=== PATIENT | male | born 1980 | race Caucasian/White ===

== ENCOUNTER 2017-12-15 13:35 | Emergency (ER) | payer OTHER ==
[2017-12-15] MEDS ORDERED: ONDANSETRON 4 MG/2 ML VIAL ONE (14:43)
[2017-12-15] MEDS ORDERED: KETOROLAC 30 MG/ML INJ ONE (14:43)
[2017-12-15 14:53] LABS: Absolute Lymphocytes (CBC) 2.1 K/uL (0.7-4.9); Absolute Monocytes 0.9 K/uL (0.1-1.3); Absolute Neutrophil 7.7 K/uL (1.8-8.0); Eosinophils % 5.7 % (0-4.4); Hematocrit 46.5 % (39.6-49.0); Lymphocytes % 18.2 % (15.3-44.8); MCH 31.9 pg (27.0-35.0); MCV 91.6 fL (80-100); MPV 8.5 fL (7.6-11.3); Monocytes % 8.2 % (3.3-12.3); RBC Red Blood Cell Count 5.07 M/uL (4.33-5.43)
[2017-12-15 14:58] LABS: Urine Blood 3+ (NEG); Urine Glucose NEGATIVE (NEG); Urine Protein 1+ (NEG); Urine Specific Gravity >1.030 (1.005-1.030); Urine pH 5.5 (5.0-7.0)
--- NOTE | 2017-12-15 15:04 | RAD REPORT ---
EXAM DESCRIPTION: CT - Stone Protocol - 12/15/2017 2:47 pm CLINICAL HISTORY: Abdominal pain, left flank pain COMPARISON: CT November 2014 TECHNIQUE: Axial 5 mm thick images were obtained without oral or IV contrast. The [id number] span s the entirety of the system partially obscuring uppermost abdomen and lung bases. All CT scans are performed using dose optimization technique as appropriate and may include automated exposure control or mA/KV adjustment according to patient size. FINDINGS: No hydronephrosis is present. There is a 4 x 1 mm calcification at the left UVJ. This part ially extends into the lumen of the contracted urinary bladder. No other obstructing or nonobstructin g calculi. In the lateral inferior left kidney a 2.4 centimeter rounded low-density exophytic mass lloyd s developed. This has an attenuation value of 18 Hounsfield units. This would strongly favor a cyst. A follow-up nonemergent renal ultrasound could be used to confirm cystic nature. No suspicious renal masses. Isodense masses and pyelonephritis are not excluded on a stone protocol CT scan. Liver shows diffuse fatty infiltration. No focal liver finding. Spleen and pancreas are unremarkable. Gallbladder is contracted. No biliary tree dilatation. No significant adrenal finding. No suspicious bowel findings. No mass or bulky lymphadenopathy. Small fat filled inguinal hernias are present. No free air, free fl uid or inflammatory stranding. No significant bony abnormality. IMPRESSION: Patient has a 4 x 1 mm calcification within the left UVJ at the bladder wall. Stone part ially extends into the lumen of the bladder. The stone does not create any hydronephrosis. No additional calculi seen. A new 2.4 cm exophytic mass lower pole left kidney is very likely a cyst. Follow-up nonemergent renal ultrasound could be performed to confirm. Fatty infiltration of the liver. Isodense masses and pyelonephritis are not excluded on stone protocol technique.
[2017-12-15 15:09] LABS: Albumin 4.2 g/dL (3.4-5.0); Bilirubin Direct 0.1 mg/dL (0-0.2); Bilirubin Total 0.5 mg/dL (0.2-1.0); Potassium 3.7 mmol/L (3.5-5.1); Protein, Total 7.9 g/dL (6.4-8.2)
[2017-12-15 15:11] LABS: Urine Bacteria <20 /HPF (NONE SEEN); Urine Culture Reflex Order NOT NEEDED; Urine Mucus 2+ /HPF (NONE SEEN); Urine RBC 20-50 /HPF (NONE SEEN)
[2017-12-15 15:12] LABS: Urine Amorphous Sediment 1+ /HPF (NONE SEEN)
[2017-12-15] MEDS ORDERED: MAGNESIUM SULFATE 1 gm IVPB 1 GM/100 ML BAG IV ONE (15:32)
[2017-12-15] MEDS ORDERED: TAMSULOSIN 0.4 MG SR CAP ONE (15:32)
[2017-12-15] MEDS ORDERED: NA CHLORIDE 0.9% 500 ML ONE (15:32)
[2017-12-15] MEDS ORDERED: HYDROCODONE/APAP 10/325 TAB ONE (16:03)
--- NOTE | 2017-12-15 16:26 | ER ---
Nurse's Notes [facility] Name: Vincenzo Bales Age: 37 yrs Sex: Male : 1980 Arrival Date: 12/15/2017 Time: 13:40 Bed 26 Private MD: Diagnosis: Calculus of ureter-Left Presentation: 12/15 14:14 Presenting complaint: Patient states: Sudden pain started around lunch in left flank. rv Pt states he has had a pain like this before when he had a kidney stone in the right kidney. Pain rated at 9/10. Transition of care: patient was not received from another setting of care. Onset of symptoms was December 15, 2017. Risk Assessment: Do you want to hurt yourself or someone else? Patient reports no desire to harm self or others. Initial Sepsis Screen: Does the patient meet any 2 criteria? No. Patient's initial sepsis screen is negative. Does the patient have a suspected source of infection? No. Patient's initial sepsis screen is negative. Care prior to arrival: None. 14:14 Method Of Arrival: Ambulatory rv 14:14 Acuity: ALE 3 rv Triage Assessment: 14:18 General: Appears uncomfortable, Behavior is calm, cooperative. Pain: Complains of pain rv in left flank Pain currently is 9 out of 10 on a pain scale. Quality of pain is described as sharp, stabbing. Neuro: Level of Consciousness is awake, alert, obeys commands, Oriented to person, place, time. Respiratory: Airway is patent Respiratory effort is even, unlabored, relaxed, Respiratory pattern is regular, symmetrical. Derm: Skin is pink, warm \T\ dry. Historical: - Allergies: 14:17 No Known Allergies; rv - Home Meds: 14:17 valsartan 160 mg oral tab 1 tab once daily for Hypertension [Active]; rv - PMHx: 14:17 Hypertension; defective aortic valve; rv 14:18 Kidney stones; rv - PSHx: 14:17 None; rv - Immunization history:: Adult Immunizations up to date. - Social history:: Smoking status: Patient/guardian denies using tobacco. - Ebola Screening: : Patient negative for fever greater than or equal to 101.5 degrees Fahrenheit, and additional compatible Ebola Virus Disease symptoms Patient denies exposure to infectious person Patient denies travel to an Ebola-affected area in the 21 days before illness onset No symptoms or risks identified at this time. Screenin:05 Abuse screen: Denies threats or abuse. Denies injuries from another. Nutritional kr2 screening: No deficits noted. Tuberculosis screening: No symptoms or risk factors identified. Fall Risk None identified. Assessment: 15:03 General: Appears in no apparent distress. uncomfortable, obese, well groomed, Behavior kr2 is calm, cooperative, appropriate for age. Pain: Complains of pain in left flank Pain radiates to left mid back Pain currently is 10 out of 10 on a pain scale. Quality of pain is described as aching, sharp, shooting, Is continuous, Alleviated by nothing. Neuro: Level of Consciousness is awake, alert, obeys commands, Oriented to person, place, time, situation. Cardiovascular: Capillary refill < 3 seconds in bilateral fingers Patient's skin is warm and dry. Respiratory: Airway is patent Respiratory effort is even, unlabored, Respiratory pattern is regular, symmetrical. GI: Abdomen is non-distended, obese, Bowel sounds present X 4 quads. : Urine is cloudy, pierre. EENT: Oral mucosa is moist. Derm: Skin is intact, is healthy with good turgor, Skin is pink, warm \T\ dry. Musculoskeletal: Circulation, motion, and sensation intact. 16:29 Reassessment: Patient appears in no apparent distress at this time. Patient and/or kr2 family updated on plan of care and expected duration. Pain level reassessed. Patient is alert, oriented x 3, equal unlabored respirations, skin warm/dry/pink. Patient states symptoms have improved. Vital Signs: 14:18 BP 128 / 80; Pulse 81; Resp 18; Temp 97.8; Pulse Ox 99% on R/A; Weight 115.67 kg; rv Height 5 ft. 8 in. (172.72 cm); Pain 9/10; 15:06 BP 127 / 81; Pulse 77; Resp 17; Pulse Ox 96% on R/A; kr2 16:29 BP 119 / 81; Pulse 84; Resp 17; Pulse Ox 97% on R/A; kr2 14:18 Body Mass Index 38.77 (115.67 kg, 172.72 cm) rv ED Course: 13:40 Patient arrived in ED. rg4 14:15 Triage completed. rv 14:18 Arm band placed on right wrist. Patient placed in an exam room. rv 14:26 Blas Razo PA is PHCP. cp 14:26 Vincenzo Patel MD is Attending Physician. cp 14:29 Hoa Neville, TAQUERIA is Primary Nurse. kr2 14:[address] vr 14:44 CT completed. Patient tolerated procedure well. Patient moved back from CT. vm2 14:47 CT Stone Protocol In Process Unspecified. EDMS 15:06 Patient has correct armband on for positive identification. Bed in low position. Call kr2 light in reach. Side rails up X 1. Pulse ox on. NIBP on. Door closed. Head of bed elevated. 16:24 Bernard Vyas MD is Referral Physician. cp 16:30 No provider procedures requiring assistance completed. IV discontinued, intact, kr2 bleeding controlled, No redness/swelling at site. Pressure dressing applied. Administered Medications: 14:43 Drug: TORadol 30 mg Route: IVP; Site: left antecubital; kr2 15:00 Follow up: Response: No adverse reaction; Pain is decreased kr2 14:43 Drug: Zofran 4 mg Route: IVP; Site: left antecubital; kr2 15:00 Follow up: Response: No adverse reaction kr2 15:40 Drug: Magnesium Sulfate 1 grams Route: IVPB; Infused Over: 1 hrs; Site: left kr2 antecubital; 16:32 Follow up: Response: No adverse reaction; IV Status: Completed infusion kr2 15:40 Drug: Flomax 0.4 mg Route: PO; kr2 16:31 Follow up: Response: No adverse reaction kr2 15:41 Drug: NS 0.9% 500 ml Route: IV; Rate: bolus; Site: left antecubital; kr2 16:31 Follow up: Response: No adverse reaction; IV Status: Completed infusion kr2 16:00 Drug: HYDROcodone-acetaminophen 10 mg-325 mg 1 tabs Route: PO; kr2 16:31 Follow up: Response: No adverse reaction; Pain is decreased kr2 Outcome: 16:25 Discharge ordered by MD. cp 16:30 Discharged to home ambulatory, with family. kr2 16:30 Condition: good 16:30 Discharge instructions given to patient, family, Instructed on discharge instructions, follow up and referral plans. Demonstrated understanding of instructions, follow-up care, Prescriptions given X 3. 16:32 Patient left the ED. kr2 Signatures: Dispatcher [employer] EDMS Monisha Bales Corey, PA PA cp Garcia, Rubi 4 Monisha Sams 2 Hoa Neville, RN RN kr2 Trung Bustillos RN RN rv
--- NOTE | 2017-12-15 16:26 | EDPHYS ---
Physician Documentation [facility] Name: Vincenzo Blaes Age: 37 yrs Sex: Male : 1980 Arrival Date: 12/15/2017 Time: 13:40 Bed 26 Private MD: ED Physician AmandaVincenzo HPI: 12/15 14:29 This 37 yrs old Male presents to ER via Ambulatory with complaints of left cp flank pain. 14:29 The patient presents with pain that is acute, with no known mechanism of injury. The cp symptoms are located in the left mid back. The pain radiates to the left belt line. Onset: The symptoms/episode began/occurred suddenly, 45 minute(s) ago. Associated signs and symptoms: Pertinent positives: nausea, diarrhea. Historical: - Allergies: 14:17 No Known Allergies; rv - Home Meds: 14:17 valsartan 160 mg oral tab 1 tab once daily for Hypertension [Active]; rv - PMHx: 14:17 Hypertension; defective aortic valve; rv 14:18 Kidney stones; rv - PSHx: 14:17 None; rv - Immunization history:: Adult Immunizations up to date. - Social history:: Smoking status: Patient/guardian denies using tobacco. - Ebola Screening: : Patient negative for fever greater than or equal to 101.5 degrees Fahrenheit, and additional compatible Ebola Virus Disease symptoms Patient denies exposure to infectious person Patient denies travel to an Ebola-affected area in the 21 days before illness onset No symptoms or risks identified at this time. ROS: 14:35 Constitutional: Negative for body aches, chills, fever, poor PO intake. cp 14:35 Eyes: Negative for injury, pain, redness, and discharge. cp 14:35 ENT: Negative for drainage from ear(s), ear pain, sore throat, difficulty swallowing, difficulty handling secretions. 14:35 Neck: Negative for pain with movement, pain at rest, stiffness, tenderness. 14:35 Cardiovascular: Negative for chest pain, edema, palpitations. 14:35 Respiratory: Negative for cough, dyspnea on exertion, shortness of breath, wheezing. 14:35 Abdomen/GI: Positive for abdominal pain, nausea, of the left lower quadrant, Negative for vomiting, diarrhea, constipation, black/tarry stool, rectal bleeding. 14:35 Back: Positive for flank pain, on the left. 14:35 : Negative for urinary symptoms, testicular pain 14:35 MS/extremity: Negative for injury or acute deformity, decreased range of motion, paresthesias, swelling, tenderness. 14:35 Skin: Negative for cellulitis, rash. 14:35 Neuro: Negative for altered mental status, dizziness, headache, numbness, weakness. 14:35 All other systems are negative. Exam: 14:40 Constitutional: The patient appears in no acute distress, alert, awake, cp non-diaphoretic, non-toxic, well developed, well nourished, uncomfortable. 14:40 Head/Face: Normocephalic, atraumatic. Eyes: Pupils equal round and reactive to light, cp extra-ocular motions intact. Lids and lashes normal. Conjunctiva and sclera are non-icteric and not injected. Cornea within normal limits. Periorbital areas with no swelling, redness, or edema. ENT: Nares patent. No nasal discharge, no septal abnormalities noted. Tympanic membranes are normal and external auditory canals are clear. Oropharynx with no redness, swelling, or masses, exudates, or evidence of obstruction, uvula midline. Mucous membranes moist. Neck: Trachea midline, no thyromegaly or masses palpated, and no cervical lymphadenopathy. Supple, full range of motion without nuchal rigidity, or vertebral point tenderness. No Meningismus. Chest/axilla: Normal chest wall appearance and motion. Nontender with no deformity. No lesions are appreciated. Cardiovascular: Regular rate and rhythm with a normal S1 and S2. No gallops, murmurs, or rubs. Normal PMI, no JVD. No pulse deficits. Respiratory: Lungs have equal breath sounds bilaterally, clear to auscultation and percussion. No rales, rhonchi or wheezes noted. No increased work of breathing, no retractions or nasal flaring. 14:40 Abdomen/GI: Inspection: abdomen appears normal, Bowel sounds: active, all quadrants, Palpation: soft, in all quadrants, moderate abdominal tenderness, in the left lower quadrant, rebound tenderness, is not appreciated, voluntary guarding, is not appreciated, involuntary guarding, is not appreciated. 14:40 Back: ROM is normal, CVA tenderness, that is moderate, is noted on the left. 14:40 Musculoskeletal/extremity: Exam is negative for bony tenderness, calf tenderness, decreased range of motion, injury. 14:40 Skin: cellulitis, is not appreciated, no rash present. 14:40 Neuro: Orientation: to person, place \T\ time. Mentation: lucid, able to follow commands, Cerebellar function: is grossly normal, Motor: moves all fours, strength is normal, Sensation: no obvious gross deficits, Gait: is steady. Vital Signs: 14:18 BP 128 / 80; Pulse 81; Resp 18; Temp 97.8; Pulse Ox 99% on R/A; Weight 115.67 kg; rv Height 5 ft. 8 in. (172.72 cm); Pain 9/10; 15:06 BP 127 / 81; Pulse 77; Resp 17; Pulse Ox 96% on R/A; kr2 16:29 BP 119 / 81; Pulse 84; Resp 17; Pulse Ox 97% on R/A; kr2 14:18 Body Mass Index 38.77 (115.67 kg, 172.72 cm) rv MDM: 14:27 Patient medically screened. cp 15:00 Differential diagnosis: sciatica, Herniated disc UTI, kidney stone, hernia. cp 16:24 Data reviewed: vital signs, nurses notes, lab test result(s), radiologic studies, CT cp scan. 16:24 Counseling: I had a detailed discussion with the patient and/or guardian regarding: the cp historical points, exam findings, and any diagnostic results supporting the discharge/admit diagnosis, lab results, radiology results, to return to the emergency department if symptoms worsen or persist or if there are any questions or concerns that arise at home. Response to treatment: the patient's symptoms have markedly improved after treatment, Pain and nausea markedly improved. Will discharge to home for continued monitoring. 12/15 14:32 Order name: Amylase, Serum cp 12/15 14:32 Order name: Basic Metabolic Panel cp 12/15 14:32 Order name: CBC with Diff; Complete Time: 15:22 cp 12/15 14:32 Order name: Creatinine for Radiology; Complete Time: 15:22 cp 12/15 14:32 Order name: Hepatic Function; Complete Time: 15:22 cp 12/15 14:32 Order name: Lipase; Complete Time: 15:22 cp 12/15 14:32 Order name: Urine Microscopic Only; Complete Time: 15:22 cp 12/15 14:32 Order name: CT Stone Protocol; Complete Time: 15:22 cp 12/15 14:32 Order name: Amylase Level; Complete Time: 15:22 EDMS 12/15 14:32 Order name: Basic Metabolic Panel; Complete Time: 15:22 EDMS 12/15 14:56 Order name: Urine Dipstick--Ancillary (enter results) ag 12/15 14:56 Order name: Urine Dipstick-Ancillary; Complete Time: 15:22 EDMS 12/15 14:32 Order name: IV Saline Lock; Complete Time: 14:47 cp 12/15 14:32 Order name: Labs collected and sent; Complete Time: 14:47 cp 12/15 14:32 Order name: Urine Dipstick-Ancillary (obtain specimen); Complete Time: 14:47 cp Administered Medications: 14:43 Drug: TORadol 30 mg Route: IVP; Site: left antecubital; kr2 15:00 Follow up: Response: No adverse reaction; Pain is decreased kr2 14:43 Drug: Zofran 4 mg Route: IVP; Site: left antecubital; kr2 15:00 Follow up: Response: No adverse reaction kr2 15:40 Drug: Magnesium Sulfate 1 grams Route: IVPB; Infused Over: 1 hrs; Site: left kr2 antecubital; 16:32 Follow up: Response: No adverse reaction; IV Status: Completed infusion kr2 15:40 Drug: Flomax 0.4 mg Route: PO; kr2 16:31 Follow up: Response: No adverse reaction kr2 15:41 Drug: NS 0.9% 500 ml Route: IV; Rate: bolus; Site: left antecubital; kr2 16:31 Follow up: Response: No adverse reaction; IV Status: Completed infusion kr2 16:00 Drug: HYDROcodone-acetaminophen 10 mg-325 mg 1 tabs Route: PO; kr2 16:31 Follow up: Response: No adverse reaction; Pain is decreased kr2 Disposition: 18:55 Co-signature as Attending Physician, Vincenzo Patel MD I agree with the assessment and kdr plan of care. Disposition: 12/15/17 16:25 Discharged to Home. Impression: Calculus of ureter - Left. - Condition is Stable. - Discharge Instructions: Kidney Stones, Renal Colic. - Prescriptions for Tylenol- Codeine #3 300-30 mg Oral Tablet - take 2 tablets by ORAL route every 6 hours As needed; 20 tablet. Zofran 4 mg Oral Tablet - take 1 tablet by ORAL route every 12 hours As needed; 20 tablet. Flomax 0.4 mg Oral Capsule, Sust. Release 24 hr - take 1 capsule by ORAL route once daily As needed 1/2 hour following the same meal each day; 5 capsule. - Medication Reconciliation Form, Thank You Letter, Antibiotic Education, Prescription Opioid Use form. - Follow up: Bernard Vyas MD; When: 2 - 3 days; Reason: if symptoms continue. - Problem is new. - Symptoms have improved. Signatures: Dispatcher [employer] EDMS Vincenzo Patel MD MD kdr Blas Razo PA PA cp Hoa Neville RN RN kr2 Trung Bustillos RN RN rv Corrections: (The following items were deleted from the chart) 16:32 16:25 12/15/2017 16:25 Discharged to Home. Impression: Calculus of ureter - Left. kr2 Condition is Stable. Forms are Medication Reconciliation Form, Thank You Letter, Antibiotic Education, Prescription Opioid Use. Follow up: Bernard Vyas; When: 2 - 3 days; Reason: if symptoms continue. Problem is new. Symptoms have improved. cp
[2017-12-15 16:36] VITALS: TEMP 97.8
[2017-12-15 16:38] VITALS: BP 119/81; O2SAT 97
== END 2017-12-15 16:32 | disposition home or self-care (01) ==
LOC: ER 13:35
DX: N20.1 Calculus of ureter (principal); I10 Essential (primary) hypertension; Z87.442 Personal history of urinary calculi
CPT/HCPCS: 36415; 74176; 76377; 80048; 80076; 81003; 81015; 82150; 83690; 85025; 96365; 96375; 99284; J2405; J3475

== ENCOUNTER 2018-10-21 02:46 | Emergency (ER) | payer OTHER, SELFPAY ==
--- OUTSIDE RECORDS SUMMARY | 2018-10-21 02:48 | XMS REPORT | Clinical Summary ---
:[address] [facility] Address [address] [place] [address] Care Team Providers Name Role Phone Rambo Aguirre MD Primary Care Provider Allergies Not on File Medications Not on file Active Problems Not on file Encounters Date Type Specialty Care Team Description 02/20/2018 Office Visit Neuropsychology Matheus Russell, PhD Memory loss 01/24/2018 Telephone Neurosurgery Matheus Russell, PhD after 10/20/2017 Social History Tobacco Use Types Packs/Day Years Used Date Never Assessed Sex Assigned at Date Recorded Not on file Job Start Date Occupation Industry Not on file Not on file Not on file Travel History Travel Start Travel End No recent travel history available. Last Filed Vital Signs Not on file Plan of Treatment Health Maintenance Due Date Last Done Comments INFLUENZA VACCINE 12/13/2018 Results Not on fileafter 10/20/2017 Advance Directives Patient has advance care planning documents on file. For more information, please contact:[facility] [place] [address]
--- OUTSIDE RECORDS SUMMARY | 2018-10-21 02:49 | XMS REPORT ---
:1980 [facility] Address [address] [place] [address] Dr. Vu [address] [place] [id number] Care Team Providers Name Role Phone Unavailable Unavailable Unavailable Problems This patient has no known problems. Allergies, Adverse Reactions, Alerts This patient has no known allergies or adverse reactions. Medications This patient has no known medications.
[2018-10-21] MEDS ORDERED: ONDANSETRON 4 MG/2 ML VIAL ONE (03:21)
[2018-10-21] MEDS ORDERED: KETOROLAC 30 MG/ML INJ ONE (03:21)
--- NOTE | 2018-10-21 04:02 | EDPHYS ---
Physician Documentation [facility] Name: Vincenzo Bales Age: 38 yrs Sex: Male : 1980 Arrival Date: 10/21/2018 Time: 02:49 Bed 5 Private MD: DEVIN LEVI ED Physician Darrel Dash HPI: 10/21 03:30 This 38 yrs old Male presents to ER via Ambulatory with complaints of Flank ps1 Pain. 03:30 patient with a hx of kidney stones presenting with left flank pain. Pain rated as ps1 moderate. Onset within the last day. Pain rated as severe. No hematuria. No fever. . Historical: - Allergies: 03:04 No Known Allergies; fc - Home Meds: 03:04 None [Active]; fc - PMHx: 03:04 defective aortic valve; Hypertension; Kidney stones; fc - PSHx: 03:04 Tonsillectomy; Adenoids; Appendectomy; fc - Immunization history:: Last tetanus immunization: up to date. - Social history:: Smoking status: Patient uses tobacco products, denies chronic smoking, but will smoke occasionally. - Ebola Screening: : Patient negative for fever greater than or equal to 101.5 degrees Fahrenheit, and additional compatible Ebola Virus Disease symptoms Patient denies exposure to infectious person Patient denies travel to an Ebola-affected area in the 21 days before illness onset. ROS: 03:30 Constitutional: Negative for fever, chills, and weight loss, Eyes: Negative for injury, ps1 pain, redness, and discharge, ENT: Negative for injury, pain, and discharge, Cardiovascular: Negative for chest pain, palpitations, and edema, Respiratory: Negative for shortness of breath, cough, wheezing, and pleuritic chest pain, Abdomen/GI: Negative for abdominal pain, nausea, vomiting, diarrhea, and constipation, MS/Extremity: Negative for injury and deformity, Skin: Negative for injury, rash, and discoloration, Neuro: Negative for headache, weakness, numbness, tingling, and seizure. 03:30 : Positive for flank pain. Exam: 03:30 Constitutional: This is a well developed, well nourished patient who is awake, alert, ps1 and in no acute distress. Head/Face: Normocephalic, atraumatic. Eyes: Pupils equal round and reactive to light, extra-ocular motions intact. Lids and lashes normal. Conjunctiva and sclera are non-icteric and not injected. Chest/axilla: Normal chest wall appearance and motion. Nontender with no deformity. No lesions are appreciated. Cardiovascular: Regular rate and rhythm. No gallops, murmurs, or rubs. Normal PMI, no JVD. No pulse deficits. Respiratory: Lungs have equal breath sounds bilaterally, clear to auscultation and percussion. No rales, rhonchi or wheezes noted. No increased work of breathing, no retractions or nasal flaring. Abdomen/GI: Soft, non-tender, with normal bowel sounds. No distension or tympany. No guarding or rebound. No evidence of tenderness throughout. Skin: Warm, dry with normal turgor. Normal color with no rashes, no lesions, and no evidence of cellulitis. MS/ Extremity: Pulses equal, no cyanosis. Neurovascular intact. Full, normal range of motion. Neuro: Awake and alert, GCS 15, oriented to person, place, time, and situation. Cranial nerves II-XII grossly intact. Sensory grossly intact. Psych: Awake, alert, with orientation to person, place and time. Behavior, mood, and affect are within normal limits. Vital Signs: 02:50 BP 128 / 71; Pulse 79; Resp 20; Temp 98.5(O); Pulse Ox 98% on R/A; Weight 115.67 kg fc (R); Height 5 ft. 9 in. (175.26 cm) (R); Pain 10/10; 03:30 BP 129 / 85; Pulse 72; Resp 16; Temp 98.3; Pulse Ox 99% on R/A; Pain 3/10; aa1 02:50 Body Mass Index 37.66 (115.67 kg, 175.26 cm) fc MDM: 03:10 Patient medically screened. ps1 03:58 Data reviewed: vital signs, nurses notes, lab test result(s), radiologic studies, ps1 calculus in the bladder. Continue medical expulsion therapy. . Counseling: I had a detailed discussion with the patient and/or guardian regarding: the historical points, exam findings, and any diagnostic results supporting the discharge/admit diagnosis, lab results, radiology results, the need for outpatient follow up, for definitive care, a urologist, to return to the emergency department if symptoms worsen or persist or if there are any questions or concerns that arise at home. 10/21 02:56 Order name: CBC with Diff ps1 10/21 02:56 Order name: Lipase ps1 10/21 02:56 Order name: CMP ps1 10/21 02:56 Order name: CT Stone Protocol ps1 10/21 02:57 Order name: CBC with Automated Diff EDMS 10/21 02:56 Order name: IV Saline Lock; Complete Time: 03:02 ps1 10/21 02:56 Order name: Labs collected and sent; Complete Time: 03:02 ps1 Administered Medications: 03:15 Drug: Zofran 4 mg Route: IVP; Site: left antecubital; aa1 04:14 Follow up: Response: No adverse reaction; Nausea is decreased aa1 03:17 Drug: TORadol 30 mg Route: IVP; Site: left antecubital; aa1 04:15 Follow up: Response: No adverse reaction; Pain is decreased aa1 Disposition: 10/21/18 04:01 Discharged to Home. Impression: Kidney stone. - Condition is Stable. - Discharge Instructions: Kidney Stones. - Prescriptions for Zofran 4 mg Oral Tablet - take 1 tablet by ORAL route every 12 hours As needed; 20 tablet. - Medication Reconciliation Form, Thank You Letter, Antibiotic Education, Prescription Opioid Use form. - Follow up: Bernard Vyas MD; When: As needed; Reason: Further diagnostic work-up, Recheck today's complaints, Continuance of care, Re-evaluation by your physician. Follow up: Emergency Department; When: As needed; Reason: Fever > 102 F, Worsening of condition. - Problem is new. - Symptoms have improved. Signatures: Dispatcher [employer] [facility] Kasey De La Cruz RN RN aa1 Barbie Ramirez RN RN Darrel Chavez MD MD ps1 Corrections: (The following items were deleted from the chart) 04:15 02:56 Urine Dipstick-Ancillary ordered. ps1 aa1 04:18 04:01 10/21/2018 04:01 Discharged to Home. Impression: Kidney stone. Condition is aa1 Stable. Forms are Medication Reconciliation Form, Thank You Letter, Antibiotic Education, Prescription Opioid Use. Follow up: Bernard Vyas; When: As needed; Reason: Further diagnostic work-up, Recheck today's complaints, Continuance of care, Re-evaluation by your physician. Follow up: Emergency Department; When: As needed; Reason: Fever > 102 F, Worsening of condition. Problem is new. Symptoms have improved. ps1
--- NOTE | 2018-10-21 04:02 | ER ---
Nurse's Notes [facility] Name: Vincenzo Bales Age: 38 yrs Sex: Male : 1980 Arrival Date: 10/21/2018 Time: 02:49 Bed 5 Private MD: DEVIN LEVI Diagnosis: Kidney stone Presentation: 10/21 02:50 Presenting complaint: Patient states: that he was woken up by pain to his left flank. fc Thinks he has a kidney stone. Positive nausea and vomiting. Transition of care: patient was not received from another setting of care. Onset of symptoms was October 21, 2018 at 02:15. Risk Assessment: Do you want to hurt yourself or someone else? Patient reports no desire to harm self or others. Initial Sepsis Screen: Does the patient meet any 2 criteria? No. Patient's initial sepsis screen is negative. Does the patient have a suspected source of infection? No. Patient's initial sepsis screen is negative. Care prior to arrival: None. 02:50 Method Of Arrival: Ambulatory 02:50 Acuity: ALE 3 fc Historical: - Allergies: 03:04 No Known Allergies; fc - Home Meds: 03:04 None [Active]; fc - PMHx: 03:04 defective aortic valve; Hypertension; Kidney stones; fc - PSHx: 03:04 Tonsillectomy; Adenoids; Appendectomy; fc - Immunization history:: Last tetanus immunization: up to date. - Social history:: Smoking status: Patient uses tobacco products, denies chronic smoking, but will smoke occasionally. - Ebola Screening: : Patient negative for fever greater than or equal to 101.5 degrees Fahrenheit, and additional compatible Ebola Virus Disease symptoms Patient denies exposure to infectious person Patient denies travel to an Ebola-affected area in the 21 days before illness onset. Screenin:50 Abuse screen: Denies threats or abuse. Nutritional screening: No deficits noted. fc Tuberculosis screening: No symptoms or risk factors identified. Fall Risk None identified. Assessment: 03:00 General: Appears in no apparent distress. uncomfortable, Behavior is calm, cooperative, aa1 appropriate for age. Pain: Complains of pain in posterior aspect of right lateral abdomen Pain began suddenly. Neuro: Level of Consciousness is awake, alert, obeys commands, Oriented to person, place, time, situation, Moves all extremities. Full function Gait is steady. Respiratory: Airway is patent Respiratory effort is even, unlabored, Respiratory pattern is regular, symmetrical. GI: Reports nausea, vomiting. : Reports pain in left flank(s). EENT: No signs and/or symptoms were reported regarding the EENT system. Derm: Skin is intact, is healthy with good turgor, Skin is pink, warm \T\ dry. Musculoskeletal: Circulation, motion, and sensation intact. Capillary refill < 3 seconds. 04:15 Reassessment: Patient appears in no apparent distress at this time. Patient is alert, aa1 oriented x 3, equal unlabored respirations, skin warm/dry/pink. Discussed d/c \T\ f/u instructions with pt; denies questions or concerns at this time Patient states feeling better. Patient states symptoms have improved. Vital Signs: 02:50 BP 128 / 71; Pulse 79; Resp 20; Temp 98.5(O); Pulse Ox 98% on R/A; Weight 115.67 kg fc (R); Height 5 ft. 9 in. (175.26 cm) (R); Pain 10/10; 03:30 BP 129 / 85; Pulse 72; Resp 16; Temp 98.3; Pulse Ox 99% on R/A; Pain 3/10; aa1 02:50 Body Mass Index 37.66 (115.67 kg, 175.26 cm) fc ED Course: 02:49 Patient arrived in ED. am2 02:50 DEVIN LEVI is Private Physician. am2 02:50 Arm band placed on Patient placed in an exam room, on a stretcher. fc 02:50 Patient has correct armband on for positive identification. Placed in gown. Bed in low fc position. Call light in reach. Pulse ox on. NIBP on. 02:50 No provider procedures requiring assistance completed. fc 02:53 Darrel Dash MD is Attending Physician. ps1 02:56 Kasey De La Cruz RN is Primary Nurse. aa1 03:02 Triage completed. fc 03:02 Inserted saline lock: 20 gauge in left antecubital area, using aseptic technique. fc ,using aseptic technique. by [employer]. 03:36 CT Stone Protocol In Process Unspecified. EDMS 04:00 Bernard Vyas MD is Referral Physician. ps1 04:16 IV discontinued, intact, bleeding controlled, No redness/swelling at site. Pressure aa1 dressing applied. Administered Medications: 03:15 Drug: Zofran 4 mg Route: IVP; Site: left antecubital; aa1 04:14 Follow up: Response: No adverse reaction; Nausea is decreased aa1 03:17 Drug: TORadol 30 mg Route: IVP; Site: left antecubital; aa1 04:15 Follow up: Response: No adverse reaction; Pain is decreased aa1 Outcome: 04:01 Discharge ordered by . ps1 04:16 Discharged to home ambulatory. aa1 04:16 Condition: good 04:16 Discharge instructions given to patient, Instructed on discharge instructions, follow up and referral plans. medication usage, Demonstrated understanding of instructions, follow-up care, medications, Prescriptions given X 1. 04:18 Patient left the ED. aa1 Signatures: Dispatcher [employer] EDMS Kasey De La Cruz RN RN aa1 Barbie Ramirez RN RN fc Moreno, Amanda am2 Darrel Dash MD MD ps1
[2018-10-21 04:07] LABS: Absolute Lymphocytes (CBC) 3.5 K/uL (0.7-4.9); Absolute Monocytes 0.9 K/uL (0.1-1.3); Absolute Neutrophil 5.5 K/uL (1.8-8.0); Basophils % 1.1 % (0-1.3); Eosinophils % 5.4 % (0-4.4); Hematocrit 44.9 % (39.6-49.0); Lymphocytes % 33.1 % (15.3-44.8); MPV 8.9 fL (7.6-11.3); Monocytes % 8.4 % (3.3-12.3); RBC Red Blood Cell Count 4.94 M/uL (4.33-5.43)
[2018-10-21 04:21] LABS: Albumin 3.8 g/dL (3.4-5.0); Bilirubin Total 0.3 mg/dL (0.2-1.0); Potassium 3.5 mmol/L (3.5-5.1); Protein, Total 7.2 g/dL (6.4-8.2)
[2018-10-21 05:42] VITALS: BP 129/85; TEMP 98.3; O2SAT 99
--- NOTE | 2018-10-22 11:01 | RAD REPORT ---
EXAM DESCRIPTION: CT - Stone Protocol - 10/21/2018 4:00 am CLINICAL HISTORY: The patient is 38 years old and is Male; FLANK PAIN TECHNIQUE: Axial computed tomography images of the abdomen and pelvis without intravenous contrast. Sagittal and coronal reformatted images were created and reviewed. This CT exam was performed usi ng one or more of the following dose reduction techniques: automated exposure control, adjustment o f the mA and/or kV according to patient size, and/or use of iterative reconstruction technique. COMPARISON: CT of the abdomen and pelvis December 15, 2017. FINDINGS: LUNG BASES: Unremarkable. No mass. No consolidation. ABDOMEN: LIVER: There is a diffuse decrease in hepatic parenchymal density, consistent with fatty infiltr ation. GALLBLADDER AND BILE DUCTS: The gallbladder is contracted. PANCREAS: Unremarkable. No ductal dilation. SPLEEN: Unremarkable. ADRENALS: Unremarkable. No mass. KIDNEYS AND URETERS: A 3.3 cm cyst off of the left kidney is present. No follow-up imaging is re commended. A punctate left intrarenal calcification is present. There is no hydronephrosis or hydrour eter of either kidney. STOMACH AND BOWEL: The stomach is distended with food contents. The small bowel is normal in stephanie iber. Stool is present throughout colon. There is no mucosal thickening or evidence of bowel obstruct ion. PELVIS: APPENDIX: The appendix is surgically absent. BLADDER: The bladder is moderately distended. A 4 mm calcification is present within the base of the bladder. No stones. REPRODUCTIVE: Unremarkable as visualized. ABDOMEN and PELVIS: INTRAPERITONEAL SPACE: Unremarkable. No free air. No significant fluid collection. BONES/JOINTS: No acute fracture. SOFT TISSUES: There are small bilateral fat containing inguinal hernias. VASCULATURE: Unremarkable. No abdominal aortic aneurysm. LYMPH NODES: Unremarkable. No enlarged lymph nodes. IMPRESSION: 1. Left nephrolithiasis without obstruction. 2. Calculus within the base of the bladder. This is likely the calcification that was present on pr ior CT. There is no bladder wall thickening. 3. Chronic findings as above. Electronically signed by: Grazyna Lassiter MD 10/21/2018 3:43 AM CDT Due to temporary technical issues with the PACS/Fluency reporting system, reports are being signed by the in house radiologist as a courtesy to ensure prompt reporting. The interpreting radiologist is f irmaly responsible for the content of the report.
== END 2018-10-21 04:18 | disposition home or self-care (01) ==
LOC: ER 02:46
DX: N20.0 Calculus of kidney (principal); I10 Essential (primary) hypertension; Z72.0 Tobacco use; Z87.442 Personal history of urinary calculi
CPT/HCPCS: 36415; 74176; 76377; 80053; 83690; 85025; 96374; 96375; 99284; J2405

== ENCOUNTER 2019-07-12 06:22 | Day surgery (SDC) | payer BC ==
--- NOTE | 2019-07-09 12:33 | RAD REPORT ---
EXAM DESCRIPTION: RAD - Chest Pa And Lat (2 Views) - 07/09/2019 12:27 pm CLINICAL HISTORY: left and right heart cath Chest pain. COMPARISON: Chest Pa And Lat (2 Views) dated 01/18/2017; Chest Pa And Lat (2 Views) dated 06/30/2016; A BDOMEN 1 VIEW KUB dated 11/25/2014 FINDINGS: The lungs are clear. The heart is normal in size. No displaced fractures. IMPRESSION: No acute or concerning finding suspected.
[2019-07-09 12:40] LABS: Absolute Lymphocytes (CBC) 2.4 K/uL (0.7-4.9); Basophils % 1.4 % (0-1.3); Hematocrit 45.4 % (39.6-49.0); Lymphocytes % 28.5 % (15.3-44.8); MPV 8.5 fL (7.6-11.3); RBC Red Blood Cell Count 4.95 M/uL (4.33-5.43)
[2019-07-09 12:44] LABS: Protime INR 0.92
[2019-07-09 12:55] LABS: Potassium 4.2 mmol/L (3.5-5.1)
--- NOTE | 2019-07-10 08:20 | EKG ---
Test Date: 2019-07-09 Test Time: 12:11:41 Advanced Quality Engineer: SHIRAZ MEASUREMENT RESULTS: Intervals: Rate: 62 [place]: 162 QRSD: 102 QT: 404 QTc: 410 [place]: P: 53 [place]: 162 QRS: 23 T: 9 INTERPRETIVE STATEMENTS: Normal sinus rhythm Normal ECG Compared to ECG 01/07/1996 18:27:00 No significant changes Electronically Signed On 07-10-19 08:19:52 DIAMOND SELECTOR by Amos Garay
--- OUTSIDE RECORDS SUMMARY | 2019-07-12 06:24 | XMS REPORT ---
:1980 [facility] Address [address] [place] [address] Dr. Vu [address] [place] [id number] Care Team Providers Name Role Phone Unavailable Unavailable Unavailable Problems This patient has no known problems. Allergies, Adverse Reactions, Alerts This patient has no known allergies or adverse reactions. Medications This patient has no known medications.
[2019-07-12] MEDS ORDERED: HEPA 1000U/500MLS 1,000 UNIT/500 ML BAG IV ONE ×3 (06:40→08:05)
[2019-07-12] MEDS ORDERED: MIDAZOLAM HCL 2 MG/2 ML INJ ONE (06:42)
[2019-07-12] MEDS ORDERED: LIDOCAINE 1% MPF 30 ML VIAL ONE (06:43)
[2019-07-12] MEDS ORDERED: NITROGLYCERIN 100 MCG/ML SYR (for cath lab use only) IV ONE (06:43)
[2019-07-12] MEDS ORDERED: ATROPINE SULF 1 MG/10 ML SYR IV ONE (06:43)
[2019-07-12] MEDS ORDERED: NITROGLYCERIN/D5W 0 MG/0 ML BTL IV ONE (06:43)
[2019-07-12] MEDS ORDERED: NA CHLORIDE 0.9% 100 ML IV ONE (06:43)
[2019-07-12] MEDS ORDERED: FENTANYL CITR 100 MCG/2 ML ONE ×2 (06:43→07:40)
[2019-07-12] MEDS ORDERED: NA CHLORIDE 0.9% 500 ML ONE (06:52)
[2019-07-12] MEDS ORDERED: MIDAZOLAM HCL 5 MG/5 ML INJ ONE (07:27)
--- NOTE | 2019-07-12 10:36 | RAD REPORT ---
EXAM DESCRIPTION: CT - Abdomen Pelvis Wo Contrast - 07/12/2019 9:06 am CLINICAL HISTORY: post op cath Abdominal and pelvic pain post catheterization COMPARISON: Stone Protocol dated 10/21/2018; Stone Protocol dated 12/15/2017; CTSTONE PROTOCOL dated 11/12 TECHNIQUE: Axial [address] imaging of the abdomen and pelvis was performed without IV contrast. No IV contrast was given because of allergy, abnormal renal function, patient refusal or physician re quest. No oral contrast present. Contrast is present in the system from the catheterization procedure. All CT scans are performed using dose optimization technique as appropriate and may include automated exposure control or mA/KV adjustment according to patient size. FINDINGS: No suspicious findings in the lung bases. Posterior gutter stranding is believed to be ate lectasis. Moderately prominent fatty infiltration is present in the liver with spared parenchyma at the gallbla dder fossa. No focal liver lesion. Spleen and pancreas show no suspicious findings. Gallbladder and b iliary tree are also without suspicious finding. No hydronephrosis of either kidney. No active or acute renal parenchymal process seen. There is an ex ophytic cyst that is similar to the October 2018 study. Contrast filled urinary bladder shows no suspici ous finding. Prostate gland and seminal vesicles are normal. No significant adrenal finding. No dilated bowel loops or bowel wall thickening. Small bilateral fat filled inguinal hernias are pre sent. No mass or bulky lymphadenopathy. No omental thickening. No suspicious bony findings. Minimal stranding is seen in the subcutaneous fatty tissues between the skin and right common femoral artery. This is well within normal limits for catheterization procedure. There is no right inguinal region and hematoma. No pseudoaneurysm or other suspicious finding. There is no retroperitoneal hemor rhage. No abnormality in the peritoneal or retroperitoneal spaces. IMPRESSION: Normal, minimal post catheterization stranding in the subcutaneous fatty tissues overlyi ng the right common femoral vein. No hematoma or pseudoaneurysm. No acute peritoneal or retroperitoneal process. Diffuse fatty infiltration of the liver. Full assessment is limited is the absence of IV contrast.
[2019-07-12 12:47] VITALS: BP 114/59; O2SAT 99
[2019-07-12 12:50] VITALS: TEMP 97.7
--- NOTE | 2019-07-13 00:08 | OP ---
Surgeon: Navin Melton MD Community Relations Rep: Vin Nava. Procedures: Left heart catheterization, selective coronary arteriogram, left ventriculogram, aortic root injection, right heart catheterization, cardiac output measurement, oxygen saturation. Indication For The Procedure: Aortic stenosis, aortic regurgitation, and chest pain. History Of Present Illness: Mr. Bales is a 39-year-old, has had chronic history of aortic valve dise ase, but had become very symptomatic over the last 3-6 months. Echocardiogram had showed moderate-to -severe aortic regurgitation with [id number] aortic stenosis, admitted as an outpatient to the foundry laborer coreroom today, 07/12/2019. The patient was prepped and draped in the routine sterile fashion. A 6- [place] sheath introduced in the right common femoral artery. A 7-[place] sheath was introduced in the right common femoral vein. A Manning-Angel catheter was advanced via the common femoral vein, 7-[place] sheath successfully into the right atrium after the balloon was inflated. The catheter was then move d into the right ventricle and then the pulmonary artery and wedge pressure. Cardiac output measurem ents were obtained and he averaged 5.7 L/minute. Oxygen saturations were obtained in the pulmonary a rtery, right ventricle, right atrium, SVC, IVC, and femoral artery, all his O2 saturations were sofia l. His right atrial pressure, right ventricular pressure, wedge pressure, and PA pressure as well as RV pressure were normal and the right heart catheterization as well. Following that, a 6-[place] kins catheter left and right were both introduced obviously separately to do the coronary arteriograp hy and he had normal coronaries without any focal stenosis. A pigtail catheter was able to cross the valve without any difficulties. He had a 20 mm gradient across the aortic valve. He had 3+ aortic regurgitation by aortic root injection. Complications: None. Blood Loss: 5 mL. Anesthesia: Total conscious sedation was 60 minutes. Final Diagnoses: Mild aortic stenosis, [id number] aortic regurgitation, normal coronary howard jeri, normal cardiac output. Normal O2 saturations. Normal right heart pressures. Plan: To continue medical therapy for now, have sequential echoes in the near future. See me in the office in 2 weeks. Depending on his symptoms, I would still consider surgery on his aortic valve. The case was discussed with him and with his father. He will rest for 2 hours and go home today. SANJU/AMY Voice ID: [id number] Report ID: [id number]
== END 2019-07-12 10:30 | disposition home or self-care (01) ==
LOC: CCL 06:22
DX: I35.2 Nonrheumatic aortic (valve) stenosis with insufficiency (principal); I20.0 Unstable angina; R00.2 Palpitations; Z86.73 Personal history of transient ischemic attack (TIA), and cerebral infarction without residual deficits
CPT/HCPCS: 93005; 85025; 80048; 36415; 85610; 85730; 74176; 71046; 93460; C1893; C1760; J2250 ×2; J3010 ×2; J7040; J0583

== ENCOUNTER 2019-07-20 22:13 | Emergency (ER) | payer BC, SELFPAY ==
--- OUTSIDE RECORDS SUMMARY | 2019-07-20 22:15 | XMS REPORT ---
:1980 [facility] Address [address] [place] [address] Dr. Vu [address] [place] [id number] Care Team Providers Name Role Phone Unavailable Unavailable Unavailable Problems This patient has no known problems. Allergies, Adverse Reactions, Alerts This patient has no known allergies or adverse reactions. Medications This patient has no known medications.
[2019-07-20] MEDS ORDERED: MORPHINE 4 MG/ML SYR ONE (22:48)
[2019-07-20] MEDS ORDERED: PROMETHAZINE INJ 25 MG/ML AMP ONE (22:48)
[2019-07-20 23:18] LABS: Absolute Lymphocytes (CBC) 2.9 K/uL (0.7-4.9); Basophils % 1.1 % (0-1.3); Hematocrit 46.9 % (39.6-49.0); MPV 8.5 fL (7.6-11.3); RBC Red Blood Cell Count 5.17 M/uL (4.33-5.43)
[2019-07-20 23:38] LABS: Potassium 3.8 mmol/L (3.5-5.1)
--- NOTE | 2019-07-21 01:01 | ER ---
Nurse's Notes [facility] Name: Vincenzo Bales Age: 39 yrs Sex: Male : 1980 Arrival Date: 07/20/2019 Time: 22:15 Bed 4 Private MD: Diagnosis: Groin pain - right Presentation: 07/19 22:21 Chief complaint: Patient states: Heart cath [address] Melton. States he has a ll1 bad aortic valve. Started to have right groin pain for past two hours, getting progressively more painful. 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 Was told to come straight to ER for any groin pain. No active bleeding at this time. Coronavirus screen: The patient has NOT traveled to a country currently being monitored by the CDC within the last 14 days. Proceed with normal triage procedures. Ebola Screen: Patient denies travel to an Ebola-affected area in the 21 days before illness onset. Initial Sepsis Screen: Does the patient meet any 2 criteria? No. Patient's initial sepsis screen is negative. Does the patient have a suspected source of infection? No. Patient's initial sepsis screen is negative. Risk Assessment: Do you want to hurt yourself or someone else? Patient reports no desire to harm self or others. 22:21 Method Of Arrival: Ambulatory ll1 22:21 Acuity: ALE 3 ll1 Historical: - Allergies: 22:26 No Known Allergies; ll1 - PMHx: 22:26 defective aortic valve; Kidney stones; Hypertension; ll1 - PSHx: 22:26 Appendectomy; Tonsillectomy; kidney stone removal; heart cath; ll1 - Immunization history:: Flu vaccine status is unknown. - Social history:: Patient/guardian denies using alcohol, street drugs, tobacco products. Screenin:25 Abuse screen: Denies threats or abuse. Nutritional screening: No deficits noted. jb4 Tuberculosis screening: No symptoms or risk factors identified. Fall Risk None identified. Assessment: 22:25 General: Appears in no apparent distress. uncomfortable, Behavior is calm, cooperative, jb4 appropriate for age, Upon inspection of right femoral area, there is no hematoma or bruising noted. Pt reports pain upon light palpation. Provider notified.. Pain: Complains of pain in right femoral area Pain radiates to right inguinal area Pain currently is 5 out of 10 on a pain scale. 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 Neuro: Level of Consciousness is awake, alert, obeys commands, Oriented to person, place, time, situation. Cardiovascular: Patient's skin is warm and dry. Respiratory: Airway is patent Respiratory effort is even, unlabored, Respiratory pattern is regular, symmetrical. GI: No signs and/or symptoms were reported involving the gastrointestinal system. : No signs and/or symptoms were reported regarding the genitourinary system. EENT: No signs and/or symptoms were reported regarding the EENT system. Derm: Skin is intact, Skin is pink, warm \T\ dry. Musculoskeletal: Circulation, motion, and sensation intact. Range of motion: intact in all extremities. 23:35 Reassessment: Patient appears in no apparent distress at this time. Patient and/or jb4 family updated on plan of care and expected duration. Pain level reassessed. Patient is alert, oriented x 3, equal unlabored respirations, skin warm/dry/pink. Pt report that pain medication helped briefly and the pain is now rated at 7/10. Provider notified. no new orders at this time. 23:50 Reassessment: PT reports pain is tolerable and does not need anything at this time. jb4 07/20 00:26 Reassessment: Patient appears in no apparent distress at this time. Patient and/or jb4 family updated on plan of care and expected duration. Pain level reassessed. Patient is alert, oriented x 3, equal unlabored respirations, skin warm/dry/pink. PT back from Ct. 01:17 Reassessment: Patient appears in no apparent distress at this time. Patient and/or jb4 family updated on plan of care and expected duration. Pain level reassessed. Patient is alert, oriented x 3, equal unlabored respirations, skin warm/dry/pink. Pt verbalized understanding of d/c and follow up instructions. Denies questions or concerns. Ambulated out of ED with steady gait. Vital Signs: 07/19 22:21 BP 148 / 75; Pulse 72; Resp 18; Temp 98.2; Pulse Ox 99% ; Pain 5/10; ll1 23:46 BP 127 / 92; Pulse 63; Resp 16; Pulse Ox 100% on R/A; jb4 07/20 00:30 BP 126 / 73; Pulse 64; Resp 16; Pulse Ox 98% on R/A; jb4 ED Course: 07/19 22:15 Patient arrived in ED. es 22:25 Triage completed. ll1 22:25 Patient has correct armband on for positive identification. Placed in gown. Bed in low jb4 position. Call light in reach. Side rails up X 1. Pulse ox on. NIBP on. 22:27 Arm band placed on Patient placed in an exam room. ll1 22:30 Ciarra Johnson FNP-C [facility]. snw 22:30 Susan Stone MD is Attending Physician. snw 22:55 Initial lab(s) drawn, by me, sent to lab. Inserted saline lock: 18 gauge in left jb4 antecubital area, using aseptic technique. Blood collected. 23:08 Segundo Garibay, RN is Primary Nurse. jb4 23:37 Radiology exam delayed due to lab results not completed at this time. (BUN/Creatinine). kw1 07/20 00:19 CT Aorta for Dissection In Process Unspecified. EDMS 01:17 No provider procedures requiring assistance completed. IV discontinued, intact, jb4 bleeding controlled, No redness/swelling at site. Pressure dressing applied. Administered Medications: 07/19 22:55 Drug: Phenergan 12.5 mg Route: IVP; Site: left antecubital; jb4 23:25 Follow up: Response: No adverse reaction; Nausea is decreased jb4 23:00 Drug: morphine 4 mg {Note: rass score 0.} Route: IVP; Site: left femoral; jb4 23:15 Follow up: Response: No adverse reaction; Pain is decreased; RASS: Alert and Calm (0) [facility] Outcome: 07/20 01:00 Discharge ordered by . snw 01:17 Discharged to home ambulatory. jb4 01:17 Condition: stable 01:17 Discharge instructions given to patient, Instructed on discharge instructions, follow up and referral plans. Demonstrated understanding of instructions, follow-up care. 01:19 Patient left the ED. 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
--- NOTE | 2019-07-21 01:01 | EDPHYS ---
Physician Documentation [facility] Name: Vincenzo Bales Age: 39 yrs Sex: Male : 1980 Arrival Date: 07/20/2019 Time: 22:15 Bed 4 Private MD: ED Physician Susan Stone HPI: 07/19 22:41 This 39 yrs old Male presents to ER via Ambulatory with complaints of right snw groin pain. 22:41 The patient presents with pain, that is acute. The complaints affect the right inner snw thigh. Context: resulted from an unknown cause, pt had heart cath 8 days ago, the patient can fully bear weight, the patient is able to ambulate. Onset: The symptoms/episode began/occurred suddenly, 2 hour(s) ago, and became persistent. Associated signs and symptoms: The patient has no apparent associated signs or symptoms. Treatment prior to arrival includes: no previous treatment. Severity of symptoms: At their worst the symptoms were moderate, 4/10 squeezing pain. The patient has not experienced similar symptoms in the past. The patient has been recently seen by a physician: Dr. Melton, cardiac cath 8 days ago. Pt was told he had a pseudo-aneurysm at the time of cath and is concerned about the pain in that area at this time. Historical: - Allergies: 22:26 No Known Allergies; ll1 - PMHx: 22:26 defective aortic valve; Kidney stones; Hypertension; ll1 - PSHx: 22:26 Appendectomy; Tonsillectomy; kidney stone removal; heart cath; ll1 - Immunization history:: Flu vaccine status is unknown. - Social history:: Patient/guardian denies using alcohol, street drugs, tobacco products. ROS: 22:45 Constitutional: Negative for fever, chills, and weight loss, Eyes: Negative for injury, snw pain, redness, and discharge, ENT: Negative for injury, pain, and discharge, Neck: Negative for injury, pain, and swelling, Cardiovascular: Negative for chest pain, palpitations, and edema, Respiratory: Negative for shortness of breath, cough, wheezing, and pleuritic chest pain, Abdomen/GI: Negative for abdominal pain, nausea, vomiting, diarrhea, and constipation, Back: Negative for injury and pain, MS/Extremity: Negative for injury and deformity, Skin: Negative for injury, rash, and discoloration, Neuro: Negative for headache, weakness, numbness, tingling, and seizure, Psych: Negative for depression, anxiety, suicide ideation, homicidal ideation, and hallucinations. 22:45 : Positive for pelvic pain, of the right femoral area. Exam: 22:43 Constitutional: This is a well developed, well nourished patient who is awake, alert, snw and in no acute distress. Head/Face: Normocephalic, atraumatic. Eyes: Pupils equal round and reactive to light, extra-ocular motions intact. Lids and lashes normal. Conjunctiva and sclera are non-icteric and not injected. Cornea within normal limits. Periorbital areas with no swelling, redness, or edema. ENT: Nares patent. No nasal discharge, no septal abnormalities noted. Tympanic membranes are normal and external auditory canals are clear. Oropharynx with no redness, swelling, or masses, exudates, or evidence of obstruction, uvula midline. Mucous membranes moist. Neck: Trachea midline, no thyromegaly or masses palpated, and no cervical lymphadenopathy. Supple, full range of motion without nuchal rigidity, or vertebral point tenderness. No Meningismus. Chest/axilla: Normal chest wall appearance and motion. Nontender with no deformity. No lesions are appreciated. Cardiovascular: Regular rate and rhythm with a normal S1 and S2. No gallops, murmurs, or rubs. Normal PMI, no JVD. No pulse deficits. Respiratory: Lungs have equal breath sounds bilaterally, clear to auscultation and percussion. No rales, rhonchi or wheezes noted. No increased work of breathing, no retractions or nasal flaring. Abdomen/GI: Soft, non-tender, with normal bowel sounds. No distension or tympany. No guarding or rebound. No evidence of tenderness throughout. Back: No spinal tenderness. No costovertebral tenderness. Full range of motion. Male : Normal genitalia with no discharge or lesions. right groin with palpable, normal pulses, tenderness to mid right groin Skin: Warm, dry with normal turgor. Normal color with no rashes, no lesions, and no evidence of cellulitis. MS/ Extremity: Pulses equal, no cyanosis. Neurovascular intact. Full, normal range of motion. Neuro: Awake and alert, GCS 15, oriented to person, place, time, and situation. Cranial nerves II-XII grossly intact. Motor strength 5/5 in all extremities. Sensory grossly intact. Cerebellar exam normal. Normal gait. Psych: Awake, alert, with orientation to person, place and time. Behavior, mood, and affect are within normal limits. Vital Signs: 22:21 BP 148 / 75; Pulse 72; Resp 18; Temp 98.2; Pulse Ox 99% ; Pain 5/10; ll1 23:46 BP 127 / 92; Pulse 63; Resp 16; Pulse Ox 100% on R/A; jb4 07/20 00:30 BP 126 / 73; Pulse 64; Resp 16; Pulse Ox 98% on R/A; jb4 MDM: 07/19 22:38 Patient medically screened. snw 07/20 01:03 Data reviewed: vital signs, nurses notes. Data interpreted: Pulse oximetry: on room air snw is 98 %. Interpretation: normal. Counseling: I had a detailed discussion with the patient and/or guardian regarding: the historical points, exam findings, and any diagnostic results supporting the discharge/admit diagnosis, lab results, radiology results, the need for outpatient follow up, to return to the emergency department if symptoms worsen or persist or if there are any questions or concerns that arise at home. Response to treatment: the patient's symptoms have mildly improved after treatment. Special discussion: Based on the patient's history, exam, and Dx evaluation, there is no indication for emergent intervention or inpatient Tx. It is understood by the patient/guardian that if the Sx's persist or worsen they need to return immediately for re-evaluation. Based on the history and exam findings, there is no indication for further emergent testing or inpatient evaluation. I discussed with the patient/guardian the need to see the director financial planning for further evaluation of the symptoms. I discussed with the patient/guardian the need to see the primary care provider for further evaluation of the symptoms. 07/19 22:35 Order name: TS; Complete Time: 23:51 snw 07/19 22:35 Order name: CBC with Diff; Complete Time: 23:39 snw 07/19 22:35 Order name: CT Aorta for Dissection snw 07/19 22:35 Order name: Chem 7; Complete Time: 23:39 snw 07/20 00:08 Order name: ABO/RH no charge; Complete Time: 00:11 EDMS Administered Medications: 07/19 22:55 Drug: Phenergan 12.5 mg Route: IVP; Site: left antecubital; 4 23:25 Follow up: Response: No adverse reaction; Nausea is decreased [facility] 23:00 Drug: morphine 4 mg {Note: rass score 0.} Route: IVP; Site: left femoral; jb4 23:15 Follow up: Response: No adverse reaction; Pain is decreased; RASS: Alert and Calm (0) jb4 Disposition: 07/21 01:32 Co-signature as Attending Physician, Susan Stone MD. ut2 Disposition: 07/21/19 01:00 Discharged to Home. Impression: Groin pain - right . - Condition is Stable. - Discharge Instructions: Pain Without a Known Cause, Heat Therapy. - Medication Reconciliation Form, Thank You Letter, Antibiotic Education, Prescription Opioid Use form. - Follow up: Emergency Department; When: As needed; Reason: Worsening of condition. Follow up: Private Physician; When: 1 - 2 days; Reason: Recheck today's complaints, Continuance of care, Re-evaluation by your physician. Signatures: Dispatcher [employer] EDAL Ciarra Johnson, KELLI-C POOL ATTENDANT-Csnw Segundo Garibay RN RN jb4 Susan Stone MD MD ut2 Jailene Mireles RN RN ll1 Corrections: (The following items were deleted from the chart) 07/20 01:19 01:00 07/21/2019 01:00 Discharged to Home. Impression: Groin pain - right . Condition jb4 is Stable. Forms are Medication Reconciliation Form, Thank You Letter, Antibiotic Education, Prescription Opioid Use. Follow up: Emergency Department; When: As needed; Reason: Worsening of condition. Follow up: Private Physician; When: 1 - 2 days; Reason: Recheck today's complaints, Continuance of care, Re-evaluation by your physician. snw
[2019-07-21 01:51] VITALS: TEMP 98.2
[2019-07-21 01:53] VITALS: BP 126/73; O2SAT 98
--- NOTE | 2019-07-22 12:04 | RAD REPORT ---
EXAM DESCRIPTION: CT Angio Chest/Abdomen/Pelvis For Dissection CLINICAL HISTORY: 39 years Male groin pain TECHNIQUE: Contiguous axial images obtained through the chest, abdomen, and pelvis were obtained fro m the thoracic inlet to the level of the upper abdomen during the arterial phase of intravenous contr ast administration. Coronal and sagittal reformatted images provided. This CT exam was performed according to our departmental dose-optimization program, which includes on e or more of the following dose reduction techniques: automated exposure control, adjustment of the m A and/or kV according to patient size, and/or use of iterative reconstruction technique. COMPARISON: No prior exams provided for comparison. FINDINGS: The heart is normal in size without pericardial effusion. There is no aortic aneurysm or d issection. The major branches of the aorta are patent. No mediastinal or retroperitoneal hemorrhage. No visualized pulmonary embolus. Patchy dependent atelectasis. The lungs are otherwise clear. The central airways are patent. No pleur al effusion or pneumothorax. 1.7 cm left thyroid nodule. No lymphadenopathy in the chest. Steatosis of the liver, which is moderately enlarged without focal lesion. The biliary tree, gallbladder, pancreas, spleen, adrenal glands, right kidney, and urinary bladder ar e normal. 3.3 cm left renal cyst. There is mild thickening of a few loops of jejunum in the left mid abdomen. The remainder of the rajni l is normal without inflammation, obstruction, pneumatosis, free intraperitoneal air, abscess, or asc ites. Prior appendectomy. No fracture or aggressive osseous lesion in the chest, abdomen, or pelvis. IMPRESSION: No aortic aneurysm or dissection. No pulmonary embolus. 1.7 cm nodule in the left lobe of the thyroid should be followed up with thyroid ultrasound. No acute findings in the chest. Steatosis of the liver, which is enlarged. Suspected mild inflammation of a few loops of jejunum, infectious vs. inflammatory. No bowel obstruct ion or perforation. Electronically signed by: Carlyn Basurto MD 07/21/2019 12:31 AM [facility] Due to temporary technical issues with the PACS/Fluency reporting system, reports are being signed by the in house radiologist as a courtesy to ensure prompt reporting. The interpreting radiologist is f ully responsible for the content of the report.
== END 2019-07-21 01:19 | disposition home or self-care (01) ==
LOC: ER 22:13
DX: R10.31 Right lower quadrant pain (principal); I10 Essential (primary) hypertension
CPT/HCPCS: 36415; 71275; 74175; 80048; 85025; 86850; 86900; 86901; 99284; J2550; Q9967

== ENCOUNTER 2020-03-23 17:49 | Emergency (ER) | payer BC ==
--- OUTSIDE RECORDS SUMMARY | 2020-03-23 17:51 | XMS REPORT | Clinical Summary ---
:1980 Author Organization [facility] Address [address] [place] [id number] Care Team Providers Name Role Phone Carla Rodriguez MD, Rambo Dalal Primary Care Provider [phone] Allergies Not on File Medications Not on file Active Problems Not on file Social History Tobacco Use Types Packs/Day Years Used Date Never Assessed Sex Assigned at Date Recorded Not on file Last Filed Vital Signs Not on file Plan of Treatment Health Maintenance Due Date Last Done Comments INFLUENZA VACCINE 12/14/2019 Results Not on fileafter 03/23/2019 Advance Directives For more information, please contact: [phone] Type Date Recorded Patient A Auxiliary Explanati on Advance Directives, Living Will and Medical Power of Associate Professor Of Sociology
--- OUTSIDE RECORDS SUMMARY | 2020-03-23 17:52 | XMS REPORT | Clinical Summary ---
:1980 Author Organization [facility] Address [address] [place] [address] Care Team Providers Name Role Phone Pcp Primary Care Provider Unavailable Allergies Active Allergy Reactions Severity Noted Date Comments Garlic Hives 09/17/2019 Medications Medication Sig Dispensed Refills Start Date End Date Status gabapentin Take 300 mg by 0 09/18/2019 Act dann (NEURONTIN) 300 mouth 2 (two) MG capsule times daily . doxylamine/phenyl Take 1 tablet 0 Active ep/DM/aspirin by mouth 2 (BASSAM-SELTZER (two) times PLUS DAY-NIGHT daily as ORAL) needed . naproxen Take 220 mg by 0 Activ e (ALEVE,ANAPROX,IN mouth 2 (two) DOL) 220 MG times daily tablet with breakfast and dinner. pseudoephedrine-i Take 1 tablet 0 09/20/19 2 Discontinued buprofen (ADVIL by mouth 2 0 (St op Taking at COLD AND SINUS) (two) times Di aminah) 30-200 mg Cap daily . naproxen Take by mouth 0 Discon tinued (ALEVE,ANAPROX,IN as needed 0 (S top Taking at DOL) 220 MG 600mg . Discharg e) tablet acetaminophen-cod 0 09/18/2019 D iscontinued eine (TYLENOL #3) 0 (S top Taking at 300-30 mg per Discha rge) tablet HYDROcodone-aceta Take 1 tablet 15 tablet 0 09/20/2019 05/ 02 minophen (NORCO by mouth every 0 7.5-325) 7.5-325 6 (six) hours mg per tablet as needed for up to 4 days. Max Daily Amount: 4 tablets fexofenadine Take 180 mg by 0 Di scontinued (RAMIRO) 180 MG mouth daily. 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 Encounters Date Type Specialty Care Team Description 03/19/2020 Hospital Encounter Radiology Segundo Powell aortic MD Massiel valve disorder 03/19/2020 Hospital Encounter Cardiology Sarah Christina aortic ANDREW Mckenzie valve disorder 03/03/2020 Office Visit Cardiology Segundo Powell Nonrheumatic saeed Rankin MD valve disorder (Primary Dx) 10/01/2019 Office Visit Cardiology Carlos Manuel, Postoperative s caal Noah Walden (Primary Dx) 10/01/2019 Travel 09/20/2019 Surgery Carlos Manuel, EXPLORATION,WOU ND Noah Walden, EXTREMITY LO WER 09/20/2019 Anesthesia Event Jacquelyn Martinez MD 09/19/2019 - Hospital Encounter Cardiology Carmencita, Intractab le pain (Primary Dx); 09/20/2019 MD Steve Right groin pain; Jessica Sifuentes Acute post-o perative pain MD Liang Cervantes Lubna Syed, MD Yoon, Alyssa Hyunna, MD 09/19/2019 Travel 09/19/2019 Telephone Internal Medicine No Tavera MD 09/18/2019 Surgery Carlos Manuel, REPAIR,PSEUDOAN EURYSM Noah Walden, FEMORAL/ POP LITEAL 09/18/2019 Anesthesia Event Kaleigh Westbrook MD Devoe, Ross A, CHIDI 09/18/2019 Hospital Encounter Noah Horowitz MD 09/17/2019 Hospital Encounter Radiology Noah Horowitz MD 09/17/2019 Office Visit Cardiology Carlos Manuel, Pre-op testing Noah Walden (Primary Dx) 09/17/2019 Orders Only Radiology Pallavi Bhatia Pre-op testin g Charlene 09/17/2019 Travel after 03/23/2019 Family History Medical History Relation Name Comments Heart disease Father HEART VALVE REPL ACEMENT AND BYPASS Diabetes Maternal Aunt Liver disease Maternal Aunt Liver disease Maternal Grandmother Cancer Maternal Uncle Arthritis Mother Diabetes Paternal Grandmother No Known Problem Son ARTHESTIC Relation Name Status Comments Daughter Alive Father Alive Maternal Aunt Maternal Grandmother Maternal Uncle Mother Paternal Grandmother Son Alive Son Alive Social History Tobacco Use Types Packs/Day Years Used Date Current Every Day Smoker Cigarettes 1 18 Smokeless Tobacco: Never Used Alcohol Use Drinks/Week oz/Week Comments Yes 1 Glasses of wine 1.0 during holiday s Alcohol Habits Answer Date Recorded How often do you have a drink containing alcohol? Never 09/17/2019 How many drinks containing alcohol do you have on a typical day 1 or 2 09/17/2019 when you are drinking? How often do you have six or more drinks on one occasion? Ne carin 09/17/2019 Sex Assigned at Date Recorded Not on file Last Filed Vital Signs Vital Sign Reading Time Taken Comments Blood Pressure 164/90 03/03/2020 1:40 PM CDT Pulse 74 03/03/2020 1:40 PM CDT Temperature 36.2 C (97.1 F) 03/03/2020 1:40 PM CDT Respiratory Rate 16 03/03/2020 1:40 PM CDT Oxygen Saturation 98% 03/03/2020 1:40 PM CDT Inhaled Oxygen Concentration - - Weight 120.2 kg (265 lb) 03/03/2020 1:40 PM CDT Height 175.3 cm (5' 9") 03/03/2020 1:40 PM CDT Body Mass Index 39.13 03/03/2020 1:40 PM CDT Plan of Treatment Health Maintenance Due Date Last Done Comments PNEUMOCOCCAL VACCINE 0-64 YRS (1 of 1 - PPSV23) 1987 LIPID PANEL 2016 INFLUENZA VACCINE (#1) 2020 Procedures Procedure Name Priority Date/Time Associated Diagnosis Comme nts CTA CHEST Routine 03/19/2020 3:44 Nonrheumatic aortic Resu lts for this PM SOCK IRONER valve disorder procedure are in the results section. HC CAROTID DOPPLER Routine 03/19/2020 1:40 Nonrheumatic aorti c Results for this LINDSEY PM SOCK IRONER valve disorder procedure are in the results section. RHYTHM STRIP - SCAN 09/23/2019 12:31 PM CDT RHYTHM STRIP - SCAN 09/23/2019 12:31 PM CDT TRANSFUSION SERVICE 09/21/2019 5:50 REPORT - SCAN PM CDT TRANSFUSION SERVICE 09/20/2019 5:50 REPORT - SCAN PM CDT EXPLORATION,WOUND 09/20/2019 8:52 Pain of lower EXTREMITY LOWER AM CDT extremity, unspecified laterality CBC W/PLT COUNT & Routine 09/20/2019 5:09 Result s for this AUTO DIFFERENTIAL AM CDT procedure are in the results section. CBC W/PLT COUNT & Routine 09/20/2019 5:09 Result s for this AUTO DIFFERENTIAL AM CDT procedure are in the results section. BASIC METABOLIC Routine 09/20/2019 5:09 Results for this PANEL (7) AM CDT procedure are i n the results section. TYPE AND SCREEN, Routine 09/19/2019 11:18 Results for this AUTOMATED PM CDT procedure are i n the results section. TRANSFUSION SERVICE 09/19/2019 5:52 REPORT - SCAN PM CDT CBC W/PLT COUNT & STAT 09/19/2019 5:33 Result s for this AUTO DIFFERENTIAL PM CDT procedure are in the results section. PT/APTT STAT 09/19/2019 5:33 Results for this PM CDT procedure are i n the results section. BASIC METABOLIC STAT 09/19/2019 5:33 Results for this PANEL (7) PM CDT procedure are i n the results section. CBC W/PLT COUNT & STAT 09/19/2019 5:33 Result s for this AUTO DIFFERENTIAL PM CDT procedure are in the results section. TRANSFUSION SERVICE 09/18/2019 8:12 REPORT - SCAN PM CDT REPAIR,PSEUDOANEURYS 09/18/2019 7:36 Pseudoaneurysm o f M FEMORAL/ POPLITEAL AM CDT right femoral artery (HCC) Case Notes 2 HRS Special Needs (REQUESTING 8:00) ABORH, MANUAL STAT 09/18/2019 6:16 AM Results for this CDT procedure are i n the results section. POCT-GLUCOSE METER Routine 09/18/2019 5:48 AM Re sults for this CDT procedure are i n the results section. XR CHEST 2 VIEWS Routine 09/17/2019 10:04 AM Pre-op testing Re sults for this CDT procedure are i n the results section. CBC W/PLT COUNT & AUTO Routine 09/17/2019 9:41 AM Results for this DIFFERENTIAL CDT procedure are i n the results section. TYPE AND SCREEN, Routine 09/17/2019 9:41 AM Resu lts for this AUTOMATED CDT procedure are i n the results section. HEMOGLOBIN A1C Routine 09/17/2019 9:41 AM Result s for this CDT procedure are i n the results section. CBC W/PLT COUNT & AUTO Routine 09/17/2019 9:41 AM Results for this DIFFERENTIAL CDT procedure are i n the results section. COMPREHENSIVE METABOLIC Routine 09/17/2019 9:41 AM Results for this PANEL CDT procedure are i n the results section. PROTHROMBIN TIME/INR Routine 09/17/2019 9:41 AM Pre-op testin g Results for this CDT procedure are i n the results section. MISCELLANEOUS LAB ORDER STAT 09/17/2019 9:14 AM Results for this CDT procedure are i n the results section. ECG 12-LEAD Routine 09/17/2019 9:04 AM CDT Procedure Note - Interface, External Ris In - 09/17/2019 10:28 AM CDT Ventricular Rate 62 BPM Atrial Rate 62 BPM P-R Interval 150 ms QRS Duration 96 ms Q-T Interval 414 ms QTC Calculation(Bazett) 420 ms P [place] 34 degrees R [place] 7 degrees T [place] 5 degrees Normal sinus rhythm Normal ECG No previous ECGs available ECG 12-LEAD Routine 09/17/2019 9:04 AM CDT Resu lts for this procedure are in the results section . after 03/23/2019 Results CTA chest (03/19/2020 3:44 PM SOCK IRONER) Specimen Narrative Performed At Addendum Begins [employer] RIS REPORT STATUS:A I agree with the nonvascular findings. Signed: Vannessa Pritchard MD Report Verified Date/Time: 03/20/2020 09:24:33 Addendum Ends FINAL REPORT CT angiography of the thoracic aorta, INDICATION: This is a 40 years old male, with a diagnosis of aortic disease presents for assessment. Per not es, patient has aortic valve stenosis, pending aortic surgery. TECHNIQUE: Spiral acquisition before and during intravenous contrast administration using a Zaira multidete ctor CT scanner. Images were obtained before and during the dynamic p assage of intravenous contrast material. Multi-planar 3-D vo lume-rendering reconstruction was performed using an independent works tation interactively by the interpreting physician as well as the 3- D specialist for optimal visualisation of the thoracic aorta and its proximal branches. Please refer to the contrast sheet scann ed in the [employer] system for the amount and route of contrast given. This exam was performed according to our departmental dose-optimisation programme, which inclu clifton automated exposure control, adjustment of the mA and/or kV according to patient size and/or use of iterative reconstruction t echnique. Dose modulation, iterative reconstruction, and/or weight based adjustment of the mA/kV was utilized to reduce the radiation dos e to as low as reasonably achievable. FINDINGS: VASCULAR: No pericardial effusion is identified. The central pulmonary artery is normal i n calibre. The cardiac chambers demonstrate normal atrioventricular and ventriculoarterial concordance, and syst emic and pulmonary venous return. The left ventricle is normal in size in the mid diastolic data set. Left atrial size is unremarkable. No ary ral annular calcification is seen. Aortic valvular calcification is identif ied. It is difficult to be certain whether the aortic valve is tric uspid versus bicuspid. Please correlate with echocardiography. Coronary artery origins are normal. The left main coronary artery, the proximal and mid LAD is widely paten t. The left circumflex artery is nondominant. The proximal and mid RCA is also widely patent. Aortic root, the orthogonal dimension is 4.0 x 3.5 cm suggesting minimal ectasia, with preserved sinotubu lar junction, and thereafter remainder of the thoracic aorta is sofia l in course, contour, and calibre. There is no evidence of a cute aortic pathology, specifically, there is no dissection, in tramural hematoma, or contained rupture. The arch vessel branc berry pattern is normal and the visualised portion of the arch vesse ls are widely patent. Quantitaive dimensions of the aorta are as follows: 4.0 x 3.5 cm at the sinuses of Valsalva (the sino-tubula r junction is preserved); 3.1 cm at the proximal ascending thoracic ao rta; 3.2 cm at the mid ascending aorta; 2.7 cm at the distal ascending aorta; 2.4 cm at the mid transverse arch; 2.3 cm at the proxi mal descending aorta; 2.0 cm at the mid descending aorta; 2.0 cm at t he diaphragmatic hiatus. NON-VASCULAR: Hypodensity is identified in the left th yroid lobe, at image 5, measures 1.5 cm in diameter. Dedicated t hyroid ultrasound scan can be performed for further tissue characteris ation. The chest wall mediastinum appears unrem arkable. Tiny lymph nodes are seen, consider nonspecific in nature due to their small size. In the lung windows, no endobronchial le bolivar is seen, and no pleural effusions identified. A tiny 1 to 2 mm n oncalcified nodule is identified in the right lower lobe at im age 162. Another 1-2 mm noncalcified nodule is identified in the left lung at image 89. There is likely some patchy scarring identifie d in the right lower lobe at image 119. No acute bony pathology is identified. Limited images of the upper abdomen reve als no acute abnormalities. However, diffuse fatty infiltration of t he liver is identified with precontrast Hounsfield unit less than 5. CONCLUSIONS: 1. It is difficult to be certain if the aortic valve is bicuspid versus tricuspid in the available data s et. Aortic valvular calcification is seen. Ectasia seen in the aortic root, with pr eserved sinotubular junction. Thereafter remainder of the thoracic a lucas is normal in course, contour, and calibre. No aortic aneurysm is identified. There is no evidence of acute aortic pathology, spec ifically, there is no dissection, intramural hematoma, or cont ained rupture. Quantitative dimension of the thoracic a lucas are as described above. 2. Normal coronary artery origins. No ob vious coronary artery calcification is seen. The proximal coronary arteries are seen to be widely patent. 3. No acute pulmonary pathology is ident ified. Tiny pulmonary nodules as described abov e, of doubtful clinical significance, in the absence of signific ant past medical history/risk factor. In any case, professional societ y recommendation as follows: Nodule Size <6 mm Low-Risk Patient: No r outine follow-up Nodule Size <6 mm High-Risk Patient: Opt ional CT at 12 months 4. Other findings as described above. Diffuse hepatic steatosis. Hypodensity is identified in the left th yroid lobe, at image 5, measures 1.5 cm in diameter. Dedicated t hyroid ultrasound scan can be performed for further tissue characteris ation. 3. An addendum will be dictated regard ing the non-vascular findings by the Sales Professional Bilingual Radiologist. Signed: Anastacio Estrada MD Report Verified Date/Time: 03/19/2020 17:41:36 Reading Location: [facility] P027 CT Reading Room Procedure Note Interface, External Ris In - 03/20/2020 9:26 AM SOCK IRONER Addendum Begins REPORT STATUS:A I agree with the nonvascular findings. Signed: Vannessa Pritchard MD Report Verified Date/Time: 03/20/2020 0 9:24:33 Addendum Ends FINAL REPORT CT angiography of the thoracic aorta, INDICATION: This is a 40 years old male, with a diagnosis of aortic disease presents for assessment. Per not es, patient has aortic valve stenosis, pending aortic surgery. TECHNIQUE: Spiral acquisition before and during intravenous contrast administration using a Zaira multidete ctor CT scanner. Images were obtained before and during the dynamic p assage of intravenous contrast material. Multi-planar 3-D vol ume-rendering reconstruction was performed using an independent works tation interactively by the interpreting physician as well as the 3- D specialist for optimal visualisation of the thoracic aorta and its proximal branches. Please refer to the contrast sheet scann ed in the [employer] system for the amount and route of contrast given. This exam was performed according to our departmental dose-optimisation programme, which inclu clifton automated exposure control, adjustment of the mA and/or kV according to patient size and/or use of iterative reconstruction t echnique. Dose modulation, iterative reconstruction, and/or weight based adjustment of the mA/kV was utilized to reduce the radiation dos e to as low as reasonably achievable. FINDINGS: VASCULAR: No pericardial effusion is identified. The central pulmonary artery is normal i n calibre. The cardiac chambers demonstrate normal atrioventricular and ventriculoarterial concordance, and syst emic and pulmonary venous return. The left ventricle is normal in size in the mid diastolic data set. Left atrial size is unremarkable. No ary ral annular calcification is seen. Aortic valvular calcification is identif ied. It is difficult to be certain whether the aortic valve is tric uspid versus bicuspid. Please correlate with echocardiography. Coronary artery origins are normal. The left main coronary artery, the proximal and mid LAD is widely paten t. The left circumflex artery is nondominant. The proximal and mid RCA is also widely patent. Aortic root, the orthogonal dimension is 4.0 x 3.5 cm suggesting minimal ectasia, with preserved sinotubu lar junction, and thereafter remainder of the thoracic aorta is sofia l in course, contour, and calibre. There is no evidence of acu te aortic pathology, specifically, there is no dissection, in tramural hematoma, or contained rupture. The arch vessel branc berry pattern is normal and the visualised portion of the arch vesse ls are widely patent. Quantitaive dimensions of the aorta are as follows: 4.0 x 3.5 cm at the sinuses of Valsalva (the sino-tubula r junction is preserved); 3.1 cm at the proximal ascending thoracic ao rta; 3.2 cm at the mid ascending aorta; 2.7 cm at the distal a scending aorta; 2.4 cm at the mid transverse arch; 2.3 cm at the proxi mal descending aorta; 2.0 cm at the mid descending aorta; 2.0 cm at t he diaphragmatic hiatus. NON-VASCULAR: Hypodensity is identified in the left th yroid lobe, at image 5, measures 1.5 cm in diameter. Dedicated t hyroid ultrasound scan can be performed for further tissue characteris ation. The chest wall mediastinum appears unrem arkable. Tiny lymph nodes are seen, consider nonspecific in nature due to their small size. In the lung windows, no endobronchial le bolivar is seen, and no pleural effusions identified. A tiny 1 to 2 mm n oncalcified nodule is identified in the right lower lobe at im age 162. Another 1-2 mm noncalcified nodule is identified in the left lung at image 89. There is likely some patchy scarring identifie d in the right lower lobe at image 119. No acute bony pathology is identified. Limited images of the upper abdomen reve als no acute abnormalities. However, diffuse fatty infiltration of t he liver is identified with precontrast Hounsfield unit less than 5. CONCLUSIONS: 1. It is difficult to be certain if the aortic valve is bicuspid versus tricuspid in the available data s et. Aortic valvular calcification is seen. Ectasia seen in the aortic root, with pr eserved sinotubular junction. Thereafter remainder of the thoracic ao rta is normal in course, contour, and calibre. No aortic aneurysm is identified. There is no evidence of acute aortic pathology, spec ifically, there is no dissection, intramural hematoma, or cont ained rupture. Quantitative dimension of the thoracic a lucas are as described above. 2. Normal coronary artery origins. No ob vious coronary artery calcification is seen. The proximal coronary arteries are seen to be widely patent. 3. No acute pulmonary pathology is ident ified. Tiny pulmonary nodules as described abov e, of doubtful clinical significance, in the absence of signific ant past medical history/risk factor. In any case, professional societ y recommendation as follows: Nodule Size <6 mm Low-Risk Patient: No r outine follow-up Nodule Size <6 mm High-Risk Patient: Opt ional CT at 12 months 4. Other findings as described above. Diffuse hepatic steatosis. Hypodensity is identified in the left th yroid lobe, at image 5, measures 1.5 cm in diameter. Dedicated t hyroid ultrasound scan can be performed for further tissue characteris ation. 3. An addendum will be dictated regardi ng the non-vascular findings by the Sales Professional Bilingual Radiologist. Signed: Anastacio Estrada MD Report Verified Date/Time: 03/19/2020 1 7:41:36 Reading Location: [place] [address] CT Reading Room Performing Organization Address City/State/Zipcode Phone Number [employer] Carotid doppler bilateral (03/19/2020 1:40 PM SOCK IRONER) Pathologist Sig nature Ejection Fraction [facility] Specimen Impressions Performed At Right Impression [facility] 1. The internal carotid artery is within normal limits. 2. The external carotid artery is within normal limits. 3. The common carotid artery is within normal limits. 4. The vertebral artery flow is antegrade and normal. 5. The subclavian artery is within normal limits where visualized. Left Impression 1. The internal carotid artery is within normal limits. 2. The external carotid artery is within normal limits. 3. The common carotid artery is within normal limits. 4. The vertebral artery flow is antegrade and normal. 5. The subclavian artery is within normal limits where visualized. Conclusions Summary Carotid duplex scanning and color flow imaging were performed bilaterally. The arteries were well visualized and no areas of stenosis were found bilaterally. Doppler flow velocities were within normal range bilaterally. The vertebral artery flow was antegrade and normal bilaterally. The subclavian arteries were patent with normal flow bilaterally where visualized. Signature Velocities are measured in cm/s ; Diameters are measured in cm Carotid Right Measurements + +----+----+-----+ +---- + + !Location !PSV !EDV !Angle!%Stenosis 2D!%Stenosis Doppler!Tortuosity ! + +----+----+-----+ +---- + + !Prox CCA !103 !22.3!60 ! ! ! ! + +----+----+-----+ +---- + + !Dist CCA !92 !18.2!60 ! ! ! ! + +----+----+-----+ +---- + + !Prox ICA !73.9!20.5!60 ! !Normal ! ! + +----+----+-----+ +---- + + !Dist ICA !79.2!28.7!60 ! ! ! ! + +----+----+-----+ +---- + + !Prox ECA !129 !16.5!60 ! ! ! ! + +----+----+-----+ +---- + + !Vertebral !53.9!17 !60 ! ! ! ! + +----+----+-----+ +---- + + !Prox Subclavian!175 ! !60 ! ! ! ! + +----+----+-----+ +---- + + - There is antegrade vertebral flow noted on the right side. - Additional Measurements:ICAPSV/CCAPSV 0.86.ICAEDV/CCAEDV 1.29. Carotid Left Measurements + +----+----+-----+ +---- + + !Location !PSV !EDV !Angle!%Stenosis 2D!%Stenosis Doppler!Tortuosity ! + +----+----+-----+ +---- + + !Prox CCA !110 !21.6!60 ! ! ! ! + +----+----+-----+ +---- + + !Dist CCA !85.6!19.3!60 ! ! ! ! + +----+----+-----+ +---- + + !Prox ICA !86.8!19.3!60 ! !Normal ! ! + +----+----+-----+ +---- + + !Dist ICA !81.5!27 !60 ! ! ! ! + +----+----+-----+ +---- + + !Prox ECA !108 !12.9!60 ! ! ! ! + +----+----+-----+ +---- + + !Vertebral !56.3!15.8!60 ! ! ! ! + +----+----+-----+ +---- + + !Prox Subclavian!145 ! !60 ! ! ! ! + +----+----+-----+ +---- + + - There is antegrade vertebral flow noted on the left side. - Additional Measurements:ICAPSV/CCAPSV 1.01.ICAEDV/CCAEDV 1.25. Narrative Performed At LAB - Carotid Duplex Study [facility] Demographics Patient Name VINCENZO BALES Date of Study 03/19/2020 Age 40 Visit Number [id number] Gender Male Accession Number [id number] Date of 1980 Referring Sarah Christina NP Room Number [id number] OPT Physician Med Surg Rn Joss Lombardi Interpreting CORINNE Goodwin Physician Procedure Type of Study: Cerebral: Carotid, CAROTID DOPPLER, LINDSEY ATERAL. Indications for Study:Pre op. Patient Status:Routine. Study Location:Vascular Lab. Technical Quality:Adequate visualization . Risk Factors History of Disease + +----+ + !Diagnosis !Date!Comments ! + +----+ + !History/Risk ! !Former smoker, CAD, History of right femoral ! !Factors: ! !pseudoaneurysm 09/2019 ! + +----+ + Procedure Note Interface, External Ris In - 03/20/2020 7:45 AM SOCK IRONER [facility] LAB - Carotid Duplex Study Demographics Patient Name VINCENZO BALES Joe e of Study 03/19/2020 Age 40 Visit Number [id number] Gen georgi Male Accession Number [id number] Joe e of 1980 Referring ANDREW Salazar m Number [id number] OPT Physician Med Surg Rn Joss Lombardi Int erpreting CORINNE Tarango MD Procedure Type of Study: Cerebral: Carotid, CAROTID DOPPLER, LINDSEY ATERAL. Indications for Study:Pre op. Patient Status:Routine. Study Location:Vascular Lab. Technical Quality:Adequate visualization . Risk Factors History of Disease + +----+ + !Diagnosis !Date!Comments ! + +----+ + !History/Risk ! !Former smoker, CAD, History of right femoral ! !Factors: ! !pseudoaneurysm 09/2019 ! + +----+ + Impressions Right Impression 1. The internal carotid artery is within normal limits. 2. The external carotid artery is within normal limits. 3. The common carotid artery is within n ormal limits. 4. The vertebral artery flow is antegrad e and normal. 5. The subclavian artery is within sofia l limits where visualized. Left Impression 1. The internal carotid artery is within normal limits. 2. The external carotid artery is within normal limits. 3. The common carotid artery is within n ormal limits. 4. The vertebral artery flow is antegrad e and normal. 5. The subclavian artery is within sofia l limits where visualized. Conclusions Summary Carotid duplex scanning and color flow imaging were performed bilaterally. The arteries were well visualized and n o areas of stenosis were found bilaterally. Doppler flow velocities we re within normal range bilaterally. The vertebral artery flow was antegrade and normal bilaterally. The subclavian arteries were patent with no rmal flow bilaterally where visualized. Signature Velocities are measured in cm/s ; Diamet ers are measured in cm Carotid Right Measurements + +----+----+-----+------- -----+ + + !Location !PSV !EDV !Angle!%Stenos is 2D!%Stenosis Doppler!Tortuosity ! + +----+----+-----+------- -----+ + + !Prox CCA !103 !22.3!60 ! ! ! ! + +----+----+-----+------- -----+ + + !Dist CCA !92 !18.2!60 ! ! ! ! + +----+----+-----+------- -----+ + + !Prox ICA !73.9!20.5!60 ! !Normal ! ! + +----+----+-----+------- -----+ + + !Dist ICA !79.2!28.7!60 ! ! ! ! + +----+----+-----+------- -----+ + + !Prox ECA !129 !16.5!60 ! ! ! ! + +----+----+-----+------- -----+ + + !Vertebral !53.9!17 !60 ! ! ! ! + +----+----+-----+------- -----+ + + !Prox Subclavian!175 ! !60 ! ! ! ! + +----+----+-----+------- -----+ + + - There is antegrade vertebral flow no isela on the right side. - Additional Measurements:ICAPSV/CCAPS V 0.86.ICAEDV/CCAEDV 1.29. Carotid Left Measurements + +----+----+-----+------- -----+ + + !Location !PSV !EDV !Angle!%Stenos is 2D!%Stenosis Doppler!Tortuosity ! + +----+----+-----+------- -----+ + + !Prox CCA !110 !21.6!60 ! ! ! ! + +----+----+-----+------- -----+ + + !Dist CCA !85.6!19.3!60 ! ! ! ! + +----+----+-----+------- -----+ + + !Prox ICA !86.8!19.3!60 ! !Normal ! ! + +----+----+-----+------- -----+ + + !Dist ICA !81.5!27 !60 ! ! ! ! + +----+----+-----+------- -----+ + + !Prox ECA !108 !12.9!60 ! ! ! ! + +----+----+-----+------- -----+ + + !Vertebral !56.3!15.8!60 ! ! ! ! + +----+----+-----+------- -----+ + + !Prox Subclavian!145 ! !60 ! ! ! ! + +----+----+-----+------- -----+ + + - There is antegrade vertebral flow no isela on the left side. - Additional Measurements:ICAPSV/CCAPS V 1.01.ICAEDV/CCAEDV 1.25. Performing Organization Address City/State/Zipcode Phone Number [facility] RHYTHM STRIP - SCAN (09/23/2019 12:31 PM CDT)Only the most recent of2 results within the time period is included. Narrative Performed At This result has an attachment that is no t available. TRANSFUSION SERVICE REPORT - SCAN (09/21/2019 5:50 PM CDT)Only the most recent of4 resultswithin the time period is included. Narrative Performed At This result has an attachment that is no t available. CBC with platelet count + automated diff (09/20/2019 5:09 AM CDT)Only the most recent of3 resultswithin the time period is included. Pathologist Sig nature WBC 9.5 3.5 - 10.5 [facility] K/L [facility] RBC 4.43 (L) 4.63 - 6.08 [facility] M/L [facility] Hemoglobin 13.7 13.7 - 17.5 [facility] GM/DL [facility] Hematocrit 40.6 40.1 - 51.0 % [facility] MCV 91.6 79.0 - 92.2 fL [facility] MCH 30.9 25.7 - 32.2 pg [facility] MCHC 33.7 32.3 - 36.5 [facility] RDW 14.3 11.6 - 14.4 % [facility] Platelets 227 150 - 450 K/CU [facility] MPV 9.6 9.4 - 12.4 fL [facility] nRBC 0 0 - 0 /100 WBC [facility] % Neutros 53 % [facility] % Lymphs 31 % [facility] % Monos 9 % [facility] % Eos 5 % [facility] % Baso 1 % [facility] # Neutros 5.06 1.78 - 5.38 [facility] # Lymphs 2.98 1.32 - 3.57 [facility] # Monos 0.83 (H) 0.30 - 0.82 [facility] # Eos 0.48 0.04 - 0.54 [facility] # Baso 0.11 (H) 0.01 - 0.08 [facility] Immature 0 0 - 1 % [facility] Granulocytes-[facility] Specimen Blood Performing Organization Address City/[facility]/Zipcode Phone Number [address] [address] CENTER Basic metabolic panel (09/20/2019 5:09 AM CDT)Only the most recent of2 results within the time period is included. Sodium 140 136 - 145 meq/L [facility] Potassium 3.5 3.5 - 5.1 meq/L [facility] Chloride 109 (H) 98 - 107 meq/L [facility] CO2 22 22 - 29 meq/L [facility] BUN 15 7 - 21 mg/dL [facility] Creatinine 0.93 0.57 - 1.25 [facility] mg/dL [facility] Glucose 137 (H) 70 - 105 mg/dL [facility] Calcium 7.9 (L) 8.4 - 10.2 [facility] mg/dL [facility] EGFR 91Comment: ESTIMATED mL/min/1.[address] [facility] GFR IS NOT [facility] ACCURATE [place] CREATININE CLEARANCE IN PREDICTING GLOMERULAR FILTRATION RATE. ESTIMATED GFR IS NOT APPLICABLE FOR DIALYSIS PATIENTS. Specimen Blood Narrative Performed At Geriatric Nursing Assistant ID - PIAYA L [facility] Performing Organization Address [facility] Phone Number [address] [address] CENTER Type and screen, automated (09/19/2019 11:18 PM CDT)Only the most recent of2 resultswithin the time period is included. Pathologist Sig nature ABO/RH AUTOMATED O POSITIVE [facility] Ab Scrn NEGATIVE [facility] Specimen Blood Performing Organization Address [facility]/Zipcode Phone Number [address] [address] PT/aPTT (09/19/2019 5:33 PM CDT) Pathologist Sig nature Protime 12.9 11.9 - 14.2 seconds [facility] INR 1.0 <=5.9 [facility] PTT 30.9 22.5 - 36.0 seconds [facility] Specimen Blood Narrative Performed At Effective 10/10/2018: PT Reference Range [facility] Change New: 11.9-14.2 Previous: 11.7-14.7 RECOMMENDED COUMADIN/WARFARIN INR THERAPY RANGES STANDARD DOSE: 2.0-3.0 Includes: PROPHYLAXIS for venous thrombosis, systemic embolization; TREATMENT for venous thrombosis and/or pulmonary embolus. HIGH RISK: Target INR is 2.5-3.5 for patients wiht mechanical heart valves. Performing Organization Address City/[facility] Phone Number [address] [phone] CENTER ABORH, manual (09/18/2019 6:16 AM CDT) Pathologist Sig nature ABO Grouping O [facility] DICAL [place] Rh Factor POS [facility] Specimen Blood Performing Organization Address [facility] Phone Number [address] [phone] POC-Glucose meter (09/18/2019 5:48 AM CDT) POC-Glucose Meter 107Comment: : 70 - 110 [facility] mg/dL [address], [address]: Geriatric Nursing Assistant/Technicia n ID = [id number] for ZEHRA RENOYSTAL Specimen Blood Performing Organization Address [facility]/Zipcode Phone Number [address] [phone] CENTER XR chest 2 views (09/17/2019 10:04 AM CDT) Specimen Narrative Performed At FINAL REPORT GE RIS INDICATION: pre op COMPARISON: None TECHNIQUE: Frontal and lateral views of the chest. FINDINGS: Lungs and pleura: Clear lungs. No effusi on. Heart and mediastinum: Normal heart size . Unremarkable mediastinal contours. Osseous structures: No acute abnormality . Additional findings: None. IMPRESSION: No acute intrathoracic abnormality. Signed: Hugh Johnson MD Report Verified Date/Time: 09/17/2019 10:38:28 Reading Location: BO.LTn [place] y Reading Room Procedure Note Interface, External Ris In - 09/17/2019 10:40 AM CDT FINAL REPORT INDICATION: pre op COMPARISON: None TECHNIQUE: Frontal and lateral views of the chest. FINDINGS: Lungs and pleura: Clear lungs. No effusi on. Heart and mediastinum: Normal heart size . Unremarkable mediastinal contours. Osseous structures: No acute abnormality . Additional findings: None. IMPRESSION: No acute intrathoracic abnormality. Signed: Hugh Johnson MD Report Verified Date/Time: 09/17/2019 1 0:38:28 Reading Location: [facility] y Reading Room Performing Organization Address City/[facility] Phone Number [facility] Prothrombin time/INR (09/17/2019 9:41 AM CDT) Pathologist Sig nature Protime 13.5 11.9 - 14.2 seconds [facility] INR 1.1 <=5.9 [facility] Specimen Blood Narrative Performed At Effective 10/10/2018: PT Reference Range [facility] Change New: 11.9-14.2 Previous: 11.7-14.7 RECOMMENDED COUMADIN/WARFARIN INR THERAPY RANGES STANDARD DOSE: 2.0-3.0 Includes: PROPHYLAXIS for venous thrombosis, systemic embolization; TREATMENT for venous thrombosis and/or pulmonary embolus. HIGH RISK: Target INR is 2.5-3.5 for patients wiht mechanical heart valves. Performing Organization Address City/[facility]/Zipcode Phone Number [address] [address] CENTER Hemoglobin A1c (09/17/2019 9:41 AM CDT) Pathologist Sig nature Hemoglobin A1C 4.9 4.3 - 6.1 % [facility] Specimen Blood Performing Organization Address City/State/Zipcode Phone Number [facility] [address] [place], [place] [phone] [place] Comprehensive metabolic panel (09/17/2019 9:41 AM CDT) Protein, Total 7.9 6.0 - 8.3 [facility] gm/dL [facility] Albumin 4.7 3.5 - 5.0 [facility] g/dL [facility] Alkaline 75 40 - 150 U/L [facility] Phosphatase [facility] Total Bilirubin 0.7 0.2 - 1.2 [facility] mg/dL [facility] Sodium 141 136 - 145 [facility] meq/L [facility] Potassium 4.0 3.5 - 5.1 [facility] meq/L [facility] Chloride 107 98 - 107 [facility] meq/L [facility] CO2 24 22 - 29 meq/L [facility] BUN 17 7 - 21 mg/dL [facility] Creatinine 1.01 0.57 - 1.25 [facility] mg/dL [facility] Glucose 102 70 - 105 [facility] mg/dL [facility] Calcium 9.3 8.4 - 10.2 [facility] mg/dL [facility] AST 21 5 - 34 U/L [facility] ALT 36 6 - 55 U/L [facility] EGFR 83Comment: mL/min/1.73 [facility] ESTIMATED GFR IS sq [facility] NOT ACCURATE [facility]ICAL [facility]ENTER CREATININE CLEARANCE IN PREDICTING GLOMERULAR FILTRATION RATE. ESTIMATED GFR IS NOT APPLICABLE FOR DIALYSIS PATIENTS. Specimen Blood Narrative Performed At Geriatric Nursing Assistant ID - [id number] [facility] ICA CENTER Performing Organization Address City/State/Zipcode Phone Number [facility] [address] [place] [address] CENTER RAPID COVID surgery 09/18/2019 (09/17/2019 9:14 AM CDT) Pathologist Sig nature Scan Result See scanned report [facility] Specimen Nasopharyngeal Narrative Performed At This result has an attachment that is no t available. Performing Organization Address City/State/Zipcode Phone Number [facility] ONE [facility] Joselyn, MS: [place] [address] [id number], CLIA#[id number] CAP#[id number] UNOS#[id number] ECG 12 lead (09/17/2019 9:04 AM CDT) Specimen Narrative Performed At Ventricular Rate 62 BPM GE MUSE Atrial Rate 62 BPM P-R Interval 150 ms QRS Duration 96 ms Q-T Interval 414 ms QTC Calculation(Bazett) 420 ms P [place] 34 degrees R [place] 7 degrees T [place] 5 degrees Normal sinus rhythm Incomplete right bundle branch block Nonspecific ST and T wave abnormality Confirmed by MD JEAN JAMES T ([id number]) on 0 2:42:29 PM Procedure Note Interface, External Ris In - 09/25/2019 2:42 PM CDT Ventricular Rate 62 BPM Atrial Rate 62 BPM P-R Interval 150 ms QRS Duration 96 ms Q-T Interval 414 ms QTC Calculation(Bazett) 420 ms P [place] 34 degrees R [place] 7 degrees T [place] 5 degrees Normal sinus rhythm Incomplete right bundle branch block Nonspecific ST and T wave abnormality Confirmed by MD JEAN JAMES T ([id number]) on 09/25/2019 2:42:29 PM Performing Organization Address City/State/Zipcode Phone Number GE MUSE after 03/23/2019 Insurance Payer Benefit Plan Subscriber ID Effective Dates Phone Address Type / Group BLUE BCBS OS [id number] 2019-Presen [phone] [id number] PPO CROSS/BLUE POS/PPO/EPO t 2 [facility] [address] CDC REVIEW CDC REVIEW [id number] 2019-[place] [address] Advance Directives For more information, please contact: [phone] Code Status Date Activated Date Inactivated Comments Full Code 09/19/2019 8:57 PM 09/20/2019 4:21 PM This code status was determined by: Patient Full Code 09/18/2019 5:45 AM 09/18/2019 3:51 PM This code status was determined by: Patient
--- OUTSIDE RECORDS SUMMARY | 2020-03-23 17:53 | XMS REPORT | Continuity of Care Document ---
:1980 Author Organization [facility] t Address [address] [place] [address] Dr. Oliv[address] [place] [address] Care Team Providers Name Role Phone Carla Rodriguez MD, Gene Primary Care Physician [phone] Massiel Powell MD Attending Clinician Carri MORALES, Magaly Attending Clinician Carrie Horowitz MD Attending Clinician Carmencita SANCHEZ Attending Clinician Helen Sifuentes MD Attending Clinician Naseem Tavera MD Attending Clinician Guido Graham MD Attending Clinician Juan SANCHEZ Attending Clinician CARMENCITA Attending Clinician Unavailable Dariana SANCHEZ, BJude Attending Clinician Steff Smith Attending Clinician Unavailable CARRIE HOROWITZ Attending Clinician Unavailable Charlene Bhatia Attending Clinician Unavailable NASEEM TAVERA Admitting Clinician Unavailable CARRIE HOROWITZ Admitting Clinician Unavailable Payers Payer Name Policy Type Policy Effective Date Expiration Date Sour ce Number BLUE CROSS/BLUE 2019 [facility] 00:[facility]:00 - Medical POS/PPO/EPOxxxxxx Lolo [id number] 2019 -[id number] [facility] [address], [place] [address]APT [facility] REVIEWCDC [id number] [address] [facility] [address] ke s [id number] 00:00:00 - Medic /[place] [address] Problems Condition Condition Condition Status Onset Resolution Last Treating Co mments Source Name Details Category Date Date Treatment Clinician Date Intractabl Intractabl Disease Active [facility] pain e pain 09-18 [facility] Center Aneurysm Aneurysm Disease [facility] right 09[facility]18 [facility] - femoral femoral 00:00: Medical artery artery 00 Center 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 [facility] - pseudo-ane pseudo-ane 00:00: Me dical urysm, urysm, 00 Center right right Allergies, Adverse Reactions, Alerts Allergy Allergy Status Severity Reaction(s) Onset Inactive Treating Comm ents Source Name Type Date Date Clinician Garlic Propensi Active Hives [facility] 09-16 [facility] - adverse 00:00: Medical reaction 00 Lolo s Family History Family Member Diagnosis Comments Start Date Stop Date Source Natural father Heart disease [facility] Maternal aunt Diabetes [facility] Maternal aunt Liver disease [facility] Maternal grandmother Liver disease [facility] Maternal uncle Cancer [facility] Natural mother Arthritis [facility] Paternal grandmother Diabetes [facility] Natural son No Known Problem [facility] Social History Social Habit Start Date Stop Date Quantity Comments Source History of tobacco Cigarette Smoker [facility] use [facility] Sex Assigned At [facility] Cigarettes smoked 2020-03-03 2020-03-03 [facility] - current (pack per 00:00:00 00:00:00 Medical Center day) - Reported Cigarette 2020-03-03 2020-03-03 [facility] - pack-years 00:00:00 00:00:00 [facility] Tobacco use and 2020-03-03 2020-03-03 Never used [facility] - exposure 00:00:00 00:00:00 [facility] Alcohol intake 2020-03-03 2020-03-03 [facility]er [facility] - 00:[facility]00 00:00:00 of alcohol [facility] ([facility]) Alcohol Comment 2019-09-19 2019-09-19 during holidays [facility] - 00:00:00 00:00:00 Medical Center History [facility] 2019-09-17 2019-09-17 1 [facility] - Alcohol Frequency 00:00:00 00:00:00 Medical Center History [facility] 2019-09-17 2019-09-17 [facility] Std Drinks 00:00:00 00:00:00 Medica l Center History [facility] 2019-09-17 2019-09-17 1 [facility] - Alcohol Binge 00:00:00 00:00:[address] Smoking Status Start Date Stop Date Source Current every day smoker 2020-03-03 00:00:00 [facility] Medications Ordered Filled Start Stop Current Ordering Indication Dosage Frequency Signature Comments Components Source Medication Medication Date Date Medication? Clinician (SIG) Name Name doxylamine/ 2019-05 Yes 1{tbl} Take [address] phenylep/DM 0-20 tablet by Jeannie es - /aspirin 13:42: mouth 2 Medica l (BASSAM-SELTZ 36 (two) Center ER PLUS times DAY-NIGHT daily as ORAL) needed . naproxen 2019-05 Yes 220mg Take [address] (ALEVE,ANAP 0-20 mg by [facility] - JACOB,MIDOL) 13:42: mouth 2 Medi stephanie 220 MG 36 (two) Center tablet times daily with breakfast and dinner. fexofenadin 2019-05- No 180mg QD Take [address] (RAMIRO) 0-20 10-20 mg by Bryce - 180 MG 13:42: 00:00 mouth Medical tablet 35 :00 daily. Center pseudoephed 2020- No 1{tbl} Q.5D Take [address] rine-ibupro 5-08 05-08 tablet by Joan rincon (ADVIL 14:04: 00:00 mouth 2 Med ical COLD AND 31 :00 (two) Center SINUS) times 30-200 mg daily . Cap naproxen 2019- No Take by [facility] (ALEVE,ANAP 5-08 05-08 mouth as Jeannie es - JACOB,MIDOL) 14:04: 00:00 needed Medi stephanie 220 MG 31 :00 600mg . Center tablet HYDROcodone 2019- No 1{tbl} Take [address] -acetaminop 5-08 05-12 tablet by Joan decker (NORCO 00:00: 23:59 mouth Medic al 7.5-325) 00 :00 every 6 Center 7.5-325 mg (six) per tablet hours as needed for up to 4 days. Max Daily Amount: 4 tablets gabapentin Yes 300mg Q.5D Take [address] (NEURONTIN) 5-06 mg by Lumya - 300 MG 00:00: mouth 2 Medical capsule 00 (two) Center times daily . acetaminoph 2019- No [facility] en-codeine 5- 05-08 [facility] - (TYLENOL 00:00: 00:00 Medical #3) 300-30 00 :00 Center mg per tablet chlorhexidi 2019- No [facility] ne 5-05 05-06 [facility] - (HIBICLENS) 09:14: 09:23 Medic al external 55 :15 Center liquid 4% Vital Signs Vital Name Observation Time Observation Value Comments Source Systolic blood 2020-03-03 13:40:00 164 mm[Hg] [facility] Diastolic blood 2020-03-03 13:40:00 90 mm[Hg] [facility] S [facility] Heart rate 2020-03-03 13:40:00 74 /min [facility] Body temperature 2020-03-03 13:40:00 36.17 Claudette [facility] Respiratory rate 2020-03-03 13:40:00 16 /min [facility] Body height 2020-03-03 13:40:00 175.3 cm [facility] Body weight 2020-03-03 13:40:00 120.203 kg [facility] BMI 2020-03-03 13:40:00 39.13 kg/m2 [facility] Oxygen saturation in 2020-03-03 13:40:00 98 /min [facility] - Arterial blood by Medical Ce nter Pulse oximetry Procedures Procedure Date / Time Performed Performing Clinician Sourc e CTA CHEST 2020-03-19 15:44:00 Sarah Christina [facility] HC CAROTID DOPPLER LINDSEY 2020-03-19 13:40:00 Mariotanmay Sarah Mckenzie [facility] RHYTHM STRIP - SCAN 2019-09-23 12:31:21 Provider, [facility] RHYTHM STRIP - SCAN 2019-09-23 12:31:17 Provider, [facility] Scanning [facility] TRANSFUSION SERVICE 2019-09-21 17:50:49 Provider, [facility] - REPORT - SCAN Scanning [facility] TRANSFUSION SERVICE 2019-09-20 17:50:56 Provider, [facility] REPORT - SCAN Scanning [facility] EXPLORATION,WOUND 2019-09-20 08:52:00 Noah Horowitz [facility] - EXTREMITY LOWER [facility] BASIC METABOLIC PANEL (7) 2019-09-20 05:09:00 [facility] W/[facility]T COUNT & AUTO 2019-09-20 05:09:00 [facility] TYPE AND SCREEN, 2019-09-19 23:18:00 Barbie Toledo [facility] es - AUTOMATED [facility] TRANSFUSION SERVICE 2019-09-19 17:52:28 Provider, [facility] REPORT - SCAN [facility] [place] BASIC METABOLIC PANEL (7) 2019-09-19 17:33:00 Jessica Sifuentes [facility] PT/APTT 2019-09-19 17:33:00 Jessica Sifuentes [facility] CBC W/PLT COUNT & AUTO 2019-09-19 17:33:00 Jessica Sifuentes [facility] Tanmay [facility] DIFFERENTIAL [facility] TRANSFUSION SERVICE 2019-09-18 20:12:59 Provider, [facility] SCAN [facility] [place] REPAIR,PSEUDOANEURYSM 2019-09-18 07:36:00 Noah Horowitz [facility], MANUAL 2019-09-18 06:16:00 Lien Licea [facility] POCT-GLUCOSE METER 2019-09-18 05:48:00 Carlos Manuel, Noah [facility] XR CHEST 2 VIEWS 2019-09-17 10:04:00 Noah Horowitz [facility] PROTHROMBIN TIME/INR 2019-09-17 09:41:00 Noah Horowitz [facility] COMPREHENSIVE METABOLIC 2019-09-17 09:41:00 Noah Horowitz [facility] PANEL [facility] HEMOGLOBIN A1C 2019-09-17 09:41:[address] [facility] TYPE AND SCREEN, 2019-09-17 09:41:[address] [facility] AUTOMATED [facility] CBC W/PLT COUNT & AUTO 2019-09-17 09:41:00 Noah Horowitz [facility] DIFFERENTIAL [facility] MISCELLANEOUS LAB ORDER 2019-09-17 09:14:00 Noah Horowitz [facility] ECG 12-LEAD 2019-09-17 09:04:50 Unknown, Hl7 Doctor [facility] Plan of Care Planned Activity Planned Date Details Comments Source Future Scheduled 2020-01-14 INFLUENZA VACCINE (#1) [facility] Test 00:00:00 [code = INFLUENZA Medical Ce nter VACCINE (#1)] Future Scheduled 2019-12-14 INFLUENZA VACCINE [facility] 00:00:00 [code = INFLUENZA VACCINE] Future Scheduled 2016 Lipid panel [facility] s - Test 00:00:00 (procedure) [code = [facility] [id number]] Future Scheduled [address] [facility] - Test 00:00:00 0-64 YRS (1 of 1 - Medical C enter PPSV23) [code = PNEUMOCOCCAL VACCINE 0-64 YRS (1 of 1 - PPSV23)] Results Test Test Test Comments Results Result Source Description Time Comments CT, CTA, CHEST 2020-03 With -06 contrastUnlisted 09:24:0 Reason for Exam - [facility] 0 Click Yes and Enter [facility] Reason Below->No CENTERName: KELLY WORLEY : 1980 Sex: M Addendum BeginsREPORT STATUS:A I agree with the nonvascular findings. Signed: TobinOkgabriel MDReport Verified Date/Time: 03/20/2020 09:24:[address] angiography of the thoracic aorta, 19-Mar-20 INDICATION: This is a 40 years old male, with a diagnosis of aortic disease presents for assessment. Per notes, patient has aortic valve stenosis, pending aortic surgery. TECHNIQUE: Spiral acquisition before and during intravenous contrast administration using a Zaira multidetector CT scanner. Images were obtained before and during the dynamic passage of intravenous contrast material. Multi-planar 3-D volume-rendering reconstruction was performed using an independent workstation interactively by the interpreting physician as well as the 3-D specialist for optimal visualisation of the thoracic aorta and its proximal branches. Please refer to the contrast sheet scanned in the [employer] system for the amount and route of contrast given. This exam was performed according to our departmental dose-optimisation programme, which includes automated exposure control, adjustment of the mA and/or kV according to patient size and/or use of iterative reconstruction technique. Dose modulation, iterative reconstruction, and/or weight based adjustment of the mA/kV was utilized to reduce the radiation dose to as low as reasonably achievable. FINDINGS: VASCULAR: No pericardial effusion is identified. The central pulmonary artery is normal in calibre. The cardiac chambers demonstrate normal atrioventricular and ventriculoarterial concordance, and systemic and pulmonary venous return. The left ventricle is normal in size in the mid diastolic data set. Left atrial size is unremarkable. No mitral annular calcification is seen. Aortic valvular calcification is identified. It is difficult to be certain whether the aortic valve is tricuspid versus bicuspid. Please correlate with echocardiography. Coronary artery origins are normal. The left main coronary artery, the proximal and mid LAD is widely patent. The left circumflex artery is nondominant. The proximal and mid RCA is also widely patent. Aortic root, the orthogonal dimension is 4.0 x 3.5 cm suggesting minimal ectasia, with preserved sinotubular junction, and thereafter remainder of the thoracic aorta is normal in course, contour, and calibre. There is no evidence of acute aortic pathology, specifically, there is no dissection, intramural hematoma, or contained rupture. The arch vessel branching pattern is normal and the visualised portion of the arch vessels are widely patent. Quantitaive dimensions of the aorta are as follows: 4.0 x 3.5 cm at the sinuses of Valsalva (the sino-tubular junction is preserved); 3.1 cm at the proximal ascending thoracic aorta; 3.2 cm at the mid ascending aorta; 2.7 cm at the distal ascending aorta; 2.4 cm at the mid transverse arch; 2.3 cm at the proximal descending aorta; 2.0 cm at the mid descending aorta; 2.0 cm at the diaphragmatic hiatus. NON-VASCULAR: Hypodensity is identified in the left thyroid lobe, at image 5, measures 1.5 cm in diameter. Dedicated thyroid ultrasound scan can be performed for further tissue characterisation. The chest wall mediastinum appears unremarkable. Tiny lymph nodes are seen, consider nonspecific in nature due to their small size. In the lung windows, no endobronchial lesion is seen, and no pleural effusions identified. A tiny 1 to 2 mm noncalcified nodule is identified in the right lower lobe at image 162. Another 1-2 mm noncalcified nodule is identified in the left lung at image 89. There is likely some patchy scarring identified in the right lower lobe at image 119. No acute bony pathology is identified. Limited images of the upper abdomen reveals no acute abnormalities. However, diffuse fatty infiltration of the liver is identified with precontrast Hounsfield unit less than 5. CONCLUSIONS: 1. It is difficult to be certain if the aortic valve is bicuspid versus tricuspid in the available data set. Aortic valvular calcification is seen. Ectasia seen in the aortic root, with preserved sinotubular junction. Thereafter remainder of the thoracic aorta is normal in course, contour, and calibre. No aortic aneurysm is identified. There is no evidence of acute aortic pathology, specifically, there is no dissection, intramural hematoma, or contained rupture. Quantitative dimension of the thoracic aorta are as described above. 2. Normal coronary artery origins. No obvious coronary artery calcification is seen. The proximal coronary arteries are seen to be widely patent. 3. No acute pulmonary pathology is identified. Tiny pulmonary nodules as described above, of doubtful clinical significance, in the absence of significant past medical history/risk factor. In any case, professional society recommendation as follows: Nodule Size <6 mm Low-Risk Patient: No routine follow-up Nodule Size <6 mm High-Risk Patient: Optional CT at 12 months 4. Other findings as described above. Diffuse hepatic steatosis. Hypodensity is identified in the left thyroid lobe, at image 5, measures 1.5 cm in diameter. Dedicated thyroid ultrasound scan can be performed for further tissue characterisation. 3. An addendum will be dictated regarding the non-vascular findings by the Industrial Hygienist Radiologist. Signed: Anastacio Estrada Verified Date/Time: 03/19/2020 17:41:36 Reading Location: [place] [address] CT Reading Room Carotid doppler 2020-03 [facility] ECHO HEARTLAB MKCKESSON L ukes - 07:45:3 CPACSRight Impression1. M edical 8 The internal carotid Cent er artery is within normal limits.2. The external carotid artery is within normal limits.3. The common carotid artery is within normal limits.4. The vertebral artery flow is antegrade and normal.5. The subclavian artery is within normal limits where visualized.Left Impression1. The internal carotid artery is within normal limits.2. The external carotid artery is within normal limits.3. The common carotid artery is within normal limits.4. The vertebral artery flow is antegrade and normal.5. The subclavian artery is within normal limits [...] Diameters are measured in cm Carotid Right Measurements+ -----+----+----+-----+- + ------+ +!Loc ation !PSV !EDV !Angle!%Stenosis 2D!%Stenosis Doppler!Tortuosity !+ +----+ ----+-----+ + +---- -------+!Prox CCA !103 !22.3!60 ! ! ! !+ +----+ ----+-----+ + +---- -------+!Dist CCA !92 !18.2!60 ! ! ! !+ +----+ ----+-----+ + +---- -------+!Prox ICA !73.9!20.5!60 ! !Normal ! !+ +----+ ----+-----+ + +---- -------+!Dist ICA !79.2!28.7!60 ! ! ! !+ +----+ ----+-----+ + +---- -------+!Prox ECA !129 !16.5!60 ! ! ! !+ +----+ ----+-----+ + +---- -------+!Vertebral !53.9!17 !60 ! ! ! !+ +----+ ----+-----+ + +---- -------+!Prox Subclavian!175 ! !60 ! ! ! !+ +----+ ----+-----+ + +---- -------+ - There is antegrade vertebral flow noted on the right side. - Additional Measurements:ICAPSV/CCA PSV 0.86.ICAEDV/CCAEDV 1.29. Carotid Left Measurements+ -----+----+----+-----+- + ------+ +!Loc ation !PSV !EDV !Angle!%Stenosis 2D!%Stenosis Doppler!Tortuosity !+ +----+ ----+-----+ + +---- -------+!Prox CCA !110 !21.6!60 ! ! ! !+ +----+ ----+-----+ + +---- -------+!Dist CCA !85.6!19.3!60 ! ! ! !+ +----+ ----+-----+ + +---- -------+!Prox ICA !86.8!19.3!60 ! !Normal ! !+ +----+ ----+-----+ + +---- -------+!Dist ICA !81.5!27 !60 ! ! ! !+ +----+ ----+-----+ + +---- -------+!Prox ECA !108 !12.9!60 ! ! ! !+ +----+ ----+-----+ + +---- -------+!Vertebral !56.3!15.8!60 ! ! ! !+ +----+ ----+-----+ + +---- -------+!Prox Subclavian!145 ! !60 ! ! ! !+ +----+ ----+-----+ + +---- -------+ - There is antegrade vertebral flow noted on the left side. - Additional Measurements:ICAPSV/CCA PSV 1.01.ICAEDV/CCAEDV 1.25. Interface, External Ris In - 03/20/2020 7:45 AM [facility] LAB - Carotid Duplex Study Demographics Patient Name KELLY WORLEY Date of Study 03/19/2020 Age 40 Visit Number [id number] Gender Male Accession Number [id number] Date of 1980 Referring Sarah Christina NP Room Number [facility] OPT Physician [employer] Test Engineer Joss Lombardi Interpreting CORINNE Tarango Physician ProcedureType of Study: Cerebral: Carotid, CAROTID DOPPLER, BILATERAL. Indications for Study:Pre op.Patient Status:Routine.Study Location:Vascular Lab.Technical Quality:Adequate visualization.Risk FactorsHistory of Disease+ ---+----+ +!Diagnosi s !Date!Comments !+ +-- --+ -------+!History/Risk ! !Former smoker, CAD, History of right femoral !!Factors: ! 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 The internal carotid artery is within normal limits.2. The external carotid artery is within normal limits.3. The common carotid artery is within normal limits.4. The vertebral artery flow is antegrade and normal.5. The subclavian artery is within normal limits where visualized.Left Impression1. The internal carotid artery is within normal limits.2. The external carotid artery is within normal limits.3. The common carotid artery is within normal limits.4. The vertebral artery flow is antegrade and normal.5. The subclavian artery is within normal limits [...] in cm/s ; Diameters are measured in cmCarotid Right Measurements+ -----+----+----+-----+- + ------+ +!Loc ation !PSV !EDV !Angle!%Stenosis 2D!%Stenosis Doppler!Tortuosity !+ +----+ ----+-----+ + +---- -------+!Prox CCA !103 !22.3!60 ! ! ! !+ +----+ ----+-----+ + +---- -------+!Dist CCA !92 !18.2!60 ! ! ! !+ +----+ ----+-----+ + +---- -------+!Prox ICA !73.9!20.5!60 ! !Normal ! !+ +----+ ----+-----+ + +---- -------+!Dist ICA !79.2!28.7!60 ! ! ! !+ +----+ ----+-----+ + +---- -------+!Prox ECA !129 !16.5!60 ! ! ! !+ +----+ ----+-----+ + +---- -------+!Vertebral !53.9!17 !60 ! ! ! !+ +----+ ----+-----+ + +---- -------+!Prox Subclavian!175 ! !60 ! ! ! !+ +----+ ----+-----+ + +---- -------+ - There is antegrade vertebral flow noted on the right side. - Additional Measurements:ICAPSV/CCA PSV 0.86.ICAEDV/CCAEDV 1.29.Carotid Left Measurements+ -----+----+----+-----+- + ------+ +!Loc ation !PSV !EDV !Angle!%Stenosis 2D!%Stenosis Doppler!Tortuosity !+ +----+ ----+-----+ + +---- -------+!Prox CCA !110 !21.6!60 ! ! ! !+ +----+ ----+-----+ + +---- -------+!Dist CCA !85.6!19.3!60 ! ! ! !+ +----+ ----+-----+ + +---- -------+!Prox ICA !86.8!19.3!60 ! !Normal ! !+ +----+ ----+-----+ + +---- -------+!Dist ICA !81.5!27 !60 ! ! ! !+ +----+ ----+-----+ + +---- -------+!Prox ECA !108 !12.9!60 ! ! ! !+ +----+ ----+-----+ + +---- -------+!Vertebral !56.3!15.8!60 ! ! ! !+ +----+ ----+-----+ + +---- -------+!Prox Subclavian!145 ! !60 ! ! ! !+ +----+ ----+-----+ + +---- -------+ - There is antegrade vertebral flow noted on the left side. - Additional Measurements:ICAPSV/CCA PSV 1.01.ICAEDV/CCAEDV 1.25. CTA chest 2020-03 Interface, External Ris [facility] St -05 In - 03/20/2020 9:26 [facility] - 17:41:0 AM CSTAddendum Medical 0 BeginsREPORT STATUS:A Angelia [facility] I agree with the nonvascular findings. Signed: Vannessa Pritchard MDReport Verified Date/Time: 03/20/2020 09:24:[address] angiography of the thoracic aorta, 19-Mar-20 INDICATION: This is a 40 years old male, with a diagnosis of aortic disease presents for assessment. Per notes, patient has aortic valve stenosis, pending aortic surgery. TECHNIQUE: Spiral acquisition before and during intravenous contrast administration using a Zaira multidetector CT scanner. Images were obtained before and during the dynamic passage of intravenous contrast material. Multi-planar 3-D volume-rendering reconstruction was performed using an independent workstation interactively by the interpreting physician as well as the 3-D specialist for optimal visualisation of the thoracic aorta and its proximal branches. Please refer to the contrast sheet scanned in the [employer] system for the amount and route of contrast given. This exam was performed according to our departmental dose-optimisation programme, which includes automated exposure control, adjustment of the mA and/or kV according to patient size and/or use of iterative reconstruction technique. Dose modulation, iterative reconstruction, and/or weight based adjustment of the mA/kV was utilized to reduce the radiation dose to as low as reasonably achievable. FINDINGS: VASCULAR: No pericardial effusion is identified. The central pulmonary artery is normal in calibre. The cardiac chambers demonstrate normal atrioventricular and ventriculoarterial concordance, and systemic and pulmonary venous return. The left ventricle is normal in size in the mid diastolic data set. Left atrial size is unremarkable. No mitral annular calcification is seen. Aortic valvular calcification is identified. It is difficult to be certain whether the aortic valve is tricuspid versus bicuspid. Please correlate with echocardiography. Coronary artery origins are normal. The left main coronary artery, the proximal and mid LAD is widely patent. The left circumflex artery is nondominant. The proximal and mid RCA is also widely patent. Aortic root, the orthogonal dimension is 4.0 x 3.5 cm suggesting minimal ectasia, with preserved sinotubular junction, and thereafter remainder of the thoracic aorta is normal in course, contour, and calibre. There is no evidence of acute aortic pathology, specifically, there is no dissection, intramural hematoma, or contained rupture. The arch vessel branching pattern is normal and the visualised portion of the arch vessels are widely patent. Quantitaive dimensions of the aorta are as follows: 4.0 x 3.5 cm at the sinuses of Valsalva (the sino-tubular junction is preserved); 3.1 cm at the proximal ascending thoracic aorta; 3.2 cm at the mid ascending aorta; 2.7 cm at the distal ascending aorta; 2.4 cm at the mid transverse arch; 2.3 cm at the proximal descending aorta; 2.0 cm at the mid descending aorta; 2.0 cm at the diaphragmatic hiatus. NON-VASCULAR: Hypodensity is identified in the left thyroid lobe, at image 5, measures 1.5 cm in diameter. Dedicated thyroid ultrasound scan can be performed for further tissue characterisation. The chest wall mediastinum appears unremarkable. Tiny lymph nodes are seen, consider nonspecific in nature due to their small size. In the lung windows, no endobronchial lesion is seen, and no pleural effusions identified. A tiny 1 to 2 mm noncalcified nodule is identified in the right lower lobe at image 162. Another 1-2 mm noncalcified nodule is identified in the left lung at image 89. There is likely some patchy scarring identified in the right lower lobe at image 119. No acute bony pathology is identified. Limited images of the upper abdomen reveals no acute abnormalities. However, diffuse fatty infiltration of the liver is identified with precontrast Hounsfield unit less than 5. CONCLUSIONS: 1. It is difficult to be certain if the aortic valve is bicuspid versus tricuspid in the available data set. Aortic valvular calcification is seen. Ectasia seen in the aortic root, with preserved sinotubular junction. Thereafter remainder of the thoracic aorta is normal in course, contour, and calibre. No aortic aneurysm is identified. There is no evidence of acute aortic pathology, specifically, there is no dissection, intramural hematoma, or contained rupture. Quantitative dimension of the thoracic aorta are as described above. 2. Normal coronary artery origins. No obvious coronary artery calcification is seen. The proximal coronary arteries are seen to be widely patent. 3. No acute pulmonary pathology is identified. Tiny pulmonary nodules as described above, of doubtful clinical significance, in the absence of significant past medical history/risk factor. In any case, professional society recommendation as follows: Nodule Size <6 mm Low-Risk Patient: No routine follow-up Nodule Size <6 mm High-Risk Patient: Optional CT at 12 months 4. Other findings as described above. Diffuse hepatic steatosis. Hypodensity is identified in the left thyroid lobe, at image 5, measures 1.5 cm in diameter. Dedicated thyroid ultrasound scan can be performed for further tissue characterisation. 3. An addendum will be dictated regarding the non-vascular findings by the Industrial Hygienist Radiologist. Signed: Anastacio Estrada Verified Date/Time: 03/19/2020 17:41:36 Reading Location: [place] [address] CT Reading Room 12 lead 2019-09 Interface, External Ris [facility] -13 In - 09/25/2019 2:42 Jeannie es - 14:42:3 PM CDTVentricular Rate Me dical 5 62 BPMAtrial Rate 62 Cent er BPMP-R Interval 150 msQRS Duration 96 msQ-T Interval 414 msQTC Calculation(Bazett) 420 msP Tenstrike 34 degreesR Tenstrike 7 degreesT Tenstrike 5 degreesNormal sinus rhythmIncomplete right bundle branch blockNonspecific ST and T wave abnormalityConfirmed by MD TED, DENZEL Contreras ([id number]) on 09/25/2019 2:42:29 PM Basic metabolic panel 2019-09-20 06:15:00 Test Item Value Reference Range Interpretation Comme nts Sodium (test code = 140 meq/L 061-300 6807-2) Potassium (test code = 3.5 meq/L 3.5-5.1 2823-3) Chloride (test code = 109 meq/L 98-107 H 2075-0) CO2 (test code = 8-9) 22 meq/L 22-29 BUN (test code = 3094-0) 15 mg/dL 7-21 Creatinine (test code = 0.93 mg/dL 0.57-1.25 2160-0) Glucose (test code = 137 mg/dL 70-105 H 2345-7) Calcium (test code = 7.9 mg/dL 8.4-10.2 L 00646-7) EGFR (test code = 83070-6) 91 mL/min/1.73 sq m ESTIMATED GFR IS NOT ACCURATE CREATININE TAYLA KATIE IN PREDICTING GLOMERULAR FILT RATION RATE. ESTIMATED GFR IS NOT APPLICAB LE FOR DIALYSIS PATIEN TSJude BEBE (test code = BEBE) Web Development Consultant ID - PIAYA L Lab Interpretation (test Abnormal code = 93747-7) [facility] [id number] 06:15:00 Test Item Value Reference Range Interpretation Comments SODIUM (BEAKER) 140 meq/L 136-145 (test code = 381) POTASSIUM (BEAKER) 3.5 meq/L 3.5-5.1 (test code = 379) CHLORIDE (BEAKER) 109 meq/L 98-107 H (test code = 382) CO2 (BEAKER) (test 22 meq/L 22-29 code = 355) BLOOD UREA NITROGEN 15 mg/dL 7-21 (BEAKER) (test code = 354) CREATININE (BEAKER) 0.93 mg/dL 0.57-1.25 (test code = 358) GLUCOSE RANDOM 137 mg/dL 70-105 H (BEAKER) (test code = 652) CALCIUM (BEAKER) 7.9 mg/dL 8.4-10.2 L (test code = 697) EGFR (BEAKER) (test 91 mL/min/1.73 ESTIMA RODOLFO GFR IS code = 1092) sq m NOT ACCURATE CREATININE CLEARANCE IN PREDICTING GLOMERULAR FILTRATION RATE . ESTIMATED GFR I S NOT APPLICABLE FOR DIALYSIS PATIEN TS. Web Development Consultant ID - PIAYA LCBC with platelet count + automated [id number] 05:43:00 Test Item Value Reference Range Interpretation Comments WBC (test code = 6690-2) 9.5 3.5- 10.5 K/L RBC (test code = 789-8) 4.43 4.63- 6.08 M/L L MCHC (test code = 786-4) 33.7 32.3- 36.5 GM/DL Hematocrit (test code = 4544-3) 40.6 % 40.1-51 MCV (test code = 787-2) 91.6 fL 79-92.2 MCH (test code = 785-6) 30.9 pg 25.7-32.2 RDW (test code = 788-0) 14.3 % 11.6-14.4 Platelets (test code = 777-3) 227 150- 450 K/CU MM MPV (test code = 42379-4) 9.6 fL 9.4-12.4 nRBC (test code = 413) 0 0- 0 /100 WBC % Neutros (test code = 429) 53 % % Lymphs (test code = 430) 31 % % Monos (test code = 431) 9 % % Eos (test code = 432) 5 % % Baso (test code = 437) 1 % # Neutros (test code = 670) 5.06 1.78- 5.38 K/L # Lymphs (test code = 414) 2.98 1.32- 3.57 K/L # Monos (test code = 415) 0.83 0.30- 0.82 K/L H # Eos (test code = 416) 0.48 0.04- 0.54 K/L # Baso (test code = 417) 0.11 0.01- 0.08 K/L H Immature Granulocytes-Relative 0 % 0-1 (test code = 2801) Lab Interpretation (test code = Abnormal 20463-1) [facility] W/PLT COUNT & AUTO [id number] 05:43:00 Test Item Value Reference Range Interpretation Comments WHITE BLOOD CELL COUNT (BEAKER) 9.5 K/ L 3.5-10.5 (test code = 775) RED BLOOD CELL COUNT (BEAKER) 4.43 M/ L 4.63-6.08 L (test code = 761) HEMOGLOBIN (BEAKER) (test code = 13.7 GM/DL 13.7-17.5 410) HEMATOCRIT (BEAKER) (test code = 40.6 % 40.1-51.0 411) MEAN CORPUSCULAR VOLUME (BEAKER) 91.6 fL 79.0-92.2 (test code = 753) MEAN CORPUSCULAR HEMOGLOBIN 30.9 pg 25.7-32.2 (BEAKER) (test code = 751) MEAN CORPUSCULAR HEMOGLOBIN CONC 33.7 GM/DL 32.3-36.5 (BEAKER) (test code = 752) RED CELL DISTRIBUTION WIDTH 14.3 % 11.6-14.4 (BEAKER) (test code = 412) PLATELET COUNT (BEAKER) (test 227 K/CU MM 150-450 code = 756) MEAN PLATELET VOLUME (BEAKER) 9.6 fL 9.4-12.4 (test code = 754) NUCLEATED RED BLOOD CELLS 0 /100 WBC 0-0 (BEAKER) (test code = 413) NEUTROPHILS RELATIVE PERCENT 53 % (BEAKER) (test code = 429) LYMPHOCYTES RELATIVE PERCENT 31 % (BEAKER) (test code = 430) MONOCYTES RELATIVE PERCENT 9 % (BEAKER) (test code = 431) EOSINOPHILS RELATIVE PERCENT 5 % (BEAKER) (test code = 432) BASOPHILS RELATIVE PERCENT 1 % (BEAKER) (test code = 437) NEUTROPHILS ABSOLUTE COUNT 5.06 K/ L 1.78-5.38 (BEAKER) (test code = 670) LYMPHOCYTES ABSOLUTE COUNT 2.98 K/ L 1.32-3.57 (BEAKER) (test code = 414) MONOCYTES ABSOLUTE COUNT (BEAKER) 0.83 K/ L 0.30-0.82 H (test code = 415) EOSINOPHILS ABSOLUTE COUNT 0.48 K/ L 0.04-0.54 (BEAKER) (test code = 416) BASOPHILS ABSOLUTE COUNT (BEAKER) 0.11 K/ L 0.01-0.08 H (test code = 417) IMMATURE GRANULOCYTES-RELATIVE 0 % 0-1 PERCENT (BEAKER) (test code = 2801) Type and screen, [id number] 00:17:00 Test Item Value Reference Range Interpretation Comments ABO/RH AUTOMATED (BEAKER) (test O POSITIVE code = 2260) Ab Scrn (test code = 890-4) NEGATIVE [facility] GardensPT/[id number] 18:05:00 Test Item Value Reference Range Interpretation Comments Protime (test code = 12.9 11.9- 14.2 5902-2) seconds INR (test code = 1.0 <=5.9 6301-6) PTT (test code = 30.9 22.5- 36.0 50251-3) seconds BEBE (test code = BEBE) Effective 10/10/2018: PT Reference Range ChangeNew: 11.9-14.2 Previous: 11.7-14.7 RECOMMENDED COUMADIN/WARFARIN INR THERAPY RANGESSTANDARD DOSE: 2.0-3.0 Includes: PROPHYLAXIS for venous thrombosis, systemic embolization; TREATMENT for venous thrombosis and/or pulmonary embolus.HIGH RISK: Target INR is 2.5-3.5 for patients wiht mechanical heart valves. Lab Interpretation Normal (test code = 70866-1) [facility] GardensPT/[id number] 18:05:00 Test Item Value Reference Range Interpretation Comments PROTIME (BEAKER) (test code = 12.9 seconds 11.9-14.2 759) INR (BEAKER) (test code = 370) 1.0 <=5.9 PARTIAL THROMBOPLASTIN TIME 30.9 seconds 22.5-36.0 (BEAKER) (test code = 760) Effective 10/10/2018: PT Reference Range ChangeNew: 11.9-14.2 Previous: 11.7- 14.7RECOMMENDED COUMADIN/WARFARIN INR THERAPY RANGESSTANDARD DOSE: 2.0-3.0 Includes: PROPHYLAXIS for venous thrombosis, systemic embolization; TREATMENT for venous thrombosis and/or pulmonary embolus.HIGH RISK: Target INR is2.5-3.5 for patients wiht mechanical heart valves.BASIC METABOLIC [id number] 18:03:00 Test Item Value Reference Range Interpretation Comments SODIUM (BEAKER) 141 meq/L 136-145 (test code = 381) POTASSIUM (BEAKER) 3.9 meq/L 3.5-5.1 (test code = 379) CHLORIDE (BEAKER) 110 meq/L 98-107 H (test code = 382) CO2 (BEAKER) (test 23 meq/L 22-29 code = 355) BLOOD UREA NITROGEN 14 mg/dL 7-21 (BEAKER) (test code = 354) CREATININE (BEAKER) 0.88 mg/dL 0.57-1.25 (test code = 358) GLUCOSE RANDOM 85 mg/dL 70-105 (BEAKER) (test code = 652) CALCIUM (BEAKER) 8.2 mg/dL 8.4-10.2 L (test code = 697) EGFR (BEAKER) (test 97 mL/min/1.73 ESTIMA RODOLFO GFR IS code = 1092) sq m NOT ACCURATE CREATININE CLEARANCE IN PREDICTING GLOMERULAR FILTRATION RATE . ESTIMATED GFR I S NOT APPLICABLE FOR DIALYSIS PATIEN TS. Web Development Consultant ID - DBCBC W/PLT COUNT & AUTO [id number] 18:01:00 Test Item Value Reference Range Interpretation Comments WHITE BLOOD CELL COUNT (BEAKER) 13.0 K/ L 3.5-10.5 H (test code = 775) RED BLOOD CELL COUNT (BEAKER) 4.85 M/ L 4.63-6.08 (test code = 761) HEMOGLOBIN (BEAKER) (test code = 14.7 GM/DL 13.7-17.5 410) HEMATOCRIT (BEAKER) (test code = 43.3 % 40.1-51.0 411) MEAN CORPUSCULAR VOLUME (BEAKER) 89.3 fL 79.0-92.2 (test code = 753) MEAN CORPUSCULAR HEMOGLOBIN 30.3 pg 25.7-32.2 (BEAKER) (test code = 751) MEAN CORPUSCULAR HEMOGLOBIN CONC 33.9 GM/DL 32.3-36.5 (BEAKER) (test code = 752) RED CELL DISTRIBUTION WIDTH 14.1 % 11.6-14.4 (BEAKER) (test code = 412) PLATELET COUNT (BEAKER) (test 241 K/CU MM 150-450 code = 756) MEAN PLATELET VOLUME (BEAKER) 9.3 fL 9.4-12.4 L (test code = 754) NUCLEATED RED BLOOD CELLS 0 /100 WBC 0-0 (BEAKER) (test code = 413) NEUTROPHILS RELATIVE PERCENT 62 % (BEAKER) (test code = 429) LYMPHOCYTES RELATIVE PERCENT 26 % (BEAKER) (test code = 430) MONOCYTES RELATIVE PERCENT 8 % (BEAKER) (test code = 431) EOSINOPHILS RELATIVE PERCENT 3 % (BEAKER) (test code = 432) BASOPHILS RELATIVE PERCENT 1 % (BEAKER) (test code = 437) NEUTROPHILS ABSOLUTE COUNT 8.01 K/ L 1.78-5.38 H (BEAKER) (test code = 670) LYMPHOCYTES ABSOLUTE COUNT 3.40 K/ L 1.32-3.57 (BEAKER) (test code = 414) MONOCYTES ABSOLUTE COUNT (BEAKER) 1.03 K/ L 0.30-0.82 H (test code = 415) EOSINOPHILS ABSOLUTE COUNT 0.44 K/ L 0.04-0.54 (BEAKER) (test code = 416) BASOPHILS ABSOLUTE COUNT (BEAKER) 0.09 K/ L 0.01-0.08 H (test code = 417) IMMATURE GRANULOCYTES-RELATIVE 0 % 0-1 PERCENT (BEAKER) (test code = 2801) ZOILA, [id number] 07:22:00 Test Item Value Reference Range Interpretation Comments ABO Grouping (test code = 2588) O Rh Factor (test code = 2589) POS [facility]-Glucose [id number] 06:01:00 Test Item Value Reference Range Interpretation Comments POC-Glucose Meter (test 107 mg/dL 70-110 : TE STED AT [facility] code = 1538) [address] [place], [address]: Web Development Consultant/Techni paxton ID = [id number] for MELLO RENO AL Lab Interpretation (test Normal code = 67502-6) [facility]-GLUCOSE [id number] 06:01:00 Test Item Value Reference Range Interpretation Comments POC-GLUCOSE METER 107 mg/dL 70-110 : TESTED A T [facility] 6720 (BEAKER) (test code [facility], = 1538) [address]: Web Development Consultant/Techni paxton ID = [id number] for JORD AN, LACRYSTAL RAPID COVID surgery 05:17:00 Test Item Value Reference Range Interpretation Comments Scan Result (test code = See scanned report [id number]) [facility] GardensMISCELLANEOUS LAB [id number] 05:17:00 Test Item Value Reference Range Interpretation Comments SCAN RESULT (test code = See scanned report [id number]) Hemoglobin [id number] 10:50:00 Test Item Value Reference Range Interpretation Comments Hemoglobin A1C (test code = 4548-4) 4.9 % 4.3-6.1 Lab Interpretation (test code = Normal 91933-3) [facility] GardensHEMOGLOBIN [id number] 10:50:00 Test Item Value Reference Range Interpretation Comments HEMOGLOBIN A1C (JUN) (test code = 4.9 % 4.3-6.1 368) RAD, CHEST, 2 [id number] 10:38:00Reason for Exam:->pre opFINAL REPORT INDICATION: pre op COMPARISON: None TECHNIQUE: Frontal and lateral views of the chest. FINDINGS: Lungs and pleura: Clear lungs. No effusion.Heart and mediastinum: Normal heart size. Unremarkable mediastinal contours.Osseous structures: No acute abnormality.Additional findings: None. IMPRESSION: No acute intrathoracic abnormality. Signed: Hguh Johnson MDRort Verified Date/Time: 09/17/2019 10:38:28 Reading Location: [facility] Radiology Reading Room XR chest 2 [id number] 10:38:00Interface, External Ris In - 09/17/2019 10:40 AM CDTFINAL REPORT INDICATION: pre op COMPARISON: None TECHNIQUE: Frontal and lateral views of the chest. FINDINGS: Lungs and pleura: Clear lungs. No effusion.Heart and mediastinum: Normal heart size. Unremarkable mediastinal contours.Osseous structures: No acute abnormality.Additional findings: None. IMPRESSION: No acute intrathoracic abnormality. Signed: Hugh Johnson Verified Date/Time: 09/17/2019 10:38:28 Reading Location: [facility] Reading Room Electronically signed by: Hector GUTIERREZ 09/17/2019 10:38 [facility] [id number] 10:27:00 Test Item Value Reference Range Interpretation Comments Protein, Total 7.9 6.0- 8.3 gm/dL (test code = 2885-2) Albumin (test code 4.7 g/dL 3.5-5 = 20778-7) Alkaline 75 U/L 40-150 Phosphatase (test code = 6768-6) Total Bilirubin 0.7 mg/dL 0.2-1.2 (test code = 1975-2) Sodium (test code = 141 meq/L 090-655 5022-2) Potassium (test 4.0 meq/L 3.5-5.1 code = 2823-3) Chloride (test code 107 meq/L 98-107 = 2075-0) CO2 (test code = 24 meq/L 22-29 8-9) BUN (test code = 17 mg/dL 7-21 3094-0) Creatinine (test 1.01 mg/dL 0.57-1.25 code = 2160-0) Glucose (test code 102 mg/dL 70-105 = 2345-7) Calcium (test code 9.3 mg/dL 8.4-10.2 = 44306-0) AST (test code = 21 U/L 5-34 1920-8) ALT (test code = 36 U/L 6-55 1742-6) EGFR (test code = 83 mL/min/1.73 [place] [address]-0) NOT ACCURATE CREATININE CLEARANCE IN PREDICTING GLOMERULAR FILTRATION RATE . ESTIMATED GFR I S NOT APPLICABLE FOR DIALYSIS PATIEN TS. BEBE (test code = Web Development Consultant ID - BEBE) [facility] [id number] 10:27:00 Test Item Value Reference Range Interpretation Comments TOTAL PROTEIN 7.9 gm/dL 6.0-8.3 (BEAKER) (test code = 770) ALBUMIN (BEAKER) 4.7 g/dL 3.5-5.0 (test code = 1145) ALKALINE PHOSPHATASE 75 U/L 40-150 (BEAKER) (test code = 346) BILIRUBIN TOTAL 0.7 mg/dL 0.2-1.2 (BEAKER) (test code = 377) SODIUM (BEAKER) (test 141 meq/L 136-145 code = 381) POTASSIUM (BEAKER) 4.0 meq/L 3.5-5.1 (test code = 379) CHLORIDE (BEAKER) 107 meq/L 98-107 (test code = 382) CO2 (BEAKER) (test 24 meq/L 22-29 code = 355) BLOOD UREA NITROGEN 17 mg/dL 7-21 (BEAKER) (test code = 354) CREATININE (BEAKER) 1.01 mg/dL 0.57-1.25 (test code = 358) GLUCOSE RANDOM 102 mg/dL 70-105 (BEAKER) (test code = 652) CALCIUM (BEAKER) 9.3 mg/dL 8.4-10.2 (test code = 697) AST (SGOT) (BEAKER) 21 U/L 5-34 (test code = 353) ALT (SGPT) (BEAKER) 36 U/L 6-55 (test code = 347) EGFR (BEAKER) (test 83 mL/min/1.73 ESTIMA RODOLFO GFR IS code = 1092) sq m NOT ACCURATE CREATININE CLEARANCE IN PREDICTING GLOMERULAR FILTRATION RATE . ESTIMATED GFR I S NOT APPLICABLE FOR DIALYSIS PATIEN TS. Web Development Consultant ID - NTPProthrombin time/[id number] 10:00:00 Test Item Value Reference Range Interpretation Comments Protime (test code = 13.5 11.9- 14.2 5902-2) seconds INR (test code = 1.1 <=5.9 6301-6) BEBE (test code = BEBE) Effective 10/10/2018: PT Reference Range ChangeNew: 11.9-14.2 Previous: 11.7-14.7 RECOMMENDED COUMADIN/WARFARIN INR THERAPY RANGESSTANDARD DOSE: 2.0-3.0 Includes: PROPHYLAXIS for venous thrombosis, systemic embolization; TREATMENT for venous thrombosis and/or pulmonary embolus.HIGH RISK: Target INR is 2.5-3.5 for patients wiht mechanical heart valves. Lab Interpretation Normal (test code = 61339-2) [facility] GardensPROTHROMBIN TIME/[id number] 10:00:00 Test Item Value Reference Range Interpretation Comments PROTIME (BEAKER) (test code = 13.5 seconds 11.9-14.2 759) INR (BEAKER) (test code = 370) 1.1 <=5.9 Effective 10/10/2018: PT Reference Range ChangeNew: 11.9-14.2 Previous: 11.7- 14.7RECOMMENDED COUMADIN/WARFARIN INR THERAPY RANGESSTANDARD DOSE: 2.0-3.0 Includes: PROPHYLAXIS for venous thrombosis, systemic embolization; TREATMENT for venous thrombosis and/or pulmonary embolus.HIGH RISK: Target INR is2.5-3.5 for patients wiht mechanical heart valves.CBC W/PLT COUNT & AUTO [id number] 09:57:00 Test Item Value Reference Range Interpretation Comments WHITE BLOOD CELL COUNT (BEAKER) 11.3 K/ L 3.5-10.5 H (test code = 775) RED BLOOD CELL COUNT (BEAKER) 5.36 M/ L 4.63-6.08 (test code = 761) HEMOGLOBIN (BEAKER) (test code = 16.2 GM/DL 13.7-17.5 410) HEMATOCRIT (BEAKER) (test code = 47.7 % 40.1-51.0 411) MEAN CORPUSCULAR VOLUME (BEAKER) 89.0 fL 79.0-92.2 (test code = 753) MEAN CORPUSCULAR HEMOGLOBIN 30.2 pg 25.7-32.2 (BEAKER) (test code = 751) MEAN CORPUSCULAR HEMOGLOBIN CONC 34.0 GM/DL 32.3-36.5 (BEAKER) (test code = 752) RED CELL DISTRIBUTION WIDTH 13.8 % 11.6-14.4 (BEAKER) (test code = 412) PLATELET COUNT (BEAKER) (test 269 K/CU MM 150-450 code = 756) MEAN PLATELET VOLUME (BEAKER) 9.3 fL 9.4-12.4 L (test code = 754) NUCLEATED RED BLOOD CELLS 0 /100 WBC 0-0 (BEAKER) (test code = 413) NEUTROPHILS RELATIVE PERCENT 61 % (BEAKER) (test code = 429) LYMPHOCYTES RELATIVE PERCENT 24 % (BEAKER) (test code = 430) MONOCYTES RELATIVE PERCENT 8 % (BEAKER) (test code = 431) EOSINOPHILS RELATIVE PERCENT 6 % (BEAKER) (test code = 432) BASOPHILS RELATIVE PERCENT 1 % (BEAKER) (test code = 437) NEUTROPHILS ABSOLUTE COUNT 6.89 K/ L 1.78-5.38 H (BEAKER) (test code = 670) LYMPHOCYTES ABSOLUTE COUNT 2.73 K/ L 1.32-3.57 (BEAKER) (test code = 414) MONOCYTES ABSOLUTE COUNT (BEAKER) 0.85 K/ L 0.30-0.82 H (test code = 415) EOSINOPHILS ABSOLUTE COUNT 0.65 K/ L 0.04-0.54 H (BEAKER) (test code = 416) BASOPHILS ABSOLUTE COUNT (BEAKER) 0.10 K/ L 0.01-0.08 H (test code = 417) IMMATURE GRANULOCYTES-RELATIVE 1 % 0-1 PERCENT (BEAKER) (test code = 1849)
[2020-03-23 18:55] LABS: Protime INR 0.92
[2020-03-23] MEDS ORDERED: LORazepam 2 MG/ML VIAL ONE (18:55)
[2020-03-23 18:57] LABS: Absolute Lymphocytes (CBC) 2.3 K/uL (0.7-4.9); Basophils % 1.1 % (0-1.3); Hematocrit 44.7 % (39.6-49.0); Lymphocytes % 24.2 % (15.3-44.8); MPV 8.6 fL (7.6-11.3); RBC Red Blood Cell Count 4.93 M/uL (4.33-5.43)
[2020-03-23] MEDS ORDERED: ASPIRIN 81 MG CHEWABLE TABLET ONE (19:04)
[2020-03-23 19:28] LABS: ALT/SGPT 57 U/L (12-78); AST/SGOT 30 U/L (15-37); Albumin 3.8 g/dL (3.4-5.0); Alkaline Phosphatase 98 U/L (45-117); BUN Blood Urea Nitrogen 14 mg/dL (7-18); Bicarbonate 26 mmol/L (21-32); Bilirubin Direct < 0.1 mg/dL (0-0.2); Bilirubin Total 0.3 mg/dL (0.2-1.0); Glucose Level 189 mg/dL (74-106); NT PRO-BNP 38 pg/mL (<125); Potassium 3.6 mmol/L (3.5-5.1); Protein, Total 7.2 g/dL (6.4-8.2); Sodium Level 142 mmol/L (136-145); Troponin (Emerg Dept Use Only) 0.02 ng/mL (0.0-0.045)
--- NOTE | 2020-03-23 19:32 | EDPHYS ---
Physician Documentation [facility] Name: Vincenzo Bales Age: 40 yrs Sex: Male : 1980 Arrival Date: 03/23/2020 Time: 17:51 Bed 18 Private MD: ED Physician Vincenzo Patel HPI: 03/23 18:39 This 40 yrs old Male presents to ER via Wheelchair with complaints of Chest snw Pain, High Blood Pressure, Doesn't Feel Right. 18:39 The patient or guardian reports chest pain that is located primarily in the substernal snw area. The pain radiates to Associated signs and symptoms: Pertinent positives: lightheaded, hypertensive, anxious. The chest pain is described as a pressure. Duration: The patient or guardian reports a single episode. Severity of pain: At its worst the pain was mild. It is unknown whether or not the patient has had similar symptoms in the past. having pre-op in a few days for aortic valve replacement. Historical: - Allergies: 18:15 Dilaudid; ca1 - Home Meds: 18:15 none [Active]; ca1 - PMHx: 18:15 defective aortic valve; Hypertension; Kidney stones; ca1 - PSHx: 18:15 Appendectomy; Tonsillectomy; kidney stone removal; heart cath; ca1 - Immunization history:: Adult Immunizations up to date, Flu vaccine is not up to date. - Social history:: Smoking status: Patient reports the use of cigarette tobacco products, smokes one pack cigarettes per day. ROS: 18:38 Constitutional: Negative for fever, chills, and weight loss, Eyes: Negative for injury, snw pain, redness, and discharge, ENT: Negative for injury, pain, and discharge, Neck: Negative for injury, pain, and swelling, Respiratory: Negative for shortness of breath, cough, wheezing, and pleuritic chest pain, Abdomen/GI: Negative for abdominal pain, nausea, vomiting, diarrhea, and constipation, Back: Negative for injury and pain, : Negative for injury, bleeding, discharge, and swelling, MS/Extremity: Negative for injury and deformity, Skin: Negative for injury, rash, and discoloration, Neuro: Negative for headache, weakness, numbness, tingling, and seizure. 18:38 Cardiovascular: Positive for chest pain, of the chest, radiates to back, pt states his pressure has been high all day. Pt taking advil cold and sinus. Exam: 18:37 Constitutional: This is a well developed, well nourished patient who is awake, alert, snw and in no acute distress. Head/Face: Normocephalic, atraumatic. Eyes: Pupils equal round and reactive to light, extra-ocular motions intact. Lids and lashes normal. Conjunctiva and sclera are non-icteric and not injected. Cornea within normal limits. Periorbital areas with no swelling, redness, or edema. ENT: Nares patent. No nasal discharge, no septal abnormalities noted. Tympanic membranes are normal and external auditory canals are clear. Oropharynx with no redness, swelling, or masses, exudates, or evidence of obstruction, uvula midline. Mucous membranes moist. Neck: Trachea midline, no thyromegaly or masses palpated, and no cervical lymphadenopathy. Supple, full range of motion without nuchal rigidity, or vertebral point tenderness. No Meningismus. Chest/axilla: Normal chest wall appearance and motion. Nontender with no deformity. No lesions are appreciated. Cardiovascular: Regular rate and rhythm with a normal S1 and S2. No gallops, murmurs, or rubs. Normal PMI, no JVD. No pulse deficits. Respiratory: Lungs have equal breath sounds bilaterally, clear to auscultation and percussion. No rales, rhonchi or wheezes noted. No increased work of breathing, no retractions or nasal flaring. Abdomen/GI: Soft, non-tender, with normal bowel sounds. No distension or tympany. No guarding or rebound. No evidence of tenderness throughout. Back: No spinal tenderness. No costovertebral tenderness. Full range of motion. Skin: Warm, dry with normal turgor. Normal color with no rashes, no lesions, and no evidence of cellulitis. MS/ Extremity: Pulses equal, no cyanosis. Neurovascular intact. Full, normal range of motion. Neuro: Awake and alert, GCS 15, oriented to person, place, time, and situation. Cranial nerves II-XII grossly intact. Motor strength 5/5 in all extremities. Sensory grossly intact. Cerebellar exam normal. Normal gait. 18:37 Psych: Behavior/mood is anxious. 18:37 ECG was reviewed by the Attending Physician. snw Vital Signs: 18:11 BP 143 / 84; Pulse 78; Resp 16 S; Temp 98.1(TE); Pulse Ox 98% on R/A; Weight 120.2 kg ca1 (R); Height 5 ft. 10 in. (177.80 cm) (R); Pain 5/10; 18:23 BP 152 / 82; Pulse 83; Resp 17; Pulse Ox 98% on R/A; ll2 18:51 BP 131 / 69; Pulse 78; Resp 16; Pulse Ox 96% on R/A; ll2 19:20 BP 137 / 67; Pulse 75; Resp 19; Temp 97.9; Pulse Ox 99% ; Pain 6/10; rr5 20:15 BP 132 / 69; Pulse 70; Resp 16; Pulse Ox 99% ; rr5 18:11 Body Mass Index 38.02 (120.20 kg, 177.80 cm) ca1 MDM: 18:23 Patient medically screened. snw 19:33 Data reviewed: vital signs, nurses notes. Data interpreted: Pulse oximetry: on room air snw is 99 %. Interpretation: normal. Special discussion: Based on the patient's history, exam, and Dx evaluation, there is no indication for emergent intervention or inpatient Tx. It is understood by the patient/guardian that if the Sx's persist or worsen they need to return immediately for re-evaluation. Based on the history and exam findings, there is no indication for further emergent testing or inpatient evaluation. I discussed with the patient/guardian the need to see the welder shielded metal arc for further evaluation of the symptoms. I discussed with the patient/guardian the need to see the primary care provider for further evaluation of the symptoms. 03/23 18:16 Order name: Basic Metabolic Panel; Complete Time: 19:30 snw 03/23 18:16 Order name: CBC with Diff; Complete Time: 19:10 snw 03/23 18:16 Order name: LFT's; Complete Time: 19:30 snw 03/23 18:16 Order name: Magnesium; Complete Time: 19:30 snw 03/23 18:16 Order name: NT PRO-BNP; Complete Time: 19:30 snw 03/23 18:16 Order name: PT-INR; Complete Time: 18:59 snw 03/23 18:16 Order name: Troponin (emerg Dept Use Only); Complete Time: 19:30 snw 03/23 18:16 Order name: XRAY Chest (1 view); Complete Time: 19:53 snw 03/23 18:16 Order name: EKG; Complete Time: 18:17 snw 03/23 18:16 Order name: Cardiac monitoring; Complete Time: 18:43 snw 03/23 18:16 Order name: EKG - Nurse/Tech; Complete Time: 18:43 snw 03/23 18:16 Order name: IV Saline Lock; Complete Time: 18:43 snw 03/23 18:16 Order name: Labs collected and sent; Complete Time: 18:43 snw 03/23 18:16 Order name: O2 Per Protocol; Complete Time: 19:20 snw 03/23 18:16 Order name: O2 Sat Monitoring; Complete Time: 19:20 snw EC:37 Rate is 78 beats/min. Rhythm is regular. QRS [place] is Normal. Clinical impression: NSR snw w/ Non-specific ST/T Changes. Administered Medications: 19:01 Drug: Aspirin Chewable Tablet 324 mg Route: PO; ll2 20:00 Follow up: Response: No adverse reaction rr5 19:01 Drug: Ativan 0.5 mg Route: IVP; Site: left antecubital; ll2 20:00 Follow up: Response: No adverse reaction rr5 19:35 Drug: ProTONIX 40 mg Route: PO; rr5 20:20 Follow up: Response: No adverse reaction rr5 Disposition: 03/24 06:57 Co-signature as Attending Physician, Vincenzo Patel MD I agree with the assessment and kdr plan of care. Disposition: 03/23/20 19:31 Discharged to Home. Impression: Hypertension, Chest pain, unspecified. - Condition is Stable. - Discharge Instructions: Nonspecific Chest Pain, Hypertension, Form - Blood Pressure Record Sheet. - Prescriptions for Protonix 40 mg Oral Tablet - take 1 tablet by ORAL route once daily; 30 tablet. - Medication Reconciliation Form, Thank You Letter, Antibiotic Education, Prescription Opioid Use form. - Follow up: Emergency Department; When: As needed; Reason: Worsening of condition. Follow up: Private Physician; When: 1 - 2 days; Reason: Recheck today's complaints, Continuance of care, Re-evaluation by your physician. - Notes: Please avoid decongestants as they raise blood pressure. Signatures: Dispatcher [employer] EDMS Vincenzo Patel MD MD kdr Waters, Shelly, SCHOOL LIBRARY MEDIA PROGRAM DIRECTOR-C SCHOOL LIBRARY MEDIA PROGRAM DIRECTOR-Csnw Patrick Mcguire, RN RN rr5 Jessica Fountain RN RN ca1 Denisse Simms RN RN ll2 Corrections: (The following items were deleted from the chart) 03/23 19:34 19:31 03/23/2020 19:31 Discharged to Home. Impression: Hypertension. Condition is snw Stable. Forms are Medication Reconciliation Form, Thank You Letter, Antibiotic Education, Prescription Opioid Use. Follow up: Emergency Department; When: As needed; Reason: Worsening of condition. Follow up: Private Physician; When: 1 - 2 days; Reason: Recheck today's complaints, Continuance of care, Re-evaluation by your physician. snw 20:17 19:34 03/23/2020 19:31 Discharged to Home. Impression: Hypertension; Chest pain, rr5 unspecified. Condition is Stable. Discharge Instructions: Hypertension, Form - Blood Pressure Record Sheet. Prescriptions for Protonix 40 mg Oral Tablet - take 1 tablet by ORAL route once daily; 30 tablet. and Forms are Medication Reconciliation Form, Thank You Letter, Antibiotic Education, Prescription Opioid Use. Follow up: Emergency Department; When: As needed; Reason: Worsening of condition. Follow up: Private Physician; When: 1 - 2 days; Reason: Recheck today's complaints, Continuance of care, Re-evaluation by your physician. snw
--- NOTE | 2020-03-23 19:32 | ER ---
Nurse's Notes [facility] Name: Vincenzo Bales Age: 40 yrs Sex: Male : 1980 Arrival Date: 03/23/2020 Time: 17:51 Bed 18 Private MD: Diagnosis: Hypertension;Chest pain, unspecified Presentation: 03/23 18:11 Chief complaint: Patient states: My parts technician sent me here to the ER. My BP has been ca1 really high and can't get it down. I am having chest pain in the center of my chest that goes to my back like a stabbing pain, started at 1330 today. Highest BP 190/98. SOB, dizziness and lightheadedness with CP. Denies cough. Denies injury to chest. Coronavirus screen: Client denies travel out of the [place] in the last 14 days. shortness of breath, Client presents with at least one sign or symptom that may indicate coronavirus-19. Standard/surgical mask placed on the client. Provider contacted for isolation considerations. Ebola Screen: Patient negative for fever greater than or equal to 101.5 degrees Fahrenheit, and additional compatible Ebola Virus Disease symptoms Patient denies exposure to infectious person. Patient denies travel to an Ebola-affected area in the 21 days before illness onset. No symptoms or risks identified at this time. Initial Sepsis Screen: Does the patient meet any 2 criteria? No. Patient's initial sepsis screen is negative. Does the patient have a suspected source of infection? No. Patient's initial sepsis screen is negative. Risk Assessment: Do you want to hurt yourself or someone else? Patient reports no desire to harm self or others. Onset of symptoms was March 23, 2020 at 13:30. 18:11 Method Of Arrival: Wheelchair ca1 18:11 Acuity: ALE 2 ca1 Historical: - Allergies: 18:15 Dilaudid; ca1 - Home Meds: 18:15 none [Active]; ca1 - PMHx: 18:15 defective aortic valve; Hypertension; Kidney stones; ca1 - PSHx: 18:15 Appendectomy; Tonsillectomy; kidney stone removal; heart cath; ca1 - Immunization history:: Adult Immunizations up to date, Flu vaccine is not up to date. - Social history:: Smoking status: Patient reports the use of cigarette tobacco products, smokes one pack cigarettes per day. Screenin:35 Abuse screen: Denies threats or abuse. Nutritional screening: No deficits noted. ll2 Tuberculosis screening: No symptoms or risk factors identified. Fall Risk IV access (20 points). Total Dolan Fall Scale indicates No Risk (0-24 pts). Assessment: 18:30 General: Appears in no apparent distress. Behavior is calm, cooperative, appropriate ll2 for age. Pain: Complains of pain in denies pain, but states he feels like his heart is beating hard in his chest Pain does not radiate. Pain began 1 hour ago. Neuro: Level of Consciousness is awake, alert, obeys commands, Oriented to person, place, time, situation. Cardiovascular: Patient's skin is warm and dry. Respiratory: Airway is patent Respiratory effort is even, unlabored, Respiratory pattern is regular, symmetrical. GI: No signs and/or symptoms were reported involving the gastrointestinal system. : No signs and/or symptoms were reported regarding the genitourinary system. EENT: No signs and/or symptoms were reported regarding the EENT system. Derm: Skin is intact, is healthy with good turgor, Skin is pink, warm \T\ dry. Musculoskeletal: Circulation, motion, and sensation intact. Range of motion: intact in all extremities. 19:20 General: Appears in no apparent distress. comfortable, Behavior is calm, cooperative, rr5 appropriate for age. Pain: Complains of pain in chest Pain radiates to back Pain currently is 6 out of 10 on a pain scale. Quality of pain is described as aching, Pain began gradually, Is intermittent. Neuro: Level of Consciousness is awake, alert, obeys commands, Oriented to person, place, time, situation. Cardiovascular: Reports chest pain, Capillary refill < 3 seconds Patient's skin is warm and dry. Respiratory: Airway is patent Respiratory effort is even, unlabored, Respiratory pattern is regular, symmetrical. GI: No signs and/or symptoms were reported involving the gastrointestinal system. : No signs and/or symptoms were reported regarding the genitourinary system. EENT: No signs and/or symptoms were reported regarding the EENT system. Derm: Skin is intact, is healthy with good turgor, Skin temperature is warm. Musculoskeletal: Capillary refill < 3 seconds. 20:15 Reassessment: Patient appears in no apparent distress at this time. Patient is alert, rr5 oriented x 3, equal unlabored respirations, skin warm/dry/pink. discharge instruction given and explained without complaints made. Vital Signs: 18:11 BP 143 / 84; Pulse 78; Resp 16 S; Temp 98.1(TE); Pulse Ox 98% on R/A; Weight 120.2 kg ca1 (R); Height 5 ft. 10 in. (177.80 cm) (R); Pain 5/10; 18:23 BP 152 / 82; Pulse 83; Resp 17; Pulse Ox 98% on R/A; ll2 18:51 BP 131 / 69; Pulse 78; Resp 16; Pulse Ox 96% on R/A; ll2 19:20 BP 137 / 67; Pulse 75; Resp 19; Temp 97.9; Pulse Ox 99% ; Pain 6/10; rr5 20:15 BP 132 / 69; Pulse 70; Resp 16; Pulse Ox 99% ; rr5 18:11 Body Mass Index 38.02 (120.20 kg, 177.80 cm) ca1 ED Course: 17:51 Patient arrived in ED. as 18:14 Triage completed. ca1 18:15 Ciarra Gloria F[facility]-C [facility] snw 18:15 Arm band placed on right wrist. ca1 18:16 Vincenzo Patel MD is Attending Physician. snw 18:24 Denisse Simms, TAQUERIA is Primary Nurse. ll2 18:37 Initial lab(s) drawn, by hi, sent to lab. Inserted saline lock: 20 gauge in left jl7 antecubital area, using aseptic technique. Blood collected. 18:43 Troponin (emerg Dept Use Only) Sent. 5 18:43 PT-INR Sent. 5 18:43 NT PRO-BNP Sent. 5 18:43 Magnesium Sent. 5 18:43 LFT's Sent. 5 18:44 Patient has correct armband on for positive identification. Placed in gown. Bed in low mh5 position. Call light in reach. Side rails up X 1. Warm blanket given. school bus monitor on. Pulse ox on. NIBP on. 18:44 CBC with Diff Sent. 5 18:44 Basic Metabolic Panel Sent. 5 18:44 EKG done, by ED staff, reviewed by Ciarra BELLE. 5 18:56 XRAY Chest (1 view) In Process Unspecified. EDMS 19:06 Report given to TAQUERIA Nguyen. ll2 20:15 No provider procedures requiring assistance completed. IV discontinued, intact, rr5 bleeding controlled, No redness/swelling at site. Pressure dressing applied. 20:15 Patient maintains SpO2 saturation greater than 95% on room air. rr5 Administered Medications: 19:01 Drug: Aspirin Chewable Tablet 324 mg Route: PO; ll2 20:00 Follow up: Response: No adverse reaction rr5 19:01 Drug: Ativan 0.5 mg Route: IVP; Site: left antecubital; ll2 20:00 Follow up: Response: No adverse reaction rr5 19:35 Drug: ProTONIX 40 mg Route: PO; rr5 20:20 Follow up: Response: No adverse reaction rr5 Outcome: 19:31 Discharge ordered by MD. snw 20:15 Discharged to home ambulatory. rr5 20:15 Condition: stable 20:15 Discharge instructions given to patient, Instructed on discharge instructions, follow up and referral plans. medication usage, Demonstrated understanding of instructions, follow-up care, medications, Prescriptions given X 1. 20:17 Patient left the ED. rr5 Signatures: Dispatcher [employer] EDMS Ciarra Gloria FNP-C FNP-Annette Dolan Maria 5 Stephanie Mitchell RN RN jl7 Patrick Mcguire, RN RN rr5 Jessica Fountain RN RN ca1 Denisse Simms RN RN ll2 Corrections: (The following items were deleted from the chart) 18:15 18:11 Chief complaint: Patient states: My parts technician sent me here to the ER. My BP ca1 has been really high and can't get it down. I am having chest pain in the center of my chest that goes to my back like a stabbing pain, started at 1330 today. Highest BP 190/98. SOB, dizziness and lightheadedness with CP. ca1
--- NOTE | 2020-03-23 19:43 | RAD REPORT ---
EXAM DESCRIPTION: RAD - Chest Single View - 03/23/2020 6:57 pm CLINICAL HISTORY: CHEST PAIN COMPARISON: June 2019 TECHNIQUE: AP portable chest image was obtained 03/23/2020 6:57 pm . FINDINGS: Lungs are clear. Cardiac silhouette is enlarged. Left side pericardial fat contributes to overall enlargement. No vascular engorgement. Cardiac silhouette is not substantially different from comparison when adjusting for differences in technique. No measurable pleural effusion and no pneumot horax. No acute bony abnormality seen. No acute aortic findings suspected. IMPRESSION: No acute cardiopulmonary process. Prominent cardiac silhouette without acute failure findings.
[2020-03-23] MEDS ORDERED: PANTOPRAZOLE 40 MG INJ ONE (19:48)
[2020-03-24 03:33] VITALS: BP 137/67; TEMP 97.9; O2SAT 99
--- NOTE | 2020-03-24 12:05 | EKG ---
Test Date: 2020-03-23 Test Time: 18:31:07 Bilingual Inside Sales Representative: ALEX MEASUREMENT RESULTS: Intervals: Rate: 78 FL: 158 QRSD: 106 QT: 388 QTc: 442 [place]: P: 48 FL: 158 QRS: 7 T: 47 INTERPRETIVE STATEMENTS: Normal sinus rhythm Minimal voltage criteria for LVH, may be normal variant Septal infarct, age undetermined Abnormal ECG Compared to ECG 07/09/2019 12:11:41 Left ventricular hypertrophy now present Myocardial infarct finding now present Electronically Signed On 03-24-20 12:03:14 MANAGER OF SOFTWARE by Navin Melton
== END 2020-03-23 20:17 | disposition home or self-care (01) ==
LOC: ER 17:49
DX: I10 Essential (primary) hypertension (principal); F17.210 Nicotine dependence, cigarettes, uncomplicated; Z88.5 Allergy status to narcotic agent
CPT/HCPCS: 93005; 85025; 80048; 36415; 83735; 85610; 80076; 84484; 83880; 71045; 96374; 99285; C9113

== ENCOUNTER 2020-12-24 05:26 | Emergency (ER) | payer BC ==
--- OUTSIDE RECORDS SUMMARY | 2020-12-24 05:32 | XMS REPORT | Continuity of Care Document ---
:1980 Author Organization [facility] t Address [address] [place] [address] Care Team Providers Name Role Phone Carla Rodriguez MD, Gene Primary Care Physician [phone] Mike Powell MD Attending Clinician Nicholas Rivas DO Attending Clinician Thaddeus Smith MD Attending Clinician MIKE POWELL Attending Clinician Unavailable Magaly Christina NP Attending Clinician OJNNY Attending Clinician Unavailable CARRIE GRUBER Attending Clinician Unavailable MIKE POWELL Admitting Clinician Unavailable JUANA BURGOS Admitting Clinician Unavailable CARRIE GRUBER Admitting Clinician Unavailable Payers Payer Name Policy Type Policy Effective Date Expiration Date Sour ce Number BLUE CROSS/BLUE [facility] - Medical POS/PPO/EPOxxxxxx [place] [id number]/05/2019 -[id number], [place] [address]DEM Problems Condition Condition Condition Status Onset Resolution Last Treating Co mments Source Name Details Category Date Date Treatment Clinician Date Aortic Aortic Disease Active 2019-[address] stenosis stenosis 05-30 Bryce - due to due to 00:00: Medical bicuspid bicuspid 00 Center aortic aortic valve valve S/P S/P Disease Active 2019-[address] [facility] Aortic 00:00: Medical Valve Valve 00 Center Replacemen Replacemen t by Dr. beatty by Dr. 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 [facility] - pseudo-ane pseudo-ane 00:00: Me dical urysm, urysm, 00 Center right right Allergies, Adverse Reactions, Alerts Allergy Allergy Status Severity Reaction(s) Onset Inactive Treating Comm ents Source Name Type Date Date Clinician Meredith Harveyi Active Hives [facility] 09-16 [facility] - adverse 00:00: Medical reaction 00 [place] s Hydromor Drug Active Severe Other [facility] phone Allergy 7-11 reaction( [facility] - (Bulk) 00:00: s): Medical [facility] [place] tionsBeco mes very aggressiv e Family History Family Member Diagnosis Comments Start Date Stop Date Source Natural father Heart disease [facility] Maternal aunt Diabetes [facility] Maternal aunt Liver disease [facility] Maternal grandmother Liver disease C [facility] Maternal uncle Cancer [facility] Natural mother Arthritis [facility] Paternal grandmother Diabetes [facility] Natural son No Known Problem [facility] Social History Social Habit Start Date Stop Date Quantity Comments Source History of tobacco Cigarette Smoker [facility] - use [facility] Sex Assigned At [facility] Cigarettes smoked 2020-04-28 2020-04-28 [facility] - current (pack per 00:00:00 00:00:00 Medical Center day) - Reported Cigarette 2020-04-28 2020-04-28 [facility] - pack-years 00:00:00 00:00:00 [facility] Tobacco use and 2020-04-28 2020-04-28 Never used [facility] - exposure 00:00:00 00:00:00 [facility] Alcohol intake 2020-04-28 2020-04-28 [facility]er [facility] - 00:[facility]:00 00:00:00 of alcohol Medical Center (finding) Alcohol Comment 2020-03-27 2020-03-27 during holidays, [facility] - 00:00:00 00:00:00 3 times per year Medical Center History [facility] 2019-09-17 2019-09-[address] [facility] - Alcohol Frequency 00:00:00 00:00:00 Medical Center History [facility] 2019-09-17 2019-09-17 1 [facility] - Alcohol Std Drinks 00:00:00 00:00:00 Medica l Center History [facility] 2019-09-17 2019-09-17 1 [facility] - Alcohol Binge 00:00:00 00:00:[address] Smoking Status Start Date Stop Date Source Unknown if ever smoked [facility] Current every day smoker 2020-04-28 00:00:00 [facility] Medications Ordered Filled Start Stop Current Ordering Indication Dosage Frequency Signature Comments Components Source Medication Medication Date Date Medication? Clinician (SIG) Name Name ibuprofen 2019-05 Yes Take by ERINN S t (ADVIL 2-15 mouth. [facility] - LIQUI-GEL 13:06: Medical ORAL) 46 [place] doxylamin-P 2019-05 2020- No 1{dose} Take [address] SE-DM-aceta 2-15 12-15 Dose by Milad s - minophen 13:06: 00:00 mouth as Medi stephanie (Izabella-Seltz 17 :00 needed Center er Plus Izabella Cold+Flu) [place] 12.5-10-20- Cold/Sinus 650 mg PwPk . aspirin 81 2019-05- No 81mg QD Take [address] MG EC 06-08 12-15 tablet (81 [facility] - tablet 00:00: 00:00 mg total) Medic al 00 :00 by mouth Center daily. nicotine 2019-05- No 1{patch QD Place [address] (NICODERM 06-08 } patch onto Jeannie es - CQ) 14 00:00: 23:59 the skin Medica l mg/24 hr 00 :00 daily for Center patch 14 days. doxylamine/ 2019-05- No 1{tbl} Take [address] phenylep/DM 06-07 11-24 tablet by Joan kes - /aspirin 12:44: 00:00 mouth 2 Medic al (IZABELLA-SELTZ 19 :00 (two) Center ER PLUS times DAY-NIGHT daily as ORAL) needed . naproxen 2019-05- No 220mg Take [address] (ALEVE,ANAP 06-07 11-24 mg by Lumya - JACOB,MIDOL) 12:44: 00:00 mouth 2 Med ical 220 MG 19 :00 (two) Center tablet times daily with breakfast and dinner. warfarin 2019-05 No 7.5mg QD Take 1 [facility] (COUMADIN, 06-07 tablet [facility] - JANTOVEN) 00:00: 23:59 (7.5 mg Medi stephanie 7.5 MG 00 :00 total) by Center tablet mouth daily. guaiFENesin 2019-05 No 600mg Q.5D Take [address] (mucINEX) 06-07 tablet [facility] - 600 mg 12 00:00: 23:59 (600 mg Medi stephanie hr tablet 00 :00 total) by Cente r mouth 2 (two) times daily for 14 days. LORazepam 2019-05- No 2mg QD Take 1 [facility] (ATIVAN) 2 06-07 tablet (2 Jeannie es - MG tablet 00:00: 23:59 mg total) Me dical 00 :00 by mouth Center nightly for 14 days. Max Daily Amount: 2 mg benzonatate 2019-05 No 100mg Take [address] (TESSALON) 06-07 capsule [facility] - 100 MG 00:00: 23:59 (100 mg Medical capsule 00 :00 total) by Center mouth 3 (three) times daily as needed for Cough for up to 7 days. HYDROcodone 2019-05- No 1{tbl} Take [address] -acetaminop 06-07 tablet by Joan decker (NORCO 00:00: 23:59 mouth Medic al 10-325) 00 :00 every 6 Center 10-325 mg (six) per tablet hours as needed for up to 7 days. Max Daily Amount: 4 tablets metoprolol 2019-05 Yes 25mg Q.5D Take [address] tartrate -11 by mouth 2 [facility] - (LOPRESSOR) 00:00: (two) Medic al 25 MG 00 times Center tablet daily. fexofenadin 2019-05 2020- No 180mg QD Take [address] (RAMIRO) 0-20 10-20 mg by [facility] - 180 MG 13:42: 00:00 mouth Medical tablet 35 :00 daily. [place] gabapentin Yes 300mg Take [address] (NEURONTIN) 5-06 mg by [facility] - 300 MG 00:00: mouth 2 Medical capsule 00 (two) Center times daily as needed . Vital Signs Vital Name Observation Time Observation Value Comments Source Systolic blood 2020-04-28 12:55:00 136 mm[Hg] [facility] Diastolic blood 2020-04-28 12:55:00 83 mm[Hg] [facility] Heart rate 2020-04-28 12:55:00 66 /min [facility] Body temperature 2020-04-28 12:55:00 37 Claudette [facility] Respiratory rate 2020-04-28 12:55:00 18 /min [facility] Body height 2020-04-28 12:55:00 177.8 cm [facility] Body weight 2020-04-28 12:55:00 117.482 kg [facility] BMI 2020-04-28 12:55:00 37.16 kg/m2 [facility] Oxygen saturation in 2020-04-28 12:55:00 98 /min room air [facility] Arterial blood by Medical Ce nter Pulse oximetry Procedures Procedure Date / Time Performing Clinician Source Performed CBC (HEMOGRAM ONLY) 2020-04-07 05:47:00 Shakira Lazcano [facility] BASIC METABOLIC PANEL (7) 2020-04-07 05:47:00 Shakira Lazcano [facility] MAGNESIUM 2020-04-07 05:47:00 Shakira Lazcano [facility] PHOSPHORUS 2020-04-07 05:47:00 Shakira Lazcano [facility] PROTHROMBIN TIME/INR 2020-04-07 05:47:00 Shakira Lazcano [facility] 2D ECHO W/ DOPPLER 2020-04-06 17:23:05 Anastacio Bhakta [facility] (CW/PW/COLOR) [facility] CBC (HEMOGRAM ONLY) 2020-04-06 06:06:00 Shakira Lazcano [facility] BASIC METABOLIC PANEL (7) 2020-04-06 06:06:00 Shkaira Lazcano [facility] MAGNESIUM 2020-04-06 06:06:00 Shakira Lazcano [facility] PHOSPHORUS 2020-04-06 06:06:00 Shakira Lazcano [facility] PROTHROMBIN TIME/INR 2020-04-06 06:06:00 Shakira Lazcano [facility] CBC (HEMOGRAM ONLY) 2020-04-04 05:36:00 Shakira Lazcano [facility] BASIC METABOLIC PANEL (7) 2020-04-04 05:36:00 Shakira Lazcano [facility] MAGNESIUM 2020-04-04 05:36:00 Shakira Lazcano [facility] PHOSPHORUS 2020-04-04 05:36:00 Shakira Lazcano [facility] PROTHROMBIN TIME/INR 2020-04-04 05:36:00 Shakira Lazcano [facility] XR CHEST 1 VIEW PORTABLE / 2020-04-04 04:24:00 Shakira Lazcano [facility] POCT-GLUCOSE METER 2020-04-03 05:54:00 Denzel Powell [facility] BLOOD GAS, VENOUS 2020-04-03 02:38:00 Bina Cleaning [facility] CBC (HEMOGRAM ONLY) 2020-04-03 02:36:00 Shakira Lazcano [facility] BASIC METABOLIC PANEL (7) 2020-04-03 02:36:00 Shakira Lazcano [facility] MAGNESIUM 2020-04-03 02:36:00 Shakira Lazcano [facility] PROTHROMBIN TIME/INR 2020-04-03 02:36:00 Anastacio Bhakta [facility] XR CHEST 1 VIEW PORTABLE / 2020-04-03 02:31:00 Shakira Lazcano [facility] POCT-GLUCOSE METER 2020-04-02 05:50:00 Andre, [facility] BLOOD GAS, ARTERIAL 2020-04-02 02:49:00 Iginiamre, [facility] CBC (HEMOGRAM ONLY) 2020-04-02 02:49:00 Shakira Lazcano [facility] BASIC METABOLIC PANEL (7) 2020-04-02 02:49:00 Shakira Lazcano [facility] MAGNESIUM 2020-04-02 02:49:00 Shakira Lazcano [facility] LACTIC ACID, ARTERIAL 2020-04-02 02:49:00 Iginiamarciano [facility] PROTHROMBIN TIME/INR 2020-04-02 02:49:00 Anastacio Bhakta [facility] XR CHEST 1 VIEW PORTABLE / 2020-04-02 01:59:00 Shakira Lazcano [facility] POCT-GLUCOSE METER 2020-04-02 00:01:00 Andre [facility] BASIC METABOLIC PANEL (7) 2020-04-01 18:52:00 Liset Nunez [facility] LACTIC ACID, ARTERIAL 2020-04-01 04:24:00 Iginiamre, [facility] PHOSPHORUS 2020-04-01 04:22:00 Jacek Santizo [facility] BLOOD GAS, ARTERIAL 2020-04-01 04:22:00 Iginiamre, [facility] CBC (HEMOGRAM ONLY) 2020-04-01 04:22:00 Shakira Lazcano [facility] BASIC METABOLIC PANEL (7) 2020-04-01 04:22:00 Shakira Lazcano [facility] MAGNESIUM 2020-04-01 04:22:00 Shakira Lazcano [facility] XR CHEST 1 VIEW PORTABLE / 2020-04-01 01:47:00 Gillet, Shakira [facility] POCT-GLUCOSE METER 2020-03-31 17:18:00 Andre [facility] LACTIC ACID, ARTERIAL 2020-03-31 05:23:00 Iginiamre, [facility] PHOSPHORUS 2020-03-31 02:42:00 Jacek Santizo [facility] BLOOD GAS, ARTERIAL 2020-03-31 02:42:00 Iginiamre, [facility] CBC (HEMOGRAM ONLY) 2020-03-31 02:42:00 Neno [facility] BASIC METABOLIC PANEL (7) 2020-03-31 02:42:00 Neno [facility] MAGNESIUM 2020-03-31 02:42:[address] [facility] LACTIC ACID, ARTERIAL 2020-03-31 02:42:00 Iginiamarciano [facility] POCT-GLUCOSE METER 2020-03-31 02:18:00 Andre, [facility] XR CHEST 1 VIEW PORTABLE / 2020-03-31 01:38:00 Neno Shakira [facility] LACTIC ACID, ARTERIAL 2020-03-31 00:24:00 Iginiamre, [facility] BLOOD GAS, ARTERIAL 2020-03-31 00:24:00 Cara, Tanwie Polycarp [facility] BLOOD GAS, ARTERIAL 2020-03-30 22:34:00 Cara, Tanwie Polycarp [facility] BLOOD GAS, ARTERIAL 2020-03-30 22:06:00 Cara, Tanwie Polycarp [facility] LACTIC ACID, ARTERIAL 2020-03-30 20:21:00 Iginiamre, [facility] BLOOD GAS, ARTERIAL 2020-03-30 20:21:00 Cara, Tanwie Polycarp [facility] CALCIUM, IONIZED 2020-03-30 20:21:00 Cara, Tanwie Polycarp [facility] SODIUM NA-STAT LAB 2020-03-30 20:21:00 [facility] 2020-03-30 20:21:00 Monster Marroquin [facility] GLUCOSE-STAT LAB 2020-03-30 20:21:00 Monster Marroquin [facility] HGB/HCT (H&H) - STAT LAB 2020-03-30 20:21:00 Monster Marroquin [facility] BLOOD GAS, ARTERIAL 2020-03-30 18:47:00 Iginiamrmu [facility] LACTIC ACID, ARTERIAL 2020-03-30 18:20:00 Iginiamarciano [facility] BLOOD GAS, ARTERIAL 2020-03-30 18:20:00 Lisy [facility] SODIUM NA-STAT LAB 2020-03-30 18:20:00 Iginiamarciano [facility] POTASSIUM-STAT LAB 2020-03-30 18:20:00 Iginiamarciano [facility] GLUCOSE-STAT LAB 2020-03-30 18:20:00 Iglisa [facility] HGB/HCT (H&H) - STAT LAB 2020-03-30 18:20:00 Magaly Wasserman [facility] XR CHEST 1 VIEW PORTABLE / 2020-03-30 17:45:00 Lisy [facility] OXYGEN SATURATION, 2020-03-30 17:38:00 Syedamu [facility] APTT 2020-03-30 17:38:00 [facility] PR[facility]/INR 2020-03-30 17:38:00 Iglisa [facility] FIBRINOGEN 2020-03-30 17:38[facility]00 [facility]OLIC PANEL (7) 2020-03-30 17:34:00 Jacek Santizo [facility] MAGNESIUM 2020-03-30 17:34:00 Jacek Santizo [facility] PHOSPHORUS 2020-03-30 17:34:00 Jacek Santizo [facility] BLOOD GAS, ARTERIAL 2020-03-30 17:34:00 Igjonmre [facility] CALCIUM, IONIZED 2020-03-30 17:34:00 Igjonmrmu [facility] CBC W/PLT COUNT & AUTO 2020-03-30 17:34:00 Lisy [facility] LACTIC ACID, ARTERIAL 2020-03-30 17:34:00 Lisy [facility] SODIUM NA-STAT LAB 2020-03-30 17:34:00 Lisy [facility] POTASSIUM-STAT LAB 2020-03-30 17:34:00 Lisy [facility] GLUCOSE-STAT LAB 2020-03-30 17:34:00 Lisy [facility] HGB/HCT (H&H) - STAT LAB 2020-03-30 17:34:00 Magaly Wasserman [facility] (CELLAVISION MANUAL DIFF) 2020-03-30 17:34:00 Lisy [facility] PREPARE RBC 2020-03-30 16:46:00 [facility]AS[facility] 2020-03-30 16:46:00 Andre [facility] POCT-ACT 2020-03-30 15:54:00 [facility] PLATELET COUNT 2020-03-30 15:50:28 Holden [facility] PT/APTT 2020-03-30 15:50:28 Holden [facility] FIBRINOGEN 2020-03-30 15:50:28 Holden [facility] POCT-ACT 2020-03-30 15:31:00 Andre [facility] BLOOD GAS, ARTERIAL 2020-03-30 15:28:03 Hatch, [facility] CALCIUM, IONIZED 2020-03-30 15:28:03 Hatch, [facility] SODIUM NA-STAT LAB 2020-03-30 15:28:03 Hatch, [facility] POTASSIUM-STAT LAB 2020-03-30 15:28:03 Hatch, [facility] GLUCOSE-STAT LAB 2020-03-30 15:28:03 Hatch, [facility] HGB/HCT (H&H) - STAT LAB 2020-03-30 15:28:03 Holden [facility] POCT-ACT 2020-03-30 14:55:00 Andre [facility] BLOOD GAS, ARTERIAL 2020-03-30 14:53:29 Andre [facility] SODIUM NA-STAT LAB 2020-03-30 14:53:29 Andre [facility] POTASSIUM-STAT LAB 2020-03-30 14:53:29 Andre [facility] GLUCOSE-STAT LAB 2020-03-30 14:53:29 Andre [facility] HGB/HCT (H&H) - STAT LAB 2020-03-30 14:53:29 Andre, [facility] TISSUE EXAM 2020-03-30 14:43:00 Andre [facility] POCT-ACT 2020-03-30 14:31:00 Andre [facility] BLOOD GAS, ARTERIAL 2020-03-30 14:28:05 Andre, [facility] SODIUM NA-STAT LAB 2020-03-30 14:28:05 Andre, [facility] POTASSIUM-STAT LAB 2020-03-30 14:28:05 Andre, [facility] GLUCOSE-STAT LAB 2020-03-30 14:28:05 Andre [facility] HGB/HCT (H&H) - STAT LAB 2020-03-30 14:28:05 Andre [facility] POCT-ACT 2020-03-30 14:01:00 Andre [facility] BLOOD GAS, ARTERIAL 2020-03-30 13:58:50 Andre [facility] SODIUM NA-STAT LAB 2020-03-30 13:58:50 Andre [facility] POTASSIUM-STAT LAB 2020-03-30 13:58:50 Andre [facility] GLUCOSE-STAT LAB 2020-03-30 13:58:50 Andre [facility] HGB/HCT (H&H) - STAT LAB 2020-03-30 13:58:50 Andre [facility] POCT-ACT 2020-03-30 13:30:00 Andre [facility] CONT WAVE PULSED DOPPLER 2020-03-30 13:27:45 Anastacio Bhakta [facility] COLOR-FLOW MAPPING 2020-03-30 13:27:44 Anastacio Bhakta [facility] BLOOD GAS, ARTERIAL 2020-03-30 13:27:[address] [facility] SODIUM NA-STAT LAB 2020-03-30 13:27:20 Andre [facility] POTASSIUM-STAT LAB 2020-03-30 13:27:20 Andre [facility] GLUCOSE-STAT LAB 2020-03-30 13:27:20 Andre [facility] HGB/HCT (H&H) - STAT LAB 2020-03-30 13:27:20 Andre [facility] POCT-ACT 2020-03-30 12:54:00 Andre, [facility] BLOOD GAS, ARTERIAL 2020-03-30 12:02:[address] [facility] CALCIUM, IONIZED 2020-03-30 12:02:40 Holden [facility] SODIUM NA-STAT LAB 2020-03-30 12:02:40 Holden [facility] POTASSIUM-STAT LAB 2020-03-30 12:02:40 Holden [facility] GLUCOSE-STAT LAB 2020-03-30 12:02:40 Holden [facility] HGB/HCT (H&H) - STAT LAB 2020-03-30 12:02:40 Holden [facility] TRANSESOPHAGEAL ECHO 2020-03-30 10:57:35 Anastacio Bhakta [facility] REPLACEMENT,VALVE AORTIC 2020-03-30 10:52:00 Andre [facility] POCT-GLUCOSE METER 2020-03-30 08:20:00 Andre [facility] COMPREHENSIVE METABOLIC 2020-03-27 08:33:00 Debsofia [facility] LIPID PANEL 2020-03-27 08:33:00 Debsofia [facility] MAGNESIUM 2020-03-27 08:33:00 Tre [facility] TYPE AND SCREEN, AUTOMATED 2020-03-27 08:32:00 Tre [facility] CBC W/PLT COUNT & AUTO 2020-03-27 08:32:00 Debontmu [facility] APTT 2020-03-27 08:32:00 Tre [facility] HEMOGLOBIN A1C 2020-03-27 08:32:00 Tre [facility] PROTHROMBIN TIME/INR 2020-03-27 08:32:00 Tre [facility] SARS-COV2/RT-PCR ([facility] & 2020-03-27 08:11:00 Barbie Toledo [facility] ECG 12-LEAD 2020-03-27 07:28:01 Barbie Toledo [facility] CTA CHEST 2020-03-19 15:44:00 Mariotanmay Sarahmarlyn Mckenzie [facility] HC CAROTID DOPPLER LINDSEY 2020-03-19 13:40:00 Sarah Christina [facility] Plan of Care Planned Activity Planned Date Details Comments Source Future Scheduled 2023-03-[address] [facility] Test 00:00:00 (procedure) [code = [facility] [id number]] Future Scheduled 2020-05-[address] [facility] - Test 00:00:00 (12+) [code = [facility] DEPRESSION SCREENING (12+)] Future Scheduled 2020-01-14 INFLUENZA VACCINE (#1) [facility] Test 00:00:00 [code = INFLUENZA Medical Ce nter VACCINE (#1)] Future Scheduled 2000 DTAP/TDAP/TD VACCINES [facility] - Test 00:00:00 (1 - Tdap) [code = Medical C enter DTAP/TDAP/TD VACCINES (1 - Tdap)] Future Scheduled 1999 HEPATITIS C [facility]CRE[facility]ING [facility] - Test 00:00:00 [code = HEPATITIS C [facility] SCREENING] Future Scheduled [address] [facility] - Test 00:00:00 0-64 YRS (1 of 1 - Medical C enter PPSV23) [code = PNEUMOCOCCAL VACCINE 0-64 YRS (1 of 1 - PPSV23)] Future Scheduled COVID-19 VACCINE (1) [facility] Test [code = COVID-19 VACCINE (1)] Future Scheduled Hepatitis C screening [facility] Test (procedure) [code = [id number]] Future Scheduled INFLUENZA VACCINE [facility] [code = INFLUENZA VACCINE] Results Test Description Test Time Test Comments Results Result Sourc e Comments 2D Echo 2020-03-16 Ejection FractionSLEH [facility] W/Doppler(CW/PW/C 4 ECHO [facility] [place] [facility]) 09:36:15 [facility] Center CPACSInterface, External Ris In 04/07/2020 9:36 AM CSTTransthoracic Echocardiography Report (TTE) Demographics Patient Name KELLY WORLEY Date of Study 04/06/2020 Gender Male Visit Number [id number] Race Unknown Room Number 1127 Number Date of 1980 Referring Physician Age 40 year(s) Printer'S Assistant Enedina Correa Interpreting Physician DANIEL Franco Fellow LOI Devi Procedure Type of Study TTE procedure:2DECHO W DOPPLER(CW/PW/COLOR) (GABY) Indications:Initial post operative evaluation of prosthetic valve.Clinical HistoryHGB 13.5HCT 39.9 %CADCURRENT SMOKERSOBAVR 03/30/20CARDIAC CATHERIZATIONHeight: 70 inches Weight: 118.39 kg (261 lbs) BSA: 2.34 m^2 BMI: 37.45kg/m^2HR: 96 bpm BP: 118/69 mmHg Summary The left ventricle is chamber size (by PSLAX dimension) is normal (male - LVIDd 4.2-5.8cm) . Borderline concentric LV hypertrophy. Estimated LVEF by qualitative assessment is normal (>60%) . LV diastolic function is indeterminate. The prosthetic AoV appears well-seated with normal function by Doppler. Trivial AI. Unable to estimate peak systolic PA pressure; inadequate TR velocity signal. Small (0.8cm) loculated posterior pericardial effusion present. Signature - - Findings Rhythm/BP Regular sinus rhythm during the exam. Left Ventricle The LV endocardium is incompletely visualized. The left ventricle is chamber size (by PSLAX dimension) is normal (male - LVIDd 4.2-5.8cm) . Borderline concentric LV hypertrophy. The following segment(s) are not well visualized: anterior, inferior, but appear normal on short axis views. Septal motion is abnormal, likely related to prior cardiac surgery . The other segments contract normally. Estimated LVEF by qualitative assessment is normal (>60%) . LV diastolic function is indeterminate. Left Atrium LA size is normal . Right Ventricle The right ventricular chamber size and systolic function are within normal limits. Right Atrium RA size is normal. Aortic Valve A mechanical AoV prosthesis is visualized by limited views. The prosthetic AoV appears well-seated with normal function by Doppler. Trivial AI. Mitral Valve Normal MV structure. Trace mitral regurgitation. Tricuspid Valve TV structure is normal. Mild tricuspid regurgitation. Unable to estimate peak systolic PA pressure; inadequate TR velocity signal. Pulmonic Valve Normal PV structure and function by limited views and Doppler. Pericardium Small (0.8cm) loculated posterior pericardial effusion present. Pericardial tamponade physiology is not evident based on available data . IVC/SVC/PA/PV/Pleural The estimated RA pressure by IVC dynamics 0-5mmHg . Chambers/Structures Left Ventricle LVIDd: 5.11 cm LVEDV:124.48 ml LV Septum Diastolic: 0.99 cm LV PW Diastolic: 0.95 cm LVOT Diameter: 1.98 cm Right Ventricle RVOT VTI: 15.21 cm Doppler/Quantitative Measurements Mitral Valve MV Peak E-Wave: 0.78 m/s MV Peak A-Wave: 0.56 m/s P1/2t: 51.4 msec E/A Ratio: 1.41 Peak Gradient: 2.45 mmHg Deceleration Time: 177.4 msec MV Area (PHT): 4.28 cm^2 MV Rohan. Peak: Aortic Valve Peak Velocity: 1.49 m/s Mean Velocity: 0.95 m/s Peak Gradient: 8.83 mmHg Mean Gradient: 4.29 mmHg AV Area (continuity): 2.85 cm^2 AV VTI: 25.13 cm AV DVI: 0.93 LVOT Peak Velocity: 1.01 m/s Peak Gradient: 4.06 mmHg Mean Velocity: 0.62 m/s Mean Gradient: 1.9 mmHg LVOT Diameter: 1.98 cm LVOT VTI: 23.25 cm LVOT Area: 3.08 cm^2 LVOT SV:71.55 ml LVOT CO: 6.87 l/min LVOT CI: 2.94 l/min/m^2 CBC (Hemogram only) 2020-04-07 09:15:00 Test Item Value Reference Range Interpretation Comme nts WBC (test code = 6690-2) 9.9 See_Comment [A utomated message] The system which generated this result transmitted ref erence range: 3.5 - 10.5 K/L. T he reference range was not u sed to interpret this result as normal/abnormal. RBC (test code = 789-8) 4.24 See_Comment L [Au tomated message] The system which generated this result transmitted ref erence range: 4.63 - 6.08 M/ L. The reference range was not u sed to interpret this result as normal/abnormal. MCHC (test code = 786-4) 33.5 See_Comment L [A utomated message] The system which generated this result transmitted ref erence range: 32.3 - 36.5 GM/ DL. The reference range was not u sed to interpret this result as normal/abnormal. Hematocrit (test code = 39.4 % 40.1-51 L 4544-3) MCV (test code = 787-2) 92.9 fL 79-92.2 H MCH (test code = 785-6) 31.1 pg 25.7-32.2 RDW (test code = 788-0) 13.0 % 11.6-14.4 Platelets (test code = 777-3) 519 See_Comment H [Automated message] The system which generated this result transmitted ref erence range: 150 - 450 K/CU MM. The reference range was not u sed to interpret this result as normal/abnormal. MPV (test code = 47442-3) 10.2 fL 9.4-12.4 Lab Interpretation (test code Abnormal = 67385-0) [facility] 09:15:00 Test Item Value Reference Range Interpretation Comments WHITE BLOOD CELL COUNT (BEAKER) 9.9 K/ L 3.5-10.5 (test code = 775) RED BLOOD CELL COUNT (BEAKER) 4.24 M/ L 4.63-6.08 L (test code = 761) HEMOGLOBIN (BEAKER) (test code = 13.2 GM/DL 13.7-17.5 L 410) HEMATOCRIT (BEAKER) (test code = 39.4 % 40.1-51.0 L 411) MEAN CORPUSCULAR VOLUME (BEAKER) 92.9 fL 79.0-92.2 H (test code = 753) MEAN CORPUSCULAR HEMOGLOBIN 31.1 pg 25.7-32.2 (BEAKER) (test code = 751) MEAN CORPUSCULAR HEMOGLOBIN CONC 33.5 GM/DL 32.3-36.5 (BEAKER) (test code = 752) RED CELL DISTRIBUTION WIDTH 13.0 % 11.6-14.4 (BEAKER) (test code = 412) PLATELET COUNT (BEAKER) (test 519 K/CU MM 150-450 H code = 756) MEAN PLATELET VOLUME (BEAKER) 10.2 fL 9.4-12.4 (test code = 754) Basic Metabolic [id number] 07:00:00 Test Item Value Reference Range Interpretation Comments Sodium (test code = 136 meq/L 835-941 1544-2) Potassium (test code = 3.8 meq/L 3.5-5.1 2823-3) Chloride (test code = 98 meq/L 98-107 2075-0) CO2 (test code = 27 meq/L 22-29 2028-9) BUN (test code = 22 mg/dL 7-21 H 3094-0) Creatinine (test code 0.99 mg/dL 0.57-1.25 = 2160-0) Glucose (test code = 119 mg/dL 70-105 H 2345-7) Calcium (test code = 9.3 mg/dL 8.4-10.2 15308-5) EGFR (test code = 84 mL/min/1.73 [place] [address]-0) NOT ACCURATE CREATININE CLEARANCE IN PREDICTING GLOMERULAR FILTRATION RATE . ESTIMATED GFR I S NOT APPLICABLE FOR DIALYSIS PATIENTS. BEBE (test code = BEBE) Wood Heel Attacher ID - PIAYA L Lab Interpretation Abnormal (test code = 09415-7) [facility] 07:[facility]:00 Test Item Value Reference Range Interpretation Comments Magnesium (test code = 1.9 mg/dL 1.6-2.6 10333-1) BEBE (test code = BEBE) Wood Heel Attacher ID - DAGO L Lab Interpretation (test Normal code = 95053-5) [facility] 07:00:00 Test Item Value Reference Range Interpretation Comments Phosphorus (test code = 3.6 mg/dL 2.3-4.7 2777-1) BEBE (test code = BEBE) Wood Heel Attacher ID - DAGO L Lab Interpretation (test Normal code = 59797-9) [facility]OLIC [id number] 07:00:00 Test Item Value Reference Range Interpretation Comments SODIUM (BEAKER) 136 meq/L 136-145 (test code = 381) POTASSIUM (BEAKER) 3.8 meq/L 3.5-5.1 (test code = 379) CHLORIDE (BEAKER) 98 meq/L 98-107 (test code = 382) CO2 (BEAKER) (test 27 meq/L 22-29 code = 355) BLOOD UREA NITROGEN 22 mg/dL 7-21 H (BEAKER) (test code = 354) CREATININE (BEAKER) 0.99 mg/dL 0.57-1.25 (test code = 358) GLUCOSE RANDOM 119 mg/dL 70-105 H (BEAKER) (test code = 652) CALCIUM (BEAKER) 9.3 mg/dL 8.4-10.2 (test code = 697) EGFR (BEAKER) (test 84 mL/min/1.73 ESTIMA ISELA GFR IS code = 1092) sq m NOT ACCURATE CREATININE CLEARANCE IN PREDICTING GLOMERULAR FILTRATION RATE . ESTIMATED GFR I S NOT APPLICABLE FOR DIALYSIS PATIEN TS. Wood Heel Attacher ID - PIJOHNY [id number] 07:00:00 Test Item Value Reference Range Interpretation Comments MAGNESIUM (BEAKER) (test code = 1.9 mg/dL 1.6-2.6 627) Wood Heel Attacher ID - DAGO [id number] 07:00:00 Test Item Value Reference Range Interpretation Comments PHOSPHORUS (BEAKER) (test code = 3.6 mg/dL 2.3-4.7 604) Wood Heel Attacher ID - DAGO LProthrombin time/[id number] 06:42:00 Test Item Value Reference Interpretation Comments Range Protime (test code = 26.8 See_Comment H [Autom ated 5902-2) message] The system which generated this result transmitted reference range : 11.9 - 14.2 seconds. The reference range was not used to interpret this result as normal/abnormal . INR (test code = 2.55 See_Comment [Automated 6301-6) message] The system which generated this result transmitted reference range : <=5.90. The reference range was not used to interpret this result as normal/abnormal . BEBE (test code = Effective 10/10/2018: BEBE) PT Reference Range ChangeNew: 11.9-14.2 Previous: 11.7-14.7 RECOMMENDED COUMADIN/WARFARIN INR THERAPY RANGESSTANDARD DOSE: 2.0-3.0 Includes: PROPHYLAXIS for venous thrombosis, systemic embolization; TREATMENT for venous thrombosis and/or pulmonary embolus.HIGH RISK: Target INR is 2.5-3.5 for patients wiht mechanical heart valves. Lab Interpretation Abnormal (test code = 02118-1) [facility] HospitalPROTHROMBIN TIME/[id number] 06:42:00 Test Item Value Reference Range Interpretation Comments PROTIME (BEAKER) (test code = 26.8 seconds 11.9-14.2 H 759) INR (BEAKER) (test code = 370) 2.55 <=5.90 Effective 10/10/2018: PT Reference Range ChangeNew: 11.9-14.2 Previous: 11.7- 14.7RECOMMENDED COUMADIN/WARFARIN INR THERAPY RANGESSTANDARD DOSE: 2.0-3.0 Includes: PROPHYLAXIS for venous thrombosis, systemic embolization; TREATMENT for venous thrombosis and/or pulmonary embolus.HIGH RISK: Target INR is2.5-3.5 for patients wiht mechanical heart valves.PROTHROMBIN TIME/[id number] 06:52:00 Test Item Value Reference Range Interpretation Comments PROTIME (BEAKER) (test code = 22.1 seconds 11.9-14.2 H 759) INR (BEAKER) (test code = 370) 1.99 <=5.90 Effective 10/10/2018: PT Reference Range ChangeNew: 11.9-14.2 Previous: 11.7- 14.7RECOMMENDED COUMADIN/WARFARIN INR THERAPY RANGESSTANDARD DOSE: 2.0-3.0 Includes: PROPHYLAXIS for venous thrombosis, systemic embolization; TREATMENT for venous thrombosis and/or pulmonary embolus.HIGH RISK: Target INR is2.5-3.5 for patients wiht mechanical heart valves.[id number] 06:44:00 Test Item Value Reference Range Interpretation Comments MAGNESIUM (BEAKER) 1.9 mg/dL 1.6-2.6 Specimen slightly (test code = 627) hemolyzed Wood Heel Attacher ID - [id number] 06:44:00 Test Item Value Reference Range Interpretation Comments PHOSPHORUS (BEAKER) 4.1 mg/dL 2.3-4.7 Specimen slightly (test code = 604) hemolyzed Wood Heel Attacher ID - ADMINBASIC METABOLIC [id number] 06:44:00 Test Item Value Reference Range Interpretation Comments SODIUM (BEAKER) 138 meq/L 136-145 (test code = 381) POTASSIUM (BEAKER) 4.2 meq/L 3.5-5.1 Specimen slightly (test code = 379) hemolyzed CHLORIDE (BEAKER) 97 meq/L 98-107 L (test code = 382) CO2 (BEAKER) (test 32 meq/L 22-29 H code = 355) BLOOD UREA NITROGEN 19 mg/dL 7-21 (BEAKER) (test code = 354) CREATININE (BEAKER) 1.03 mg/dL 0.57-1.25 Specimen slightly (test code = 358) hemolyzed GLUCOSE RANDOM 126 mg/dL 70-105 H (BEAKER) (test code = 652) CALCIUM (BEAKER) 9.8 mg/dL 8.4-10.2 (test code = 697) EGFR (BEAKER) (test 80 mL/min/1.73 ESTIMA ISELA GFR IS code = 1092) sq m NOT ACCURATE CREATININE CLEARANCE IN PREDICTING GLOMERULAR FILTRATION RATE . ESTIMATED GFR I S NOT APPLICABLE FOR DIALYSIS PATIEN TS. Wood Heel Attacher ID - ADMINCBC (HEMOGRAM ONLY)2020-04-06 06:28:00 Test Item Value Reference Range Interpretation Comments WHITE BLOOD CELL COUNT (BEAKER) 11.1 K/ L 3.5-10.5 H (test code = 775) RED BLOOD CELL COUNT (BEAKER) 4.26 M/ L 4.63-6.08 L (test code = 761) HEMOGLOBIN (BEAKER) (test code = 13.5 GM/DL 13.7-17.5 L 410) HEMATOCRIT (BEAKER) (test code = 39.9 % 40.1-51.0 L 411) MEAN CORPUSCULAR VOLUME (BEAKER) 93.7 fL 79.0-92.2 H (test code = 753) MEAN CORPUSCULAR HEMOGLOBIN 31.7 pg 25.7-32.2 (BEAKER) (test code = 751) MEAN CORPUSCULAR HEMOGLOBIN CONC 33.8 GM/DL 32.3-36.5 (BEAKER) (test code = 752) RED CELL DISTRIBUTION WIDTH 13.2 % 11.6-14.4 (BEAKER) (test code = 412) PLATELET COUNT (BEAKER) (test 436 K/CU MM 150-450 code = 756) MEAN PLATELET VOLUME (BEAKER) 10.4 fL 9.4-12.4 (test code = 754) NUCLEATED RED BLOOD CELLS 0 /100 WBC 0-0 (BEAKER) (test code = 413) RAD, CHEST, 1 VIEW, NON [id number] 07:33:00while patient is intubated or has chest tubes.Reason for exam:->Status post CV SurgeryShould thisbe performed at the bedside?->Yes [facility] : 1980 Sex: MFINAL REPORT TECHNIQUE: Frontal view of the chest. INDICATION: Status post CV Surgery COMPARISON: 04/03/2020. FINDINGS: LINES/TUBES: None. LUNGS: Diffuse bilateral pleuraland parenchymal opacities are not significantly changed. No pneumothorax. HEART AND MEDIASTINUM: The cardiomediastinal silhouette is stable. Status post median sternotomy.. SOFT TISSUES AND BONES: Unremarkable. IMPRESSION:No interval change.. Signed: Vannessa [facility] Verified Date/Time: 04/04/2020 07:33:15 Reading Location: [facility] B1 C013Y CT Body Reading Room XR chest 1 view portable / [id number] 07:33:00 Interface, External Ris In - 04/04/2020 7:35 AM CSTFINAL REPORT TECHNIQUE: Frontal view of the chest. INDICATION: Status post CV Surgery COMPARISON: 04/03/2020. FINDINGS: LINES/TUBES: None. LUNGS: Diffuse bilateral pleural and parenchymal opacities are not significantly changed. No pneumothorax. HEART AND MEDIASTINUM: The cardiomediastinal silhouette is stable. Status post median sternotomy.. SOFT TISSUES AND BONES: Unremarkable. IMPRESSION:No interval change.. Signed: Vannessa Pritchard Verified Date/Time: 04/04/2020 07:33:15 Reading Location: [facility] P061NHJ Body Reading [facility] [id number] 06:44:00 Test Item Value Reference Range Interpretation Comments SODIUM (BEAKER) 135 meq/L 136-145 L (test code = 381) POTASSIUM (BEAKER) 3.4 meq/L 3.5-5.1 L (test code = 379) CHLORIDE (BEAKER) 97 meq/L 98-107 L (test code = 382) CO2 (BEAKER) (test 26 meq/L 22-29 code = 355) BLOOD UREA NITROGEN 18 mg/dL 7-21 (BEAKER) (test code = 354) CREATININE (BEAKER) 0.84 mg/dL 0.57-1.25 (test code = 358) GLUCOSE RANDOM 138 mg/dL 70-105 H (BEAKER) (test code = 652) CALCIUM (BEAKER) 8.8 mg/dL 8.4-10.2 (test code = 697) EGFR (BEAKER) (test 102 mL/min/1.73 ESTIM ATED GFR IS code = 1092) sq m NOT ACCURATE CREATININE CLEARANCE IN PREDICTING GLOMERULAR FILTRATION RATE . ESTIMATED GFR I S NOT APPLICABLE FOR DIALYSIS PATIEN TS. Wood Heel Attacher ID - NAYANA [id number] 06:44:00 Test Item Value Reference Range Interpretation Comments MAGNESIUM (BEAKER) (test code = 2.2 mg/dL 1.6-2.6 627) Wood Heel Attacher ID - NAYANA [id number] 06:44:00 Test Item Value Reference Range Interpretation Comments PHOSPHORUS (BEAKER) (test code = 3.4 mg/dL 2.3-4.7 604) Wood Heel Attacher ID - NAYANA MPROTHROMBIN TIME/[id number] 06:41:00 Test Item Value Reference Range Interpretation Comments PROTIME (BEAKER) (test code = 17.1 seconds 11.9-14.2 H 759) INR (BEAKER) (test code = 370) 1.43 <=5.90 Effective 10/10/2018: PT Reference Range ChangeNew: 11.9-14.2 Previous: 11.7- 14.7RECOMMENDED COUMADIN/WARFARIN INR THERAPY RANGESSTANDARD DOSE: 2.0-3.0 Includes: PROPHYLAXIS for venous thrombosis, systemic embolization; TREATMENT for venous thrombosis and/or pulmonary embolus.HIGH RISK: Target INR is2.5-3.5 for patients wiht mechanical heart valves.CBC (HEMOGRAM ONLY)2020-04-04 06:15:00 Test Item Value Reference Range Interpretation Comments WHITE BLOOD CELL COUNT (BEAKER) 9.7 K/ L 3.5-10.5 (test code = 775) RED BLOOD CELL COUNT (BEAKER) 3.70 M/ L 4.63-6.08 L (test code = 761) HEMOGLOBIN (BEAKER) (test code = 11.5 GM/DL 13.7-17.5 L 410) HEMATOCRIT (BEAKER) (test code = 35.3 % 40.1-51.0 L 411) MEAN CORPUSCULAR VOLUME (BEAKER) 95.4 fL 79.0-92.2 H (test code = 753) MEAN CORPUSCULAR HEMOGLOBIN 31.1 pg 25.7-32.2 (BEAKER) (test code = 751) MEAN CORPUSCULAR HEMOGLOBIN CONC 32.6 GM/DL 32.3-36.5 (BEAKER) (test code = 752) RED CELL DISTRIBUTION WIDTH 13.5 % 11.6-14.4 (BEAKER) (test code = 412) PLATELET COUNT (BEAKER) (test 267 K/CU MM 150-450 code = 756) MEAN PLATELET VOLUME (BEAKER) 10.9 fL 9.4-12.4 (test code = 754) NUCLEATED RED BLOOD CELLS 0 /100 WBC 0-0 (BEAKER) (test code = 413) Tissue [id number] 17:37:00 Test Item Value Reference Range Interpretation Comments Case Report (test code Surgical Pathology = 104) Report Case: [id number] Authorizing Provider: Denzel Powell MD Collected: 03/30/2020 02:43 PM Ordering Location: [facility] Received: 03/30/2020 03:07 PM PERIOPERATIVE SERVICES Pathologist: Pedro Pablo Madrigal MD Specimen: Aortic Valve, AORTIC VALVE LEAFLETS DIAGNOSIS (test code = v6scgGBuIRPhu9lhZQWntLR 3220) uZzEwMzNcZnRuYmpcdWMxIH tccnRmMVxlcGljOTIwMFxhb dCwYPYquOCsN6HkmqypANjl ZA3jVH2psQgnsSHrdAGdFEE eDsSwv0ilv810iXQhn7atJM TEkegmdVt9gJkgQ29uy0R9S lsxL77woYNrOZlyjSRxhktl ypTjOHfOHIJZLMDQI8RZXHG gVkFMVkUsIFZBTFZVTEVDVE 9NWTpccGFyIExFQUZMRVRTI JgLZBpjO4VRBUKNSA3BMKHS ZRAjY1ZQL4aFTEFoCLAPJSI LJ4NEVDJDKEpDIUBKKLAIAK 5FXtmjLWWeas37RUD0QgAjz 5U7NRU2AKRsTWKic5ysBGSp bGFuZzEwMzNcZnRuYmpcdWM mLXSnIkEod7avi152lUNqc4 qaETNtErM1dMFxTOStqPXnM 528RYTuSNyqd2qxw8PsFHKk wVSxt3I1ZWJTpkgojLx4aAw fM06ox0Y3CkmgF0tiIJLrER TmY8VnDA7oYYJtAml3WZZ5S ML5YLCmPTLqM3YbPK0wXPWe dBMiYJs6p6sajUimQQBhPCI 8y1zpDGegodJaDN7pks9qpD e8y3excyJeNHAdIYIuaKXGV TXwS0EbrEvyTb4hqBw1bUhp GqjlTBQ8Zuy3RS8dru89dza 0cOurNVFdnyzfUcP1PImfXM BpzdnfUCv9KJqzYMHdvKO0T SQjvDFgR6PoUKTnOM0wtzt0 LPY7PIhjZEMkMeS2LFQrgTF wOTPuxDzdEEbym242JTI2Wj GrVB7bO5Jcg0W4kX1yqDRnS BWnmUUbKbEcCQNjgp3vrYBu KHlik4KyTZT7frP6xLGhyDW oUCAfHwL8SRyfMN6chy68LJ NkEWY5nu1owVLkjMrdhvHxy XKkZXqyR2UbNASql348BLAx T8PcDRWxh5U8hhGnToEwQJO fxMT2svF0JLJsUQ5fuzklh3 oePFslXDdbSXQuupC7bxX1G KGnhFEzN7ZprK0dYDBgEK5t ctppo7piYOE0DBrxJRBaYCT 4KlInGQGlt5Wrask8YqMsx4 PuuUEhSLgeE95kt149SSFqf lRvG1oebIIemuahrSDvllml MMpqfhT5JSYgGZubtejfXKJ pAJetA2zfXrYbSGZpuAsaMU wob8JcYYMdVDWnRpZrfTArW VUnGpn3ATDyeENuDKTfCaMy K9zulfzpCoFNASJgc9xiK7f dlUZJmAWpN3ZaMMcvjrQnJP qbKCexHZGfYYK3QX24FlbgA HBhcn19 CPT Code(s) (test code a5pwnTCdWHXikKX9FnDhRYQ = 3357) lo0rcr4IpzACquZHdQWvrrW PxziTnqu36xYH1aJ56RP7cZ XLyOmP5EHCxbbU8Fsu2QXGu HLTngSRzV253t7hwr3zwfmH dnTN2rKsnSYSoULScJJquDI RjWlWzZNwnLKU3DPm2MuGrL HBhcn0= CLINICAL HISTORY (test h4wrkIKlGRKdhAL1JkToFTH code = 3356) je7xzd2AhiCBbcCHoVCifwV TysaAdfj51nJC9yN18PZ5nT DIhNrH5FBBdynV9Voo1FUVp FMQbkIBlV781c6fbk7vsaiB zkRJ9yJevWINkTTKmAFgnOL PrFiNoICVjd0DgWBnmS89pl 2nsKiMjMF2vbGbxHZFseBAr ZAN2NF1yd9knRAMynIjpyR1 neSBvZiBjYXJkaWFjIHZhbH AzFXMzz3Cty5MriD1olOUgj WZpZWQgXHBhcn0= SPECIMEN SOURCE (test r4dziLRsQGAbpMU7OeSxCRR code = 3377) ad2sxm8JvxFQzzNEaHPinwO KdxyJvdv55xQE3dX75XG1tC XGqFvU9QQYkbwU5Rte3NFOf EXCudQPbO935l3apl7iabrE luAU0fOryZDKcWUZbYSugMS EqObGyXV2zuIoxFMNjjKUzI HBhcn0= GROSS DESCRIPTION h4uraYXpCQGtzXRqJcIcNGL (test code = 3366) jIVWtn6seSDGveJOhDaRtFq NcZnRuYmpcdWMxXGRlZmYwe 8urs558tTZkt2apFYAXmchr lDb9z7lcDWPuOfN0cTGcJNg rF4cxkbUkcPJnXMEnUNq8cX 53FAVweW4siYOqLQamfrScS tP7KTpwXTFdGyO0TRXdoYUv NJOvY6chRKZcWXzeJLZtDOc frMRbXEW4rAfoa7A3rLIabR RngDgcAfDcZeJgHUQTm4EwZ Ky6wIifK7OnXHYpJeY9tMXw AMIzGOfyMULmMTDbhiH3jJ4 9NXulkoL1hBJog5Wsd57mn6 87vZ4evPGsZZO9RYRzAFMvx YIkKVDaTLK2EQScrAJiL7s2 LgIjxOGjB4F2LaTzxVOaA8F 6LbBebBGzY3Z2UyPheLBlQR PtbRDvBj9vrGZdlFFmzu0fd b08XKY1o6EjhYnyJYR7RFH2 XlNhJw7dnENuMCOxCMCviRF oYUQyBT5rsLRcYMOglF0kbx xjXHBnYnJkcmhlYWRccGdic uQkGb3vsUcdWXT7BGheM0oj aG3qCtI9PCmhI7oicD6xORy 0ULjfrQS4SJCwyI4lEA7lmy utp2nbGrGzLC3ggncct2lcB fDgJC9agtv3r3pkRdLwXX6s crema2ffRgApSBddBHDiwxt mYXOua1KorhnyMLJap4UhJ3 FnkQrrW70tpDqlI38sTJFiv MkzuJ8flXvyuV5xGpFvVqIi NFxwYXJkXHBsYWluXGYxXGZ zMjBcbGFuZzEwMzNcaGljaF ogJXttBbPyJCDaZXveI1ntW jFcZnMyMCBBLiBSZWNlaXZl ZCBmcmVzaCBsYWJlbGVkIHd pdGggdGhlIHBhdGllbnQncy TxFF0tFBKtO6Gsq2Gzn47iy iMyOoGuUMYhFAGlCG1ofMoz IHZhbHZlIGxlYWZsZXRzIiB pcyBhIGludGFjdCwgcHJldm nrpFChqVCfpEYoQUBsKL9pb GljIHZhbHZlIHdpdGggdGhy HAKxV6EdsPDfEY7qIIWkW7j iP1WtJzEjFV6oKHAjByB4Mg ArH68oBVYhLAEtqHFiVVMrS FypEKgdWZuwzBAfmL10BTAx SDDgTSYkdWOlo7NmxjSpCDZ erHdqhdXgHWGfO1Sxn17lec gclnI1FJFguqVlMQYeTpbeb d32rarsBv0yBKalgERbIOvn dHEiCVDvO1M2NZM7lgKtV0W tPQTolFQms2PlqIC7sFRbDO KkZ8Cqm12lVROqHDMfzQCyb DA7OBGfeV5fUHSqAw1ozC71 zL9gYRVcK8MoS0uruRQjnCa rtl1zVHxIH6OiGJrfWXT2 MICROSCOPIC s6uffZFmNCMymOP7YdCbCFJ DESCRIPTION (test code ig8sav1EcsOJnfSPiXWsurI = 3371) FxgvVzkf47vBT8xU52XN0wF TTkNrW6ZLJnajG9Vyz5BJAf ZKMowEBhM247u5map0ykvkM feWK4lCrdZQUtYVGjRNzaJW AqDpFaYJFcDp2syIPvYHWue n0= [facility] [id number] 17:37:00Surgical Pathology Report Case: [id number] Authorizing Provider: Denzel Powell MD Collected: 03/30/2020 02:43 PM Ordering Location: [facility] Received: 03/30/2020 03:07 PM PERIOPERATIVE SERVICES Pathologist: Pedro Pablo Madrigal MD Specimen: Aortic Valve, AORTIC VALVE LEAFLETS HEART, AORTIC VALVE, VALVULECTOMY:LEAFLETS WITH SEVERE NODULAR CALCIFIC ATHEROSCLEROTIC THICKENING Signing Pathologist Direct Phone Line: [phone] signed by Pedro Pablo Madrigal MD on 04/03/2020 at 5:37 [id number]; [id number] diagnosis: Aortic valve stenosis, etiology of cardiac valve disease unspecified Aortic valveA. Received fresh labeled with the patient's name, accession number and "aortic valve leaflets" is a intact, previously opened aortic valve with three cusps and a circumference of 5.5 cm. The surface is marroquin-yellow and devoid of vegetations. Sectioning reveals a a fibrous, focally calcified cut surface. Pointing Machine Operator sections are submitted in A1 following decalcification. JG/pl PerformedPOC-Glucose [id number] 06:06:00 Test Item Value Reference Range Interpretation Comments POC-Glucose Meter (test 115 mg/dL 70-110 H : TE STED AT [facility] code = 1538) [address] [facility], 770 30: Wood Heel Attacher/Techni paxton ID = [id number] for Rodrigo Fernandez Lab Interpretation (test Abnormal code = 61250-1) [facility] [id number] 06:06:00 Test Item Value Reference Range Interpretation Comments POC-GLUCOSE METER 115 mg/dL 70-110 H : TESTED A T [facility] 6720 (BEAKER) (test code = [facility]ign[facility], 1538) [address]: Wood Heel Attacher/Techni paxton ID = [id number] for Rodrigo Jacobs RAD, CHEST, 1 VIEW, NON [id number] 04:49:00while patient is intubated or has chest tubes.Reason for exam:->Status post CV SurgeryShould thisbe performed at the bedside?->Yes [facility] : 1980 Sex: MFINAL REPORT RAD, CHEST, 1 VIEW, NON DEPT INDICATION: Status post CV Surgery COMPARISON: Prior day's exam FINDINGS: Portable frontal view of the chest. IMPRESSION: Support Lines: Right IJ catheter has been removed. Lungs and pleura: Slight improvement in bilateral airspace disease. Stable left costophrenic angles. No pneumothorax.Heart and mediastinum: Stable contours. Additional findings: None. Signed: Joseph Apple MDReport Verified Date/Time: 04/03/2020 04:49:26 BASIC METABOLIC [id number] 03:40:00 Test Item Value Reference Range Interpretation Comments SODIUM (BEAKER) 137 meq/L 136-145 (test code = 381) POTASSIUM (BEAKER) 3.7 meq/L 3.5-5.1 (test code = 379) CHLORIDE (BEAKER) 97 meq/L 98-107 L (test code = 382) CO2 (BEAKER) (test 30 meq/L 22-29 H code = 355) BLOOD UREA NITROGEN 17 mg/dL 7-21 (BEAKER) (test code = 354) CREATININE (BEAKER) 0.81 mg/dL 0.57-1.25 (test code = 358) GLUCOSE RANDOM 113 mg/dL 70-105 H (BEAKER) (test code = 652) CALCIUM (BEAKER) 8.7 mg/dL 8.4-10.2 (test code = 697) EGFR (BEAKER) (test 106 mL/min/1.73 ESTIM ATED GFR IS code = 1092) sq m NOT ACCURATE CREATININE CLEARANCE IN PREDICTING GLOMERULAR FILTRATION RATE . ESTIMATED GFR I S NOT APPLICABLE FOR DIALYSIS PATIEN TS. Wood Heel Attacher ID - [id number] 03:40:00 Test Item Value Reference Range Interpretation Comments MAGNESIUM (BEAKER) (test code = 2.0 mg/dL 1.6-2.6 627) Wood Heel Attacher ID - [id number] TIME/[id number] 02:56:00 Test Item Value Reference Range Interpretation Comments PROTIME (BEAKER) (test code = 14.8 seconds 11.9-14.2 H 759) INR (BEAKER) (test code = 370) 1.19 <=5.90 Effective 10/10/2018: PT Reference Range ChangeNew: 11.9-14.2 Previous: 11.7- 14.7RECOMMENDED COUMADIN/WARFARIN INR THERAPY RANGESSTANDARD DOSE: 2.0-3.0 Includes: PROPHYLAXIS for venous thrombosis, systemic embolization; TREATMENT for venous thrombosis and/or pulmonary embolus.HIGH RISK: Target INR is2.5-3.5 for patients wiht mechanical heart valves.CBC (HEMOGRAM ONLY)2020-04-03 02:48:00 Test Item Value Reference Range Interpretation Comments WHITE BLOOD CELL COUNT (BEAKER) 11.2 K/ L 3.5-10.5 H (test code = 775) RED BLOOD CELL COUNT (BEAKER) 3.51 M/ L 4.63-6.08 L (test code = 761) HEMOGLOBIN (BEAKER) (test code = 10.9 GM/DL 13.7-17.5 L 410) HEMATOCRIT (BEAKER) (test code = 32.8 % 40.1-51.0 L 411) MEAN CORPUSCULAR VOLUME (BEAKER) 93.4 fL 79.0-92.2 H (test code = 753) MEAN CORPUSCULAR HEMOGLOBIN 31.1 pg 25.7-32.2 (BEAKER) (test code = 751) MEAN CORPUSCULAR HEMOGLOBIN CONC 33.2 GM/DL 32.3-36.5 (BEAKER) (test code = 752) RED CELL DISTRIBUTION WIDTH 13.4 % 11.6-14.4 (BEAKER) (test code = 412) PLATELET COUNT (BEAKER) (test 188 K/CU MM 150-450 code = 756) MEAN PLATELET VOLUME (BEAKER) 11.1 fL 9.4-12.4 (test code = 754) NUCLEATED RED BLOOD CELLS 0 /100 WBC 0-0 (BEAKER) (test code = 413) Blood gas, [id number] 02:46:00 Test Item Value Reference Range Interpretation Comments pH, Isaias (test code = 7.47 7.32-7.42 H 2746-6) pCO2, Isaias (test code = 45 See_Comment [Aut omated message] 755) The system whic h generated this result transmit isela reference range : 41 - 51 mm Hg. The reference range was not used to interpret this result as normal/abnormal . pO2, Isaias (test code = 49 See_Comment H [Auto mated message] 1705-2) The system whic h generated this result transmit isela reference range : 25 - 40 mm Hg. The reference range was not used to interpret this result as normal/abnormal . O2 Sat, Isaias (test code 85.9 % 40-70 H = 2711-0) HCO3, Isaias (test code = 32 mmol/L 21-29 H 80411-4) Base Excess, Isaias (test 7.2 mmol/L -2-3 H code = 1927-3) Patient Temperature 37.5 (test code = 8310-5) FIO2 (test code = 1819) 32 Lab Interpretation Abnormal (test code = 25783-3) [facility], [id number] 02:46:00 Test Item Value Reference Range Interpretation Comments PH VENOUS (BEAKER) (test code = 7.47 7.32-7.42 H 701) PCO2 VENOUS (BEAKER) (test code = 45 mm Hg 41-51 755) PO2 VENOUS (BEAKER) (test code = 49 mm Hg 25-40 H 702) O2 SATURATION VENOUS (BEAKER) 85.9 % 40.0-70.0 H (test code = 703) HCO3 VENOUS (BEAKER) (test code = 32 mmol/L 21-29 H 705) BASE EXCESS VENOUS (BEAKER) (test 7.2 mmol/L -2.0-3.0 H code = 704) PATIENT TEMPERATURE (BEAKER) (test 37.5 code = 1818) FIO2 (BEAKER) (test code = 1819) 32.0 Transesophageal [id number] 08:15:39Ejection FractionSLE ECHO HEARTLAB MKCKESSON CPACSInterface, External Ris In - 04/02/2020 8:15 AM C STTransesophageal Echocardiography Report (TONY) Demographics Patient Name KELLY WORLEY Date of Study 03/30/2020 LYUBOV Gender Male Visit Number [id number] Race Unknown Room Number 2C51 Number Date of 1980 Referring Physician DENZEL POWELL Age 40 year(s) Printer'S Assistant Interpreting Physician DANIEL Franco Procedure Type of Study TONY procedure:TRANSESOPHAGEAL ECHO Indications:Aortic stenosis .Clinical HistoryANXIETY,AORTIC STENOSIS,ABESTOS EXPOSURE,BMI,CAD,SMOKER,DEPRESSION,SOBHeight: 70 inches Weight: 118.39 kg (261 lbs) BSA: 2.34 m^2 BMI: 37.45kg/m^2HR: 72 bpm BP: 135/77 mmHg Summary POST OP: S/P MECHANICLA AVR A mechanical AoV prosthesis is visualized . The prosthetic AoV appears well-seated with normal function byDoppler. Mean AVR gradient = 14mmHg. Prosthetic AoV regurgitaton is trivial . Prosthetic AR locations(s) are paravalvular in the following location(s) posterior annulus . Normal overall left ventricular systolic function. Signature Findings Left Normal left ventricle cavity size. Normal overall left Ventricle ventricular systolic function. All segments contract normally. Left Atrium LA size is normal . No evidence of left atrialor left atrial appendage thrombus. Right The right ventricular chamber size and systolic function are Ventricle within normal limits. Right Atrium RA size is normal. Aortic Valve Mild AoV cusp thickening. Mild AoV cusp calcification. Bicuspid AV is present . Moderate aortic regurgitation. Moderate aortic stenosis.Mitral Valve Normal MV structure. Trace mitral regurgitation. Tricuspid TV structure is normal. Valve Unable to estimate peak systolic PA pressure; inadequate TR velocity signal. Pulmonic Normal PV structure and function by limited views and Valve Doppler. Aorta Aortic root size (Sinus of Valsalva diameter) is mildly dilated. 3.9 cm Pericardium No significant pericardial effusion is visualized. Chambers/Structures LeftVentricle LVOT Diameter: 2.5 cm Doppler/Quantitative Measurements Aortic Valve Peak Velocity: 3.06m/s Mean Velocity: 2.05 m/s Peak Gradient: 37.41 mmHg Mean Gradient:19.5 mmHg AV Area (continuity): 1.21 cm^2 AV VTI: 73.19 cm AV DVI: 0.25 LVOT Peak Velocity: 0.85 m/s Peak Gradient: 2.86 mmHg Mean Velocity: 0.54 m/s Mean Gradient: 1.41 mmHgLVOT Diameter: 2.5 cm LVOT VTI: 18.1 cm LVOT Area: 4.91 cm^2 LVOT SV:88.8 ml LVOT CO: 6.39 l/min LVOT CI: 2.73 l/min/m^2[facility]PO[facility] [id number] 06:02:00 Test Item Value Reference Range Interpretation Comments POC-GLUCOSE METER 111 mg/dL 70-110 H : TESTED A T [facility] (JUN) (test code = [place], 1538) [address]: Wood Heel Attacher/Techni paxton ID = [id number] for Rodrigo Jacobs RAD, CHEST, 1 VIEW, NON [id number] 04:45:00while patient is intubated or has chest tubes.Reason for exam:->Status post CV SurgeryShould thisbe performed at the bedside?->Yes [facility] : 1980 Sex: MFINAL REPORT RAD, CHEST, 1 VIEW, NON DEPT INDICATION: Status post CV Surgery COMPARISON: Prior day's exam FINDINGS: Portable frontal view of the chest. IMPRESSION: Support Lines: Interval removal of the previously seen mediastinal drains. Otherwise unchanged support apparatus. Lungs and pleura: Unchanged airspace and pleural opacities. No pneumothorax.Heart and mediastinum: Stable contours. Stable surgical changes.Additional findings: None. Signed: Saud Pizarro Verified Date/Time: 04/02/2020 04:45:17 [id number] 03:29:00 Test Item Value Reference Range Interpretation Comments MAGNESIUM (BEAKER) 1.9 mg/dL 1.6-2.6 Specimen slightly (test code = 627) hemolyzed Wood Heel Attacher ID - NAYANA MBASIC METABOLIC [id number] 03:29:00 Test Item Value Reference Range Interpretation Comments SODIUM (BEAKER) 135 meq/L 136-145 L (test code = 381) POTASSIUM (BEAKER) 3.8 meq/L 3.5-5.1 Specimen slightly (test code = 379) hemolyzed CHLORIDE (BEAKER) 99 meq/L 98-107 (test code = 382) CO2 (BEAKER) (test 28 meq/L 22-29 code = 355) BLOOD UREA NITROGEN 12 mg/dL 7-21 (BEAKER) (test code = 354) CREATININE (BEAKER) 0.83 mg/dL 0.57-1.25 Specimen slightly (test code = 358) hemolyzed GLUCOSE RANDOM 127 mg/dL 70-105 H (BEAKER) (test code = 652) CALCIUM (BEAKER) 8.2 mg/dL 8.4-10.2 L (test code = 697) EGFR (BEAKER) (test 103 mL/min/1.73 ESTIM ATED GFR IS code = 1092) sq m NOT ACCURATE CREATININE CLEARANCE IN PREDICTING GLOMERULAR FILTRATION RATE . ESTIMATED GFR I S NOT APPLICABLE FOR DIALYSIS PATIEN TS. Wood Heel Attacher ID - NAYANA MPROTHROMBIN [id number] 03:25:00 Test Item Value Reference Range Interpretation Comments PROTIME (BEAKER) (test code = 15.0 seconds 11.9-14.2 H 759) INR (BEAKER) (test code = 370) 1.21 <=5.90 Effective 10/10/2018: PT Reference Range ChangeNew: 11.9-14.2 Previous: 11.7- 14.7RECOMMENDED COUMADIN/WARFARIN INR THERAPY RANGESSTANDARD DOSE: 2.0-3.0 Includes: PROPHYLAXIS for venous thrombosis, systemic embolization; TREATMENT for venous thrombosis and/or pulmonary embolus.HIGH RISK: Target INR is2.5-3.5 for patients wiht mechanical heart valves.Lactic Acid, [id number] 03:10:00 Test Item Value Reference Range Interpretation Comments Lactate, Art (test code = 0.8 mmol/L 0.5-2.2 2874) BEBE (test code = BEBE) Wood Heel Attacher ID - NAYANA M Lab Interpretation (test Normal code = 46337-4) [facility], [id number] 03:10:00 Test Item Value Reference Range Interpretation Comments LACTATE BLOOD ARTERIAL (2) 0.8 mmol/L 0.5-2.2 (BEAKER) (test code = 2874) Wood Heel Attacher ID - NAYANA MCBC (HEMOGRAM ONLY)2020-04-02 03:03:00 Test Item Value Reference Range Interpretation Comments WHITE BLOOD CELL COUNT (BEAKER) 13.1 K/ L 3.5-10.5 H (test code = 775) RED BLOOD CELL COUNT (BEAKER) 3.42 M/ L 4.63-6.08 L (test code = 761) HEMOGLOBIN (BEAKER) (test code = 10.8 GM/DL 13.7-17.5 L 410) HEMATOCRIT (BEAKER) (test code = 31.3 % 40.1-51.0 L 411) MEAN CORPUSCULAR VOLUME (BEAKER) 91.5 fL 79.0-92.2 (test code = 753) MEAN CORPUSCULAR HEMOGLOBIN 31.6 pg 25.7-32.2 (BEAKER) (test code = 751) MEAN CORPUSCULAR HEMOGLOBIN CONC 34.5 GM/DL 32.3-36.5 (BEAKER) (test code = 752) RED CELL DISTRIBUTION WIDTH 13.3 % 11.6-14.4 (BEAKER) (test code = 412) PLATELET COUNT (BEAKER) (test 130 K/CU MM 150-450 L code = 756) MEAN PLATELET VOLUME (BEAKER) 10.5 fL 9.4-12.4 (test code = 754) NUCLEATED RED BLOOD CELLS 0 /100 WBC 0-0 (BEAKER) (test code = 413) Blood gas, [id number] 02:55:00 Test Item Value Reference Range Interpretation Comments pH, Arterial (test code 7.48 7.35-7.45 H = 2744-1) pCO2, Arterial (test 40 See_Comment [Autom ated message] code = 2019-8) The system [employer] generated this result transmit isela reference range : 35 - 45 mm Hg. The reference range was not used to interpret this result as normal/abnormal . pO2, Arterial (test 126 See_Comment H [Automa isela message] code = 2703-7) The system [employer] generated this result transmit isela reference range : 80 - 90 mm Hg. The reference range was not used to interpret this result as normal/abnormal . O2 Sat, Arterial (test 98.6 % 96-97 H code = 2708-6) HCO3, Arterial (test 29 mmol/L 21-29 code = 1960-4) Base Excess, Arterial 5.3 mmol/L -2-3 H (test code = 1925-7) Patient Temperature 38.0 (test code = 8310-5) FIO2 (test code = 1819) 100 Lab Interpretation Abnormal (test code = 58463-0) [facility] HospitalBL[facility] G[facility], [id number] 02:55:00 Test Item Value Reference Range Interpretation Comments PH ARTERIAL (BEAKER) (test code = 7.48 7.35-7.45 H 383) PCO2 ARTERIAL (BEAKER) (test code 40 mm Hg 35-45 = 384) PO2 ARTERIAL (BEAKER) (test code = 126 mm Hg 80-90 H 385) O2 SATURATION ARTERIAL (BEAKER) 98.6 % 96.0-97.0 H (test code = 386) HCO3 ARTERIAL (BEAKER) (test code 29 mmol/L 21-29 = 388) BASE EXCESS ARTERIAL (BEAKER) 5.3 mmol/L -2.0-3.0 H (test code = 387) PATIENT TEMPERATURE (BEAKER) (test 38.0 code = 1818) FIO2 (BEAKER) (test code = 1819) 100.0 POCT-GLUCOSE [id number] 00:12:00 Test Item Value Reference Range Interpretation Comments POC-GLUCOSE METER 113 mg/dL 70-110 H : TESTED A T [facility] [address] (BEAKER) (test code = [address], 1538) [address]: Wood Heel Attacher/Techni paxton ID = [id number] for Rodrigo Jacobs BASIC METABOLIC [id number] 19:43:00 Test Item Value Reference Range Interpretation Comments SODIUM (BEAKER) 132 meq/L 136-145 L (test code = 381) POTASSIUM (BEAKER) 3.9 meq/L 3.5-5.1 (test code = 379) CHLORIDE (BEAKER) 98 meq/L 98-107 (test code = 382) CO2 (BEAKER) (test 28 meq/L 22-29 code = 355) BLOOD UREA NITROGEN 11 mg/dL 7-21 (BEAKER) (test code = 354) CREATININE (BEAKER) 0.84 mg/dL 0.57-1.25 (test code = 358) GLUCOSE RANDOM 185 mg/dL 70-105 H (BEAKER) (test code = 652) CALCIUM (BEAKER) 8.0 mg/dL 8.4-10.2 L (test code = 697) EGFR (BEAKER) (test 102 mL/min/1.73 ESTIM ATED GFR IS code = 1092) sq m NOT ACCURATE CREATININE CLEARANCE IN PREDICTING GLOMERULAR FILTRATION RATE . ESTIMATED GFR I S NOT APPLICABLE FOR DIALYSIS PATIEN TS. Wood Heel Attacher ID - ADMINRAD, CHEST, 1 VIEW, NON [id number] 07:55:00while patient is intubated or has chest tubes.Reason for exam:->Status post CV SurgeryShould thisbe performed at the bedside?->Yes [facility] : 1980 Sex: MFINAL REPORT CLINICAL HISTORY: Status post CV Surgery TECHNIQUE: 1 viewof the chest. COMPARISON: 03/31/2020 IMPRESSION: The supporting lines and tubes are similar appearing. Diffuse bilateral airspace opacities have increased. Small pleural effusions cannot be excluded. The cardiomediastinal silhouette is magnified by technique with sternotomy wires. Signed: Manny Huff MDReport Verified Date/Time: 04/01/2020 07:55:21 Reading Location: [facility] Radiology Reading Room BASIC METABOLIC [id number] 05:48:00 Test Item Value Reference Range Interpretation Comments SODIUM (BEAKER) 131 meq/L 136-145 L (test code = 381) POTASSIUM (BEAKER) 3.9 meq/L 3.5-5.1 (test code = 379) CHLORIDE (BEAKER) 101 meq/L 98-107 (test code = 382) CO2 (BEAKER) (test 25 meq/L 22-29 code = 355) BLOOD UREA NITROGEN 12 mg/dL 7-21 (BEAKER) (test code = 354) CREATININE (BEAKER) 0.77 mg/dL 0.57-1.25 (test code = 358) GLUCOSE RANDOM 136 mg/dL 70-105 H (BEAKER) (test code = 652) CALCIUM (BEAKER) 7.9 mg/dL 8.4-10.2 L (test code = 697) EGFR (BEAKER) (test 112 mL/min/1.73 ESTIM ATED GFR IS code = 1092) sq m NOT ACCURATE CREATININE CLEARANCE IN PREDICTING GLOMERULAR FILTRATION RATE . ESTIMATED GFR I S NOT APPLICABLE FOR DIALYSIS PATIEN TS. Wood Heel Attacher ID - EDASIOperator ID - NAYANA [id number] 05:16:00 Test Item Value Reference Range Interpretation Comments MAGNESIUM (BEAKER) (test code = 1.8 mg/dL 1.6-2.6 627) Wood Heel Attacher ID - [id number] 05:16:00 Test Item Value Reference Range Interpretation Comments PHOSPHORUS (BEAKER) (test code = 1.7 mg/dL 2.3-4.7 L 604) Wood Heel Attacher ID - MANISHLACTIC ACID, [id number] 05:01:00 Test Item Value Reference Range Interpretation Comments LACTATE BLOOD ARTERIAL (2) 1.1 mmol/L 0.5-2.2 (BEAKER) (test code = 2874) Wood Heel Attacher ID - NAYANA MCBC (HEMOGRAM ONLY)2020-04-01 04:55:00 Test Item Value Reference Range Interpretation Comments WHITE BLOOD CELL COUNT (BEAKER) 16.8 K/ L 3.5-10.5 H (test code = 775) RED BLOOD CELL COUNT (BEAKER) 3.65 M/ L 4.63-6.08 L (test code = 761) HEMOGLOBIN (BEAKER) (test code = 11.5 GM/DL 13.7-17.5 L 410) HEMATOCRIT (BEAKER) (test code = 33.8 % 40.1-51.0 L 411) MEAN CORPUSCULAR VOLUME (BEAKER) 92.6 fL 79.0-92.2 H (test code = 753) MEAN CORPUSCULAR HEMOGLOBIN 31.5 pg 25.7-32.2 (BEAKER) (test code = 751) MEAN CORPUSCULAR HEMOGLOBIN CONC 34.0 GM/DL 32.3-36.5 (BEAKER) (test code = 752) RED CELL DISTRIBUTION WIDTH 13.5 % 11.6-14.4 (BEAKER) (test code = 412) PLATELET COUNT (BEAKER) (test 134 K/CU MM 150-450 L code = 756) MEAN PLATELET VOLUME (BEAKER) 10.7 fL 9.4-12.4 (test code = 754) NUCLEATED RED BLOOD CELLS 0 /100 WBC 0-0 (BEAKER) (test code = 413) BLOOD GAS, [id number] 04:44:00 Test Item Value Reference Range Interpretation Comments PH ARTERIAL (BEAKER) (test code = 7.45 7.35-7.45 383) PCO2 ARTERIAL (BEAKER) (test code 38 mm Hg 35-45 = 384) PO2 ARTERIAL (BEAKER) (test code = 68 mm Hg 80-90 L 385) O2 SATURATION ARTERIAL (BEAKER) 94.6 % 96.0-97.0 L (test code = 386) HCO3 ARTERIAL (BEAKER) (test code 26 mmol/L 21-29 = 388) BASE EXCESS ARTERIAL (BEAKER) 1.4 mmol/L -2.0-3.0 (test code = 387) PATIENT TEMPERATURE (BEAKER) (test 36.7 code = 1818) FIO2 (BEAKER) (test code = 1819) 100.0 POCT-GLUCOSE [id number] 17:30:00 Test Item Value Reference Range Interpretation Comments POC-GLUCOSE METER 95 mg/dL 70-110 : [facility] ([facility] (test code = [place]) [address]: Wood Heel Attacher/Techni paxton ID = [id number] for Maryjo h (contract), [place] LACTIC ACID, [id number] 05:48:00 Test Item Value Reference Range Interpretation Comments LACTATE BLOOD ARTERIAL (2) 1.8 mmol/L 0.5-2.2 (BEAKER) (test code = 2874) Wood Heel Attacher ID - NAYANA MBASIC METABOLIC [id number] 03:35:00 Test Item Value Reference Range Interpretation Comments SODIUM (BEAKER) 143 meq/L 136-145 (test code = 381) POTASSIUM (BEAKER) 4.4 meq/L 3.5-5.1 (test code = 379) CHLORIDE (BEAKER) 111 meq/L 98-107 H (test code = 382) CO2 (BEAKER) (test 25 meq/L 22-29 code = 355) BLOOD UREA NITROGEN 15 mg/dL 7-21 (BEAKER) (test code = 354) CREATININE (BEAKER) 0.97 mg/dL 0.57-1.25 (test code = 358) GLUCOSE RANDOM 161 mg/dL 70-105 H (BEAKER) (test code = 652) CALCIUM (BEAKER) 7.7 mg/dL 8.4-10.2 L (test code = 697) EGFR (BEAKER) (test 86 mL/min/1.73 ESTIMA ISELA GFR IS code = 1092) sq m NOT ACCURATE CREATININE CLEARANCE IN PREDICTING GLOMERULAR FILTRATION RATE . ESTIMATED GFR I S NOT APPLICABLE FOR DIALYSIS PATIEN TS. Wood Heel Attacher ID - [id number] 03:30:00 Test Item Value Reference Range Interpretation Comments MAGNESIUM (BEAKER) (test code = 2.0 mg/dL 1.6-2.6 627) Wood Heel Attacher ID - [id number] 03:30:00 Test Item Value Reference Range Interpretation Comments PHOSPHORUS (BEAKER) (test code = 3.0 mg/dL 2.3-4.7 604) Wood Heel Attacher ID - EDASILACTIC ACID, [id number] 03:14:00 Test Item Value Reference Range Interpretation Comments LACTATE BLOOD ARTERIAL (2) 2.2 mmol/L 0.5-2.2 (BEAKER) (test code = 2874) Wood Heel Attacher ID - EDASICBC (HEMOGRAM ONLY)2020-03-31 03:08:00 Test Item Value Reference Range Interpretation Comments WHITE BLOOD CELL COUNT (BEAKER) 14.9 K/ L 3.5-10.5 H (test code = 775) RED BLOOD CELL COUNT (BEAKER) 4.01 M/ L 4.63-6.08 L (test code = 761) HEMOGLOBIN (BEAKER) (test code = 12.6 GM/DL 13.7-17.5 L 410) HEMATOCRIT (BEAKER) (test code = 36.9 % 40.1-51.0 L 411) MEAN CORPUSCULAR VOLUME (BEAKER) 92.0 fL 79.0-92.2 (test code = 753) MEAN CORPUSCULAR HEMOGLOBIN 31.4 pg 25.7-32.2 (BEAKER) (test code = 751) MEAN CORPUSCULAR HEMOGLOBIN CONC 34.1 GM/DL 32.3-36.5 (BEAKER) (test code = 752) RED CELL DISTRIBUTION WIDTH 13.6 % 11.6-14.4 (BEAKER) (test code = 412) PLATELET COUNT (BEAKER) (test 162 K/CU MM 150-450 code = 756) MEAN PLATELET VOLUME (BEAKER) 10.1 fL 9.4-12.4 (test code = 754) NUCLEATED RED BLOOD CELLS 0 /100 WBC 0-0 (BEAKER) (test code = 413) BLOOD GAS, [id number] 03:02:00 Test Item Value Reference Range Interpretation Comments PH ARTERIAL (BEAKER) (test code = 7.46 7.35-7.45 H 383) PCO2 ARTERIAL (BEAKER) (test code 36 mm Hg 35-45 = 384) PO2 ARTERIAL (BEAKER) (test code = 101 mm Hg 80-90 H 385) O2 SATURATION ARTERIAL (BEAKER) 98.0 % 96.0-97.0 H (test code = 386) HCO3 ARTERIAL (BEAKER) (test code 25 mmol/L 21-29 = 388) BASE EXCESS ARTERIAL (BEAKER) 1.2 mmol/L -2.0-3.0 (test code = 387) PATIENT TEMPERATURE (BEAKER) (test 36.7 code = 1818) FIO2 (BEAKER) (test code = 1819) 50.0 RAD, CHEST, 1 VIEW, NON [id number] 02:35:00while patient is intubated or has chest tubes.Reason for exam:->Status post CV SurgeryShould thisbe performed at the bedside?->Yes [facility] : 1980 Sex: MFINAL REPORT RAD, CHEST, 1 VIEW, NON DEPT INDICATION: Status post CV Surgery COMPARISON: Exam from seven hours prior FINDINGS: Portable frontal view of the chest. IMPRESSION: Support Lines: Interval extubation and removal of the enteric tube. Otherwise, stable support apparatus. Lungs and pleura: Hypoinflated lungs with mildly increasing left sided hazy airspace opacity suggestive of edema or infection. Small left layering pleural effusion is similar to prior. No pneumothorax.Heart and mediastinum: Stable contours.Additional findings: None. Signed: Denzel Granda MDReport Verified Date/Time: 03/31/2020 02:35:55 POCT-GLUCOSE [id number] 02:30:00 Test Item Value Reference Range Interpretation Comments POC-GLUCOSE METER 160 mg/dL 70-110 H : TESTED A T [facility] 6720 (BEAKER) (test code = [address] [place], 1538) [address]: Wood Heel Attacher/Techni paxton ID = [id number] for NICOLE CORRIGAN LACTIC ACID, [id number] 00:47:00 Test Item Value Reference Range Interpretation Comments LACTATE BLOOD 2.5 mmol/L 0.5-2.2 H Specimen sligh tly ARTERIAL (2) (BEAKER) hemoly zed (test code = 2874) Wood Heel Attacher ID - ADMINBLOOD GAS, [id number] 00:32:00 Test Item Value Reference Range Interpretation Comments PH ARTERIAL (BEAKER) (test code = 7.45 7.35-7.45 383) PCO2 ARTERIAL (BEAKER) (test code 37 mm Hg 35-45 = 384) PO2 ARTERIAL (BEAKER) (test code = 144 mm Hg 80-90 H 385) O2 SATURATION ARTERIAL (BEAKER) 99.0 % 96.0-97.0 H (test code = 386) HCO3 ARTERIAL (BEAKER) (test code 25 mmol/L 21-29 = 388) BASE EXCESS ARTERIAL (BEAKER) 1.0 mmol/L -2.0-3.0 (test code = 387) PATIENT TEMPERATURE (BEAKER) (test 36.9 code = 1818) FIO2 (BEAKER) (test code = 1819) 70.0 LACTIC ACID, [id number] 23:12:00 Test Item Value Reference Range Interpretation Comments LACTATE BLOOD ARTERIAL (2) 5.4 mmol/L 0.5-2.2 HH (BEAKER) (test code = 2874) Wood Heel Attacher ID - ADMINBLOOD GAS, [id number] 22:39:00 Test Item Value Reference Range Interpretation Comments PH ARTERIAL (BEAKER) (test code = 7.33 7.35-7.45 L 383) PCO2 ARTERIAL (BEAKER) (test code 48 mm Hg 35-45 H = 384) PO2 ARTERIAL (BEAKER) (test code 69 mm Hg 80-90 L = 385) O2 SATURATION ARTERIAL (BEAKER) 92.6 % 96.0-97.0 L (test code = 386) HCO3 ARTERIAL (BEAKER) (test code 25 mmol/L 21-29 = 388) BASE EXCESS ARTERIAL (BEAKER) -1.6 mmol/L -2.0-3.0 (test code = 387) PATIENT TEMPERATURE (BEAKER) 36.9 (test code = 1818) FIO2 (BEAKER) (test code = 1819) 40.0 BLOOD GAS, [id number] 22:13:00 Test Item Value Reference Range Interpretation Comments PH ARTERIAL (BEAKER) (test code = 7.44 7.35-7.45 383) PCO2 ARTERIAL (BEAKER) (test code 35 mm Hg 35-45 = 384) PO2 ARTERIAL (BEAKER) (test code 88 mm Hg 80-90 = 385) O2 SATURATION ARTERIAL (BEAKER) 97.0 % 96.0-97.0 (test code = 386) HCO3 ARTERIAL (BEAKER) (test code 23 mmol/L 21-29 = 388) BASE EXCESS ARTERIAL (BEAKER) -0.6 mmol/L -2.0-3.0 (test code = 387) PATIENT TEMPERATURE (BEAKER) 37.1 (test code = 1818) FIO2 (BEAKER) (test code = 1819) 40.0 LACTIC ACID, [id number] 21:13:00 Test Item Value Reference Range Interpretation Comments LACTATE BLOOD 3.8 mmol/L 0.5-2.2 H Specimen moder ately ARTERIAL (2) (BEAKER) hemoly zed (test code = 2874) Wood Heel Attacher ID - BSCalcium, [id number] 20:30:00 Test Item Value Reference Range Interpretation Comments Calcium, Ion (test code = 1994-) 1.05 mmol/L 1.12-1.27 L pH, Blood (test code = 88475-2) 7.41 Lab Interpretation (test code = Abnormal 70184-6) [facility]Glucose[facility] [id number] 20:30:00 Test Item Value Reference Range Interpretation Comments Glucose (test code = 2345-7) 139 mg/dL 70-110 H Lab Interpretation (test code = Abnormal 60721-2) [facility] HospitalCALCIUM, [id number] 20:30:00 Test Item Value Reference Range Interpretation Comments CALCIUM IONIZED (BEAKER) (test 1.05 mmol/L 1.12-1.27 L code = 698) PH, BLOOD (BEAKER) (test code = 7.41 1810) GLUCOSE-STAT [id number] 20:30:00 Test Item Value Reference Range Interpretation Comments GLUCOSE RANDOM (BEAKER) (test code 139 mg/dL 70-110 H = 652) HGB/HCT (H&H)-Stat [id number] 20:29:00 Test Item Value Reference Range Interpretation Comments Hemoglobin (test code = 14.8 See_Comment [Au tomated message] 786-4) The system [employer] generated this result transmitted ref erence range: 13.0 - 1 6.8 GM/DL. The refe rence range was not u sed to interpret this result as normal/abnor mal. Hematocrit (test code = 44.0 % 40-50 4544-3) Lab Interpretation (test Normal code = 01004-8) [facility]Stat [id number] 20:29:00 Test Item Value Reference Range Interpretation Comments Sodium (test code = 2951-2) 141 meq/L 136-145 Lab Interpretation (test code = Normal 37441-6) [facility] HospitalPotassium-Stat [id number] 20:29:00 Test Item Value Reference Range Interpretation Comments Potassium (test code = 2823-3) 4.3 meq/L 3.6-5.5 Lab Interpretation (test code = Normal 36878-1) [facility] HospitalBLOOD GAS, [id number] 20:29:00 Test Item Value Reference Range Interpretation Comments PH ARTERIAL (BEAKER) (test code = 7.41 7.35-7.45 383) PCO2 ARTERIAL (BEAKER) (test code 36 mm Hg 35-45 = 384) PO2 ARTERIAL (BEAKER) (test code 90 mm Hg 80-90 = 385) O2 SATURATION ARTERIAL (BEAKER) 97.0 % 96.0-97.0 (test code = 386) HCO3 ARTERIAL (BEAKER) (test code 23 mmol/L 21-29 = 388) BASE EXCESS ARTERIAL (BEAKER) -1.5 mmol/L -2.0-3.0 (test code = 387) PATIENT TEMPERATURE (BEAKER) 36.9 (test code = 1818) FIO2 (BEAKER) (test code = 1819) 60.0 SODIUM NA-STAT [id number] 20:29:00 Test Item Value Reference Range Interpretation Comments SODIUM (BEAKER) (test code = 381) 141 meq/L 136-145 POTASSIUM-STAT [id number] 20:29:00 Test Item Value Reference Range Interpretation Comments POTASSIUM (BEAKER) (test code = 4.3 meq/L 3.6-5.5 379) HGB/HCT (H&H) - STAT [id number] 20:29:00 Test Item Value Reference Range Interpretation Comments HEMOGLOBIN (BEAKER) (test code = 14.8 GM/DL 13.0-16.8 410) HEMATOCRIT (BEAKER) (test code = 44.0 % 40.0-50.0 411) [id number] 19:57:00 Test Item Value Reference Range Interpretation Comments Fibrinogen (test code = 3255-7) 256 mg/dl 225-434 Lab Interpretation (test code = Normal 54657-3) [id number]:57:00 Test Item Value Reference Range Interpretation Comments PROTIME (BEAKER) (test code = 15.5 seconds 11.9-14.2 H 759) INR (BEAKER) (test code = 370) 1.26 <=5.90 Effective 10/10/2018: PT Reference Range ChangeNew: 11.9-14.2 Previous: 11.7- 14.7RECOMMENDED COUMADIN/WARFARIN INR THERAPY RANGESSTANDARD DOSE: 2.0-3.0 Includes: PROPHYLAXIS for venous thrombosis, systemic embolization; TREATMENT for venous thrombosis and/or pulmonary embolus.HIGH RISK: Target INR is2.5-3.5 for patients wiht mechanical heart valves.[id number] 19:57:00 Test Item Value Reference Range Interpretation Comments FIBRINOGEN LEVEL (BEAKER) (test 256 mg/dl 225-434 code = 658) LACTIC ACID, [id number] 19:02:00 Test Item Value Reference Range Interpretation Comments LACTATE BLOOD 6.6 mmol/L 0.5-2.2 HH Specimen sligh tly ARTERIAL (2) (BEAKER) hemoly zed (test code = 2874) [employer] Attacher ID - BSBLOOD GAS, [id number] 18:58:00 Test Item Value Reference Range Interpretation Comments PH ARTERIAL (BEAKER) (test code = 7.32 7.35-7.45 L 383) PCO2 ARTERIAL (BEAKER) (test code 46 mm Hg 35-45 H = 384) PO2 ARTERIAL (BEAKER) (test code 128 mm Hg 80-90 H = 385) O2 SATURATION ARTERIAL (BEAKER) 98.3 % 96.0-97.0 H (test code = 386) HCO3 ARTERIAL (BEAKER) (test code 23 mmol/L 21-29 = 388) BASE EXCESS ARTERIAL (BEAKER) -3.2 mmol/L -2.0-3.0 L (test code = 387) PATIENT TEMPERATURE (BEAKER) 36.9 (test code = 1818) FIO2 (BEAKER) (test code = 1819) 100.0 Manual [id number] 18:49:00 Test Item Value Reference Range Interpretation Comments % Neutros (test code = 59 % 2816) % Lymphs (test code = 7 % 2817) % Monos (test code = 5 % 2818) % Metamyelo (test code = 3 % 0-0 H 2821) % Myelo (test code = 2 % 0-0 H 2822) % Bands (test code = 24 % 0-10 H 2826) # Neutros (test code = 22.24 K/ul 1.78-5.38 H 2830) # Lymphs (test code = 2.64 K/ul 1.32-3.57 2831) # Monos (test code = 1.89 K/uL 0.3-0.82 H 2832) # Metamyelo (test code = 1.13 K/uL 0-0 H 2836) # Myelo (test code = 0.75 K/uL 0-0 H 2837) # Bands (test code = 9.05 K/uL 0-0.8 H 2840) Total Counted (test code 100 = 1351) RBC Morphology (test code Normal = 762) Platelet Morphology (test Normal code = 486) Smudge Cells (test code = Present 1371) Platelet Conc (test code Adequate = 3438) BEBE (test code = BEBE) Wood Heel Attacher ID - anil Castelan comments: Slide comments: Lab Interpretation (test Abnormal code = 10012-2) [facility](CELLAVISION MANUAL DIFF)2020-03-30 18:49:00 Test Item Value Reference Range Interpretation Comments NEUTROPHILS - REL 59 % (CELLAVISION)(BEAKER) (test code = 2816) LYMPHOCYTES - REL 7 % (CELLAVISION)(BEAKER) (test code = 2817) MONOCYTES - REL 5 % (CELLAVISION)(BEAKER) (test code = 2818) METAMYELOCYTES - REL 3 % 0-0 H (CELLAVISION)(BEAKER) (test code = 2821) MYELOCYTES - REL 2 % 0-0 H (CELLAVISION)(BEAKER) (test code = 2822) BANDS - REL (CELLAVISION)(BEAKER) 24 % 0-10 H (test code = 2826) NEUTROPHILS - ABS 22.24 K/ul 1.78-5.38 H (CELLAVISION)(BEAKER) (test code = 2830) LYMPHOCYTES - ABS 2.64 K/ul 1.32-3.57 (CELLAVISION)(BEAKER) (test code = 2831) MONOCYTES - ABS 1.89 K/uL 0.30-0.82 H (CELLAVISION)(BEAKER) (test code = 2832) METAMYELOCYTES - ABS 1.13 K/uL 0.00-0.00 H (CELLAVISION)(BEAKER) (test code = 2836) MYELOCYTES-ABS 0.75 K/uL 0.00-0.00 H (CELLAVISION)(BEAKER) (test code = 2837) BANDS - ABS (CELLAVISION)(BEAKER) 9.05 K/uL 0.00-0.80 H (test code = 2840) TOTAL COUNTED (BEAKER) (test code 100 = 1351) RBC MORPHOLOGY (BEAKER) (test code Normal = 762) PLT MORPHOLOGY (BEAKER) (test code Normal = 486) SMUDGE CELLS (BEAKER) (test code = Present 1371) PLATELET CONCENTRATION Adequate (CELLAVISION)(BEAKER) (test code = 3438) Wood Heel Attacher ID - anil Castelan comments: Slide comments:SODIUM NA-STAT LAB 2020-03-30 18:27:00 Test Item Value Reference Range Interpretation Comments SODIUM (BEAKER) (test code = 381) 144 meq/L 136-145 POTASSIUM-STAT [id number] 18:27:00 Test Item Value Reference Range Interpretation Comments POTASSIUM (BEAKER) (test code = 3.9 meq/L 3.6-5.5 379) HGB/HCT (H&H) - STAT [id number] 18:27:00 Test Item Value Reference Range Interpretation Comments HEMOGLOBIN (BEAKER) (test code = 16.0 GM/DL 13.0-16.8 410) HEMATOCRIT (BEAKER) (test code = 47.0 % 40.0-50.0 411) BLOOD GAS, [id number] 18:27:00 Test Item Value Reference Range Interpretation Comments PH ARTERIAL (BEAKER) (test code = 7.37 7.35-7.45 383) PCO2 ARTERIAL (BEAKER) (test code 42 mm Hg 35-45 = 384) PO2 ARTERIAL (BEAKER) (test code 74 mm Hg 80-90 L = 385) O2 SATURATION ARTERIAL (BEAKER) 94.5 % 96.0-97.0 L (test code = 386) HCO3 ARTERIAL (BEAKER) (test code 23 mmol/L 21-29 = 388) BASE EXCESS ARTERIAL (BEAKER) -1.9 mmol/L -2.0-3.0 (test code = 387) PATIENT TEMPERATURE (BEAKER) 36.9 (test code = 1818) FIO2 (BEAKER) (test code = 1819) 100.0 GLUCOSE-STAT [id number] 18:27:00 Test Item Value Reference Range Interpretation Comments GLUCOSE RANDOM (BEAKER) (test code 138 mg/dL 70-110 H = 652) BASIC METABOLIC [id number] 18:16:00 Test Item Value Reference Range Interpretation Comments SODIUM (BEAKER) 142 meq/L 136-145 (test code = 381) POTASSIUM (BEAKER) 3.9 meq/L 3.5-5.1 Specimen slightly (test code = 379) hemolyzed CHLORIDE (BEAKER) 110 meq/L 98-107 H (test code = 382) CO2 (BEAKER) (test 22 meq/L 22-29 code = 355) BLOOD UREA NITROGEN 18 mg/dL 7-21 (BEAKER) (test code = 354) CREATININE (BEAKER) 0.91 mg/dL 0.57-1.25 Specimen slightly (test code = 358) hemolyzed GLUCOSE RANDOM 155 mg/dL 70-105 H (BEAKER) (test code = 652) CALCIUM (BEAKER) 8.9 mg/dL 8.4-10.2 (test code = 697) EGFR (BEAKER) (test 93 mL/min/1.73 ESTIMA ISELA GFR IS code = 1092) sq m NOT ACCURATE CREATININE CLEARANCE IN PREDICTING GLOMERULAR FILTRATION RATE . ESTIMATED GFR I S NOT APPLICABLE FOR DIALYSIS PATIEN TS. Wood Heel Attacher ID - [id number] 18:16:00 Test Item Value Reference Range Interpretation Comments MAGNESIUM (BEAKER) 2.2 mg/dL 1.6-2.6 Specimen slightly (test code = 627) hemolyzed Wood Heel Attacher ID - [id number] 18:16:00 Test Item Value Reference Range Interpretation Comments PHOSPHORUS (BEAKER) 4.5 mg/dL 2.3-4.7 Specimen slightly (test code = 604) hemolyzed Wood Heel Attacher ID - [id number] 18:15:00 Test Item Value Reference Range Interpretation Comments PTT (test code = 59.2 See_Comment H [Automated message] 32330-4) The system [employer] generated this result transmitted ref erence range: 22.5 - 3 6.0 seconds. The reference range was not used to int erpret this result as normal/abnormal . Lab Interpretation (test Abnormal code = 42210-0) [facility] Test Item Value Reference Range Interpretation Comments PARTIAL THROMBOPLASTIN TIME 59.2 seconds 22.5-36.0 H (BEAKER) (test code = 760) LACTIC ACID, [id number] 18:15:00 Test Item Value Reference Range Interpretation Comments LACTATE BLOOD 4.9 mmol/L 0.5-2.2 HH Specimen moder ately ARTERIAL (2) (BEAKER) hemoly zed (test code = 2874) Wood Heel Attacher ID - [id number] with platelet count + automated [id number] 18:04:00 Test Item Value Reference Range Interpretation Comments WBC (test code = 6690-2) 37.7 See_Comment H [A utomated message] The system [employer] generated this result transmitted ref erence range: 3.5 - 10 .5 K/L. The refe rence range was not u sed to interpret this result as normal/abnor mal. RBC (test code = 789-8) 5.11 See_Comment [Au tomated message] The system [employer] generated this result transmitted ref erence range: 4.63 - 6 .08 M/L. The refe rence range was not u sed to interpret this result as normal/abnor mal. MCHC (test code = 786-4) 34.8 See_Comment [A utomated message] The system [employer] generated this result transmitted ref erence range: 32.3 - 3 6.5 GM/DL. The refe rence range was not u sed to interpret this result as normal/abnor mal. Hematocrit (test code = 46.6 % 40.1-51 4544-3) MCV (test code = 787-2) 91.2 fL 79-92.2 MCH (test code = 785-6) 31.7 pg 25.7-32.2 RDW (test code = 788-0) 13.7 % 11.6-14.4 Platelets (test code = 248 See_Comment [Aut omated message] 777-3) The system [employer] generated this result transmitted ref erence range: 150 - 45 0 K/CU MM. The referen ce range was not u sed to interpret this result as normal/abnor mal. MPV (test code = 9.9 fL 9.4-12.4 14625-2) nRBC (test code = 413) 0 See_Comment [Aut omated message] The system [employer] generated this result transmitted ref erence range: 0 - 0 /1 00 WBC. The refere nce range was not u sed to interpret this result as normal/abnor mal. % Neutros (test code = 76 % 429) % Lymphs (test code = 13 % 430) % Monos (test code = 9 % 431) % Eos (test code = 432) 1 % % Baso (test code = 437) 0 % # Neutros (test code = 28.47 See_Comment H [Aut omated message] 670) The system [employer] generated this result transmitted ref erence range: 1.78 - 5 .38 K/L. The refe rence range was not u sed to interpret this result as normal/abnor mal. # Lymphs (test code = 4.72 See_Comment H [Auto mated message] 414) The system [employer] generated this result transmitted ref erence range: 1.32 - 3 .57 K/L. The refe rence range was not u sed to interpret this result as normal/abnor mal. # Monos (test code = 3.52 See_Comment H [Autom ated message] 415) The system [employer] generated this result transmitted ref erence range: 0.30 - 0 .82 K/L. The refe rence range was not u sed to interpret this result as normal/abnor mal. # Eos (test code = 416) 0.30 See_Comment [Au tomated message] The system [employer] generated this result transmitted ref erence range: 0.04 - 0 .54 K/L. The refe rence range was not u sed to interpret this result as normal/abnor mal. # Baso (test code = 417) 0.15 See_Comment H [A utomated message] The system [employer] generated this result transmitted ref erence range: 0.01 - 0 .08 K/L. The refe rence range was not u sed to interpret this result as normal/abnor mal. Immature 1 % 0-1 Granulocytes-Relative (test code = 2801) Lab Interpretation (test Abnormal code = 13758-6) [facility] W/PLT COUNT & AUTO [id number] 18:04:00 Test Item Value Reference Range Interpretation Comments WHITE BLOOD CELL COUNT (BEAKER) 37.7 K/ L 3.5-10.5 H (test code = 775) RED BLOOD CELL COUNT (BEAKER) 5.11 M/ L 4.63-6.08 (test code = 761) HEMOGLOBIN (BEAKER) (test code = 16.2 GM/DL 13.7-17.5 410) HEMATOCRIT (BEAKER) (test code = 46.6 % 40.1-51.0 411) MEAN CORPUSCULAR VOLUME (BEAKER) 91.2 fL 79.0-92.2 (test code = 753) MEAN CORPUSCULAR HEMOGLOBIN 31.7 pg 25.7-32.2 (BEAKER) (test code = 751) MEAN CORPUSCULAR HEMOGLOBIN CONC 34.8 GM/DL 32.3-36.5 (BEAKER) (test code = 752) RED CELL DISTRIBUTION WIDTH 13.7 % 11.6-14.4 (BEAKER) (test code = 412) PLATELET COUNT (BEAKER) (test 248 K/CU MM 150-450 code = 756) MEAN PLATELET VOLUME (BEAKER) 9.9 fL 9.4-12.4 (test code = 754) NUCLEATED RED BLOOD CELLS 0 /100 WBC 0-0 (BEAKER) (test code = 413) NEUTROPHILS RELATIVE PERCENT 76 % (BEAKER) (test code = 429) LYMPHOCYTES RELATIVE PERCENT 13 % (BEAKER) (test code = 430) MONOCYTES RELATIVE PERCENT 9 % (BEAKER) (test code = 431) EOSINOPHILS RELATIVE PERCENT 1 % (BEAKER) (test code = 432) BASOPHILS RELATIVE PERCENT 0 % (BEAKER) (test code = 437) NEUTROPHILS ABSOLUTE COUNT 28.47 K/ L 1.78-5.38 H (BEAKER) (test code = 670) LYMPHOCYTES ABSOLUTE COUNT 4.72 K/ L 1.32-3.57 H (BEAKER) (test code = 414) MONOCYTES ABSOLUTE COUNT (BEAKER) 3.52 K/ L 0.30-0.82 H (test code = 415) EOSINOPHILS ABSOLUTE COUNT 0.30 K/ L 0.04-0.54 (BEAKER) (test code = 416) BASOPHILS ABSOLUTE COUNT (BEAKER) 0.15 K/ L 0.01-0.08 H (test code = 417) IMMATURE GRANULOCYTES-RELATIVE 1 % 0-1 PERCENT (BEAKER) (test code = 2801) RAD, CHEST, 1 VIEW, NON [id number] 18:04:00Reason for exam:->s/p cardiac surgeryShould this be performed at the bedside?->Yes [facility] 1980 Sex: MFINAL REPORT Chest, 1 view. History: Status post cardiac surgery. Comparison: 09/17/2019. IMPRESSION: Endotracheal tube identified terminating approximately 3.5 cm above thecarina. Right IJ coursing venous catheter identified terminating over the cavoatrial junction. Two suspected mediastinal drains identified in place. Enteric tube noted coursing below the diaphragm with distal tip terminating within left upper quadrant in the expected location of the stomach. There arepostsurgical changes from median sternotomy and cardiac valve replacement. The trachea is midline. There are increased left perihilar and bibasilar opacities which may reflect atelectasis. There is blunting of the costophrenic angles and small effusions are suspected. There is no evidence for pneumothorax. The cardiomediastinal silhouette appears magnified by technique. No acute osseous abnormality is identified. Signed: Dima Calvin Verified Date/Time: 03/30/2020 18:04:45 Reading Location: [address] Consult Reading Room Oxygen saturation, [id number] 17:47:00 Test Item Value Reference Range Interpretation Comments O2 Saturation (Measured) (test code = 66.8 % 43060-2) [facility], [id number] 17:47:00 Test Item Value Reference Range Interpretation Comments O2 SATURATION (MEASURED) (BEAKER) 66.8 % (test code = 1455) SODIUM NA-STAT [id number] 17:44:00 Test Item Value Reference Range Interpretation Comments SODIUM (BEAKER) (test code = 381) 140 meq/L 136-145 POTASSIUM-STAT [id number] 17:44:00 Test Item Value Reference Range Interpretation Comments POTASSIUM (BEAKER) (test code = 3.8 meq/L 3.6-5.5 379) CALCIUM, [id number] 17:44:00 Test Item Value Reference Range Interpretation Comments CALCIUM IONIZED (BEAKER) (test 1.21 mmol/L 1.12-1.27 code = 698) PH, BLOOD (BEAKER) (test code = 7.29 1810) GLUCOSE-STAT [id number] 17:44:00 Test Item Value Reference Range Interpretation Comments GLUCOSE RANDOM (BEAKER) (test code 141 mg/dL 70-110 H = 652) HGB/HCT (H&H) - STAT [id number] 17:44:00 Test Item Value Reference Range Interpretation Comments HEMOGLOBIN (BEAKER) (test code = 16.8 GM/DL 13.0-16.8 410) HEMATOCRIT (BEAKER) (test code = 49.0 % 40.0-50.0 411) BLOOD GAS, [id number] 17:43:00 Test Item Value Reference Range Interpretation Comments PH ARTERIAL (BEAKER) (test code = 7.29 7.35-7.45 L 383) PCO2 ARTERIAL (BEAKER) (test code 44 mm Hg 35-45 = 384) PO2 ARTERIAL (BEAKER) (test code 69 mm Hg 80-90 L = 385) O2 SATURATION ARTERIAL (BEAKER) 92.3 % 96.0-97.0 L (test code = 386) HCO3 ARTERIAL (BEAKER) (test code 21 mmol/L 21-29 = 388) BASE EXCESS ARTERIAL (BEAKER) -5.9 mmol/L -2.0-3.0 L (test code = 387) PATIENT TEMPERATURE (BEAKER) 36.7 (test code = 1818) FIO2 (BEAKER) (test code = 1819) 60.0 POC ACTIVATED CLOTTING [id number] 17:11:00 Test Item Value Reference Range Interpretation Comments Activated Clotting Time 114 sec : 74 -137 seconds, (test code = 441) Baseline: TESTED AT [facility] [address] [place], [address]: Wood Heel Attacher/Techni paxton ID = [id number] for BAUDILIO LEVIN [facility]CT-[id number] 17:11:00 Test Item Value Reference Range Interpretation Comments ACTIVATED CLOTTING TIME 114 sec : 74 -137 seconds, (BEAKER) (test code = Baseli ne: TESTED AT 441) [address], [address]: Wood Heel Attacher/Techni paxton ID = [id number] for LETHRIDGE, PRICE JASON [id number] 17:11:00 Test Item Value Reference Range Interpretation Comments ACTIVATED CLOTTING TIME 98 sec : 74 -137 seconds, (BEAKER) (test code = Baseli ne: TESTED AT 441) [address], [facility] 30: Wood Heel Attacher/Techni paxton ID = [id number] for BAUDILIO LEVIN [id number] 17:11:00 Test Item Value Reference Range Interpretation Comments ACTIVATED CLOTTING TIME 455 sec : 74 -137 seconds, (BEAKER) (test code = Baseli ne: TESTED AT 441) [address], [facility] 30: Wood Heel Attacher/Techni paxton ID = [id number] for LETHRIDGE, PRICE JASON [id number] 17:11:00 Test Item Value Reference Range Interpretation Comments ACTIVATED CLOTTING TIME 499 sec : 74 -137 seconds, (BEAKER) (test code = Baseli ne: TESTED AT 441) [address], [facility] 30: Wood Heel Attacher/Techni paxton ID = [id number] for LETHRIDGE, PRICE JASON [id number] 17:11:00 Test Item Value Reference Range Interpretation Comments ACTIVATED CLOTTING TIME 510 sec : 74 -137 seconds, (BEAKER) (test code = Baseli ne: TESTED AT 441) [address], [facility] 30: Wood Heel Attacher/Techni paxton ID = [id number] for LETHRIDGE, PRICE JASON [id number] 17:11:00 Test Item Value Reference Range Interpretation Comments ACTIVATED CLOTTING TIME 412 sec : 74 -137 seconds, (BEAKER) (test code = Baseli ne: TESTED AT 441) [address], [facility] 30: Wood Heel Attacher/Techni paxton ID = [id number] for LETHRIDGE, PRICE JASON [id number] 17:11:00 Test Item Value Reference Range Interpretation Comments ACTIVATED CLOTTING TIME 527 sec : 74 -137 seconds, (BEAKER) (test code = Baseli ne: TESTED AT 441) [facility] [address] [place], [address]: Wood Heel Attacher/Techni paxton ID = [id number] for DEE COSTA [id number] 16:46:00 Test Item Value Reference Range Interpretation Comments CROSSMATCH (test code = COMPATIBLE 2264) Unit ABO (test code = O Pos 1875477) UNIT NUMBER (test code = [id number] 934-0) Status (test code = RETURNED FROM ISSUE 8486387) Blood Bank Product (test RED BLOOD CELLS code = 2263) PRODUCT CODE (test code = [id number] 933-2) [facility] [id number] 16:46:00 Test Item Value Reference Range Interpretation Comments Unit ABO (test code = O Pos 4733610) UNIT NUMBER (test code = [id number] 934-0) Status (test code = RETURNED FROM ISSUE 6708627) Blood Bank Product (test FFP code = 2263) PRODUCT CODE (test code = [id number] 933-2) [facility]PT/[id number] 16:19:00 Test Item Value Reference Interpretation Comments Range Protime (test code = 19.2 See_Comment H [Autom ated 5902-2) message] The system which generated this result transmitted reference range : 11.9 - 14.2 seconds. The reference range was not used to interpret this result as normal/abnormal . INR (test code = 1.66 See_Comment [Automated 3491-6) message] The system which generated this result transmitted reference range : <=5.90. The reference range was not used to interpret this result as normal/abnormal . PTT (test code = 86.1 See_Comment H [Automated 70776-9) message] The system which generated this result transmitted reference range : 22.5 - 36.0 seconds. The reference range was not used to interpret this result as normal/abnormal . BEBE (test code = Effective 10/10/2018: BEBE) PT Reference Range ChangeNew: 11.9-14.2 Previous: 11.7-14.7 RECOMMENDED COUMADIN/WARFARIN INR THERAPY RANGESSTANDARD DOSE: 2.0-3.0 Includes: PROPHYLAXIS for venous thrombosis, systemic embolization; TREATMENT for venous thrombosis and/or pulmonary embolus.HIGH RISK: Target INR is 2.5-3.5 for patients wiht mechanical heart valves. Lab Interpretation Abnormal (test code = 09640-3) [facility]PT/[id number] 16:19:00 Test Item Value Reference Range Interpretation Comments PROTIME (BEAKER) (test code = 19.2 seconds 11.9-14.2 H 759) INR (BEAKER) (test code = 370) 1.66 <=5.90 PARTIAL THROMBOPLASTIN TIME 86.1 seconds 22.5-36.0 H (BEAKER) (test code = 760) Effective 10/10/2018: PT Reference Range ChangeNew: 11.9-14.2 Previous: 11.7- 14.7RECOMMENDED COUMADIN/WARFARIN INR THERAPY RANGESSTANDARD DOSE: 2.0-3.0 Includes: PROPHYLAXIS for venous thrombosis, systemic embolization; TREATMENT for venous thrombosis and/or pulmonary embolus.HIGH RISK: Target INR is2.5-3.5 for patients wiht mechanical heart valves.[id number] 16:18:00 Test Item Value Reference Range Interpretation Comments FIBRINOGEN LEVEL (BEAKER) (test 207 mg/dl 225-434 L code = 658) Platelet [id number] 16:15:00 Test Item Value Reference Range Interpretation Comments Platelets (test code 161 See_Comment [Autom ated = 777-3) message] The system which generated this result transmit isela reference range : 150 - 450 K/CU MM. The reference range was not u sed to interpret th is result as normal/abnormal . BEBE (test code = BEBE) Wood Heel Attacher ID - [id number] Lab Interpretation Normal (test code = 36280-1) [facility] HospitalPLATELET [id number] 16:15:00 Test Item Value Reference Range Interpretation Comments PLATELET COUNT (BEAKER) (test 161 K/CU MM 150-450 code = 756) Wood Heel Attacher ID - [id number], [id number] 15:34:00 Test Item Value Reference Range Interpretation Comments CALCIUM IONIZED (BEAKER) (test 1.04 mmol/L 1.12-1.27 L code = 698) PH, BLOOD (BEAKER) (test code = 7.31 1810) BLOOD GAS, [id number] 15:34:00 Test Item Value Reference Range Interpretation Comments PH ARTERIAL (BEAKER) (test code = 7.32 7.35-7.45 L 383) PCO2 ARTERIAL (BEAKER) (test code 44 mm Hg 35-45 = 384) PO2 ARTERIAL (BEAKER) (test code 262 mm Hg 80-90 H = 385) O2 SATURATION ARTERIAL (BEAKER) 99.6 % 96.0-97.0 H (test code = 386) HCO3 ARTERIAL (BEAKER) (test code 22 mmol/L 21-29 = 388) BASE EXCESS ARTERIAL (BEAKER) -3.9 mmol/L -2.0-3.0 L (test code = 387) PATIENT TEMPERATURE (BEAKER) 36.0 (test code = 1818) FIO2 (BEAKER) (test code = 1819) 100.0 GLUCOSE-STAT [id number] 15:34:00 Test Item Value Reference Range Interpretation Comments GLUCOSE RANDOM (BEAKER) (test code 199 mg/dL 70-110 H = 652) HGB/HCT (H&H) - STAT [id number] 15:34:00 Test Item Value Reference Range Interpretation Comments HEMOGLOBIN (BEAKER) (test code = 11.4 GM/DL 13.0-16.8 L 410) HEMATOCRIT (BEAKER) (test code = 34.0 % 40.0-50.0 L 411) SODIUM NA-STAT [id number] 15:33:00 Test Item Value Reference Range Interpretation Comments SODIUM (BEAKER) (test code = 381) 136 meq/L 136-145 POTASSIUM-STAT [id number] 15:33:00 Test Item Value Reference Range Interpretation Comments POTASSIUM (BEAKER) (test code = 4.5 meq/L 3.6-5.5 379) BLOOD GAS, [id number] 14:59:00 Test Item Value Reference Range Interpretation Comments PH ARTERIAL (BEAKER) (test code = 7.42 7.35-7.45 383) PCO2 ARTERIAL (BEAKER) (test code 42 mm Hg 35-45 = 384) PO2 ARTERIAL (BEAKER) (test code = 289 mm Hg 80-90 H 385) O2 SATURATION ARTERIAL (BEAKER) 99.7 % 96.0-97.0 H (test code = 386) HCO3 ARTERIAL (BEAKER) (test code 27 mmol/L 21-29 = 388) BASE EXCESS ARTERIAL (BEAKER) 1.7 mmol/L -2.0-3.0 (test code = 387) PATIENT TEMPERATURE (BEAKER) (test 35.6 code = 1818) FIO2 (BEAKER) (test code = 1819) 80.0 POTASSIUM-STAT [id number] 14:59:00 Test Item Value Reference Range Interpretation Comments POTASSIUM (BEAKER) (test code = 5.6 meq/L 3.6-5.5 H 379) GLUCOSE-STAT [id number] 14:59:00 Test Item Value Reference Range Interpretation Comments GLUCOSE RANDOM (BEAKER) (test code 245 mg/dL 70-110 H = 652) HGB/HCT (H&H) - STAT [id number] 14:59:00 Test Item Value Reference Range Interpretation Comments HEMOGLOBIN (BEAKER) (test code = 11.8 GM/DL 13.0-16.8 L 410) HEMATOCRIT (BEAKER) (test code = 35.0 % 40.0-50.0 L 411) SODIUM NA-STAT [id number] 14:58:00 Test Item Value Reference Range Interpretation Comments SODIUM (BEAKER) (test code = 381) 136 meq/L 136-145 POTASSIUM-STAT [id number] 14:41:00 Test Item Value Reference Range Interpretation Comments POTASSIUM (BEAKER) (test code = 5.6 meq/L 3.6-5.5 H 379) BLOOD GAS, [id number] 14:40:00 Test Item Value Reference Range Interpretation Comments PH ARTERIAL (BEAKER) (test code = 7.30 7.35-7.45 L 383) PCO2 ARTERIAL (BEAKER) (test code 48 mm Hg 35-45 H = 384) PO2 ARTERIAL (BEAKER) (test code 289 mm Hg 80-90 H = 385) O2 SATURATION ARTERIAL (BEAKER) 99.6 % 96.0-97.0 H (test code = 386) HCO3 ARTERIAL (BEAKER) (test code 23 mmol/L 21-29 = 388) BASE EXCESS ARTERIAL (BEAKER) -4.0 mmol/L -2.0-3.0 L (test code = 387) PATIENT TEMPERATURE (BEAKER) 34.6 (test code = 1818) FIO2 (BEAKER) (test code = 1819) 70.0 GLUCOSE-STAT [id number] 14:40:00 Test Item Value Reference Range Interpretation Comments GLUCOSE RANDOM (BEAKER) (test code 225 mg/dL 70-110 H = 652) HGB/HCT (H&H) - STAT [id number] 14:40:00 Test Item Value Reference Range Interpretation Comments HEMOGLOBIN (BEAKER) (test code = 12.9 GM/DL 13.0-16.8 L 410) HEMATOCRIT (BEAKER) (test code = 38.0 % 40.0-50.0 L 411) SODIUM NA-STAT [id number] 14:39:00 Test Item Value Reference Range Interpretation Comments SODIUM (BEAKER) (test code = 381) 135 meq/L 136-145 L BLOOD GAS, [id number] 14:04:00 Test Item Value Reference Range Interpretation Comments PH ARTERIAL (BEAKER) (test code = 7.29 7.35-7.45 L 383) PCO2 ARTERIAL (BEAKER) (test code 47 mm Hg 35-45 H = 384) PO2 ARTERIAL (BEAKER) (test code 287 mm Hg 80-90 H = 385) O2 SATURATION ARTERIAL (BEAKER) 99.6 % 96.0-97.0 H (test code = 386) HCO3 ARTERIAL (BEAKER) (test code 25 mmol/L 21-29 = 388) BASE EXCESS ARTERIAL (BEAKER) -4.9 mmol/L -2.0-3.0 L (test code = 387) PATIENT TEMPERATURE (BEAKER) 27.6 (test code = 1818) FIO2 (BEAKER) (test code = 1819) 60.0 SODIUM NA-STAT [id number] 14:04:00 Test Item Value Reference Range Interpretation Comments SODIUM (BEAKER) (test code = 381) 134 meq/L 136-145 L GLUCOSE-STAT [id number] 14:04:00 Test Item Value Reference Range Interpretation Comments GLUCOSE RANDOM (BEAKER) (test code 213 mg/dL 70-110 H = 652) HGB/HCT (H&H) - STAT [id number] 14:04:00 Test Item Value Reference Range Interpretation Comments HEMOGLOBIN (BEAKER) (test code = 13.2 GM/DL 13.0-16.8 410) HEMATOCRIT (BEAKER) (test code = 39.0 % 40.0-50.0 L 411) POTASSIUM-STAT [id number] 14:03:00 Test Item Value Reference Range Interpretation Comments POTASSIUM (BEAKER) (test code = 5.1 meq/L 3.6-5.5 379) BLOOD GAS, [id number] 13:31:00 Test Item Value Reference Range Interpretation Comments PH ARTERIAL (BEAKER) (test code = 7.34 7.35-7.45 L 383) PCO2 ARTERIAL (BEAKER) (test code 37 mm Hg 35-45 = 384) PO2 ARTERIAL (BEAKER) (test code 399 mm Hg 80-90 H = 385) O2 SATURATION ARTERIAL (BEAKER) 99.8 % 96.0-97.0 H (test code = 386) HCO3 ARTERIAL (BEAKER) (test code 22 mmol/L 21-29 = 388) BASE EXCESS ARTERIAL (BEAKER) -6.3 mmol/L -2.0-3.0 L (test code = 387) PATIENT TEMPERATURE (BEAKER) 28.8 (test code = 1818) FIO2 (BEAKER) (test code = 1819) 81.0 SODIUM NA-STAT [id number] 13:31:00 Test Item Value Reference Range Interpretation Comments SODIUM (BEAKER) (test code = 381) 131 meq/L 136-145 L GLUCOSE-STAT [id number] 13:31:00 Test Item Value Reference Range Interpretation Comments GLUCOSE RANDOM (BEAKER) (test code 180 mg/dL 70-110 H = 652) HGB/HCT (H&H) - STAT [id number] 13:31:00 Test Item Value Reference Range Interpretation Comments HEMOGLOBIN (BEAKER) (test code = 12.1 GM/DL 13.0-16.8 L 410) HEMATOCRIT (BEAKER) (test code = 36.0 % 40.0-50.0 L 411) POTASSIUM-STAT [id number] 13:30:00 Test Item Value Reference Range Interpretation Comments POTASSIUM (BEAKER) (test code = 5.1 meq/L 3.6-5.5 379) BLOOD GAS, [id number] 12:15:00 Test Item Value Reference Range Interpretation Comments PH ARTERIAL (BEAKER) (test code = 7.38 7.35-7.45 383) PCO2 ARTERIAL (BEAKER) (test code 37 mm Hg 35-45 = 384) PO2 ARTERIAL (BEAKER) (test code 306 mm Hg 80-90 H = 385) O2 SATURATION ARTERIAL (BEAKER) 99.7 % 96.0-97.0 H (test code = 386) HCO3 ARTERIAL (BEAKER) (test code 21 mmol/L 21-29 = 388) BASE EXCESS ARTERIAL (BEAKER) -3.7 mmol/L -2.0-3.0 L (test code = 387) PATIENT TEMPERATURE (BEAKER) 36.0 (test code = 1818) FIO2 (BEAKER) (test code = 1819) 100.0 CALCIUM, [id number] 12:11:00 Test Item Value Reference Range Interpretation Comments CALCIUM IONIZED (BEAKER) (test 1.15 mmol/L 1.12-1.27 code = 698) PH, BLOOD (BEAKER) (test code = 7.36 1810) GLUCOSE-STAT [id number] 12:10:00 Test Item Value Reference Range Interpretation Comments GLUCOSE RANDOM (BEAKER) (test code = 93 mg/dL 70-110 652) SODIUM NA-STAT [id number] 12:10:00 Test Item Value Reference Range Interpretation Comments SODIUM (BEAKER) (test code = 381) 139 meq/L 136-145 POTASSIUM-STAT [id number] 12:10:00 Test Item Value Reference Range Interpretation Comments POTASSIUM (BEAKER) (test code = 4.2 meq/L 3.6-5.5 379) HGB/HCT (H&H) - STAT [id number] 12:10:00 Test Item Value Reference Range Interpretation Comments HEMOGLOBIN (BEAKER) (test code = 15.9 GM/DL 13.0-16.8 410) HEMATOCRIT (BEAKER) (test code = 47.0 % 40.0-50.0 411) POCT-GLUCOSE [id number] 08:31:00 Test Item Value Reference Range Interpretation Comments POC-GLUCOSE METER 112 mg/dL 70-110 H : TESTED A T [facility] 6720 (BEAKER) (test code = [place], 1538) [id number]: Wood Heel Attacher/Techni paxton ID = [id number] for Sania Alexandre Electrocardiogram, [id number] 14:57:10Interface, External Ris In - 03/29/2020 2:57 PM CSTVentricular Rate 65 BPMAtrial Rate 65 BPMP-R Interval 172 msQRS Duration 102 msQ-T Interval 404 msQTC Calculation(Bazett) 420 msP [place] 48 degreesR [place] 18 degreesT [place] 17 degreesNormal sinus rhythmNormal ECGWhen compared with ECG of 17-SEP-2019 09:04,No significant change was foundConfirmed by MD Erickson Roberto ([id number]) on 03/29/2020 2:57:08PMCH[facility] CenterARS-[facility]/RT-PCR (Asymptomatic ONLY)2020-03-27 17:29:00 Test Item Value Reference Range Interpretation Comments SARS-COV2/RT-PCR Negative Not Detected, (test code = Negative, See 23446-6) external report for linked test SARS-COV-2 [facility] PERFORMING [facility] (test code = 91480-0) BEBE (test code = Negative result for this BEBE) test determines that SARS-CoV-2 RNA was not present in the specimen above the Limit of Detection (LOD). However, Negative results do not preclude SARS-CoV-2 infection and should not be used as the sole basis for treatment or patient management decisions. Negative results must be combined with clinical observations, patient history, and epidemiological information. A false negative result may occur if a specimen is improperly collected, transported or handled. A false negative result should be considered if patient's recent exposures or clinical presentation indicate that COVID-19 (SARS-CoV-2) is likely and diagnostic tests for other causes of illness are negative. Re-testing should be considered in cases of suspected false negatives. The limit of detection for this assay is 800 copies/mL. This SARS CoV-2 test is a real-time RT-PCR test intended for the qualitative detection of nucleic acid from SARS-CoV-2 in a nasopharyngeal swab specimen collected from individuals suspected of COVID-19 by their healthcare provider. This test has not been Food and Drug Administration (FDA) cleared or approved. This is a modified version of an approved Emergency Use Authorization (EUA) and is in the process of review by the FDA. Once authorized by the FDA, the issued EUA will be effective until the declaration that circumstances exist justifying the authorization of the emergency use of in vitro diagnostic tests for detection and/or diagnosis of COVID-19 is terminated under Section 564(b)(2) of the Act or the EUA is revoked under Section 564(g) of the Act. Fact Sheet for Healthcare Providers:https://www.[employer]/sites/default/f bee/product/documents/F act_Sheet_HC_Providers_L oqv_TRQH-LyV-1.pdf Fact Sheet for Healthcare Patients:https://www.[employer]/sites/default/fi les/product/documents/Fa ct_Sheet_Patients_Lyra_S ARS-CoV-2.pdf Performing Laboratory:[facility] [place] [address] [facility] ([facility])2020-03-27 17:29:00 Test Item Value Reference Range Interpretation Comments SARS-COV2/RT-PCR (test Negative Not Detected, Negative, code = 5204664) See external report for linked test SARS-COV-2 PERFORMING LAB [facility] (test code = 5853882) Negative result for this test determines that SARS-CoV-2 RNA was not present in the specimen above the Limit of Detection (LOD). However, Negative results do not preclude SARS-CoV-2 infection and should not be used as the sole basis for treatment or patient management decisions. Negative results mustbe combined with clinical observations, patient history, and epidemiological information. A false negative result may occur if a specimen is improperly collected, transported or handled. A false negative result should be considered if patient's recent exposures or clinical presentation indicate that COVID-19 (SARS-CoV-2) is likely and diagnostic tests for other causes of illness are negative. Re-testing should be considered in cases of suspected false negatives.The limit of detection for this assay is 800 copies/mL.This SARS CoV-2 test is a real-time RT-PCR test intended for the qualitative detection of nucleic acid from SARS-CoV-2 in a nasopharyngeal swab specimen collected from individuals susp ected of COVID-19 by their healthcare provider.This test has not been Food and Drug Administration (FDA) cleared or approved. This is a modified version of an approved Emergency Use Authorization (EUA) and is in the process of review by the FDA. Once authorized by the FDA, the issued EUA will be effective until the declaration that circumstances exist justifying the authorization of the emergency use of in vitro diagnostic tests for detection and/or diagnosis of COVID-19 is terminated under Section 564(b)(2) of the Act or the EUA is revoked under Section 564(g) of the Act.Fact Sheet for Healthcare Providers:https://www.[employer]/sites/default/files/product/documents/Fact_Shee c_OF_Nzqpfrswx_Rrgh_ZJZE-CbQ-5.pdfFact Sheet for Healthcare Patients:https://www.[employer]/sites/default/files/product/ documents/Yrlq_Dtvsc_Wqktykmm_Pwht_EMGK-NiN-3.pdfPerforming Laboratory:[facility] [facility], [place] [address]Pjcfyveppjzue metabolic [id number] 11:11:00 Test Item Value Reference Range Interpretation Comments Protein, Total 7.4 See_Comment [Automated (test code = message] The 2885-2) system which generated this result transmit isela reference range : 6.0 - 8.3 gm/dL . The reference range was not u sed to interpret th is result as normal/abnormal . Albumin (test code 4.5 g/dL 3.5-5 = 36115-4) Alkaline 85 U/L 40-150 Phosphatase (test code = 6768-6) Total Bilirubin 0.5 mg/dL 0.2-1.2 (test code = 1975-2) Sodium (test code = 139 meq/L 591-144 1151-2) Potassium (test 4.5 meq/L 3.5-5.1 code = 2823-3) Chloride (test code 105 meq/L 98-107 = 2075-0) CO2 (test code = 26 meq/L 22-29 2027-) BUN (test code = 20 mg/dL -4-0) Creatinine (test 0.96 mg/dL 0.57-1.25 code = 2160-0) Glucose (test code 102 mg/dL 70-105 = 2345-7) Calcium (test code 9.0 mg/dL 8.4-10.2 = 36826-1) AST (test code = 24 U/L 5-34 1920-8) ALT (test code = 46 U/L 6-55 1742-6) EGFR (test code = 87 mL/min/1.73 [place] [address]-0) NOT ACCURATE CREATININE CLEARANCE IN PREDICTING GLOMERULAR FILTRATION RATE . ESTIMATED GFR I S NOT APPLICABLE FOR DIALYSIS PATIEN BEBE (test code = Wood Heel Attacher ID - BEBE) DEL [facility] HospitalLipid [id number] 11:11:00 Test Item Value Reference Range Interpretation Comments Triglycerides (test 249 mg/dL code = 2571-8) Cholesterol (test code 170 mg/dL = 2093-3) HDL (test code = 30 mg/dL 2084-9) LDL Calculated (test 90 mg/dL code = 80257-0) BEBE (test code = BBEE) Triglyceride Reference Range: Low Risk <150 Borderline 150-199 High Risk 200-499 Very High Risk >=500 Cholesterol Reference Range: Low Risk <200 Borderline 200-239 High Risk >240 HDL Cholesterol Reference Range: Low Risk >=60 High Risk <40 LDL Cholesterol Reference Range: Optimal <100 Near Optimal 100-129 Borderline 130-159 High 160-189 Very High >=190 Wood Heel Attacher ID - DEL [facility]COM[facility]AB[facility] [id number] 11:11:00 Test Item Value Reference Range Interpretation Comments TOTAL PROTEIN 7.4 gm/dL 6.0-8.3 (BEAKER) (test code = 770) ALBUMIN (BEAKER) 4.5 g/dL 3.5-5.0 (test code = 1145) ALKALINE PHOSPHATASE 85 U/L 40-150 (BEAKER) (test code = 346) BILIRUBIN TOTAL 0.5 mg/dL 0.2-1.2 (BEAKER) (test code = 377) SODIUM (BEAKER) (test 139 meq/L 136-145 code = 381) POTASSIUM (BEAKER) 4.5 meq/L 3.5-5.1 (test code = 379) CHLORIDE (BEAKER) 105 meq/L 98-107 (test code = 382) CO2 (BEAKER) (test 26 meq/L 22-29 code = 355) BLOOD UREA NITROGEN 20 mg/dL 7-21 (BEAKER) (test code = 354) CREATININE (BEAKER) 0.96 mg/dL 0.57-1.25 (test code = 358) GLUCOSE RANDOM 102 mg/dL 70-105 (BEAKER) (test code = 652) CALCIUM (BEAKER) 9.0 mg/dL 8.4-10.2 (test code = 697) AST (SGOT) (BEAKER) 24 U/L 5-34 (test code = 353) ALT (SGPT) (BEAKER) 46 U/L 6-55 (test code = 347) EGFR (BEAKER) (test 87 mL/min/1.73 ESTIMA ISELA GFR IS code = 1092) sq m NOT ACCURATE CREATININE CLEARANCE IN PREDICTING GLOMERULAR FILTRATION RATE . ESTIMATED GFR I S NOT APPLICABLE FOR DIALYSIS PATIEN TS. Wood Heel Attacher ID - DEL [id number] 11:11:00 Test Item Value Reference Range Interpretation Comments MAGNESIUM (BEAKER) (test code = 1.9 mg/dL 1.6-2.6 627) Wood Heel Attacher ID - DEL CLIPID [id number] 11:11:00 Test Item Value Reference Range Interpretation Comments TRIGLYCERIDES (BEAKER) (test code = 249 mg/dL 540) CHOLESTEROL (BEAKER) (test code = 170 mg/dL 631) HDL CHOLESTEROL (BEAKER) (test code 30 mg/dL = 976) LDL CHOLESTEROL CALCULATED (BEAKER) 90 mg/dL (test code = 633) Triglyceride Reference Range: Low Risk <150 Borderline 150-199 High Risk 200-499 Very High Risk >=500Cholesterol Reference Range: Low Risk <200 Borderline 200-239 High Risk >240HDL Cholesterol Reference Range: Low Risk >=60 High Risk <40LDL Cholesterol Reference Range: Optimal <100 Near Optimal 100-129 Borderline 130-159 High 160-189 Very High >=190 Wood Heel Attacher ID - DEL CHemoglobin [id number] 09:58:00 Test Item Value Reference Range Interpretation Comments Hemoglobin A1C (test code = 4548-4) 5.5 % 4.3-6.1 Lab Interpretation (test code = Normal 19419-1) [facility] [id number] 09:58:00 Test Item Value Reference Range Interpretation Comments HEMOGLOBIN A1C (BEAKER) (test code = 5.5 % 4.3-6.1 368) Type and screen, [id number] 09:52:00 Test Item Value Reference Range Interpretation Comments ABO/RH AUTOMATED (BEAKER) (test O POSITIVE code = 2260) Ab Scrn (test code = 890-4) NEGATIVE [facility] HospitalAPTT2020-11-13 09:01:00 Test Item Value Reference Range Interpretation Comments PARTIAL THROMBOPLASTIN TIME 32.8 seconds 22.5-36.0 (BEAKER) (test code = 760) PROTHROMBIN TIME/[id number] 09:00:00 Test Item Value Reference Range Interpretation Comments PROTIME (BEAKER) (test code = 12.8 seconds 11.9-14.2 759) INR (BEAKER) (test code = 370) 0.99 <=5.90 Effective 10/10/2018: PT Reference Range ChangeNew: 11.9-14.2 Previous: 11.7- 14.7RECOMMENDED COUMADIN/WARFARIN INR THERAPY RANGESSTANDARD DOSE: 2.0-3.0 Includes: PROPHYLAXIS for venous thrombosis, systemic embolization; TREATMENT for venous thrombosis and/or pulmonary embolus.HIGH RISK: Target INR is2.5-3.5 for patients wiht mechanical heart valves.CBC W/PLT COUNT & AUTO [id number] 08:48:00 Test Item Value Reference Range Interpretation Comments WHITE BLOOD CELL COUNT (BEAKER) 10.5 K/ L 3.5-10.5 (test code = 775) RED BLOOD CELL COUNT (BEAKER) 4.97 M/ L 4.63-6.08 (test code = 761) HEMOGLOBIN (BEAKER) (test code = 15.9 GM/DL 13.7-17.5 410) HEMATOCRIT (BEAKER) (test code = 45.1 % 40.1-51.0 411) MEAN CORPUSCULAR VOLUME (BEAKER) 90.7 fL 79.0-92.2 (test code = 753) MEAN CORPUSCULAR HEMOGLOBIN 32.0 pg 25.7-32.2 (BEAKER) (test code = 751) MEAN CORPUSCULAR HEMOGLOBIN CONC 35.3 GM/DL 32.3-36.5 (BEAKER) (test code = 752) RED CELL DISTRIBUTION WIDTH 13.2 % 11.6-14.4 (BEAKER) (test code = 412) PLATELET COUNT (BEAKER) (test 262 K/CU MM 150-450 code = 756) MEAN PLATELET VOLUME (BEAKER) 9.7 fL 9.4-12.4 (test code = 754) NUCLEATED RED BLOOD CELLS 0 /100 WBC 0-0 (BEAKER) (test code = 413) NEUTROPHILS RELATIVE PERCENT 59 % (BEAKER) (test code = 429) LYMPHOCYTES RELATIVE PERCENT 26 % (BEAKER) (test code = 430) MONOCYTES RELATIVE PERCENT 8 % (BEAKER) (test code = 431) EOSINOPHILS RELATIVE PERCENT 6 % (BEAKER) (test code = 432) BASOPHILS RELATIVE PERCENT 1 % (BEAKER) (test code = 437) NEUTROPHILS ABSOLUTE COUNT 6.17 K/ L 1.78-5.38 H (BEAKER) (test code = 670) LYMPHOCYTES ABSOLUTE COUNT 2.70 K/ L 1.32-3.57 (BEAKER) (test code = 414) MONOCYTES ABSOLUTE COUNT (BEAKER) 0.79 K/ L 0.30-0.82 (test code = 415) EOSINOPHILS ABSOLUTE COUNT 0.66 K/ L 0.04-0.54 H (BEAKER) (test code = 416) BASOPHILS ABSOLUTE COUNT (BEAKER) 0.09 K/ L 0.01-0.08 H (test code = 417) IMMATURE GRANULOCYTES-RELATIVE 1 % 0-1 PERCENT (BEAKER) (test code = 2801) CT, CTA, [id number] 09:24:00With contrastUnlisted Reason for Exam - Click Yes and Enter Reason Below->No [facility] : 1980 Sex: MAddendum BeginsREPORT STATUS:A I agree with the nonvascular [...] passage of intravenous contrast material. Multi-planar 3-D volume- rendering reconstruction was performed using an independent workstation interactively by the interpreting physician as well as the 3-D specialist for optimal visualisation of the thoracic aorta and its proximal branches. Please refer to the contrast sheet scanned in the EPIC system for the amount and route of contrast given. This exam was performed according to our departmental dose- optimisation programme, which includes automated exposure control, adjustment [...] ectasia, with preserved sinotubular junction, and thereafter remainderof the thoracic aorta is normal in course, contour, and calibre. There is no evidence of acute aortic pathology, specifically, there is no dissection, intramural hematoma, or contained rupture. Thearch vessel branching pattern is normal and the visualised portion of the arch vessels are widely pat ent. Quantitaive dimensions of the aorta are as [...] is identified in the right lower lobe atimage 162. Another 1-2 mm noncalcified nodule is [...] can be performed for further tissue characterisation. 3.An addendum will be dictated regarding the non-vascular findings by the Senior Adults Director Radiologist. Signed: Anastacio Estrada MDReport Verified Date/Time: 03/19/2020 17:41:36 Reading Location: [address] Reading Room Carotid doppler bilateral 2020-03-20 07:45:38[facility] ECHO HEARTLAB MKCKESSON CPACSRight Impression1. The internal carotid artery iswithin normal limits.2. The external carotid artery is [...] are measured in cm Carotid Right Measurements+ +----+----+-----+ +-------- ---------+ +!Location !PSV !EDV !Angle!%Stenosis 2D!%Stenosis Doppler!Tortuosity !+-- +----+----+-----+ + + +!Prox CCA !103 !22.3!60 ! ! ! !+ +----+----+-----+ +------- + +!Dist CCA !92 !18.2!60 ! ! ! !+- +----+----+-----+ + + +!Prox ICA !73.9!20.5!60 ! !Normal ! !+ +----+----+-----+ +------ + +!Dist ICA !79.2!28.7!60 ! ! ! !+ +----+----+-----+ + + +!Prox ECA !129 !16.5!60 ! ! ! !+ +----+----+-----+ +----- + +!Vertebral !53.9!17 !60 ! ! ! ! + +----+----+-----+ + + +!Pro x Subclavian!175 ! !60 ! ! ! !+ +----+----+-----+ + + + - There is antegrade vertebral flow noted on the right side. - Additional Measurements:ICAPSV/CCAPSV 0.86.ICAEDV/CCAEDV 1.29. Carotid Left Measurements+ +--- -+----+-----+ + + +!Location !PSV !EDV !Angle!%Stenosis 2D!%Stenosis Doppler!Tortuosity !+ +----+----+-----+ + +------ -----+!Prox CCA !110 !21.6!60 ! ! ! !+ +-- --+----+-----+ + + +!Dist CCA !85.6!19.3!60 ! ! ! !+ +----+----+-----+ + +----- ------+!Prox ICA !86.8!19.3!60 ! !Normal ! !+ +- ---+----+-----+ + + +!Dist ICA !81.5!27 !60 ! ! ! !+ +----+----+-----+ + +---- -------+!Prox ECA !108 !12.9!60 ! ! ! !+ + ----+----+-----+ + + +!Vertebral !56.3!15.8!60 ! ! ! !+ +----+----+-----+ + +--- --------+!Prox Subclavian!145 ! !60 ! ! ! !+ +----+----+-----+ + + + - There is antegrade vertebral flow noted on the left side. - Additional Measurements:ICAPSV/CCAPSV 1.01.ICAEDV/CCAEDV 1.25. Interface, External Ris In - 03/20/2020 7:45 AM CSTPV LAB - Carotid Duplex Study Demographics Patient Name KELLY WORLEY Date of Study 03/19/2020 Age 40 Visit Number [id number] Gender Male Accession Number [id number] Date of 1980 Referring Sarah Christian NP Room Number BSLMCOPT Physician Printer'S Assistant Joss Lombardi Interpreting CORINNE Tarango Physician ProcedureType of Study: Cerebral: Carotid, CAROTID DOP PLER, BILATERAL. Indications for Study:Pre op.Patient Status:Routine.Study Location:Vascular Lab.Technical Quality:Adequate visualization.Risk FactorsHistory of Disease+ +----+--------- +!Diagnosis !Date!Comments !+ +----+ +!Hi story/Risk ! !Former smoker, CAD, History of right femoral !!Factors: ! 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 The internal carotid artery is within normal limits.2. The external carotid artery is within normal limits.3. The common carotid artery is within normal limits.4. The vertebral artery flow is antegrade and normal.5. The subclavian artery is within normallimits where visualized.Left Impression1. The internal carotid artery is within normal limits.2. Theexternal carotid artery is within normal limits.3. The [...] Diameters are measured in cmCarotid Right Measurements+ +----+----+-----+ + +---- -------+!Location !PSV !EDV !Angle!%Stenosis 2D!%Stenosis Doppler!Tortuosity !+ +----+----+ -----+ + + +!Prox CCA !103 !22.3!60 ! ! ! !+ +----+----+-----+ + + +! Dist CCA !92 !18.2!60 ! ! ! !+ +----+---- +-----+ + + +!Prox ICA !73.9!20.5!60 ! !Normal ! !+ +----+----+-----+ + + + !Dist ICA !79.2!28.7!60 ! ! ! !+ +----+--- -+-----+ + + +!Prox ECA !129 !16.5!60 ! ! ! !+ +----+----+-----+ + + +!Vertebral !53.9!17 !60 ! ! ! !+ +----+-- --+-----+ + + +!Prox Subclavian!175 ! !60 ! ! ! !+ +----+----+-----+ + + + - There is antegrade vertebral flow noted on the right side. - Additional Measurements:ICAPSV/CCAPSV 0.86.ICAEDV/CCAEDV 1.29.Carotid Left Measurements+ +----+----+-----+ +- + +!Location !PSV !EDV !Angle!%Stenosis 2D!%Stenosis Doppler!Tortuosity !+ +----+----+-----+ + + +!Pr ox CCA !110!21.6!60 ! ! ! !+ +----+----+-----+ + + +!Dist CCA !85.6!19.3!60 ! ! ! !+ +----+----+-----+ + + +!Pr ox ICA !86.8!19.3!60 ! !Normal ! !+ +----+----+-----+ + + +!Dist ICA !81.5!27 !60 ! ! ! !+ +----+----+-----+ + + +!Pr ox ECA !108 !12.9!60 ! ! ! !+ +----+----+-----+ -+ + +!Vertebral !56.3!15.8!60 ! ! ! !+ +----+----+-----+ + + +!Pr ox Subclavian!145 ! !60 ! ! ! !+ +----+----+-----+ + + + - There is antegrade vertebral flow noted on the left side. - Additional Measurements:ICAPSV/CCAPSV 1.01.ICAEDV/CCAEDV 1.25.[facility] CTA [id number] 17:41:00Interface, External Ris In - 03/20/2020 9:26 AM CSTAddendum BeginsREPORT STATUS:A I agree with the nonvascular findings. Signed: Vannessa Pritchard MDReport Verified Date/Jaun e: 03/20/2020 09:24:[address] angiography [...] passage of intravenous contrast material. Multi-planar 3-D volume- rendering reconstruction was performed using an independent workstation interactively by the interpreting physician as well as the 3-D specialist for optimal visualisation of the thoracic aorta and its proximal branches. Please refer to the contrast sheet scanned in theEPIC system for the amount and route of contrast given. This exam was performed according to our departmental dose- optimisation programme, which includes automated exposure control, adjustment [...] hepatic steatosis. Hypodensity is identified in the leftthyroid lobe, at image 5, measures 1.5 cm in diameter. Dedicated thyroid ultrasound scan can be performed for further tissue characterisation. 3. An addendum will be dictated regarding the non-vascular findings by the Senior Adults Director Radiologist. Signed: Anastacio Estrada MDReport Verified Date/Time: 03/19/2020 17:41:36 Reading Location: [place] [address] [address] [facility] [id number] 06:15:00 Test Item Value Reference Range Interpretation [...] 697) EGFR (BEAKER) (test 91 mL/min/1.73 ESTIMA ISELA GFR IS code = 1092) sq m NOT ACCURATE CREATININE CLEARANCE IN PREDICTING GLOMERULAR FILTRATION RATE . ESTIMATED GFR I S NOT APPLICABLE FOR DIALYSIS PATIEN TS. Wood Heel Attacher ID - PIAYA LCBC W/PLT COUNT & AUTO [id number] 05:43:00 Test Item Value Reference Range Interpretation [...] 0-1 PERCENT (BEAKER) (test code = 2801) [id number] 18:05:00 Test Item Value Reference Range Interpretation [...] for patients wiht mechanical heart valves.BASIC METABOLIC [id number] 18:03:00 Test Item Value Reference Range Interpretation [...] 697) EGFR (BEAKER) (test 97 mL/min/1.73 ESTIMA ISELA GFR IS code = 1092) sq m NOT ACCURATE CREATININE CLEARANCE IN PREDICTING GLOMERULAR FILTRATION RATE . ESTIMATED GFR I S NOT APPLICABLE FOR DIALYSIS PATIEN TS. Wood Heel Attacher ID - DBCBC W/PLT COUNT & AUTO [id number] 18:01:00 Test Item Value Reference Range Interpretation [...] 0-1 PERCENT (BEAKER) (test code = 2801) POCT-GLUCOSE [id number] 06:01:00 Test Item Value Reference Range Interpretation Comments POC-GLUCOSE METER 107 mg/dL 70-110 : TESTED A T [facility] 6720 (BEAKER) (test code [facility], = 1538) 167[address]: Wood Heel Attacher/Techni paxton ID = [id number] for JORD AN, LACRYSTAL MISCELLANEOUS LAB [id number] 05:17:00 Test Item Value Reference Range Interpretation Comments SCAN RESULT (test code = See scanned report [id number]) HEMOGLOBIN [id number] 10:50:00 Test Item Value Reference Range Interpretation Comments HEMOGLOBIN A1C (BEAKER) (test code = 4.9 % 4.3-6.1 368) RAD, CHEST, 2 [id number] 10:38:00Reason for Exam:->pre opFINAL REPORT INDICATION: pre op COMPARISON: None TECHNIQUE: Frontal and lateral views of the chest. FINDINGS: Lungs and pleura: Clear lungs. No effusion.Heart and mediastinum: Normal heart size. Unremarkable mediastinal contours.Osseous structures: No acute abnormality.Additional findings: None. IMPRESSION: No acute intrathoracic abnormality. Signed: Ariane [facility] Verified Date/Time: 09/17/2019 10:38:28 Reading Location: [facility] Reading Room COMPREHENSIVE METABOLIC [id number] 10:27:00 Test Item Value Reference Range Interpretation [...] 347) EGFR (BEAKER) (test 83 mL/min/1.73 ESTIMA ISELA GFR IS code = 1092) sq m NOT ACCURATE CREATININE CLEARANCE IN PREDICTING GLOMERULAR FILTRATION RATE . ESTIMATED GFR I S NOT APPLICABLE FOR DIALYSIS PATIEN TS. [place] [employer] Attacher ID - [id number] 10:00:00 Test Item Value Reference Range Interpretation [...] mechanical heart valves.CBC W/PLT COUNT & AUTO [id number] 09:57:00 Test Item Value Reference Range Interpretation [...]
[2020-12-24 06:25] LABS: Absolute Lymphocytes (CBC) 2.6 K/uL (0.7-4.9); Basophils % 0.2 % (0-1.3); Hematocrit 47.1 % (39.6-49.0); MPV 7.9 fL (7.6-11.3); RBC Red Blood Cell Count 5.08 M/uL (4.33-5.43)
[2020-12-24 06:30] LABS: Protime INR 2.03
[2020-12-24 06:54] LABS: ALT/SGPT 61 U/L (12-78); Albumin 4.1 g/dL (3.4-5.0); Alkaline Phosphatase 106 U/L (45-117); BUN Blood Urea Nitrogen 22 mg/dL (7-18); Bicarbonate 23 mmol/L (21-32); Bilirubin Direct 0.1 mg/dL (0-0.2); Bilirubin Total 0.5 mg/dL (0.2-1.0); Glucose Level 147 mg/dL (74-106); NT PRO-BNP 9 pg/mL (<125); Protein, Total 7.7 g/dL (6.4-8.2); Sodium Level 138 mmol/L (136-145); Troponin (Emerg Dept Use Only) < 0.02 ng/mL (0.0-0.045)
[2020-12-24 06:55] LABS: AST/SGOT 30 U/L (15-37); Magnesium 2.2 mg/dL (1.8-2.4); Potassium 3.7 mmol/L (3.5-5.1)
--- NOTE | 2020-12-24 06:59 | RAD REPORT ---
EXAM DESCRIPTION: RAD - Chest Single View - 12/24/2020 6:35 am CLINICAL HISTORY: DYSPNEA COMPARISON: Chest Single View dated 03/23/2020; Chest Pa And Lat (2 Views) dated 07/09/2019; Chest Pa And Lat (2 Views) dated 01/18/2017; Chest Pa And Lat (2 Views) dated 06/30/2016 FINDINGS: No evidence of edema or pneumonia. Cardiomegaly. Sternotomy. Aortic valve prosthesis.No ac [place] osseous abnormality. No significant pleural effusions or pneumothorax. IMPRESSION: No acute cardiopulmonary disease.
[2020-12-24] MEDS ORDERED: PANTOPRAZOLE 40 MG INJ ONE (07:10)
--- NOTE | 2020-12-24 09:12 | ER ---
Nurse's Notes [facility] Name: Vincenzo Bales Age: 40 yrs Sex: Male : 1980 Arrival Date: 12/24/2020 Time: 05:27 Bed 16 Private MD: Diagnosis: Dyspnea-resolved;Gastro-esophageal reflux disease without esophagitis Presentation: 12/24 05:53 Chief complaint: Patient states: he woke up with chunks of food in his mouth thinks he bb aspirated some and is having trouble breathing. Coronavirus screen: difficulty breathing, Client presents with at least one sign or symptom that may indicate coronavirus-19. Standard/surgical mask placed on the client. Ebola Screen: No symptoms or risks identified at this time. Initial Sepsis Screen: Does the patient meet any 2 criteria? No. Patient's initial sepsis screen is negative. Does the patient have a suspected source of infection? No. Patient's initial sepsis screen is negative. Risk Assessment: Do you want to hurt yourself or someone else? Patient reports no desire to harm self or others. Onset of symptoms was December 24, 2020. 05:53 Method Of Arrival: Ambulatory bb 05:53 Acuity: ALE 3 bb Triage Assessment: 05:54 General: Appears in no apparent distress. uncomfortable, Behavior is cooperative, bb anxious. Pain: Complains of pain in chest and throat. Neuro: Level of Consciousness is awake, alert, obeys commands, Oriented to person, place, time, situation. Cardiovascular: Capillary refill < 3 seconds Patient's skin is warm and dry. Respiratory: Reports shortness of breath Respiratory effort is labored, Respiratory pattern is tachypnea Onset: The symptoms/episode began/occurred yesterday, the patient has mild shortness of breath. GI: No signs and/or symptoms were reported involving the gastrointestinal system. Derm: Skin is pink, warm \T\ dry. Musculoskeletal: Circulation, motion, and sensation intact. Historical: - Allergies: 05:54 Dilaudid; bb - Home Meds: 05:54 Lunesta oral [Active]; Metoprolol Tartrate Oral [Active]; Mirtazapine Oral [Active]; bb venlafaxine oral [Active]; Warfarin Oral [Active]; Furosemide Oral [Active]; - PMHx: 05:54 defective aortic valve; Hypertension; Kidney stones; bb - PSHx: 05:54 heart valve; bb - Immunization history:: Adult Immunizations up to date, Client reports having NOT received the Covid vaccine. - Social history:: Smoking status: Patient reports the use of cigarette tobacco products, smokes one-half pack cigarettes per day, Patient uses alcohol, but reports only rare drinking. Screenin:58 Abuse screen: Denies threats or abuse. Nutritional screening: No deficits noted. bb Tuberculosis screening: No symptoms or risk factors identified. Fall Risk None identified. Assessment: 05:58 Reassessment: No changes from previously documented assessment. bb 07:11 Respiratory: Airway. tr6 09:18 Reassessment: Patient states feeling better. Patient states symptoms have improved. tr6 Pain: Denies pain. Vital Signs: 05:51 BP 122 / 71; Pulse 72; Resp 28 S; Temp 97.7(O); Pulse Ox 97% on R/A; Weight 122.47 kg mw2 (R); Height 5 ft. 10 in. (177.80 cm); 05:51 Body Mass Index 38.74 (122.47 kg, 177.80 cm) mw2 ED Course: 05:27 Patient arrived in ED. bp1 05:54 Triage completed. bb 05:54 Arm band placed on Patient placed in an exam room, on a stretcher, on cardiac nurse, bb on pulse oximetry. 05:57 Gail Barrow FNP-C is PHCP. kb 05:57 Manuel Ng MD is Attending Physician. kb 05:58 Patient has correct armband on for positive identification. bb 06:35 XRAY Chest (1 view) In Process Unspecified. EDMS 07:02 Sarah Lopez, RN is Primary Nurse. tr6 08:14 No provider procedures requiring assistance completed. tr6 09:19 IV discontinued, intact, bleeding controlled, No redness/swelling at site. Pressure tr6 dressing applied. Administered Medications: 06:52 Drug: ProTONIX (pantoprazole) 40 mg Route: IVP; Site: left antecubital; ms4 06:52 Follow up: Response: No adverse reaction ms4 Outcome: 09:12 Discharge ordered by . kb 09:19 Discharged to home ambulatory. tr6 09:19 Condition: good 09:19 Discharge instructions given to patient, Instructed on discharge instructions, follow up and referral plans. Demonstrated understanding of instructions, follow-up care. 09:19 Patient left the ED. tr6 Signatures: Dispatcher [employer] Gail Macdonald, Geeta Magallanes RN RN bb Minal Colón mw2 Sahara Kyes Tiffany, RN RN tr6 Yenny Ortiz RN RN ms4 Corrections: (The following items were deleted from the chart) 06:00 05:54 Respiratory: Reports shortness of breath Onset: The symptoms/episode bb began/occurred yesterday, the patient has mild shortness of breath bb
--- NOTE | 2020-12-24 09:13 | EDPHYS ---
Physician Documentation [facility] Name: Vincenzo Bales Age: 40 yrs Sex: Male : 1980 Arrival Date: 12/24/2020 Time: 05:27 Bed 16 Private MD: ED Physician Manuel Ng HPI: 12/24 09:25 This 40 yrs old Male presents to ER via Ambulatory with complaints of kb Breathing Difficulty, Cough. 09:25 The patient has shortness of breath at rest. Onset: The symptoms/episode began/occurred kb this morning. Duration: The symptoms are continuous. The patient's shortness of breath is aggravated by nothing, is alleviated by nothing. Associated signs and symptoms: Pertinent positives: non-productive cough. Severity of symptoms: At their worst the symptoms were mild moderate in the emergency department the symptoms are unchanged. The patient has not experienced similar symptoms in the past. The patient has not recently seen a physician. Pt states he woke up at 0450 with acid reflux. States he had acid and peanuts (ate last night) in his mouth. States he believes he inhaled some of what was in his mouth and it caused trouble breathing. STates he has irritation to throat. Also reports he has had allergies over the last few days. Historical: - Allergies: 05:54 Dilaudid; bb - Home Meds: 05:54 Lunesta oral [Active]; Metoprolol Tartrate Oral [Active]; Mirtazapine Oral [Active]; bb venlafaxine oral [Active]; Warfarin Oral [Active]; Furosemide Oral [Active]; - PMHx: 05:54 defective aortic valve; Hypertension; Kidney stones; bb - PSHx: 05:54 heart valve; bb - Immunization history:: Adult Immunizations up to date, Client reports having NOT received the Covid vaccine. - Social history:: Smoking status: Patient reports the use of cigarette tobacco products, smokes one-half pack cigarettes per day, Patient uses alcohol, but reports only rare drinking. ROS: 09:24 Constitutional: Negative for fever, chills, and weight loss. kb 09:24 ENT: Positive for rhinorrhea. 09:24 Respiratory: Positive for cough, shortness of breath, Negative for dyspnea on exertion, hemoptysis, orthopnea, pleurisy, sputum production, wheezing. 09:24 Abdomen/GI: Positive for acid reflux. 09:24 All other systems are negative. Exam: 06:48 ECG was reviewed by the Attending Physician. rn 09:23 Constitutional: This is a well developed, well nourished patient who is awake, alert, kb and in no acute distress. Head/Face: Normocephalic, atraumatic. ENT: Moist Mucous membranes Cardiovascular: Regular rate and rhythm with a normal S1 and S2. No gallops, murmurs, or rubs. No pulse deficits. Abdomen/GI: Soft, non-tender. No distention Skin: Warm, dry with normal turgor. Normal color. MS/ Extremity: Pulses equal, no cyanosis. Neurovascular intact. Full, normal range of motion. Neuro: Awake and alert, GCS 15, oriented to person, place, time, and situation. Moves all extremities. Normal gait. Psych: Awake, alert, with orientation to person, place and time. Behavior, mood, and affect are within normal limits. 09:23 Respiratory: mild respiratory distress is noted, Respirations: tachypnea, Breath sounds: are clear throughout. Vital Signs: 05:51 BP 122 / 71; Pulse 72; Resp 28 S; Temp 97.7(O); Pulse Ox 97% on R/A; Weight 122.47 kg mw2 (R); Height 5 ft. 10 in. (177.80 cm); 05:51 Body Mass Index 38.74 (122.47 kg, 177.80 cm) mw2 MDM: 05:57 Patient medically screened. kb 09:10 Data reviewed: vital signs, nurses notes. Data interpreted: Pulse oximetry: on room air kb is 97 %. Interpretation: normal. Counseling: I had a detailed discussion with the patient and/or guardian regarding: the historical points, exam findings, and any diagnostic results supporting the discharge/admit diagnosis, lab results, radiology results, the need for outpatient follow up, a family practitioner, to return to the emergency department if symptoms worsen or persist or if there are any questions or concerns that arise at home. 09:23 ED course: Pt feeling better prior to discharge. Dyspnea resolved. . kb 12/24 06:02 Order name: Basic Metabolic Panel kb 12/24 06:02 Order name: CBC with Diff 12/24 06:02 Order name: LFT's kb 12/24 06:02 Order name: Magnesium kb 12/24 06:02 Order name: NT PRO-BNP kb 12/24 06:02 Order name: PT-INR; Complete Time: 06:37 kb 12/24 06:02 Order name: Troponin (emerg Dept Use Only); Complete Time: 07:07 kb 12/24 06:02 Order name: Basic Metabolic Panel; Complete Time: 07:07 EDMS 12/24 06:02 Order name: CBC with Automated Diff; Complete Time: 06:31 EDMS 12/24 06:02 Order name: Liver (Hepatic) Function; Complete Time: 07:07 EDMS 12/24 06:02 Order name: Magnesium; Complete Time: 07:07 EDMS 12/24 06:02 Order name: NT PRO-BNP; Complete Time: 07:07 EDMS 12/24 09:07 Order name: SARS-COV-2 RT PCR; Complete Time: 09:09 EDMS 08 06:02 Order name: XRAY Chest (1 view); Complete Time: 07:07 kb 12/24 06:02 Order name: EKG; Complete Time: 06:03 kb 12/24 06:02 Order name: Cardiac monitoring; Complete Time: 06:53 kb 12/24 06:02 Order name: EKG - Nurse/Tech; Complete Time: 06:53 kb 12/24 06:02 Order name: IV Saline Lock; Complete Time: 06:34 kb 12/24 06:02 Order name: Labs collected and sent; Complete Time: 06:34 kb 12/24 06:02 Order name: O2 Per Protocol; Complete Time: 06:34 kb 12/24 06:02 Order name: O2 Sat Monitoring; Complete Time: 06:34 kb EC:48 Rate is 85 beats/min. Rhythm is regular. QRS [place] is Normal. RI interval is normal. QRS rn interval is prolonged at 150 msec. QT interval is normal. No Q waves. T waves are Normal. No ST changes noted. Clinical impression: NSR, RBBB. Interpreted by me. Reviewed by me. Administered Medications: 06:52 Drug: ProTONIX (pantoprazole) 40 mg Route: IVP; Site: left antecubital; ms4 06:52 Follow up: Response: No adverse reaction ms4 Disposition Summary: 12/24/20 09:12 Discharge Ordered Location: Home kb Condition: Stable kb Diagnosis - Dyspnea - resolved kb - Gastro-esophageal reflux disease without esophagitis kb Followup: kb - With: Emergency Department - When: As needed - Reason: Worsening of condition Followup: kb - With: Private Physician - When: 2 - 3 days - Reason: Recheck today's complaints, Continuance of care, Re-evaluation by your physician Discharge Instructions: - Discharge Summary Sheet kb - Shortness of Breath, Adult, [id number] kb - Gastroesophageal Reflux Disease, Adult, [id number] kb - Food Choices for Gastroesophageal Reflux Disease, Adult, [id number] kb Forms: - Medication Reconciliation Form kb - Thank You Letter kb - Antibiotic Education kb - Prescription Opioid Use kb Signatures: Dispatcher [employer] EDGail Rice, KELLI-C KELLI-Geeta Harris, RN RN Manuel Kirby MD MD rn Stroud, Mikaela, RN RN ms4 Corrections: (The following items were deleted from the chart) 08:14 06:03 CORONAVIRUS+MR.LAB.BRZ ordered. EDWI EDMS
[2020-12-24 09:25] VITALS: BP 122/71; TEMP 97.7; O2SAT 97
== END 2020-12-24 09:19 | disposition home or self-care (01) ==
LOC: ER 05:26
DX: K21.9 Gastro-esophageal reflux disease without esophagitis (principal); I10 Essential (primary) hypertension; F17.210 Nicotine dependence, cigarettes, uncomplicated; Z79.01 Long term (current) use of anticoagulants; Z88.8 Allergy status to other drugs, medicaments and biological substances; Z20.822 Contact with and (suspected) exposure to COVID-19
CPT/HCPCS: 93005; 85025; 80048; 36415; 83735; 85610; 80076; 84484; 83880; 71045; 96374; 99283; U0003; C9113

== ENCOUNTER 2022-04-05 06:54 | Emergency (ER) | payer BC, OTHER ==
--- OUTSIDE RECORDS SUMMARY | 2022-04-05 07:00 | XMS REPORT | Continuity of Care Document ---
:1980 Author Organization [facility] t Address [address] [place] [address] Care Team Providers Name Role Phone Carla Rodriguez MD, Rambo Dalal Primary Care Physician [phone] DENZEL POWELL Attending Clinician Unavailable NOAH GRUBER Attending Clinician Unavailable Andre SANCHEZ, Denzel Rankin Attending Clinician [phone] Arie Rivas DO Attending Clinician Noah Smith MD Attending Clinician Joya Christina NP Attending Clinician OJYA CHRISTINA Attending Clinician Unavailable NATHANIEL SAENZ Attending Clinician Unavailable PEYTON FULLER Attending Clinician Unavailable DENZEL POWELL Admitting Clinician Unavailable NOAH GRUBER Admitting Clinician Unavailable HAWA BURGOS Admitting Clinician Unavailable Payers Payer Name Policy Type Policy Number Effective Date Expiration Date S ourarley BCBS OS [id number] 2019 POS/PPO/EPO 00:00:00 CDC REVIEW [id number] 2019 00:00:00 ZZCDCREVIEW [id number] 2018 2018 00:00:00 00:00:00 Problems Condition Condition Condition Status Onset Resolution Last Treating Co mments Source Name Details Category Date Date Treatment Clinician Date Aortic Aortic Disease Active 2019-[address] [facility] stenosis stenosis 1-16 [facility] due to due to 00:00: Medical bicuspid bicuspid 00 Center aortic aortic valve valve Aortic Aortic Disease Active 2019-[address] [facility] stenosis stenosis 1-16 [facility] due to due to 00:00: Medical bicuspid bicuspid 00 Center aortic aortic valve valve S/P S/P Disease Active 2019-[address] [facility] Mechanical Mechanical 1-16 Joan kes Aortic Aortic 00:00: Medical Valve Valve 00 Center Replacemen Replacemen t by Dr. beatty by Dr. 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 [facility] pseudo-ane pseudo-ane 00:00: Me dical urysm, urysm, 00 Center right right Allergies, Adverse Reactions, Alerts Allergy Allergy Status Severity Reaction(s) Onset Inactive Treating Comm ents Source Name Type Date Date Clinician Garlic Propensi Active Hives [facility] ty to 5-05 [facility] adverse 00:00: Medical reaction 00 Center s GARLIC Allergy Active Hives [facility] 5-05 [facility] 00[facility] Medical 00 Center Hydromor Drug Active Severe Other [facility] phone Allergy 7-11 reaction( [facility] (Bulk) 00:00: s): Medical 00 Hallucina Center tionsBeco mes very aggressiv e HYDROMOR Allergy Active High [facility] PHONE 7-11 [facility] (BULK) 00:00: Medical 00 Center NO KNOWN Allergy Active [facility] Family History Family Member Diagnosis Comments Start Date Stop Date Source Natural father Heart disease [facility] Maternal aunt Diabetes [facility] Maternal aunt Liver disease [facility] Maternal grandmother Liver disease [facility] Maternal uncle Cancer [facility] Natural mother Arthritis [facility] Paternal grandmother Diabetes [facility] Natural son No Known Problem [facility] Social History Social Habit Start Date Stop Date Quantity Comments Source History of tobacco Cigarette Smoker [facility] use [facility] Alcohol intake 2020-04-28 2020-04-28 Current drinker ERINN S t [facility] 00:[facility]:00 00:00:00 of alcohol Medical Center (finding) History [facility] 2020-03-27 2020-03-27 during holidays, [facility] Comment 00:00:00 00:00:00 3 times per year Med ical Center History [facility] 2019-09-17 2019-09-[address] [facility] Alcohol Frequency 00:00:00 00:00:[address] [facility] 2019-09-17 2019-09-17 1 [facility] Alcohol Std Drinks 00:00:00 00:00:00 Medica l Center History [facility] 2019-09-17 2019-09-17 1 [facility] Alcohol Binge 00:00:00 00:00:[address] Cigarettes smoked 2019-09-17 2019-09-17 [facility] current (pack per 00:00:00 00:00:00 Medical Center day) - Reported Cigarette 2019-09-17 2019-09-17 [facility] pack-years 00:00:00 00:00:00 [facility] Center Tobacco use and 2019-09-17 2019-09-17 Never used [facility] exposure 00:00:00 00:00:00 [facility] Center Sex Ass[birth year] At [birth year] [facility] 00:00:00 00:00:00 [facility] Center Smoking Status Start Date Stop Date Source Tobacco smoking consumption [facility] unknown Current every day smoker 2020-04-28 00:00:00 [facility] Medications Ordered Filled Start Stop Current Ordering Indication Dosage Frequency Signature Comments Components Source Medication Medication Date Date Medication? Clinician (SIG) Name Name ibuprofen 2019-05 Yes Take by [facility] (ADVIL 2-15 mouth. [facility] LIQUI-GEL 13:06: Medical ORAL) 46 Center ibuprofen 2019-05 Yes Take by [facility] (ADVIL 2-15 [facility]. [facility] LIQUI-GEL 13:06: Medical ORAL) 46 [place] doxylamin-P 2019-05 2020- No 1{dose} Take 1 [facility] SE-DM-aceta 2-15 12-15 Dose by Milad donato minophen 13:06: 00:00 mouth as Medi stephanie (Izabella-Seltz 17 :00 needed Center er Plus Izabella Cold+Flu) Delta 12.5--20- Cold/Sinus 650 mg PwPk . aspirin 81 2019-05- No 81mg QD Take [address] [facility] MG EC - 12-15 tablet (81 [facility] tablet 00:00: 00:00 mg total) Medic al 00 :00 by mouth Center daily. nicotine 2019-05 No 1{patch QD Place [address] (NICODERM 06-08 1209 } patch onto Jeannie es CQ) 14 00:00: 23:59 the skin Medica l mg/24 hr 00 :00 daily for Center patch 14 days. doxylamine/ 2019-05 No 1{tbl} Take [address] phenylep/DM 1-24 11-24 tablet by Joan roque /aspirin 12:44: 00:00 mouth 2 Medic al (IZABELLA-SELTZ 19 :00 (two) Center ER PLUS times DAY-NIGHT daily as ORAL) needed . naproxen 2019-05- No 220mg Take [address] [facility] (ALEVE,ANAP 1-24 11-24 mg by Bryce JACOB,MIDOL) 12:44: 00:00 mouth 2 Med ical 220 MG 19 :00 (two) Center tablet times daily with breakfast and dinner. warfarin 2019-05 No 7.5mg QD Take 1 [facility] (COUMADIN, 1-24 11-24 tablet [facility] JANTOVEN) 00:00: 23:59 (7.5 mg Medi stephanie 7.5 MG 00 :00 total) by Center tablet mouth daily. warfarin 2019-05 No 7.5mg QD Take 1 [facility] (COUMADIN, 1-24 11-24 tablet [facility] JANTOVEN) 00:00: 23:59 (7.5 mg Medi stephanie 7.5 MG 00 :00 total) by Center tablet mouth daily. guaiFENesin 2019-05- No 600mg Q.5D Take [address] (mucINEX) 1-24 12-08 tablet [facility] 600 mg 12 00:00: 23:59 (600 mg Medi stephanie hr tablet 00 :00 total) by Cente r mouth 2 (two) times daily for 14 days. LORazepam 2019-05- No 2mg QD Take 1 [facility] (ATIVAN) 2 06-07 tablet (2 Jeannie es MG tablet 00:00: 23:59 mg total) Me dical 00 :00 by mouth Center nightly for 14 days. Max Daily Amount: 2 mg benzonatate 2019-05- No 100mg Take [address] (TESSALON) 06-07 capsule [facility] 100 MG 00:00: 23:59 (100 mg Medical [...] Take [address] tartrate 1-11 by mouth 2 [facility] (LOPRESSOR) 00:00: (two) Medic al 25 MG 00 times Center tablet daily. metoprolol 2019-05 Yes 25mg Q.5D Take [address] tartrate 1-11 by mouth 2 [facility] (LOPRESSOR) 00:00: (two) Medic al 25 MG 00 times Center tablet daily. fexofenadin 2019-05- No 180mg QD Take [address] (RAMIRO) 0-20 10-20 mg by [facility] 180 MG 13:42: 00:00 mouth Medical tablet 35 :00 daily. Center gabapentin 2019-0 Yes 300mg Take [address] (NEURONTIN) 5-06 mg by [facility] 300 MG 00:00: mouth 2 Medical capsule 00 (two) Center times daily as needed . gabapentin 2020-0 Yes 300mg Take [address] (NEURONTIN) 5-06 mg by [facility] 300 MG 00:00: mouth 2 Medical capsule 00 (two) Center times daily as needed . Vital Signs Vital Name Observation Time Observation Value Comments Source WEIGHT 2020-04-06 04:17:00 115.486 kg WEIGHT 2020-04-05 05:00:00 118.162 kg WEIGHT 2020-04-04 04:22:00 119.432 kg HEIGHT 2020-03-30 08:18:00 177.8 cm WEIGHT 2020-03-30 08:18:00 118.48 kg HEIGHT 2020-03-27 09:09:00 177.8 cm WEIGHT 2020-03-27 09:09:00 122.018 kg HEIGHT 2020-04-28 12:55:00 177.8 cm WEIGHT 2020-04-28 12:55:00 117.482 kg HEIGHT 2020-04-28 12:55:00 177.8 cm WEIGHT 2020-04-28 12:55:00 117.482 kg WEIGHT 2020-04-06 04:17:00 115.486 kg WEIGHT 2020-04-05 05:00:00 118.162 kg WEIGHT 2020-04-04 04:22:00 119.432 kg HEIGHT 2020-03-30 08:18:00 177.8 cm WEIGHT 2020-03-30 08:18:00 118.48 kg HEIGHT 2020-03-27 09:09:00 177.8 cm WEIGHT 2020-03-27 09:09:00 122.018 kg HEIGHT 2020-03-27 07:21:00 177.8 cm WEIGHT 2020-03-27 07:21:00 122.018 kg HEIGHT 2020-03-27 07:21:00 177.8 cm WEIGHT 2020-03-27 07:21:00 122.018 kg HEIGHT 2020-03-03 13:40:00 175.3 cm WEIGHT 2020-03-03 13:40:00 120.203 kg HEIGHT 2020-03-03 13:40:00 175.3 cm WEIGHT 2020-03-03 13:40:00 120.203 kg HEIGHT 2019-10-01 00:00:00 177.8 cm WEIGHT 2019-10-01 00:00:00 118.389 kg HEIGHT 2019-09-19 00:00:00 177.8 cm WEIGHT 2019-09-19 00:00:00 116.711 kg HEIGHT 2019-09-19 00:00:00 177.8 cm WEIGHT 2019-09-19 00:00:00 116.711 kg Systolic blood 2020-04-28 12:55:00 136 mm[Hg] [facility] Diastolic blood 2020-04-28 12:55:00 83 mm[Hg] [facility] Heart rate 2020-04-28 12:55:00 66 /min [facility] Body temperature 2020-04-28 12:55:00 37 Claudette [facility] Respiratory rate 2020-04-28 12:55:00 18 /min [facility] Body height 2020-04-28 12:55:00 177.8 cm [facility] Body weight 2020-04-28 12:55:00 117.482 kg [facility] BMI 2020-04-28 12:55:00 37.16 kg/m2 [facility] Oxygen saturation in 2020-04-28 12:55:00 98 /min room air [facility] Arterial blood by Medical Ce ntalexander Pulse oximetry Procedures Procedure Date / Time Performing Clinician Source Performed CBC (HEMOGRAM ONLY) 2020-04-07 05:47:00 Shakira Lazcano [facility] BASIC METABOLIC PANEL (7) 2020-04-07 05:47:00 Shakira Lazcano [facility] MAGNESIUM 2020-04-07 05:47:[address] [facility] PHOSPHORUS 2020-04-07 05:47:00 Shakira Lazcano [facility] PROTHROMBIN TIME/INR 2020-04-07 05:47:00 Shakira Lazcano [facility] 2D ECHO W/ DOPPLER 2020-04-06 17:23:05 Anastacio Bhakta [facility] (CW/PW/COLOR) [facility] CBC (HEMOGRAM ONLY) 2020-04-06 06:06:00 Shakira Lazcano [facility] BASIC METABOLIC PANEL (7) 2020-04-06 06:06:00 Shakira Lazcano [facility] MAGNESIUM 2020-04-06 06:06:[address] [facility] PHOSPHORUS 2020-04-06 06:06:00 Shakira Lazcano [facility] PROTHROMBIN TIME/INR 2020-04-06 06:06:00 Shakira Lazcano [facility] CBC (HEMOGRAM ONLY) 2020-04-04 05:36:00 Gillet, Shakira [facility] BASIC METABOLIC PANEL (7) 2020-04-04 05:36:00 Shakira Lazcano [facility] MAGNESIUM 2020-04-04 05:36:[address] [facility] PHOSPHORUS 2020-04-04 05:36:00 Shakira Lazcano [facility] PROTHROMBIN TIME/INR 2020-04-04 05:36:00 Shakira Lazcano [facility] XR CHEST 1 VIEW PORTABLE / 2020-04-04 04:24:00 Shakira Lazcano [facility] POCT-GLUCOSE METER 2020-04-03 05:54:00 Andre [facility] BLOOD GAS, VENOUS 2020-04-03 02:38:00 Bina Cleaning [facility] CBC (HEMOGRAM ONLY) 2020-04-03 02:36:00 Shakira Lazcano [facility] BASIC METABOLIC PANEL (7) 2020-04-03 02:36:00 Shakira Lazcano [facility] MAGNESIUM 2020-04-03 02:36:00 Shakira Lazcano [facility] PROTHROMBIN TIME/INR 2020-04-03 02:36:00 Anastacio Bhakta [facility] XR CHEST 1 VIEW PORTABLE / 2020-04-03 02:31:00 Shakira Lazcano [facility] POCT-GLUCOSE METER 2020-04-02 05:50:00 Andre, [facility] BLOOD GAS, ARTERIAL 2020-04-02 02:49:[address] [facility] CBC (HEMOGRAM ONLY) 2020-04-02 02:49:00 Shakira Lazcano [facility] BASIC METABOLIC PANEL (7) 2020-04-02 02:49:00 Shakira Lazcano [facility] MAGNESIUM 2020-04-02 02:49:00 Neno [facility] LACTIC ACID, ARTERIAL 2020-04-02 02:49:[address] Iginiam[address] [facility] PROTHROMBIN TIME/INR 2020-04-02 02:49:00 Anastacio Bhakta [facility] XR CHEST 1 VIEW PORTABLE / 2020-04-02 01:59:00 Shakira Lazcano [facility] POCT-GLUCOSE METER 2020-04-02 00:01:00 Andre [facility] BASIC METABOLIC PANEL (7) 2020-04-01 18:52:00 Liset Nunez [facility] LACTIC ACID, ARTERIAL 2020-04-01 04:24:00 Iginiamre Magaly [facility] PHOSPHORUS 2020-04-01 04:22:00 SantizoJacek [facility] BLOOD GAS, ARTERIAL 2020-04-01 04:22:[address] [facility] CBC (HEMOGRAM ONLY) 2020-04-01 04:22:00 Shakira Lazcano [facility] BASIC METABOLIC PANEL (7) 2020-04-01 04:22:00 Shakira Lazcano [facility] MAGNESIUM 2020-04-01 04:22:[address] [facility] XR CHEST 1 VIEW PORTABLE / 2020-04-01 01:47:00 Shakira Lazcano [facility] POCT-GLUCOSE METER 2020-03-31 17:18:00 Andre, [facility] LACTIC ACID, ARTERIAL 2020-03-31 05:23:[address] Iginiam[address] [facility] PHOSPHORUS 2020-03-31 02:42:00 Santizo, Jacek [facility] BLOOD GAS, ARTERIAL 2020-03-31 02:42:[address] [facility] CBC (HEMOGRAM ONLY) 2020-03-31 02:42:00 hSakira Lazcano [facility] BASIC METABOLIC PANEL (7) 2020-03-31 02:42:00 Shakira Lazcano [facility] MAGNESIUM 2020-03-31 02:42:00 Neno Shakira [facility] LACTIC ACID, ARTERIAL 2020-03-31 02:42:00 LisyMagaly [facility] POCT-GLUCOSE METER 2020-03-31 02:18:[address] [facility] XR CHEST 1 VIEW PORTABLE / 2020-03-31 01:38:00 Patricio Lazcanocassius Hurd [facility] LACTIC ACID, ARTERIAL 2020-03-31 00:24:00 Lisy Magaly [facility] BLOOD GAS, ARTERIAL 2020-03-31 00:24:00 CaraMoseswie Polycarp [facility] BLOOD GAS, ARTERIAL 2020-03-30 22:34:00 Cara, Tanwie Polycarp [facility] BLOOD GAS, ARTERIAL 2020-03-30 22:06:00 Cara, Tanwie Polycarp [facility] LACTIC ACID, ARTERIAL 2020-03-30 20:21:00 Cara, Tanwie Polycarp [facility] BLOOD GAS, ARTERIAL 2020-03-30 20:21:00 Cara, Tanwie Polycarp [facility] CALCIUM, IONIZED 2020-03-30 20:21:00 Cara, [facility] SOD[facility] NA-STAT [facility] 2020-03-30 20:21:00 Cara, [facility]OT[facility] 2020-03-30 20:21:00 Cara, [facility]ie [facility] GLUCOSE-STAT LAB 2020-03-30 20:21:00 CaraMosespae [facility] H[facility] (H&H) - STAT LAB 2020-03-30 20:21:00 Monster Marroquina [facility] BLOOD GAS, ARTERIAL 2020-03-30 18:47:00 Lisy [facility] LACTIC ACID, ARTERIAL 2020-03-30 18:20:[address] [facility] BLOOD GAS, ARTERIAL 2020-03-30 18:20:00 Iglisa [facility] SODIUM NA-STAT LAB 2020-03-30 18:20:00 [facility]OT[facility] 2020-03-30 18:20:[address] L[address] [facility] GLUCOSE-STAT LAB 2020-03-30 18:20:[address] [facility] HGB/HCT (H&H) - STAT LAB 2020-03-30 18:20:00 Conormu Magaly [facility] XR CHEST 1 VIEW PORTABLE / 2020-03-30 17:45:00 Lisy Magaly [facility] OXYGEN SATURATION, 2020-03-30 17:38:00 [facility] APTT 2020-03-30 17:38:[address] [facility] PROTHROMBIN TIME/INR 2020-03-30 17:38:00 Lisy Magaly [facility] FIBRINOGEN 2020-03-30 17:38:00 [facility] BASIC METABOLIC PANEL (7) 2020-03-30 17:34:00 Jacek Santizo rat [facility] MAGNESIUM 2020-03-30 17:34:00 Collin Santizoishana ShaferYoel [facility] PHOSPHORUS 2020-03-30 17:34:[address] [facility] BLOOD GAS, ARTERIAL 2020-03-30 17:34:00 Lisy [facility] CALCIUM, IONIZED 2020-03-30 17:34:[address] [facility] CBC W/PLT COUNT & AUTO 2020-03-30 17:34:00 Lisy [facility] LACTIC ACID, ARTERIAL 2020-03-30 17:34:[address] L[address] [facility] SODIUM NA-STAT LAB 2020-03-30 17:34:00 Lisy [facility] POTASSIUM-STAT LAB 2020-03-30 17:34:00 [facility] 2020-03-30 17:34:[address] [facility] HGB/HCT (H&H) - STAT LAB 2020-03-30 17:34:00 SyedaMagaly tariq [facility] (CELLAVISION MANUAL DIFF) 2020-03-30 17:34:00 SyedaMagaly tariq [facility] PREPARE RBC 2020-03-30 16:46:00 Andre [facility] PREPARE PLASMA 2020-03-30 16:46:00 Andre [facility] POCT-ACT 2020-03-30 15:54:00 Andre, [facility] PLATELET COUNT 2020-03-30 15:50:28 [facility] 2020-03-30 15:50:28 Holden [facility] FIBRINOGEN 2020-03-30 15:50:28 [facility] POCT-ACT 2020-03-30 15:31:00 Andre [facility] SODIUM NA-STAT LAB 2020-03-30 15:28:03 [facility] POT[facility] 2020-03-30 15:28:03 Holden [facility] GLUCOSE-STAT LAB 2020-03-30 15:28:03 [facility]/HCT (H&H) - STAT LAB 2020-03-30 15:28:03 [facility] BLOOD GAS, ARTERIAL 2020-03-30 15:28:03 [facility] CALCIUM, IONIZED 2020-03-30 15:28:03 [facility] PO[facility]-ACT 2020-03-30 14:55:00 Andre [facility] BLOOD GAS, ARTERIAL 2020-03-30 14:53:29 Andre [facility] SODIUM NA-STAT LAB 2020-03-30 14:53:29 Andre [facility] POTASSIUM-STAT LAB 2020-03-30 14:53:29 Andre [facility] GLUCOSE-STAT LAB 2020-03-30 14:53:29 Andre [facility] HGB/HCT (H&H) - STAT LAB 2020-03-30 14:53:29 Andre [facility] TISSUE EXAM 2020-03-30 14:43:00 Andre [facility] POCT-ACT 2020-03-30 14:31:00 Andre [facility] BLOOD GAS, ARTERIAL 2020-03-30 14:28:05 Andre [facility] SODIUM NA-STAT LAB 2020-03-30 14:28:05 Andre [facility] POTASSIUM-STAT LAB 2020-03-30 14:28:05 Andre [facility] GLUCOSE-STAT LAB 2020-03-30 14:28:05 Andre [facility] HGB/HCT (H&H) - STAT LAB 2020-03-30 14:28:05 Andre [facility] POCT-ACT 2020-03-30 14:01:00 Andre [facility] BLOOD GAS, ARTERIAL 2020-03-30 13:58:50 Andre [facility] SODIUM NA-STAT LAB 2020-03-30 13:58:50 Andre [facility] POTASSIUM-STAT LAB 2020-03-30 13:58:50 Andre [facility] GLUCOSE-STAT LAB 2020-03-30 13:58:50 Andre [facility] HGB/HCT (H&H) - STAT LAB 2020-03-30 13:58:50 Andre [facility] POCT-ACT 2020-03-30 13:30:00 Andre [facility] CONT WAVE PULSED DOPPLER 2020-03-30 13:27:45 Anastacio Bhakta [facility] COLOR-FLOW MAPPING 2020-03-30 13:27:44 Anastacio Bhakta [facility] BLOOD GAS, ARTERIAL 2020-03-30 13:27[facility] 2020-03-30 13:27:20 Andre [facility] POTASSIUM-STAT LAB 2020-03-30 13:27:[address] [facility] GLUCOSE-STAT LAB 2020-03-30 13:27:20 [facility] HGB/HCT (H&H) - STAT LAB 2020-03-30 13:27:20 [facility] POCT-ACT 2020-03-30 12:54:00 [facility] BLOOD GAS, ARTERIAL 2020-03-30 12:02:40 [facility] CALCI[facility], IONIZED 2020-03-30 12:02:40 [facility] SODIUM NA-STAT LAB 2020-03-30 12:02:40 [facility] POTASSIUM-STAT LAB 2020-03-30 12:02:40 [facility] GLU[facility]SE-[facility] 2020-03-30 12:02:40 [facility] HGB/HCT (H&H) - STAT LAB 2020-03-30 12:02:40 Holden [facility] TRANSESOPHAGEAL ECHO 2020-03-30 10:57:35 Anastacio Bhakta [facility] REPLACEMENT,VALVE AORTIC 2020-03-30 10:52:00 Andre [facility] POCT-GLUCOSE METER 2020-03-30 08:20:[address] [facility] COMPREHENSIVE METABOLIC 2020-03-27 08:33:[address] [facility] LIPID PANEL 2020-03-27 08:33:00 Barbie Toledo [facility] MAGNESIUM 2020-03-27 08:33:00 Debontmu, [facility] TYPE AND SCREEN, AUTOMATED 2020-03-27 08:32:00 Debontmu, [facility] APTT 2020-03-27 08:32:00 Debontmu, [facility] CBC W/PLT COUNT & AUTO 2020-03-27 08:32:00 Debontmu, [facility] HEMOGLOBIN A1C 2020-03-27 08:32:00 Debontmu, [facility] PROTHROMBIN TIME/INR 2020-03-27 08:32:00 Debontmu [facility] SARS-COV2/RT-PCR ([facility] & 2020-03-27 08:11:00 [facility]fia[facility]) [facility] ECG 12-LEAD 2020-03-27 07:28:01 Unknown, Hl7 Doctor [facility] CTA CHEST 2020-03-19 15:44:00 Carri Joya [facility] HC CAROTID DOPPLER LINDSEY 2020-03-19 13:40:00 Mario [facility] Plan of Care Planned Activity Planned Date Details Comments Source Future Scheduled 2023-03-27 [facility] (procedure) [code = [facility] [id number]] Future Scheduled 2023-03-27 Lipid panel [facility] Test 00:00:00 (procedure) [code = [facility] [id number]] Future Scheduled 2022-03-20 HEPATITIS B VACCINES [facility] Hospital Test 05:17:09 (1 of 3 - 3-dose series) [code = HEPATITIS B VACCINES (1 of 3 - 3-dose series)] Future Scheduled 2022-03-20 COVID-19 VACCINE (#1) [facility] Hospital Test 05:17:09 [code = COVID-19 VACCINE (#1)] Future Scheduled 2022-03-20 INFLUENZA VACCINE Method is Hospital Test 05:17:09 [code = INFLUENZA VACCINE] Future Scheduled 2022-01-13 INFLUENZA VACCINE (#1) [facility] Test 00:00:00 [code = INFLUENZA Medical Ce nter VACCINE (#1)] Future Scheduled 2021-05-[address] [facility] Test 00:00:00 (12+) [code = Medical Center DEPRESSION SCREENING (12+)] Future Scheduled 2021-04-[address] [facility] Test 00:00:00 [facility] Cent[facility] r Screening (12+) [code = Tobacco Cessation Counseling and Screening (12+)] Future Scheduled 2020-05-[address] [facility] Test 00:00:00 (12+) [code = Medical Center DEPRESSION SCREENING (12+)] Future Scheduled 2020-01-14 INFLUENZA VACCINE (#1) [facility] Test 00:00:00 [code = INFLUENZA Medical Ce nter VACCINE (#1)] Future Scheduled 2000 DTAP/TDAP/TD VACCINES [facility] Test 00:00:00 (1 - Tdap) [code = Medical C enter DTAP/TDAP/TD VACCINES (1 - Tdap)] Future Scheduled 2000 DTAP/TDAP/TD VACCINES [facility] Test 00:00:00 (1 - Tdap) [code = Medical C enter DTAP/TDAP/TD VACCINES (1 - Tdap)] Future Scheduled 1999 HEPATITIS C SCREENING [facility] Test 00:00:00 [facility] Future Scheduled 1999 HEPATITIS C [facility] 00:[facility]00 [facility] Future Scheduled [address] [facility] 00:00:00 0-64 YRS (1 of 1 - Medical C enter PPSV23) [code = PNEUMOCOCCAL VACCINE 0-64 YRS (1 of 1 - PPSV23)] Future Scheduled [address] [facility] Test 00:00:00 0-64 YRS (1 - PCV) Medical C enter [code = PNEUMOCOCCAL VACCINE 0-64 YRS (1 - PCV)] Future Scheduled 1981 COVID-19 VACCINE (#1) [facility] 00:00:00 [code = COVID-[address] VACCINE (#1)] Future Scheduled COVID-19 VACCINE (1) [facility] Test [code = COVID-19 VACCINE (1)] Future Scheduled Hepatitis C screening [facility] Test (procedure) [code = 253755803] Future Scheduled [facility] [code = INFLUENZA VACCINE] Encounters Start End Encounter Admission Attending Care Care Encounter Source Date/Time Date/Time Type Type Clinicians Facility Department ID 2021-02-18 Inpatient DALILA POWELL Surgery [id number] [facility] 11:03:59 DENZEL 2021-02-16 Inpatient [facility] [id number] [facility] 13:20:17 NOAH 2020-04-28 2020-04-28 Outpatient [facility] [id number] [facility] 00:00:00 00:00:00 DENZEL 2020-03-27 2020-03-27 Outpatient DALILA ERICKSON [facility] [id number] [facility] 00:00:00 00:00:00 DENZEL 2020-03-27 2020-03-27 Outpatient DERICK CONNER [facility] [id number] [facility] 00:00:00 00:00:00 2020-03-19 2020-03-19 Outpatient CARRI [facility] [id number] [facility] 00:00:00 00:00:00 JOYA 2020-03-19 2020-03-19 Outpatient DERICK CHRISTINA [facility] [id number] [facility] 00:00:00 00:00:00 JOYA 2020-03-03 2020-03-03 Outpatient DERICK POWELL [facility] [id number] [facility] 00:00:00 00:00:00 DENZEL 2019-10-01 2019-10-01 [facility] [id number] [facility] 00:00:00 00:00:00 [id number] 2019-10-01 2019-10-01 Outpatient DERICK GRUBER [facility] [id number] [facility] 00:00:00 00:00:00 NOAH 2019-09-19 2019-09-19 Emergency ER DANY [facility] Emergency [id number] [facility] 16:55:16 16:55:16 NATHANIEL 2019-09-18 2019-09-18 Outpatient [facility] [id number] [facility] 05:21:00 05:21:00 [id number] 2019-09-17 2019-09-17 Outpatient [facility] [id number] [facility] 09:50:41 23:59:00 NOAH 2019-09-17 2019-09-17 Outpatient [facility] [id number] SLE 00:00:00 00:00:00 [id number] 2019-07-22 2019-07-22 Outpatient [facility] [id number] 0-2 SLE 00:00:00 00:00:00 [id number] Results Test Description Test Time Test Comments Results Result Sour e Comments 2D Echo 2020-03-[address] [facility]Do[facility](CW/PW/C 4 ECHO HEARTLAB [facility]) 09:36:15 [facility] CPACSInterface, External Ris In - 04/07/2020 9:36 AM CSTTransthoracic Echocardiography Report (TTE) Demographics Patient Name KELLY BALES Date of Study 04/06/2020 Gender Male Visit Number [id number] Race Unknown Room Number 1127 Number Date of 1980 Referring Physician Age 40 year(s) 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 MPV (test code = 15877-5) 10.2 fL 9.4-12.4 Lab Interpretation (test code Abnormal = 48185-0) [facility] (HEMOGRAM ONLY)2020-04-07 09:15:00 Test Item Value Reference [...] 9.4-12.4 (test code = 754) Basic Metabolic [id number] 07:00:00 Test Item Value Reference Range Interpretation Comments Sodium (test code = 136 meq/L 339-826 4705-2) Potassium (test code = 3.8 meq/L 3.5-5.1 3-3) Chloride (test code = 98 meq/L 98-107 5-0) CO2 (test code = 27 meq/L 22-29 8-9) BUN (test code = 22 mg/dL 7-21 H 3094-0) Creatinine (test code 0.99 mg/dL 0.57-1.25 = 2160-0) Glucose (test code = 119 mg/dL 70-105 H 2345-7) Calcium (test code = 9.3 mg/dL 8.4-10.2 57506-8) EGFR (test code = 84 mL/min/1.73 [place] [address]-5) NOT ACCURATE CREATININE CLEARANCE IN PREDICTING GLOMERULAR FILTRATION RATE . ESTIMATED GFR I S NOT APPLICABLE FOR DIALYSIS PATIENTS. BEBE (test code = BEBE) Supervisor [employer] ID - PIAYA L Lab Interpretation Abnormal (test code = 50043-8) [facility]2020-[facility]-24 07:00:00 Test Item Value Reference Range Interpretation Comments Magnesium (test code = 1.9 mg/dL 1.6-2.6 90505-9) BEBE (test code = BEBE) Supervisor [employer] ID - PIAYA L Lab Interpretation (test Normal code = 93407-4) [facility]2020-11-24 07:00:00 Test Item Value Reference Range Interpretation Comments Phosphorus (test code = 3.6 mg/dL 2.3-4.7 2777-1) BEBE (test code = BEBE) Supervisor [employer] ID - PIAYA L Lab Interpretation (test Normal code = 20322-6) [facility] [place] [facility]OL[facility] [id number] 07:00:00 Test Item Value Reference Range Interpretation [...] S NOT APPLICABLE FOR DIALYSIS PATIEN TS. Supervisor [employer] ID - PIJOHNY [id number] 07:00:00 Test Item Value Reference Range Interpretation Comments MAGNESIUM (BEAKER) (test code = 1.9 mg/dL 1.6-2.6 627) Supervisor [employer] ID - DAGO [id number] 07:00:00 Test Item Value Reference Range Interpretation Comments PHOSPHORUS (BEAKER) (test code = 3.6 mg/dL 2.3-4.7 604) Super[employer] ID - PIJOHNY LProthrombin time/[id number] 06:42:00 Test Item Value Reference Interpretation Comments [...] valves. Lab Interpretation Abnormal (test code = 11453-4) [facility] [place] AngelesPROTHROMBIN TIME/[id number] 06:42:00 Test Item Value Reference Range Interpretation [...] is 2.5-3.5 for patients wiht mechanical heart valves.PROTHROMBIN TIME/[id number] 06:52:00 Test Item Value Reference Range Interpretation [...] is 2.5-3.5 for patients wiht mechanical heart valves.[id number] 06:44:00 Test Item Value Reference Range Interpretation Comments MAGNESIUM (BEAKER) 1.9 mg/dL 1.6-2.6 Specimen slightly (test code = 627) hemolyzed Supervisor [employer] ID - [id number] 06:44:00 Test Item Value Reference Range Interpretation Comments PHOSPHORUS (BEAKER) 4.1 mg/dL 2.3-4.7 Specimen slightly (test code = 604) hemolyzed Supervisor [employer] ID - ADMINBASIC METABOLIC [id number] 06:44:00 Test Item Value Reference Range Interpretation [...] I S NOT APPLICABLE FOR DIALYSIS PATIEN Supervisor [employer] ID - ADMINCBC (HEMOGRAM ONLY)2020-04-06 06:28:00 Test [...] = 413) RAD, CHEST, 1 VIEW, NON [id number] 07:33:00while patient is intubated or has chest tubes.Reason for exam:->Status post CV SurgeryShould thisbe performed at the bedside?->Yes [facility] 1980 Sex: MFINAL REPORT TECHNIQUE: Frontal view of the chest. INDICATION: Status post CV Surgery COMPARISON: 04/03/2020. FINDINGS: LINES/TUBES: None. LUNGS: Diffuse bilateral pleural and parenchymal opacities are not significantly changed. No pneumothorax. HEART AND MEDIASTINUM: The cardiomediastinal silhouette is stable. Status post median sternotomy.. SOFT TISSUES AND BONES: Unremarkable. IMPRESSION:No interval change.. Signed: Vannessa Pritchard Verified Date/Time: 04/04/2020 07:33:15 Reading Location: [address] Body Reading Room XR chest 1 view portable / [id number] 07:33:00 Interface, External Ris In - 04/04/2020 7:35 AM CSTFINAL REPORT TECHNIQUE: Frontal view of the chest. INDICATION: Status post CV Surgery COMPARISON: 04/03/2020. FINDINGS: LINES/TUBES: None. LUNGS: Diffuse bilateral pleural and parenchymal opacities are not significantly changed. No pneumothorax. HEART AND MEDIASTINUM: The cardiomediastinal silhouette is stable. Status post mediansternotomy.. SOFT TISSUES AND BONES: Unremarkable. IMPRESSION:No interval change.. Signed: Vannessa Pritchard MDRsavanna Verified Date/Time: 04/04/2020 07:33:15 Reading Location: [facility] C013Y CT BodyReading Room [facility]OL[facility] [id number] 06:44:00 Test Item Value Reference Range Interpretation Comments SODIUM (BEAKER) 135 meq/L 136-145 L (test code = 381) POTASSIUM (BEAKER) 3.4 meq/L 3.5-5.1 L (test code = 379) CHLORIDE (BEAKER) 97 meq/L 98-107 L (test code = 382) CO2 (BEAKER) (test 26 meq/L 22- code = 355) BLOOD UREA NITROGEN 18 [...] S NOT APPLICABLE FOR DIALYSIS PATIEN TS. Supervisor [employer] ID - NAYANA [id number] 06:44:00 Test Item Value Reference Range Interpretation Comments MAGNESIUM (BEAKER) (test code = 2.2 mg/dL 1.6-2.6 627) Supervisor [employer] ID - NAYANA [id number] 06:44:00 Test Item Value Reference Range Interpretation Comments PHOSPHORUS (BEAKER) (test code = 3.4 mg/dL 2.3-4.7 604) Supervisor [employer] ID - NAYANA MPROTHROMBIN TIME/[id number] 06:41:00 Test Item Value Reference Range Interpretation [...] is 2.5-3.5 for patients wiht mechanical heart valves.CBC (HEMOGRAM [...] 0-0 (BEAKER) (test code = 413) Tissue [id number] 17:37:00 Test Item Value Reference Range Interpretation Comments Case Report (test code Surgical Pathology = 104) Report Case: [id number] Authorizing Provider: Denzel Powell MD Collected: 03/30/2020 02:43 PM Ordering Location: [facility] Received: 03/30/2020 03:07 PM PERIOPERATIVE SERVICES Pathologist: Pedro Pablo Madrigal MD Specimen: Aortic Valve, AORTIC VALVE LEAFLETS DIAGNOSIS (test code = k1habVPeQTCou6qwMOBhbJR 3220) uZzEwMzNcZnRuYmpcdWMxIH tccnRmMVxlcGljOTIwMFxhb uYnSVHngSRrO7HvjdrpTHse AM4uRV7rxYnbkKXopNTgPWU aKnRxt6ilc059yFNxx6ahJX KIpeaqsYn3cDrpH71wi6L0K hqfW51qeMTiNQkddAIrgbzj nrFwLHwVVYTBCLRYT1LZFGI gVkFMVkUsIFZBTFZVTEVDVE 9NWTpccGFyIExFQUZMRVRTI VuPMKkpA2ZNVGOZJG4NGHJA JYQgG8JBP4nKTYFjKUYJHWZ JS0GSXEGGHCcXMITUJEXXGG 2BEwxwVJRhpc96WPG4HmMom 0Q1XSG1JQWyXJSub9yrTXPx bGFuZzEwMzNcZnRuYmpcdWM uJNUaTiBuc0nqr326rBCrw5 etKYCfQkW8xIJrQDBywBGlC 940TBQfNZjwd0tjj4EeRVTu eYHzp9Y3BHQOjzoaeIe6rFd sM22jw6T6QslqK2osZHJbFH NjL4SdXB6jFSIwSit5CSU5B ZU0JQNkARGtA4BbGN8pEUNj sESkQOu4q7iydBnfRUAwIFW 2o6opFGbahnOcCG4jww0jdQ m1h6vkxnWkWRCeUEXwoAFFY MZlQ7VpaObzCq4hbHe6pUnj VmoiASH1Yax4ZF8trk75ccs 0fLehZXRsyokeYzL4XEbhQF OknjxkJZf1OIyqDPBnwDN6I WBtcYDlI0HfPBEvYR3ylka1 DUL9KBglMYPoBnC3KJBtrSB cRGYotYwjIIlhc543MQN1Rt JuLE4bR2Noo1X4oI5tsQNqM AOfxQKoEpPwIETqrs4zhARn SIxaj3WpADR2zqQ3rXRfuBN kVMQxUgF3GWgbDI7mxt27CG SmMVT8cp1oxCLjyGkbumGpo FWeMNuoJ6PrTCJdq402SKFk B6LnJJWvk8K2giQrDqHqZBR sqJB5jfM5WACuTY0gjqhsn9 rcICpwSOsnRVLnqiJ9yrP2X EEaxJIyQ4PlhM6tFNHqNF3v zsaur7nuOVK4WBlnVVDcIPH 7XdDlCRYsa3Fvqsx5BlQem6 TmkLXvTSxbB46kq628GQFff pNnD0txiVYizkgplMRgvyin GHkhzbQ8JMTdBHysgothKUH tOJixA5fuSvIeUCQbuRytQG mji7ReAVYxYCBlKxVkkPDiL QSeEnp5CFSvpZHqZLXaIyFi R6onusraPdZAOCNpp6nzD4q poEKXuOWpR8GaWJgchaSjLC uhNInwPKUiROZ7HA36JgeiK HBhcn19 CPT Code(s) (test code a8vrnWQrRJXcqLE2NyAeIML = 3357) cv8rgu2SsiEVuuOWaJRpfkN YwccRaje66jHD8sV36WC6eO TPjFtL4VXZsftU8Ibv7EJFs DBXemCHuD090o3rgm3hfsmZ ynCC3qVebHQKmJUPdRJmqXP MhBlHjUGlcUTC2DXu1DcPhY HBhcn0= CLINICAL HISTORY (test j9ctoZLzNCGnyEF3QiVyKQT code = 3356) bz6lwp2SsoPOzxKDuTOsgyA RrchHjon16iGY9eT44QB9zS TItUrE1JZNgqkR3Naf5QXBg VAPklRQsK968i8ggy0gyseG ixVO2pWutXPMkFYQtJWxqGK BxLtLqKLXkv7SfUMazC13wy 1ifDvEsZX8knUgjTCXfiZYh FSG0XG1qc9tiVDDhhDqciZ4 neSBvZiBjYXJkaWFjIHZhbH OgSUEqj4Ldq8NnqC8qeLAqo WZpZWQgXHBhcn0= SPECIMEN SOURCE (test u1ukwSUpUAPuaEA0WfSuQRL code = 3377) fg3yde1WuzEFmfSInAMrdpT KcruAxcg25sBP7zI11EZ8gT OUbEyN3VWZofkE1Yat4RCWp ZKMipRCbX511r9xhb1jjhgL nmEG4mVunOYHjUTHeWUggWK JjZqTdIE5bdSahIWSvzIUiO HBhcn0= GROSS DESCRIPTION j4dxnPUpUQIddANtDwEsOQZ (test code = 3366) bFBTlf8sbSXLiyHOoXmJfDf NcZnRuYmpcdWMxXGRlZmYwe 9aaa741dBRss3asKPIQkhua zGh0s2gfDKCoJbW9dNBhGDh zX5otwrGswINhWUReHYj9wD 78JZNdpE3viOArNZiizjWpK jG1ULyrQFOlEzF0JMNbeDEg HLBaM3coLCXlLRreJCIaUGt tfKJyHOP5nFknk6X5vBShwX WxkPhxJfGrYmEqFSWTt5NnB Py5oWtkL1QiSHJnXsM1wHFr EJTuGNgcPZEcBNRsiaA3eD3 9ZAbcrvO1qHNrz3Ymk04mu0 71zZ6xhDRuLOF4CWYvJNMiy GMoDYRzLUY2BLChvVCbV7z3 OiNspDRuJ6X3YfJrgCUcA3N 3PgJnaPTtC8G0NfGjvDStUC IcfVMsTd4ilOLsfWEons6xk y06FUB0p8KmdKbiMPP6IEJ9 XySqHw3afPRkFHDkVUVpjZA dFQDdUS9yjDKrOOXvuJ8tnp xjXHBnYnJkcmhlYWRccGdic xUiKl0ejIgaQSO7TTpqY8ou pZ0vSzJ9CBiiD1lwpC6mVZv 8OJupoZS1OPIigX5gTT9pgn yhb6nyOxRfMJ3zujsom7qsY aDfJJ2gkvd5e2pnZbMmKO9w crppz0iaRwBgJDjmXMZqkub lXTUbk9NezhwhGAJuf3SaC4 KdjQxaV77ezXwmK88iUSKtt TtfkU8cpMbptQ6iJuPiBdHs NFxwYXJkXHBsYWluXGYxXGZ zMjBcbGFuZzEwMzNcaGljaF hwIEepSuFvYKHbNItrX5igH jFcZnMyMCBBLiBSZWNlaXZl ZCBmcmVzaCBsYWJlbGVkIHd pdGggdGhlIHBhdGllbnQncy GmZU0wZCJmI6Qjz8Jdi65mh xKzHdMqLDEtPIZyWK4lbVfg IHZhbHZlIGxlYWZsZXRzIiB pcyBhIGludGFjdCwgcHJldm ouaWRwpHVvyNMsEITwMT4yo GljIHZhbHZlIHdpdGggdGhy FZQdV3EphDDaNU8iEKMeH7h iS5ZxNlCfJS6zJXHbBqD1Xz LwT82zKAHiCNQopYFoFEUfP AfhLVkfQSureVIutF30MGLg TRBjSSFobIGoz7XzixRrAMI ncQxxioPvYZWoJ1Oat57knh jncdY4YHKsebAxYJIbVgqqs j44mnktVw6qQXnvsPFyHLnq qBFmPBQaG4Y5COZ7baHwQ8V kLHXndDXhp1CeqRO1nAXkOK CuA1Ydt33wHLKuIVUbcSVts RH4JWUkgH6nCPQyFq7tlK51 uI0dVMAhQ4DdU6dppAEvdQf jjl9mOXvOZ6VwVPrqNLV3 MICROSCOPIC l3rtgWGtHBKnySB8SjKiLCB DESCRIPTION (test code tl4lwx6HzbFVtdRDzMArcsH = 3371) UctoObiu34lAR6wB19VN6bO VCnQxC7BYDlyqN1Ptu7CPMy DRGrdBDrL756a7uod9brdfE iyDX5iRmsNLNdXKVtJUghEY JuOgEtUXVcLt3pmORxQALux n0= [facility]iumTISSUE [id number] 17:37:00Surgical Pathology Report Case: [id number] Authorizing Provider: Denzel Powell MD Collected: 03/30/2020 02:43 PM Ordering Location: [facility] Received: 03/30/2020 03:07 PM PERIOPERATIVE SERVICES Pathologist: Pedro Pablo Madrigal MD Specimen: Aortic Valve, AORTIC VALVE LEAFLETS HEART, AORTIC VALVE, VALVULECTOMY:LEAFLETS WITH SEVERE NODULAR CALCIFIC ATHEROSCLEROTIC THICKENING Signing Pathologist Direct Phone Line: [phone] signed by Pedro Pablo Madrigal MD on 04/03/2020 at 5:37 [id number]; [id number] diagnosis: Aortic valve stenosis, etiology of cardiac valve disease unspecified Aortic valveA. Received fresh labeled with the patient's name, accession number and "aortic valve leaflets" is a intact, previously opened aortic valve with three cusps and a circumference of 5.5 cm. The surface is marroquin-yellow and devoid of vegetations. Sectioning reveals a a fibrous, focally calcified cut surface. Frame Wirer sections are submitted in A1 following decalcification. JG/pl PerformedPOC- Glucose [id number] 06:06:00 Test Item Value Reference Range Interpretation Comments POC-Glucose Meter (test 115 mg/dL 70-110 H : TE STED AT [facility] code = 1538) [address] [facility], [address] 30: Supervisor [employer]/Techni paxton ID = [id number] for Rodrigo Fernandez Lab Interpretation (test Abnormal code = 16350-6) [facility] [place]-[place]U[facility] [id number] 06:06:00 Test Item Value Reference Range Interpretation Comments POC-GLUCOSE METER 115 mg/dL 70-110 H : TESTED A T [facility] 6720 (BEAKER) (test code = [address] [address], 1538) [address]: Supervisor [employer]/Techni paxton ID = [id number] for Rodrigo Jacobs RAD, CHEST, 1 VIEW, NON [id number] 04:49:00while patient is intubated or has chest tubes.Reason for exam:->Status post CV SurgeryShould thisbe performed at the bedside?->Yes [facility] 1980 Sex: MFINAL REPORT RAD, CHEST, 1 VIEW, NON DEPT INDICATION: Status post CV Surgery COMPARISON: Prior day's exam FINDINGS: Portable frontal view of the chest. IMPRESSION: Support Lines: Right IJ catheter has been removed. Lungs and pleura: Slight improvement in bilateral airspace disease. Stableleft costophrenic angles. No pneumothorax.Heart and mediastinum: Stable contours. Additional findings: None. Signed: Joseph Howe MDReport Verified Date/Time: 04/03/2020 04:49:26 BASIC METABOLIC [id number] 03:40:00 Test Item Value Reference Range Interpretation [...] S NOT APPLICABLE FOR DIALYSIS PATIEN TS. Supervisor [employer] ID - [id number] 03:40:00 Test Item Value Reference Range Interpretation Comments MAGNESIUM (BEAKER) (test code = 2.0 mg/dL 1.6-2.6 627) Supervisor [employer] ID - EDASIPROTHROMBIN TIME/[id number] 02:56:00 Test Item Value Reference Range Interpretation [...] is 2.5-3.5 for patients wiht mechanical heart valves.CBC (HEMOGRAM [...] (BEAKER) (test code = 413) Blood gas, [id number] 02:46:00 Test Item Value Reference Range Interpretation Comments pH, Isaias (test code = 7.47 7.32-7.42 H 2746-6) pCO2, Isaias (test code = 45 See_Comment [Aut omated message] 755) The system [employer] h generated this result transmit isela reference range : 41 - 51 mm Hg. The reference range was not used to interpret this result as normal/abnormal . pO2, Isaias (test code = 49 See_Comment H [Auto mated message] 9735-2) The system [employer] generated this result transmit isela reference range : 25 - 40 mm Hg. The reference range was not used to interpret this result as normal/abnormal . O2 Sat, Isaias (test code 85.9 % 40-70 H = 2711-0) HCO3, Isaias (test code = 32 mmol/L 21-29 H 44411-3) Base Excess, Isaias (test 7.2 mmol/L -2-3 H code = 1927-3) Patient Temperature 37.5 (test code = 8310-5) FIO2 (test code = 1819) 32 Lab Interpretation Abnormal (test code = 90625-3) [facility] Angeles[facility]OOD [facility], [id number] 02:46:00 Test Item Value Reference Range Interpretation [...] (BEAKER) (test code = 1819) 32.0 Transesophageal [id number] 08:15:39Ejection FractionSLEH ECHO HEARTLAB MKCKESSON CPACSInterface, External Ris In - 04/02/2020 8:15 AM CS TTransesophageal Echocardiography Report (TONY) Demographics Patient Name KELLY BALES Date of Study 03/30/2020 LYUBOV Gender Male Visit Number [id number] Race Unknown Room Number 2C51 Number Date of 1980 Referring Physician DENZEL POWELL Age 40 year(s) Delinquency Counselor Interpreting Physician DANIEL Franco Procedure Type of Study TONY procedure:TRANSESOPHAGEAL ECHO Indications:Aortic stenosis .Clinical HistoryANXIETY,AORTIC STENOSIS,ABESTOS EXPOSU RE,BMI,CAD,SMOKER,DEPRESSION,SOBHeight: 70 inches Weight: 118.39 kg (261 lbs) BSA: 2.34 m^2 BMI: 37.45kg/m^2HR: 72 bpm BP: 135/77 mmHg Summary POST OP: S/P MECHANICLA AVR A mechanical AoV prosthesis isvisualized . The prosthetic AoV appears well-seated with normal function by Doppler. Mean AVR gradient = 14mmHg. Prosthetic AoV regurgitaton is trivial . Prosthetic AR locations(s) are paravalvular in the following location(s) posterior annulus . Normal overall left ventricular systolic function. Signature Findings Left Normal left ventricle cavity size. Normal overall left Ventricle ventricular systolic function. All segments contract normally. Left Atrium LA size is normal . No evidence of left atrial or left atrial appendage thrombus. Right The right ventricular chamber size and systolic function are Ventricle within normal limits. Right Atrium RA size is normal. Aortic Valve Mild AoV cusp thickening. Mild AoV cusp calcification. Bicuspid AV is present . Moderate aortic regurgitation. Moderate aortic stenosis. Mitral Valve Normal MV structure. Trace mitral regurgitation. Tricuspid TV structure is normal. Valve Unable to estimate peak systolic PA pressure; inadequate TR velocity signal. Pulmonic Normal PV structure and function by limited views and Valve Doppler. Aorta Aortic root size (Sinus of Valsalva diameter) is mildly dilated. 3.9 cm Pericardium No significant pericardial effusion is visualized. Chambers/Structures Left Ventricle LVOT Diameter: 2.5 cm Doppler/Quantitative Measurements Aortic Valve Peak Velocity: 3.06 m/s Mean Velocity: 2.05 m/s Peak Gradient:37.41 mmHg Mean Gradient: 19.5 mmHg AV Area (continuity): 1.21 cm^2 AV VTI: 73.19 cm AV DVI: 0.25 LVOT Peak Velocity: 0.85 m/s Peak Gradient: 2.86 mmHg Mean Velocity: 0.54 m/s Mean Gradient: 1.41 mmHg LVOT Diameter: 2.5 cm LVOT VTI: 18.1 cm LVOT Area: 4.91 cm^2 LVOT SV:88.8 ml LVOT CO: 6.39 l/min LVOTCI: 2.73 l/min/m^2[facility]iumPO[facility]-GLU[facility]SE [id number] 06:02:00 Test Item Value Reference Range Interpretation Comments POC-GLUCOSE METER 111 mg/dL 70-110 H : TESTED A T [facility] 6720 (BEAKER) (test code = [address], 1538) [address]: Supervisor [employer]/Techni paxton ID = [id number] for Rodrigo Jacobs RAD, CHEST, 1 VIEW, NON [id number] 04:45:00while patient is intubated or has chest tubes.Reason for exam:->Status post CV SurgeryShould thisbe performed at the bedside?->Yes [facility] : 1980 Sex: MFINAL REPORT RAD, CHEST, 1 VIEW, NON DEPT INDICATION: Status post CV Surgery COMPARISON: Prior day's exam FINDINGS: Portable frontal view of the chest. IMPRESSION: Support Lines: Interval removal of the previously seen mediastinal drains. Otherwise unchanged support apparatus. Lungs and pleura: Unchanged airspace and pleural opacities. No pneumothorax.Heart and mediastinum: Stable contours. Stable surgical changes.Additional findings: None. Signed: Renu Pizarro Verified Date/Time: 04/02/2020 04:45:17 [id number] 03:29:00 Test Item Value Reference Range Interpretation Comments MAGNESIUM (BEAKER) 1.9 mg/dL 1.6-2.6 Specimen slightly (test code = 627) hemolyzed [employer] ID - NAYANA MBASIC METABOLIC [id number] 03:29:00 Test Item Value Reference Range Interpretation [...] S NOT APPLICABLE FOR DIALYSIS PATIEN TS. [employer] ID - NAYANA MPROTHROMBIN TIME/[id number] 03:25:00 Test Item Value Reference Range Interpretation [...] is 2.5-3.5 for patients wiht mechanical heart valves.Lactic Acid, [id number] 03:10:00 Test Item Value Reference Range Interpretation Comments Lactate, Art (test code = 0.8 mmol/L 0.5-2.2 4) BEBE (test code = BEBE) [employer] ID - NAYANA M Lab Interpretation (test Normal code = 74815-9) [facility] [place] [facility] [id number] 03:10:00 Test Item Value Reference Range Interpretation Comments LACTATE BLOOD ARTERIAL (2) 0.8 mmol/L 0.5-2.2 (BEAKER) (test code = 2874) [employer] BRANDON KRAUS [facility] (HEMOGRAM ONLY)2020-04-02 03:03:00 Test Item Value [...] (BEAKER) (test code = 413) Blood gas, [id number] 02:55:00 Test Item Value Reference Range Interpretation Comments pH, Arterial (test code 7.48 7.35-7.45 H = 2744-1) pCO2, Arterial (test 40 See_Comment [Autom ated message] code = 2019-8) The system [employer] generated this result transmit isela reference range : 35 - 45 mm Hg. The reference range was not used to interpret this result as normal/abnormal . pO2, Arterial (test 126 See_Comment H [Automa isela message] code = 2703-7) The system [employer] generated this result transmit isela reference range [...] 100 Lab Interpretation Abnormal (test code = 31528-2) [facility] [place], [id number] 02:55:00 Test Item Value Reference Range Interpretation [...] (BEAKER) (test code = 1819) 100.0 POCT-GLUCOSE [id number] 00:12:00 Test Item Value Reference Range Interpretation Comments POC-GLUCOSE METER 113 mg/dL 70-110 H : [facility] (BEAKER) (test code = SUSI Sawyer [facility], 1538) [address]: [employer]/Techni paxton ID = [id number] for Rodrigo Jacobs BASIC METABOLIC [id number] 19:43:00 Test Item Value Reference Range Interpretation [...] S NOT APPLICABLE FOR DIALYSIS PATIEN TS. [employer] ID - ADMINRAD, CHEST, 1 VIEW, NON [id number] 07:55:00while patient is intubated or has chest tubes.Reason for exam:->Status post CV SurgeryShould thisbe performed at the bedside?->Yes [facility] : 1980 Sex: MFINAL REPORT CLINICAL HISTORY: Status post CV Surgery TECHNIQUE: 1 view of the chest. COMPARISON: 03/31/2020 IMPRESSION: The supporting lines and tubes are similar appearing. Diffuse bilateral airspace opacities have increased. Small pleural effusions cannot be excluded. The cardiomediastinal silhouette is magnified by technique with sternotomy wires. Signed: Manny Huff MDReport Verified Date/Time: 04/01/2020 07:55:21 Reading Location: [facility] Radiology Reading Room BASIC METABOLIC [id number] 05:48:00 Test Item Value Reference Range Interpretation [...] S NOT APPLICABLE FOR DIALYSIS PATIEN TS. Supervisor [employer] ID - EDASIOperator ID - NAYANA [id number] 05:16:00 Test Item Value Reference Range Interpretation Comments MAGNESIUM (BEAKER) (test code = 1.8 mg/dL 1.6-2.6 627) Supervisor [employer] ID - [id number] 05:16:00 Test Item Value Reference Range Interpretation Comments PHOSPHORUS (BEAKER) (test code = 1.7 mg/dL 2.3-4.7 L 604) Supervisor [employer] ID - MANISHLACTIC ACID, [id number] 05:01:00 Test Item Value Reference Range Interpretation Comments LACTATE BLOOD ARTERIAL (2) 1.1 mmol/L 0.5-2.2 (BEAKER) (test code = 2874) Supervisor [employer] ID - NAYANA MCBC (HEMOGRAM ONLY)2020-04-01 04:55:00 [...] (BEAKER) (test code = 413) BLOOD GAS, [id number] 04:44:00 Test Item Value Reference Range Interpretation [...] (BEAKER) (test code = 1819) 100.0 POCT-GLUCOSE [id number] 17:30:00 Test Item Value Reference Range Interpretation Comments POC-GLUCOSE METER 95 mg/dL 70-110 : TESTED A T [facility] 6720 (BEAKER) (test code = [place], 1538) [id number]: Supervisor [employer]/Techni paxton ID = [id number] for Maryjo torres (contract), Pippa lsea LACTIC ACID, [id number] 05:48:00 Test Item Value Reference Range Interpretation Comments LACTATE BLOOD ARTERIAL (2) 1.8 mmol/L 0.5-2.2 (BEAKER) (test code = 2874) Supervisor [employer] ID - NAYANA MBASIC METABOLIC [id number] 03:35:00 Test Item Value Reference Range Interpretation [...] S NOT APPLICABLE FOR DIALYSIS PATIEN TS. Supervisor [employer] ID - [id number] 03:30:00 Test Item Value Reference Range Interpretation Comments MAGNESIUM (BEAKER) (test code = 2.0 mg/dL 1.6-2.6 627) Supervisor [employer] ID - [id number] 03:30:00 Test Item Value Reference Range Interpretation Comments PHOSPHORUS (BEAKER) (test code = 3.0 mg/dL 2.3-4.7 604) Supervisor [employer] ID - EDASILACTIC ACID, [id number] 03:14:00 Test Item Value Reference Range Interpretation Comments LACTATE BLOOD ARTERIAL (2) 2.2 mmol/L 0.5-2.2 (BEAKER) (test code = 2874) Supervisor [employer] ID - EDASICBC (HEMOGRAM ONLY)2020-03-31 03:08:00 Test [...] (BEAKER) (test code = 413) BLOOD GAS, [id number] 03:02:00 Test Item Value Reference Range Interpretation [...] 1819) 50.0 RAD, CHEST, 1 VIEW, NON [id number] 02:35:00while patient is intubated or has chest tubes.Reason for exam:->Status post CV SurgeryShould thisbe performed at the bedside?->Yes [facility] : 1980 Sex: MFINAL REPORT RAD, CHEST, [...] effusion is similar to prior. No pneumothorax.Heart andmediastinum: Stable contours.Additional findings: None. Signed: Denzel Granda MDReport Verified Date/Time: 03/31/2020 02:35:55 POCT-GLUCOSE [id number] 02:30:00 Test Item Value Reference Range Interpretation Comments POC-GLUCOSE METER 160 mg/dL 70-110 H : TESTED A T [facility] 6720 (BEAKER) (test code = [facility] Sawyer [facility], 1538) [address]: Supervisor [employer]/Techni paxton ID = [id number] for NICOLE CORRIGAN LACTIC ACID, [id number] 00:47:00 Test Item Value Reference Range Interpretation Comments LACTATE BLOOD 2.5 mmol/L 0.5-2.2 H Specimen sligh tly ARTERIAL (2) (BEAKER) hemoly zed (test code = 2874) Supervisor [employer] ID - ADMINBLOOD GAS, [id number] 00:32:00 Test Item Value Reference Range Interpretation [...] (test code = 1819) 70.0 LACTIC ACID, [id number] 23:12:00 Test Item Value Reference Range Interpretation Comments LACTATE BLOOD ARTERIAL (2) 5.4 mmol/L 0.5-2.2 HH (BEAKER) (test code = 2874) Supervisor [employer] ID - ADMINBLOOD GAS, [id number] 22:39:00 Test Item Value Reference Range Interpretation [...] (test code = 1819) 40.0 BLOOD GAS, [id number] 22:13:00 Test Item Value Reference Range Interpretation [...] (test code = 1819) 40.0 LACTIC ACID, [id number] 21:13:00 Test Item Value Reference Range Interpretation Comments LACTATE BLOOD 3.8 mmol/L 0.5-2.2 H Specimen moder ately ARTERIAL (2) (BEAKER) hemoly zed (test code = 2874) Supervisor [employer] ID - BSCalcium, [id number] 20:30:00 Test Item Value Reference Range Interpretation Comments Calcium, Ion (test code = 1994-3) 1.05 mmol/L 1.12-1.27 L pH, Blood (test code = 49359-3) 7.41 Lab Interpretation (test code = Abnormal 36400-0) [facility] [id number] 20:30:00 Test Item Value Reference Range Interpretation Comments Glucose (test code = 2345-7) 139 mg/dL 70-110 H Lab Interpretation (test code = Abnormal 17295-8) [facility] [place] AngelesCALCIUM, [id number] 20:30:00 Test Item Value Reference Range Interpretation Comments CALCIUM IONIZED (BEAKER) (test 1.05 mmol/L 1.12-1.27 L code = 698) PH, BLOOD (BEAKER) (test code = 7.41 1810) GLUCOSE-STAT [id number] 20:30:00 Test Item Value Reference Range Interpretation Comments GLUCOSE RANDOM (BEAKER) (test code 139 mg/dL 70-110 H = 652) HGB/HCT (H&H)-Stat [id number] 20:29:00 Test Item Value Reference Range Interpretation Comments Hemoglobin (test code = 14.8 See_Comment [Au tomated message] 786-4) The system Where's Up generated this result transmitted ref erence range: 13.0 - 1 6.8 GM/DL. The refe rence range was not u sed to interpret this result as normal/abnor mal. Hematocrit (test code = 44.0 % 40-50 4544-3) Lab Interpretation (test Normal code = 97294-7) [facility] [id number] 20:29:00 Test Item Value Reference Range Interpretation Comments Sodium (test code = 2951-2) 141 meq/L 136-145 Lab Interpretation (test code = Normal 35426-2) [facility] [place]assium-Stat [id number] 20:29:00 Test Item Value Reference Range Interpretation Comments Potassium (test code = 2823-3) 4.3 meq/L 3.6-5.5 Lab Interpretation (test code = Normal 21330-3) [facility] [place] AngelesBLOOD GAS, [id number] 20:29:00 Test Item Value Reference Range Interpretation [...] (test code = 1819) 60.0 SODIUM NA-STAT [id number] 20:29:00 Test Item Value Reference Range Interpretation Comments SODIUM (BEAKER) (test code = 381) 141 meq/L 136-145 POTASSIUM-STAT [id number] 20:29:00 Test Item Value Reference Range Interpretation Comments POTASSIUM (BEAKER) (test code = 4.3 meq/L 3.6-5.5 379) HGB/HCT (H&H) - STAT [id number] 20:29:00 Test Item Value Reference Range Interpretation Comments HEMOGLOBIN (BEAKER) (test code = 14.8 GM/DL 13.0-16.8 410) HEMATOCRIT (BEAKER) (test code = 44.0 % 40.0-50.0 411) [id number] 19:57:00 Test Item Value Reference Range Interpretation Comments Fibrinogen (test code = 3255-7) 256 mg/dl 225-434 Lab Interpretation (test code = Normal 07696-2) [facility] [place] AngelesPROTHROMBIN [id number] 19:57:00 Test Item Value Reference Range Interpretation [...] is 2.5-3.5 for patients wiht mechanical heart valves.[id number] 19:57:00 Test Item Value Reference Range Interpretation Comments FIBRINOGEN LEVEL (BEAKER) (test 256 mg/dl 225-434 code = 658) LACTIC ACID, [id number] 19:02:00 Test Item Value Reference Range Interpretation Comments LACTATE BLOOD 6.6 mmol/L 0.5-2.2 HH Specimen sligh tly ARTERIAL (2) (BEAKER) hemoly zed (test code = 2874) Supervisor [employer] ID - BSBLOOD GAS, [id number] 18:58:00 Test Item Value Reference Range Interpretation [...] (BEAKER) (test code = 1819) 100.0 Manual [id number] 18:49:00 Test Item Value Reference Range Interpretation Comments % Neutros (test code = 59 % 2815) % Lymphs (test code = 7 % 2816) % Monos (test code = 5 % 2817) % Metamyelo (test code = 3 % 0-0 H 282) % Myelo (test code = 2 % 0-0 H 282) % Bands (test code = 24 % 0-10 H 282) # Neutros (test code = 22.24 K/ul [...] = 3438) BEBE (test code = BEBE) Supervisor [employer] ID - anil Castelan comments: Slide comments: Lab Interpretation (test Abnormal code = 54270-1) [facility](CELLAVISION MANUAL DIFF)2020-03-30 18:49:00 Test Item Value Reference [...] CONCENTRATION Adequate (CELLAVISION)(BEAKER) (test code = 3438) Supervisor [employer] ID - anil Castelan comments: Slide comments:SODIUM NA-STAT LAB 2020-03-30 18:27:00 Test Item Value Reference Range Interpretation Comments SODIUM (BEAKER) (test code = 381) 144 meq/L 136-145 POTASSIUM-STAT [id number] 18:27:00 Test Item Value Reference Range Interpretation Comments POTASSIUM (BEAKER) (test code = 3.9 meq/L 3.6-5.5 379) HGB/HCT (H&H) - STAT [id number] 18:27:00 Test Item Value Reference Range Interpretation Comments HEMOGLOBIN (BEAKER) (test code = 16.0 GM/DL 13.0-16.8 410) HEMATOCRIT (BEAKER) (test code = 47.0 % 40.0-50.0 411) BLOOD GAS, [id number] 18:27:00 Test Item Value Reference Range Interpretation [...] (BEAKER) (test code = 1819) 100.0 GLUCOSE-STAT [id number] 18:27:00 Test Item Value Reference Range Interpretation Comments GLUCOSE RANDOM (BEAKER) (test code 138 mg/dL 70-110 H = 652) [id number] 18:16:00 Test Item Value Reference Range Interpretation Comments MAGNESIUM (BEAKER) 2.2 mg/dL 1.6-2.6 Specimen slightly (test code = 627) hemolyzed Supervisor [employer] ID - [id number] 18:16:00 Test Item Value Reference Range Interpretation Comments PHOSPHORUS (BEAKER) 4.5 mg/dL 2.3-4.7 Specimen slightly (test code = 604) hemolyzed Supervisor [employer] ID - BSBASIC METABOLIC [id number] 18:16:00 Test Item Value Reference Range Interpretation [...] S NOT APPLICABLE FOR DIALYSIS PATIEN TS. Supervisor [employer] ID - [id number] 18:15:00 Test Item Value Reference Range Interpretation Comments PTT (test code = 59.2 See_Comment H [Automated message] 56120-1) The system Where[employer] Up generated this result transmitted ref erence range: 22.5 - 3 6.0 seconds. The reference range was not used to int erpret this result as normal/abnormal . Lab Interpretation (test Abnormal code = 06759-2) [facility] [place] AngelesAPTT2020-11-16 18:15:00 Test Item Value Reference Range Interpretation Comments PARTIAL THROMBOPLASTIN TIME 59.2 seconds 22.5-36.0 H (BEAKER) (test code = 760) LACTIC ACID, [id number] 18:15:00 Test Item Value Reference Range Interpretation Comments LACTATE BLOOD 4.9 mmol/L 0.5-2.2 HH Specimen moder ately ARTERIAL (2) (BEAKER) hemoly zed (test code = 2874) Supervisor [employer] ID - BSCBC with platelet count + automated [id number] 18:04:00 Test Item Value Reference Range Interpretation Comments WBC (test code = 6690-2) 37.7 See_Comment H [A utomated message] The system Where[employer] Up generated this result transmitted ref erence range: 3.5 - 10 .5 K/L. The refe rence range was not u sed to interpret this result as normal/abnor mal. RBC (test code = 789-8) 5.11 See_Comment [Au tomated message] The system Where[employer] Up generated this result transmitted ref erence range: 4.63 - 6 .08 M/L. The refe rence range was not u sed to interpret this result as normal/abnor mal. MCHC (test code = 786-4) 34.8 See_Comment [A utomated message] The system Where[employer] Up generated this result transmitted ref erence range: [...] code = 248 See_Comment [Aut omated message] 717-3) The system Where[employer] Up generated this result transmitted ref erence range: 150 - 45 0 K/CU MM. The referen ce range was not u sed to interpret this result as normal/abnor mal. MPV (test code = 9.9 fL 9.4-12.4 69392-3) nRBC (test code = 413) 0 See_Comment [Aut omated message] The system Where[employer] Up generated this result transmitted ref erence range: [...] H [Aut omated message] 670) The system Where[employer] Up generated this result transmitted ref erence range: 1.78 - 5 .38 K/L. The refe rence range was not u sed to interpret this result as normal/abnor mal. # Lymphs (test code = 4.72 See_Comment H [Auto mated message] 414) The system Where[employer] Up generated this result transmitted ref erence range: 1.32 - 3 .57 K/L. The refe rence range was not u sed to interpret this result as normal/abnor mal. # Monos (test code = 3.52 See_Comment H [Autom ated message] 415) The system Where[employer] Up generated this result transmitted ref erence range: 0.30 - 0 .82 K/L. The refe rence range was not u sed to interpret this result as normal/abnor mal. # Eos (test code = 416) 0.30 See_Comment [Au tomated message] The system Where[employer] Up generated this result transmitted ref erence range: 0.04 - 0 .54 K/L. The refe rence range was not u sed to interpret this result as normal/abnor mal. # Baso (test code = 417) 0.15 See_Comment H [A utomated message] The system Where[employer] Up generated this result transmitted ref erence range: 0.01 - 0 .08 K/L. The refe rence range was not u sed to interpret this result as normal/abnor mal. Immature 1 % 0-1 Granulocytes-Relative (test code = 2801) Lab Interpretation (test Abnormal code = 14383-9) [facility] W/PLT COUNT & AUTO [id number] 18:04:00 Test Item Value Reference Range Interpretation [...] = 2801) RAD, CHEST, 1 VIEW, NON [id number] 18:04:00Reason for exam:->s/p cardiac surgeryShould this be performed at the bedside?->Yes [facility] : 1980 Sex: MFINAL REPORT Chest, 1 view. History: Status post cardiac surgery. Comparison: 09/17/2019.IMPRESSION: Endotracheal tube identified terminating approximately 3.5 cm above the teresa. Right IJcoursing venous catheter identified terminating over the cavoatrial junction. Two suspected mediastinal drains identified in place. Enteric tube noted coursing below the diaphragm with distal tip terminating within left upper quadrant in the expected location of the stomach. 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 The trachea is midline. There are increased left perihilar and bibasilar opacities which may reflect atelectasis. There is blunting of the costophrenic angles and small effusions are suspected. There is no evidence for pneumothorax. The cardiomediastinal silhouette appears magnified by technique. No acute osseous abnormality is identified. Signed: Dima Calvin MDReport Verified Date/Time: 03/30/2020 18:04:45 Reading Location: [facility] C013 Consult Reading Room Oxygen saturation, [id number] 17:47:00 Test Item Value Reference Range Interpretation Comments O2 Saturation (Measured) (test code = 66.8 % 53377-1) [facility] AngelesOXYGEN SATURATION, [id number] 17:47:00 Test Item Value Reference Range Interpretation Comments O2 SATURATION (MEASURED) (BEAKER) 66.8 % (test code = 1455) SODIUM NA-STAT [id number] 17:44:00 Test Item Value Reference Range Interpretation Comments SODIUM (BEAKER) (test code = 381) 140 meq/L 136-145 POTASSIUM-STAT [id number] 17:44:00 Test Item Value Reference Range Interpretation Comments POTASSIUM (BEAKER) (test code = 3.8 meq/L 3.6-5.5 379) CALCIUM, [id number] 17:44:00 Test Item Value Reference Range Interpretation Comments CALCIUM IONIZED (BEAKER) (test 1.21 mmol/L 1.12-1.27 code = 698) PH, BLOOD (BEAKER) (test code = 7.29 1810) GLUCOSE-STAT [id number] 17:44:00 Test Item Value Reference Range Interpretation Comments GLUCOSE RANDOM (BEAKER) (test code 141 mg/dL 70-110 H = 652) HGB/HCT (H&H) - STAT [id number] 17:44:00 Test Item Value Reference Range Interpretation Comments HEMOGLOBIN (BEAKER) (test code = 16.8 GM/DL 13.0-16.8 410) HEMATOCRIT (BEAKER) (test code = 49.0 % 40.0-50.0 411) BLOOD GAS, [id number] 17:43:00 Test Item Value Reference Range Interpretation [...] code = 1819) 60.0 POC ACTIVATED CLOTTING [id number] 17:11:00 Test Item Value Reference Range Interpretation Comments Activated Clotting Time 114 sec : 74 -137 seconds, (test code = 441) Baseline: TESTED AT [address], [facility] 30: Supervisor [employer]/Techni paxton ID = [id number] for BAUDILIO LEVIN [facility]PO[id number] 17:11:00 Test Item Value Reference Range Interpretation Comments ACTIVATED CLOTTING TIME 114 sec : 74 -137 seconds, (BEAKER) (test code = Baseli ne: TESTED AT 441) [address], [facility] 30: Supervisor [employer]/Techni paxton ID = [id number] for SHAWANDARIDALLYSON, PRICE JASON [id number] 17:11:00 Test Item Value Reference Range Interpretation Comments ACTIVATED CLOTTING TIME 98 sec : 74 -137 seconds, (BEAKER) (test code = Baseli ne: TESTED AT 441) [address], [address] 30: Supervisor [employer]/Techni paxton ID = [id number] for BAUDILIO LEVIN [id number] 17:11:00 Test Item Value Reference Range Interpretation Comments ACTIVATED CLOTTING TIME 455 sec : 74 -137 seconds, (BEAKER) (test code = Baseli ne: TESTED AT 441) [address], [facility] 30: Supervisor [employer]/Techni paxton ID = [id number] for LETHRIDGE, PRICE JASON [id number] 17:11:00 Test Item Value Reference Range Interpretation Comments ACTIVATED CLOTTING TIME 499 sec : 74 -137 seconds, (BEAKER) (test code = Baseli ne: TESTED AT 441) [address], [address] 30: Supervisor [employer]/Techni paxton ID = [id number] for LETHRIDGE, PRICE JASON [id number] 17:11:00 Test Item Value Reference Range Interpretation Comments ACTIVATED CLOTTING TIME 510 sec : 74 -137 seconds, (BEAKER) (test code = Baseli ne: TESTED AT 441) [address], [address]: Supervisor [employer]/Techni paxton ID = [id number] for DEE COSTA [id number] 17:11:00 Test Item Value Reference Range Interpretation Comments ACTIVATED CLOTTING TIME 412 sec : 74 -137 seconds, (BEAKER) (test code = Baseli ne: TESTED AT 441) [address], [address]: Supervisor [employer]/Techni paxton ID = [id number] for DEE COSTA JASON [id number] 17:11:00 Test Item Value Reference Range Interpretation Comments ACTIVATED CLOTTING TIME 527 sec : 74 -137 seconds, (BEAKER) (test code = Baseli ne: TESTED AT 441) [address], [facility] 30: Supervisor [employer]/Techni paxton ID = [id number] for DEE COSTA Prepare [id number] 16:46:00 Test Item Value Reference Range Interpretation Comments CROSSMATCH (test code = COMPATIBLE 4) Unit ABO (test code = O Pos 6824225) UNIT NUMBER (test code = [id number] 934-0) Status (test code = RETURNED FROM ISSUE 3150635) Blood Bank Product (test RED BLOOD CELLS code = 2263) PRODUCT CODE (test code = S1135C95 933-2) [facility] Angeles[facility]are [id number] 16:46:00 Test Item Value Reference Range Interpretation Comments Unit ABO (test code = O Pos 4908752) UNIT NUMBER (test code = [id number] 934-0) Status (test code = RETURNED FROM ISSUE 1745122) Blood Bank Product (test FFP code = 2263) PRODUCT CODE (test code = [id number] 933-2) [facility] AngelesPT/[id number] 16:19:00 Test Item Value Reference Interpretation Comments Range Protime (test code = 19.2 See_Comment H [Autom ated 5902-2) message] The system which generated this result transmitted reference range : 11.9 - 14.2 seconds. The reference range was not used to interpret this result as normal/abnormal . INR (test code = 1.66 See_Comment [Automated 0142-6) message] The system which generated this result transmitted reference range : <=5.90. The reference range was not used to interpret this result as normal/abnormal . PTT (test code = 86.1 See_Comment H [Automated 87438-5) message] The system which generated this result [...] valves. Lab Interpretation Abnormal (test code = 80592-9) [facility] AngelesPT/[id number] 16:19:00 Test Item Value Reference Range Interpretation [...] is 2.5-3.5 for patients wiht mechanical heart valves.[id number] 16:18:00 Test Item Value Reference Range Interpretation Comments FIBRINOGEN LEVEL (BEAKER) (test 207 mg/dl 225-434 L code = 658) Platelet [id number] 16:15:00 Test Item Value Reference Range Interpretation Comments Platelets (test code 161 See_Comment [Autom ated = 777-3) message] The system which generated this result transmit isela reference range : 150 - 450 K/CU MM. The reference range was not u sed to interpret th is result as normal/abnormal . BEBE (test code = BEBE) Supervisor [employer] ID - [id number] Lab Interpretation Normal (test code = 34745-7) [facility] AngelesPLATELET [id number] 16:15:00 Test Item Value Reference Range Interpretation Comments PLATELET COUNT (BEAKER) (test 161 K/CU MM 150-450 code = 756) Supervisor [employer] ID - [id number], [id number] 15:34:00 Test Item Value Reference Range Interpretation Comments CALCIUM IONIZED (BEAKER) (test 1.04 mmol/L 1.12-1.27 L code = 698) PH, BLOOD (BEAKER) (test code = 7.31 1810) BLOOD GAS, [id number] 15:34:00 Test Item Value Reference Range Interpretation [...] (BEAKER) (test code = 1819) 100.0 GLUCOSE-STAT [id number] 15:34:00 Test Item Value Reference Range Interpretation Comments GLUCOSE RANDOM (BEAKER) (test code 199 mg/dL 70-110 H = 652) HGB/HCT (H&H) - STAT [id number] 15:34:00 Test Item Value Reference Range Interpretation Comments HEMOGLOBIN (BEAKER) (test code = 11.4 GM/DL 13.0-16.8 L 410) HEMATOCRIT (BEAKER) (test code = 34.0 % 40.0-50.0 L 411) SODIUM NA-STAT [id number] 15:33:00 Test Item Value Reference Range Interpretation Comments SODIUM (BEAKER) (test code = 381) 136 meq/L 136-145 POTASSIUM-STAT [id number] 15:33:00 Test Item Value Reference Range Interpretation Comments POTASSIUM (BEAKER) (test code = 4.5 meq/L 3.6-5.5 379) BLOOD GAS, [id number] 14:59:00 Test Item Value Reference Range Interpretation [...] (BEAKER) (test code = 1819) 80.0 POTASSIUM-STAT [id number] 14:59:00 Test Item Value Reference Range Interpretation Comments POTASSIUM (BEAKER) (test code = 5.6 meq/L 3.6-5.5 H 379) GLUCOSE-STAT [id number] 14:59:00 Test Item Value Reference Range Interpretation Comments GLUCOSE RANDOM (BEAKER) (test code 245 mg/dL 70-110 H = 652) HGB/HCT (H&H) - STAT [id number] 14:59:00 Test Item Value Reference Range Interpretation Comments HEMOGLOBIN (BEAKER) (test code = 11.8 GM/DL 13.0-16.8 L 410) HEMATOCRIT (BEAKER) (test code = 35.0 % 40.0-50.0 L 411) SODIUM NA-STAT [id number] 14:58:00 Test Item Value Reference Range Interpretation Comments SODIUM (BEAKER) (test code = 381) 136 meq/L 136-145 POTASSIUM-STAT [id number] 14:41:00 Test Item Value Reference Range Interpretation Comments POTASSIUM (BEAKER) (test code = 5.6 meq/L 3.6-5.5 H 379) BLOOD GAS, [id number] 14:40:00 Test Item Value Reference Range Interpretation [...] (BEAKER) (test code = 1819) 70.0 GLUCOSE-STAT [id number] 14:40:00 Test Item Value Reference Range Interpretation Comments GLUCOSE RANDOM (BEAKER) (test code 225 mg/dL 70-110 H = 652) HGB/HCT (H&H) - STAT [id number] 14:40:00 Test Item Value Reference Range Interpretation Comments HEMOGLOBIN (BEAKER) (test code = 12.9 GM/DL 13.0-16.8 L 410) HEMATOCRIT (BEAKER) (test code = 38.0 % 40.0-50.0 L 411) SODIUM NA-STAT [id number] 14:39:00 Test Item Value Reference Range Interpretation Comments SODIUM (BEAKER) (test code = 381) 135 meq/L 136-145 L BLOOD GAS, [id number] 14:04:00 Test Item Value Reference Range Interpretation [...] (test code = 1819) 60.0 SODIUM NA-STAT [id number] 14:04:00 Test Item Value Reference Range Interpretation Comments SODIUM (BEAKER) (test code = 381) 134 meq/L 136-145 L GLUCOSE-STAT [id number] 14:04:00 Test Item Value Reference Range Interpretation Comments GLUCOSE RANDOM (BEAKER) (test code 213 mg/dL 70-110 H = 652) HGB/HCT (H&H) - STAT [id number] 14:04:00 Test Item Value Reference Range Interpretation Comments HEMOGLOBIN (BEAKER) (test code = 13.2 GM/DL 13.0-16.8 410) HEMATOCRIT (BEAKER) (test code = 39.0 % 40.0-50.0 L 411) POTASSIUM-STAT [id number] 14:03:00 Test Item Value Reference Range Interpretation Comments POTASSIUM (BEAKER) (test code = 5.1 meq/L 3.6-5.5 379) BLOOD GAS, [id number] 13:31:00 Test Item Value Reference Range Interpretation [...] (test code = 1819) 81.0 SODIUM NA-STAT [id number] 13:31:00 Test Item Value Reference Range Interpretation Comments SODIUM (BEAKER) (test code = 381) 131 meq/L 136-145 L GLUCOSE-STAT [id number] 13:31:00 Test Item Value Reference Range Interpretation Comments GLUCOSE RANDOM (BEAKER) (test code 180 mg/dL 70-110 H = 652) HGB/HCT (H&H) - STAT [id number] 13:31:00 Test Item Value Reference Range Interpretation Comments HEMOGLOBIN (BEAKER) (test code = 12.1 GM/DL 13.0-16.8 L 410) HEMATOCRIT (BEAKER) (test code = 36.0 % 40.0-50.0 L 411) POTASSIUM-STAT [id number] 13:30:00 Test Item Value Reference Range Interpretation Comments POTASSIUM (BEAKER) (test code = 5.1 meq/L 3.6-5.5 379) BLOOD GAS, [id number] 12:15:00 Test Item Value Reference Range Interpretation [...] (BEAKER) (test code = 1819) 100.0 CALCIUM, [id number] 12:11:00 Test Item Value Reference Range Interpretation Comments CALCIUM IONIZED (BEAKER) (test 1.15 mmol/L 1.12-1.27 code = 698) PH, BLOOD (BEAKER) (test code = 7.36 1810) GLUCOSE-STAT [id number] 12:10:00 Test Item Value Reference Range Interpretation Comments GLUCOSE RANDOM (BEAKER) (test code = 93 mg/dL 70-110 652) SODIUM NA-STAT [id number] 12:10:00 Test Item Value Reference Range Interpretation Comments SODIUM (BEAKER) (test code = 381) 139 meq/L 136-145 POTASSIUM-STAT [id number] 12:10:00 Test Item Value Reference Range Interpretation Comments POTASSIUM (BEAKER) (test code = 4.2 meq/L 3.6-5.5 379) HGB/HCT (H&H) - STAT [id number] 12:10:00 Test Item Value Reference Range Interpretation Comments HEMOGLOBIN (JUN) (test code = 15.9 GM/DL 13.0-16.8 410) HEMATOCRIT (JUN) (test code = 47.0 % 40.0-50.0 411) POCT-GLUCOSE [id number] 08:31:00 Test Item Value Reference Range Interpretation Comments POC-GLUCOSE METER 112 mg/dL 70-110 H : TESTED A T [facility] 6720 (JUN) (test code = SUSI Sawyer [place], 1538) [address]: Supervisor [employer]/Techni paxton ID = [id number] for Sania Alexandre Electrocardiogram, [id number] 14:57:10Interface, External Ris In - 03/29/2020 2:57 PM CSTVentricular Rate 65 BPMAtrial Rate 65 BPMP-R Interval 172 msQRS Duration 102 msQ-T Interval 404 msQTC Calculation(Bazett) 420 msP [place] 48 degreesR [place] 18 degreesT [place] 17 degreesNormal sinus rhythmNormal ECGWhen compared with ECG of 17-SEP-2019 09:04,No significant change was foundConfirmed by MD Dre, Talon ([id number]) on 03/29/2020 2:57:08 [facility]2020-03-27 17:29:00 Test Item Value Reference Range Interpretation Comments SARS-COV2/RT-PCR Negative Not Detected, (test code = Negative, See 89919-3) external report for linked test SARS-COV-2 [facility] PERFORMING LAB (test code = 34833-7) EBBE (test code = Negative result for this [...] of the Act. Fact Sheet for Healthcare Providers:https://www.mymission2/sites/default/f bee/product/documents/F act_Sheet_HC_Providers_L egi_GHFI-XmX-2.pdf Fact Sheet for Healthcare Patients:https://www.[employer]/sites/default/fi les/product/documents/Fa ct_Sheet_Patients_Lyra_S ARS-CoV-2.pdf Performing Laboratory:[facility], [place] [address] [place], [place] [address]ARS-COV2/RT-PCR ([facility])2020-03-27 17:29:00 Test Item Value Reference Range Interpretation Comments SARS-COV2/RT-PCR (test Negative Not Detected, Negative, code = 2058026) See external report for linked test SARS-COV-2 PERFORMING LAB [facility] (test code = 3824977) Negative result for this test determines that [...] individuals suspected of COVID-19 by their healthcare provider.This test [...] justifying the authorization of the emergency use ofin vitro diagnostic tests for detection and/or diagnosis of COVID-19 is terminated under Section 564(b)(2) of the Act or the EUA is revoked under Section 564(g) of the Act.Fact Sheet for Healthcare Prov iders:https://www.STYLIGHT/sites/default/files/product/documents/Fact_Sheet_HC _Bzgcqmrtp_Baxw_NWJH-LgT-5.pdfFact Sheet for Healthcare Patients:https://www.STYLIGHT/sites/default/files/product/docume nts/Mvrh_Qcxhf_Nkvmemri_Nwhq_IBEC-DfJ-3.pdfPerforming Laboratory:[facility] [place] [address]Kpkbnhmfdxexv metabolic [id number] 11:11:00 Test Item Value Reference Range Interpretation Comments Protein, Total 7.4 See_Comment [Automated (test code = message] The 2885-2) system which generated this result transmit isela reference range : 6.0 - 8.3 gm/dL . The reference range was not u sed to interpret th is result as normal/abnormal . Albumin (test code 4.5 g/dL 3.5-5 = 32068-2) Alkaline 85 U/L 40-150 Phosphatase (test code = 6768-6) Total Bilirubin 0.5 mg/dL 0.2-1.2 (test code = 1974-2) Sodium (test code = 139 meq/L 025-150 9679-2) Potassium (test 4.5 meq/L 3.5-5.1 code = 2823-3) Chloride (test code 105 meq/L 98-107 = 2075-0) CO2 (test code = 26 meq/L -29 2028-01) BUN (test code = 20 mg/dL 7- 3094-0) Creatinine (test 0.96 mg/dL 0.57-1.25 code = 2160-0) Glucose (test code 102 mg/dL 70-105 = 2345-7) Calcium (test code 9.0 mg/dL 8.4-10.2 = 09478-5) AST (test code = 24 U/L 5-34 1919-8) ALT (test code = 46 U/L 1741-6) EGFR (test code = 87 mL/min/1.73 [place] [address]-0) NOT ACCURATE CREATININE CLEARANCE IN PREDICTING GLOMERULAR FILTRATION RATE . ESTIMATED GFR I S NOT APPLICABLE FOR DIALYSIS PATIEN TS. BEBE (test code = [employer] ID - BEBE) DEL [facility] [place] AngelesLipid [id number] 11:11:00 Test Item Value Reference Range Interpretation Comments Triglycerides (test 249 mg/dL code = 2571-8) Cholesterol (test code 170 mg/dL = 3-3) HDL (test code = 30 mg/dL 2085-01) LDL Calculated (test 90 mg/dL code = 24718-9) BEBE (test code = BEBE) Triglyceride Reference Range: Low Risk <150 Borderline 150-199 High Risk 200-499 Very High Risk >=500 Cholesterol Reference Range: Low Risk <200 Borderline 200-239 High Risk >240 HDL Cholesterol Reference Range: Low Risk >=60 High Risk <40 LDL Cholesterol Reference Range: Optimal <100 Near Optimal 100-129 Borderline 130-159 High 160-189 Very High >=190 [employer] ID - DEL [facility] [place] AngelesCOMPREHENSIVE METABOLIC [id number] 11:11:00 Test Item Value Reference Range Interpretation [...] S NOT APPLICABLE FOR DIALYSIS PATIEN TS. [employer] ID - DEL [id number] 11:11:00 Test Item Value Reference Range Interpretation Comments MAGNESIUM (BEAKER) (test code = 1.9 mg/dL 1.6-2.6 627) [employer] ID - DEL CLIPID [id number] 11:11:00 Test Item Value Reference Range Interpretation Comments TRIGLYCERIDES (BEAKER) (test code = 249 mg/dL 540) CHOLESTEROL (BEAKER) (test code = 170 mg/dL 631) HDL CHOLESTEROL (BEAKER) (test code 30 mg/dL = 976) LDL CHOLESTEROL CALCULATED (BEAKER) 90 mg/dL (test code = 633) Triglyceride Reference Range: Low Risk <150 Borderline 150-199 High Risk 200- 499 Very High Risk >=500Cholesterol Reference Range: Low Risk <200 Borderline 200-239 High Risk >240HDL Cholesterol Reference Range: Low Risk >=60 High Risk <40LDL Cholesterol Reference Range: Optimal <100 Near Optimal 100-129 Borderline 130-159 High 160-189 Very High >=190 [employer] ID - DEL CHemoglobin [id number] 09:58:00 Test Item Value Reference Range Interpretation Comments Hemoglobin A1C (test code = 4548-4) 5.5 % 4.3-6.1 Lab Interpretation (test code = Normal 67479-5) [facility] [place] AngelesHEMOGLOBIN [id number] 09:58:00 Test Item Value Reference Range Interpretation Comments HEMOGLOBIN A1C (BEAKER) (test code = 5.5 % 4.3-6.1 368) Type and screen, [id number] 09:52:00 Test Item Value Reference Range Interpretation Comments ABO/RH AUTOMATED (BEAKER) (test O POSITIVE code = 2260) Ab Scrn (test code = 890-4) NEGATIVE [facility] [place] AngelesAPTT2020-11-13 09:01:00 Test Item Value Reference Range Interpretation Comments PARTIAL THROMBOPLASTIN TIME 32.8 seconds 22.5-36.0 (BEAKER) (test code = 760) PROTHROMBIN TIME/[id number] 09:00:00 Test Item Value Reference Range Interpretation [...] is 2.5-3.5 for patients wiht mechanical heart valves.CBC W/PLT COUNT & AUTO [id number] 08:48:00 Test Item Value Reference Range Interpretation [...] (BEAKER) (test code = 2801) CT, CTA, [id number] 09:24:00With contrastUnlisted Reason for Exam - Click Yes and Enter Reason Below->No [facility] : 1980 Sex: MAddendum BeginsREPORT STATUS:A I [...] to patient size and/or use of iterative recons truction technique. Dose modulation, iterative reconstruction, and/or weight based adjustment of themA/kV was utilized to reduce the radiation dose [...] annular calcification is seen. Aortic valvular calcification isidentified. It is difficult to be certain whether the aortic valve is tricuspid versus bicuspid. Please correlate with echocardiography. Coronary artery origins are normal. The left main coronary artery, the proximal and mid LAD is widely patent. The left circumflex artery is nondominant. The proximaland mid RCA is also widely patent. Aortic [...] transverse arch; 2.3 cm at the proximal descendingaorta; 2.0 cm at the mid descending aorta; 2.0 cm at the diaphragmatic hiatus. NON-VASCULAR: Hypodensity is identified in the left thyroid lobe, at image 5, measures 1.5 cm in diameter. Dedicated thyroid ultrasound scan can be performed for further tissue characterisation. The chest wall mediastinum ap pears unremarkable. Tiny lymph nodes are seen, consider [...] acute bony pathology is identified. Limited images ofthe upper abdomen reveals no acute abnormalities. However, [...] contour, and calibre. No aortic aneurysm is identif ied. There is no evidence of acute aortic [...] any case, professional society recommendation as follows: NoduleSize <6 mm Low-Risk Patient: No routine follow-up Nodule Size <6 mm High-Risk Patient: Optional CT at 12 months 4. Other findings as described above. Diffuse hepatic steatosis. Hypodensity is identified in the left thyroid lobe, at image 5, measures 1.5 cm in diameter. Dedicated thyroid ultrasound scan can be performed for further tissue characterisation. 3. An addendum will be dictated regarding the non- vascular findings by the Branch Service Specialist Radiologist. Signed: Anastacio Estrada MDReport Verified Date/Time: 03/19/2020 17:41:36 Reading Location: [place] [address] CT Reading Room Carotid doppler [id number] 07:45:38Ejection FractionSLE ECHO HEARTLAB MKCKESSON CPACSRight Impression1. The internal [...] measured in cm Carotid Right Measurements+ +----+----+-----+ + ----+ +!Location !PSV !EDV !Angle!%Stenosis 2D!%Stenosis Doppler!Tortuosity !+ --+----+----+-----+ + + +!Prox CCA !103 !22.3!60 ! ! ! !+------- --------+----+----+-----+ + + +!Dist CCA !92 !18.2!60 ! ! ! !+-- +----+----+-----+ + + +!Prox ICA !73.9!20.5!60 ! !Normal ! !+ +----+----+-----+ + + +!Di st ICA !79.2!28.7!60 ! ! ! !+ +----+----+-----+ + + +!Pr ox ECA !129 !16.5!60 ! ! ! !+ +----+----+-----+ + + +!Ve rtebral !53.9!17 !60 ! ! ! !+ +----+----+-----+ + +--------- --+!Prox Subclavian!175 ! !60 ! ! ! !+ +----+----+-----+ + + + - There is antegrade vertebral flow noted on the right side. - Additional Measurements:ICAPSV/CCAPSV 0.86.ICAEDV/CCAEDV 1.29. Carotid Left Measurements+ +----+----+-----+----- -------+ + +!Location !PSV !EDV !Angle!%Stenosis 2D!%Stenosis Doppler!Tortuosity !+ +----+----+-----+ + + +!Pr ox CCA !110 !21.6!60 ! ! ! !+ +----+----+-----+ + + +!Di st CCA !85.6!19.3!60 ! ! ! !+ +----+----+-----+ + + +!Pr oxICA !86.8!19.3!60 ! !Normal ! !+ +----+----+-----+ + +------ -----+!Dist ICA !81.5!27 !60 ! ! ! !+ +----+----+-----+ + +- +!Prox ECA !108 !12.9!60 ! ! ! !+ +----+----+-----+ + -----+ +!Vertebral !56.3!15.8!60 ! ! ! !+ +----+----+-----+ +----- + +!Prox Subclavian!145 ! !60 ! ! ! !+ +----+----+-----+ + + + - There is antegrade vertebral flow noted on the left side. - Additional Measurements:ICAPSV/CCAPSV 1.01.ICAEDV/CCAEDV 1.25. Interface, External Ris In - 03/20/2020 7:45 AM CSTPV LAB - Carotid Duplex Study Demographics Patient Name KELLY BALES Date of Study 03/19/2020 Age 40 Visit Number [id number] Gender Male Accession Number [id number] Date of 1980 Referring Joya Christina NP Room Number [facility] OPT Physician Delinquency Counselor Joss Leeterpreting CORINNE Tarango Physician ProcedureType of Study: Cerebral: Carotid, CAROTID DOPPLER, BILATERAL. Indications for Study:Pre op.Patient Status:Routine.Study Location:Vascular Lab.Technical Quality:Adequate visualization.Risk FactorsHistory of Disease+ +----+--------- +!Diagnosis !Date!Comments !+ +----+------- +!History/Risk ! !Former smoker, CAD, History of right [...] duplex scanning and color flow imaging were performedbilaterally. The arteries were well visualized and no areas of stenosis were found bilaterally. Doppler flow velocities were within normal range bilaterally. The vertebral artery flow was antegrade andnormal bilaterally. The subclavian arteries were patent with normal flow bilaterally where visualized. Signature Velocities are measured in cm/s ; Diameters are measured in cmCarotid Right Measurements+ +----+----+-----+ + +---- -------+!Location !PSV !EDV !Angle!%Stenosis 2D!%Stenosis Doppler!Tortuosity !+ +----+----+-----+---- --------+ + +!Prox CCA !103 !22.3!60 ! ! ! !+ +----+----+---- -+ + + +!Dist CCA !92 !18.2!60 ! ! ! !+ +----+--- -+-----+ + + +!Prox ICA !73.9!20.5!60 ! !Normal ! !+ ---+----+----+-----+ + + +!Dist ICA !79.2!28.7!60 ! ! ! !+------ ---------+----+----+-----+ + + +!Prox ECA !129 !16.5!60 ! ! ! !+ +----+----+-----+ + + +!Vert ebral !53.9!17 !60 ! ! ! !+ +----+----+-----+ + + +!Pr ox Subclavian!175 ! !60 ! ! ! !+ +----+----+-----+ + + + - There is antegrade vertebral flow noted on the right side. - Additional Measurements:ICAPSV/CCAPSV 0.86.ICAEDV/CCAEDV 1.29.Carotid Left Measurements+ +----+----+-----+ + --+ +!Location !PSV !EDV !Angle!%Stenosis 2D!%Stenosis Doppler!Tortuosity !+ +----+----+-----+ + + +!Prox CCA !110 !21.6!60 ! ! ! !+--------- ------+----+----+-----+ + + +!Dist CCA !85.6!19.3!60 ! ! ! !+--- +----+----+-----+ + + +!Prox ICA !86.8!19.3!60 ! !Normal ! !+ +----+----+-----+ + + +!Di st ICA !81.5!27 !60 ! ! ! !+ +----+----+-----+ + + +!Pr ox ECA !108 !12.9!60 ! ! ! !+ +----+----+-----+ + + +!Ve rtebral !56.3!15.8!60 ! ! ! !+ +----+----+-----+ + + +!Prox Subclavian!145 ! !60 ! ! ! !+ +----+----+-----+ + + + - There is antegrade vertebral flow noted on the left side. - Additional Measurements:ICAPSV/CCAPSV 1.01.ICAEDV/CCAEDV 1.25.[facility] CTA [id number] 17:41:00Interface, External Ris In - 03/20/2020 9:26 AM CSTAddendum BeginsREPORT STATUS:A I agree with the nonvascular findings. Signed: Vannessa Pritchard MDReport Verified Date/Time:03/20/2020 09:24:[address] angiography of [...] during the dynamic passage of intravenous contrast material.Multi-planar 3-D volume- rendering reconstruction was performed using an independent workstation inter actively by the interpreting physician as well as the 3-D specialist for optimal visualisation of the thoracic aorta and its proximal branches. Please refer to the contrast sheet scanned in the [employer] system for the amount and route of contrast given. This exam was performed according to our departmental dose- optimisation programme, which includes automated exposure control, adjustment of the mA and/orkV according to patient size and/or use of iterative reconstruction technique. Dose modulation, iterative reconstruction, and/or weight based adjustment of the mA/kV was utilized to reduce the radiation dose to as low as reasonably achievable. FINDINGS: VASCULAR: No pericardial effusion is identified.The central pulmonary artery is normal in calibre. The cardiac chambers demonstrate normal atrioventricular and ventriculoarterial concordance, and systemic and pulmonary venous return. The left ventricle is normal in size in the mid diastolic data set. Left atrial size is unremarkable. No mitral annul ar calcification is seen. Aortic valvular calcification is identified. It is difficult to be certainwhether the aortic valve is tricuspid versus bicuspid. Please correlate with echocardiography. Coronary artery origins are normal. The left main coronary artery, the proximal and mid LAD is widely patent. The left circumflex artery is nondominant. The proximal and mid RCA is also widely patent. Aorticroot, the orthogonal dimension is 4.0 x 3.5 cm suggesting minimal ectasia, with preserved sinotubular junction, and thereafter remainder of the thoracic aorta is normal in course, contour, and calibre.There is no evidence of acute aortic pathology, specifically, there is no dissection, intramural amy ericka, or contained rupture. The arch vessel branching pattern is normal and the visualised portion of the arch vessels are widely patent. Quantitaive dimensions of the aorta are as follows: 4.0 x 3.5 cm at the sinuses of Valsalva (the sino- tubular junction is preserved); 3.1 cm at the proximal ascending thoracic aorta; 3.2 cm at the mid ascending aorta; 2.7 cm at the distal ascending aorta; 2.4 cm atthe mid transverse arch; 2.3 cm at the [...] certain if the aortic valve is bicuspid versustricuspid in the available data set. Aortic valvular calcification is seen. Ectasia seen in the aortic root, with preserved sinotubular junction. Thereafter remainder of the thoracic aorta is normal in course, contour, and calibre. No aortic aneurysm is identified. There is no evidence of acute aorticpathology, specifically, there is no dissection, intramural hematoma, or contained rupture. Quantitative dimension of the thoracic aorta are as described above. 2. Normal coronary artery origins. No obv ious coronary artery calcification is seen. The proximal [...] identified in the left thyroid lobe, at image5, measures 1.5 cm in diameter. Dedicated thyroid ultrasound scan can be performed for further tissue characterisation. 3. An addendum will be dictated regarding the non- vascular findings by the Branch Service Specialist Radiologist. Signed: Anastacio Estrada Verified Date/Time: 03/19/2020 17:41:36 Reading Location: [place] [address] CT Reading Room [facility] METABOLIC [id number] 06:15:00 Test Item Value Reference Range Interpretation [...] S NOT APPLICABLE FOR DIALYSIS PATIEN TS. [employer] ID - PIAYA LCBC W/PLT COUNT & AUTO [id number] 05:43:00 Test Item Value Reference Range Interpretation [...] 0-1 PERCENT (BEAKER) (test code = 2801) [id number] 18:05:00 Test Item Value Reference Range Interpretation [...] is 2.5-3.5 for patients wiht mechanical heart valves.BASIC METABOLIC [id number] 18:03:00 Test Item Value Reference Range Interpretation [...] S NOT APPLICABLE FOR DIALYSIS PATIEN TS. Super[employer] ID - DBCBC W/PLT COUNT & AUTO [id number] 18:01:00 Test Item Value Reference Range Interpretation [...] PERCENT (BEAKER) (test code = 2801) POCT-GLUCOSE [id number] 06:01:00 Test Item Value Reference Range Interpretation Comments POC-GLUCOSE METER 107 mg/dL 70-110 : TESTED A T [facility] 6720 (BEAKER) (test code [facility], = 1538) [address]: Super[employer]/Techni paxton ID = [id number] for JORD AN, LACRYSTAL MISCELLANEOUS LAB [id number] 05:17:00 Test Item Value Reference Range Interpretation Comments SCAN RESULT (test code = See scanned report [id number]) HEMOGLOBIN [id number] 10:50:00 Test Item Value Reference Range Interpretation Comments HEMOGLOBIN A1C (BEAKER) (test code = 4.9 % 4.3-6.1 368) RAD, CHEST, 2 [id number] 10:38:00Reason for Exam:->pre opFINAL REPORT INDICATION: pre op COMPARISON: None TECHNIQUE: Frontal and lateralviews of the chest. FINDINGS: Lungs and pleura: Clear lungs. No effusion.Heart and mediastinum: Normal heart size. Unremarkable mediastinal contours.Osseous structures: No acute abnormality.Additional findings: None. IMPRESSION: No acute intrathoracic abnormality. Signed: Ariane Johnson Verified Date/Time: 09/17/2019 10:38:28 Reading Location: [facility] Radiology Reading Room COMPREHENSIVE METABOLIC [id number] 10:27:00 Test Item Value Reference Range Interpretation [...] S NOT APPLICABLE FOR DIALYSIS PATIEN TS. Supervisor [employer] ID - NTPPROTHROMBIN TIME/[id number] 10:00:00 Test Item Value Reference Range Interpretation [...] is 2.5-3.5 for patients wiht mechanical heart valves.CBC W/PLT COUNT & AUTO [id number] 09:57:00 Test Item Value Reference Range Interpretation [...] % 0-1 PERCENT (BEAKER) (test code = 9580)
[2022-04-05] MEDS ORDERED: MORPHINE 4 MG/ML SYR ONE (07:35)
[2022-04-05] MEDS ORDERED: ONDANSETRON 4 MG/2 ML VIAL ONE (07:35)
--- NOTE | 2022-04-05 07:44 | RAD REPORT ---
EXAM DESCRIPTION: CT - Stone Protocol - 04/05/2022 7:35 am CLINICAL HISTORY: Abdominal pain. Left flank pain COMPARISON: 2019 TECHNIQUE: Computed axial tomography of the abdomen pelvis was obtained without oral or IV contrast. Lack of IV and oral contrast limits evaluation of solid organs, appendix, bowel, and vessels. Trejo l reformatted images were obtained and reviewed. All CT scans are performed using dose optimization technique as appropriate and may include automated exposure control or mA/KV adjustment according to patient size. FINDINGS: Several left renal calculi. No hydronephrosis. Tiny nonobstructing right renal calculus. 5 .4 centimeter cyst extends off of the left kidney. Ureteral calculus is not noted. No bladder calculus. Fatty liver. Spleen, pancreas and adrenals grossly normal No evidence of diverticulitis. Appendectomy. Small left inguinal hernia. Small to moderate right inguinal hernia. IMPRESSION: Nonobstructing renal calculi
[2022-04-05 08:06] LABS: Urine Blood 3+ (Negative); Urine Glucose Negative (Negative); Urine Protein Trace (Negative); Urine Specific Gravity 1.025 (1.005-1.030)
[2022-04-05] MEDS ORDERED: FENTANYL CITR 100 MCG/2 ML ONE ×2 (08:07→09:22)
[2022-04-05 08:25] LABS: Absolute Lymphocytes (CBC) 2.1 K/uL (0.7-4.9); Hematocrit 49.4 % (39.6-49.0); Lymphocytes % 20.9 % (15.3-44.8); MCV 91.8 fL (80-100); MPV 8.5 fL (7.6-11.3); RBC Red Blood Cell Count 5.38 M/uL (4.33-5.43)
[2022-04-05 08:26] LABS: Urine Mucus 2+ /HPF (None Seen); Urine RBC >50 /HPF (None Seen)
[2022-04-05 08:29] LABS: Protime INR 3.32
[2022-04-05 08:33] LABS: Albumin 4.2 g/dL (3.4-5.0); Bilirubin Total 0.6 mg/dL (0.2-1.0); Potassium 3.7 mmol/L (3.5-5.1)
--- NOTE | 2022-04-05 09:06 | ER ---
Nurse's Notes [facility] Name: Vincenzo Bales Age: 42 yrs Sex: Male : 1980 Arrival Date: 04/05/2022 Time: 06:57 Bed 18 Private MD: Diagnosis: Calculus of kidney Presentation: 04/05 07:23 Chief complaint: Patient states: LEFT FLANK PAIN SINCE 0430. Coronavirus screen: At bp this time, the client does not indicate any symptoms associated with coronavirus-19. Ebola Screen: No symptoms or risks identified at this time. Initial Sepsis Screen: Does the patient meet any 2 criteria? No. Patient's initial sepsis screen is negative. Does the patient have a suspected source of infection? No. Patient's initial sepsis screen is negative. Risk Assessment: Do you want to hurt yourself or someone else? Patient reports no desire to harm self or others. Onset of symptoms was April 05, 2022 at 04:30. 07:23 Method Of Arrival: Ambulatory bp 07:23 Acuity: ALE 3 bp Triage Assessment: 07:30 General: Appears distressed, uncomfortable, Behavior is calm, cooperative, appropriate bp for age. Pain: Complains of pain in left flank. EENT: No deficits noted. Neuro: No deficits noted. Cardiovascular: No deficits noted. Respiratory: No deficits noted. GI: Reports Pain is 8 out of 10 on a pain scale. : Reports pain in left flank(s). Derm: No deficits noted. Musculoskeletal: No deficits noted. Historical: - Allergies: 09:12 No Known Allergies; bp - Home Meds: 07:30 Furosemide Oral [Active]; Lunesta Oral [Active]; Metoprolol Tartrate Oral [Active]; bp Mirtazapine Oral [Active]; venlafaxine Oral [Active]; Warfarin Oral [Active]; - PMHx: 07:30 defective aortic valve; Hypertension; Kidney stones; bp - PSHx: 07:30 heart valve; bp - Immunization history:: Adult Immunizations up to date. - Social history:: Smoking status: unknown. - Family history:: not pertinent. Screenin:31 Abuse screen: Denies threats or abuse. Denies injuries from another. Nutritional bp screening: No deficits noted. Tuberculosis screening: No symptoms or risk factors identified. Fall Risk None identified. Assessment: 07:31 General: SEE TRIAGE NOTE. bp 09:44 Reassessment: PT DC HOME AMBULATORY. bp Vital Signs: 07:23 BP 154 / 82; Pulse 67; Resp 20; Temp 98; Pulse Ox 98% ; bp ED Course: 06:57 Patient arrived in ED. bp1 06:58 Terry Tillman MD is Attending Physician. rt 07:11 Reed Rizzo, RN is Primary Nurse. bp 07:29 Triage completed. bp 07:30 Arm band placed on. bp 07:31 Patient has correct armband on for positive identification. Bed in low position. Call bp light in reach. Side rails up X2. 07:[address] In Process Unspecified. EDMS 08:00 Inserted saline lock: 20 gauge in left antecubital area, using aseptic technique. Blood bp collected. 09:44 No provider procedures requiring assistance completed. IV discontinued, intact, bp bleeding controlled, No redness/swelling at site. Pressure dressing applied. Administered Medications: 08:00 Drug: Zofran (Ondansetron) 4 mg Route: IVP; Site: left antecubital; bp 09:42 Follow up: Response: No adverse reaction bp 08:03 CANCELLED (Patient Refused): morphine 4 mg IVP once over 4 mins rt 08:09 Drug: fentaNYL (PF) 100 mcg Route: IVP; Site: left antecubital; bp 09:43 Follow up: Response: Pain is decreased bp 09:20 Drug: Ketorolac 15 mg Route: IVP; Site: left antecubital; bp 09:43 Follow up: Response: No adverse reaction bp 09:20 Drug: Lidocaine 50 mg Route: IVP; Site: left antecubital; bp 09:43 Follow up: Response: No adverse reaction; Pain is decreased bp 09:30 Drug: fentaNYL (PF) 100 mcg Route: IVP; Site: left antecubital; bp 09:43 Follow up: Response: Pain is increased bp Medication: 07:31 VIS not applicable for this client. bp Outcome: 09:06 Discharge ordered by . rt 09:45 Patient left the ED. iw Signatures: Dispatcher [employer] EDAwilda Hayden RN RN iw Reed Rizzo RN RN bp [place] bp1 Terry Tillman MD MD rt Corrections: (The following items were deleted from the chart) 07:30 Allergies: Dilaudid; bp bp
--- NOTE | 2022-04-05 09:06 | EDPHYS ---
Physician Documentation [facility] Name: Vincenzo Bales Age: 42 yrs Sex: Male : 1980 Arrival Date: 04/05/2022 Time: 06:57 Bed 18 Private MD: ED Physician Terry Tillman HPI: 04/05 09:13 This 42 yrs old Male presents to ER via Ambulatory with complaints of Possible Kidney rt Stone. 07:23 The patient complains of pain in the left flank. The pain does not radiate. Onset: The rt symptoms/episode began/occurred last night. Modifying factors: The symptoms are alleviated by nothing. the symptoms are aggravated by nothing. Associated signs and symptoms: Pertinent positives: nausea, Pertinent negatives: dysuria, fever. Severity of pain: At its worst the pain was moderate. Patient with prior kidney stone presents to the ED with a left flank pain starting last night, started with nausea, now with a sharp, nonradiating pain, moderate severity, no other aggravating or alleviating factors.. Historical: - Allergies: 09:12 No Known Allergies; bp - Home Meds: 07:30 Furosemide Oral [Active]; Lunesta Oral [Active]; Metoprolol Tartrate Oral [Active]; bp Mirtazapine Oral [Active]; venlafaxine Oral [Active]; Warfarin Oral [Active]; - PMHx: 07:30 defective aortic valve; Hypertension; Kidney stones; bp - PSHx: 07:30 heart valve; bp - Immunization history:: Adult Immunizations up to date. - Social history:: Smoking status: unknown. - Family history:: not pertinent. ROS: 07:23 Constitutional: Negative for fever, chills, and weight loss, Eyes: Negative for injury, rt pain, redness, and discharge, ENT: Negative for injury, pain, and discharge, Neck: Negative for injury, pain, and swelling, Cardiovascular: Negative for chest pain, palpitations, and edema, Respiratory: Negative for shortness of breath, cough, wheezing, and pleuritic chest pain, : Negative for injury, bleeding, discharge, and swelling, MS/Extremity: Negative for injury and deformity, Skin: Negative for injury, rash, and discoloration, Neuro: Negative for headache, weakness, numbness, tingling, and seizure, Psych: Negative for depression, anxiety, suicide ideation, homicidal ideation, and hallucinations. 07:23 Abdomen/GI: Positive for nausea, Negative for vomiting. 07:23 Back: Positive for flank pain, Negative for injury or acute deformity. Exam: 07:23 Constitutional: This is a well developed, well nourished patient who is awake, alert, rt and in no acute distress. Head/Face: Normocephalic, atraumatic. Eyes: Pupils equal round and reactive to light, extra-ocular motions intact. Lids and lashes normal. Conjunctiva and sclera are non-icteric and not injected. Cornea within normal limits. Periorbital areas with no swelling, redness, or edema. ENT: Nares patent. No nasal discharge, no septal abnormalities noted. Tympanic membranes are normal and external auditory canals are clear. Oropharynx with no redness, swelling, or masses, exudates, or evidence of obstruction, uvula midline. Mucous membranes moist. Neck: Trachea midline, no thyromegaly or masses palpated, and no cervical lymphadenopathy. Supple, full range of motion without nuchal rigidity, or vertebral point tenderness. No Meningismus. Chest/axilla: Normal chest wall appearance and motion. Nontender with no deformity. No lesions are appreciated. Cardiovascular: Regular rate and rhythm with a normal S1 and S2. No gallops, murmurs, or rubs. Normal PMI, no JVD. No pulse deficits. Respiratory: Lungs have equal breath sounds bilaterally, clear to auscultation and percussion. No rales, rhonchi or wheezes noted. No increased work of breathing, no retractions or nasal flaring. Abdomen/GI: Soft, non-tender, with normal bowel sounds. No distension or tympany. No guarding or rebound. No evidence of tenderness throughout. Skin: Warm, dry with normal turgor. Normal color with no rashes, no lesions, and no evidence of cellulitis. MS/ Extremity: Pulses equal, no cyanosis. Neurovascular intact. Full, normal range of motion. Neuro: Awake and alert, GCS 15, oriented to person, place, time, and situation. Cranial nerves II-XII grossly intact. Motor strength 5/5 in all extremities. Sensory grossly intact. Cerebellar exam normal. Normal gait. Psych: Awake, alert, with orientation to person, place and time. Behavior, mood, and affect are within normal limits. 07:23 Back: CVA tenderness, that is moderate, is noted on the left. 09:52 Cardiovascular: Heart sounds: audible mechanical valve. rt Vital Signs: 07:23 BP 154 / 82; Pulse 67; Resp 20; Temp 98; Pulse Ox 98% ; bp MDM: 07:09 Patient medically screened. rt 09:10 Differential diagnosis: nephrolithiasis, pyelonephritis, UTI. Data reviewed: vital rt signs, nurses notes, old medical records, lab test result(s), radiologic studies. ED course: Presents to the ED with a left flank pain consistent with prior kidney stones. Is found to have nephrolithiasis. Symptoms are improving with treatment in the ED. No evidence of infected urine, the rest of the CT scan, labs are unremarkable. Patient is stable for outpatient care, will follow up with his urologist.. 04/05 07:19 Order name: CBC with Diff; Complete Time: 08:56 rt 04/05 07:19 Order name: CMP; Complete Time: 08:56 rt 04/05 07:19 Order name: UA MICROSCOPIC; Complete Time: 08:56 rt 04/05 07:19 Order name: PT-INR; Complete Time: 08:56 rt 04/05 07:19 Order name: Ptt, Activated; Complete Time: 08:56 rt 04/05 07:19 Order name: Lipase; Complete Time: 08:56 rt 04/05 07:19 Order name: Stone Protocol CT; Complete Time: 07:52 rt 04/05 08:06 Order name: Urine Dipstick-Ancillary; Complete Time: 08:56 EDMS 04/05 07:19 Order name: Urine Dipstick-Ancillary (obtain specimen); Complete Time: 08:09 rt Administered Medications: 08:00 Drug: Zofran (Ondansetron) 4 mg Route: IVP; Site: left antecubital; bp 09:42 Follow up: Response: No adverse reaction bp 08:03 CANCELLED (Patient Refused): morphine 4 mg IVP once over 4 mins rt 08:09 Drug: fentaNYL (PF) 100 mcg Route: IVP; Site: left antecubital; bp 09:43 Follow up: Response: Pain is decreased bp 09:20 Drug: Ketorolac 15 mg Route: IVP; Site: left antecubital; bp 09:43 Follow up: Response: No adverse reaction bp 09:20 Drug: Lidocaine 50 mg Route: IVP; Site: left antecubital; bp 09:43 Follow up: Response: No adverse reaction; Pain is decreased bp 09:30 Drug: fentaNYL (PF) 100 mcg Route: IVP; Site: left antecubital; bp 09:43 Follow up: Response: Pain is increased bp Disposition Summary: 04/05/22 09:06 Discharge Ordered Location: Home rt Problem: an acute exacerbation rt Symptoms: have improved rt Condition: Stable rt Diagnosis - Calculus of kidney rt Followup: rt - With: Private Physician - When: 2 - 3 days - Reason: Discharge Instructions: - Discharge Summary Sheet rt - Kidney Stones rt Forms: - Medication Reconciliation Form rt - Thank You Letter rt - Work release form bp - Antibiotic Education rt - Prescription Opioid Use rt Prescriptions: - Tylenol-Codeine #3 300 mg-30 mg Oral - take 1 tablet by ORAL route every 6 hours; 15 tablet; Refills: 0, Product rt Selection Permitted Signatures: Dispatcher [employer] Reed Branham RN RN bp [place], Ryan, MD MD rt Corrections: (The following items were deleted from the chart) 08:03 07:19 morphine 4 mg IVP once over 4 mins ordered. rt rt 09:12 07:30 Allergies: Dilaudid; bp bp
[2022-04-05] MEDS ORDERED: LIDOCAINE 1% MPF 5 ML VIAL ONE (09:21)
[2022-04-05] MEDS ORDERED: KETOROLAC 30 MG/ML INJ ONE (09:22)
[2022-04-05 09:49] VITALS: BP 154/82; TEMP 98; O2SAT 98
== END 2022-04-05 09:45 | disposition home or self-care (01) ==
LOC: ER 06:54
DX: N20.0 Calculus of kidney (principal); I10 Essential (primary) hypertension; Z87.442 Personal history of urinary calculi
CPT/HCPCS: 85025; 36415; 85610; 85730; 83690; 80053; 76377; 74176; J2001; J3010 ×2; J2405; 81003; 81015

== ENCOUNTER 2022-04-10 08:44 | Emergency (ER) | payer OTHER ==
--- OUTSIDE RECORDS SUMMARY | 2022-04-10 08:51 | XMS REPORT | Continuity of Care Document ---
:1980 Author Organization [facility] t Address [address] [place] [address] Care Team Providers Name Role Phone Carla Rodriguez MD, Rambo Dalal Primary Care Physician [phone] DENZEL POWELL Attending Clinician Unavailable NOAH GRUBER Attending Clinician Unavailable Andre SANCHEZ, Denzel Rankin Attending Clinician [phone] Arie Rivas DO Attending Clinician Noah Smith MD Attending Clinician Joya Christina NP Attending Clinician JOYA CHRISTINA Attending Clinician Unavailable NATHANIEL SAENZ Attending Clinician Unavailable PEYTON FULLER Attending Clinician Unavailable DENZEL POWELL Admitting Clinician Unavailable NOAH GRUBER Admitting Clinician Unavailable HAWA BURGOS Admitting Clinician Unavailable Payers Payer Name Policy Type Policy Number Effective Date Expiration Date S ourarley BCBS OS [id number] 2019 POS/PPO/EPO 00:00:00 CDC REVIEW [id number] 2019 00:00:00 ZZCDCREVIEW [id number] 2018 2018 00:00:00 00:00:00 Problems Condition Condition [...] Stop Date Source Natural father Heart disease [facility] Maternal aunt Diabetes [facility] Maternal aunt Liver disease [facility] Maternal grandmother Liver disease [facility] Maternal uncle Cancer [facility] Natural mother Arthritis [facility] Paternal grandmother Diabetes [facility] Natural son No Known Problem [facility] Social History Social Habit Start Date Stop Date Quantity Comments Source History of tobacco Cigarette Smoker [facility] use [facility] Alcohol intake 2020-04-28 2020-04-28 [facility]00 of alcohol [facility] Center (finding) History [facility] 2020-03-27 2020-03-27 during holidays, [facility] Alcohol Comment 00:00:00 00:00:00 3 times per year Med ical Center History [facility] 2019-09-17 2019-09-[address] [facility] Alcohol Frequency 00:00:00 00:00:00 Medical Center History [facility] 2019-09-17 2019-09-[address] [facility] Alcohol Std Drinks 00:00:00 00:00:00 Medica l Center History [facility] 2019-09-17 2019-09-[address] [facility] Alcohol Binge 00:00:00 00:00:[address] Cigarettes smoked 2019-09-17 2019-09-[address] [facility] current (pack per 00:00:00 00:00:00 Medical Center day) - Reported Cigarette 2019-09-17 2019-09-[address] [facility] pack-years 00:00:00 00:00:00 [facility] Center Tobacco use and 2019-09-17 2019-09-[address] [facility] k[facility] exposure 00:00:00 00:00:00 [facility] Center Sex Assigned At [birth year] Yarsanism 00:00:00 00:00:00 Hospital Smoking Status Start Date Stop Date Source Tobacco smoking consumption [facility] unknown Current every day smoker 2019-09-17 00:00:00 [facility] Medications Ordered Filled Start Stop Current Ordering Indication Dosage Frequency Signature Comments Components Source Medication Medication Date Date Medication? Clinician (SIG) Name Name ibuprofen 2019-05 Yes Take by [facility] 2[facility] LIQUI-GEL 13:06: Medical ORAL) [address] [place] ibuprofen 2019-05 Yes Take by [facility] ([facility]VIL 2[facility] LIQUI-GEL 13:06: Medical ORAL) [address] [place] ibuprofen 2019-05 Yes Take by [facility] (ADVIL 2-15 [facility]. [facility] LIQUI-GEL 13:06: Medical ORAL) [address] [place] doxylamin-P 2019-05- No 1{dose} Take [address] SE-DM-aceta 2-15 12-15 Dose by Milad castorenaophen 13:06: 00:00 mouth as Medi stephanie (Izabella-Seltz 17 :00 needed Center er Plus Izabella Cold+Flu) [facility] 12.5-10-20- Cold/Sinus 650 mg PwPk . aspirin 81 2019-05- No 81mg QD Take [address] MG EC 06-08 12-15 tablet (81 [facility] tablet 00:00: 00:00 mg total) Medic al 00 :00 by mouth Center daily. nicotine 2019-05- No 1{patch QD Place [address] (NICODERM 06-08 } patch onto Jeannie es CQ) 14 00:00: 23:59 the skin Medica l mg/24 hr 00 :00 daily for Center patch 14 days. doxylamine/ 2019-05- No 1{tbl} Take [address] phenylep/DM -24 11-24 tablet by Joan roque /aspirin 12:44: [...] Take 1 [facility] (COUMADIN, 1-24 -24 tablet [facility] JANVEN) 00:00: 23:59 (7.5 mg Medi stephanie 7.5 MG 00 :00 total) by Center tablet mouth daily. warfarin 2019-05 No 7.5mg QD Take 1 [facility] (COUMADIN, 1-24 11-24 tablet [facility] JANTOVEN) 00:00: 23:59 (7.5 mg Medi stephanie 7.5 MG 00 :00 total) by Center tablet mouth daily. guaiFENesin 2019-05- No 600mg Q.5D Take [address] (mucINEX) 06-07 tablet [facility] 600 mg 12 00:00: 23:59 [...] Medical tablet 35 :00 daily. Center gabapentin 2020-0 Yes 300mg Take [address] (NEURONTIN) 5-06 mg by [facility] 300 MG 00:00: mouth 2 Medical capsule 00 (two) Center times daily as needed . gabapentin 2020-0 Yes 300mg Take [address] (NEURONTIN) 5-06 mg by [facility]ukes 300 MG 00:00: mouth 2 Medical capsule 00 (two) Center times daily as needed . gabapentin 2019-0 Yes 300mg Take 300 CH [...] kg Systolic blood 2020-04-28 12:55:00 136 mm[Hg] [facility] Diastolic blood 2020-04-28 12:55:00 83 mm[Hg] [facility] Heart rate 2020-04-28 12:55:00 66 /min [facility] Body temperature 2020-04-28 12:55:00 37 Claudette [facility] Respiratory rate 2020-04-28 12:55:00 18 /min [facility] Body height 2020-04-28 12:55:00 177.8 cm [facility] Body weight 2020-04-28 12:55:00 117.482 kg [facility] BMI 2020-04-28 12:55:00 37.16 kg/m2 [facility] Oxygen saturation in 2020-04-28 12:55:00 98 /min room air [facility] Arterial blood by Medical Ce nter Pulse oximetry Procedures Procedure Date / Time Performing Clinician Source Performed CBC (HEMOGRAM ONLY) 2020-04-07 05:47:00 Shakira Lazcano [facility] BASIC METABOLIC PANEL (7) 2020-04-07 05:47:00 Shakira Lazcano [facility] MAGNESIUM 2020-04-07 05:47:00 Shakira Lazcano [facility] PHOSPHORUS 2020-04-07 05:47:00 Shakira Lazcano [facility] PROTHROMBIN TIME/INR 2020-04-07 05:47:00 Shakira Lazcano [place] [facility] 2D ECHO W/ DOPPLER 2020-04-06 17:23:05 Anastacio Bhakta [facility] (CW/PW/COLOR) [facility] CBC (HEMOGRAM ONLY) 2020-04-06 06:06:00 Shakira Lazcano [facility] BASIC METABOLIC PANEL (7) 2020-04-06 06:06:00 Shakira Lazcano [facility] MAGNESIUM 2020-04-06 06:06:00 Shakira Lazcano [facility] PHOSPHORUS 2020-04-06 06:06:00 [facility]/INR 2020-04-06 06:06:00 Neno [facility] CBC (HEMOGRAM ONLY) 2020-04-04 05:36:00 Shakira Lazcano [facility] BASIC METABOLIC PANEL (7) 2020-04-04 05:36:00 Shakira Lazcano [facility] MAGNESIUM 2020-04-04 05:36:00 Shakira Lazcano [facility] PHOSPHORUS 2020-04-04 05:36:00 Shakira Lazcano [facility] PROTHROMBIN TIME/INR 2020-04-04 05:36[facility]00 [facility] / 2020-04-04 04:24:00 Shakira Lazcano [facility] POCT-GLUCOSE METER 2020-04-03 05:54:00 Andre [facility] BLOOD GAS, VENOUS 2020-04-03 02:38:00 Bina Cleaning [facility] CBC (HEMOGRAM ONLY) 2020-04-03 02:36:00 Shakira Lazcano [facility] BASIC METABOLIC PANEL (7) 2020-04-03 02:36:00 Shakira Lazcano [facility] MAGNESIUM 2020-04-03 02:36:00 Shakira Lazcano [facility] PROTHROMBIN TIME/INR 2020-04-03 02:36:00 Anastacio Bhakta [facility] XR CHEST 1 VIEW PORTABLE / 2020-04-03 02:31:[address] [facility] POCT-GLUCOSE METER 2020-04-02 05:50:00 Andre [facility] BLOOD GAS, ARTERIAL 2020-04-02 02:49:00 Magaly Wasserman [facility] CBC (HEMOGRAM ONLY) 2020-04-02 02:49:00 Shakira Lazcano [facility] BASIC METABOLIC PANEL (7) 2020-04-02 02:49:00 Shakira Lazcano [facility] MAGNESIUM 2020-04-02 02:49:00 Shakira Lazcano [facility] LACTIC ACID, ARTERIAL 2020-04-02 02:49:00 Iglisa [facility] PROTHROMBIN TIME/INR 2020-04-02 02:49:00 Anastacio Bhakta [facility] XR CHEST 1 VIEW PORTABLE / 2020-04-02 01:59:00 Shakira Lazcano [facility] POCT-GLUCOSE METER 2020-04-02 00:01:00 Denzel [facility] BASIC METABOLIC PANEL (7) 2020-04-01 18:52:00 Liset Nunez [facility] LACTIC ACID, ARTERIAL 2020-04-01 04:24:00 Iginiamre [facility] PHOSPHORUS 2020-04-01 04:22:00 SantizoJacek gu Yoel [facility] BLOOD GAS, ARTERIAL 2020-04-01 04:22:00 Iginiamre [facility] CBC (HEMOGRAM ONLY) 2020-04-01 04:22:00 Shakira Lazcano [facility] BASIC METABOLIC PANEL (7) 2020-04-01 04:22:00 Shakira Lazcano [facility] MAGNESIUM 2020-04-01 04:22:00 Shakira Lazcano [facility] XR CHEST 1 VIEW PORTABLE / 2020-04-01 01:47:00 Shakira Lazcano [facility] POCT-GLUCOSE METER 2020-03-31 17:18:00 Denzel [facility] LACTIC ACID, ARTERIAL 2020-03-31 05:23:00 Iginiamre, [facility] PHOSPHORUS 2020-03-31 02:42:00 SantizoCollinJacek Yoel [facility] BLOOD GAS, ARTERIAL 2020-03-31 02:42:00 ConorMagaly dobbins [facility] CBC (HEMOGRAM ONLY) 2020-03-31 02:42:00 Shakira Lazcano [facility] BASIC METABOLIC PANEL (7) 2020-03-31 02:42:00 Shakira Lazcano [facility] MAGNESIUM 2020-03-31 02:42:00 Shakira Lazcano [facility] LACTIC ACID, ARTERIAL 2020-03-31 02:42:00 Lisy [facility] POCT-GLUCOSE METER 2020-03-31 02:18:00 Denzel [facility] XR CHEST 1 VIEW PORTABLE / 2020-03-31 01:38:00 Patricio Lazcanoa Vannessa [facility] LACTIC ACID, ARTERIAL 2020-03-31 00:24:00 Lisy [facility] BLOOD GAS, ARTERIAL 2020-03-31 00:24:00 [facility] 2020-03-30 22:34:00 [facility] BLOOD GAS, ARTERIAL 2020-03-30 22:06:00 Cara, [facility] LACTIC ACID, ARTERIAL 2020-03-30 20:21:00 Cara, [facility] BLOOD GAS, ARTERIAL 2020-03-30 20:21:00 Cara, [facility] CALCIUM, IONIZED 2020-03-30 20:21:00 [facility] SODIUM NA-STAT LAB 2020-03-30 20:21:00 Cara, [facility] POTASSIUM-STAT LAB 2020-03-30 20:21:00 Cara, [facility] GLUCOSE-STAT LAB 2020-03-30 20:21:00 Cara [facility] HGB/HCT (H&H) - STAT LAB 2020-03-30 20:21:00 Monster Marroquin Polyca rp [facility] BLOOD GAS, ARTERIAL 2020-03-30 18:47:00 Arleyjonmarciano [facility] LACTIC ACID, ARTERIAL 2020-03-30 18:20:00 ArleyjonYamil tariqBo[facility] BLOOD GAS, ARTERIAL 2020-03-30 18:20:00 Lisy [facility] SODIUM NA-STAT LAB 2020-03-30 18:20:00 Lisy [facility] POTASSIUM-STAT LAB 2020-03-30 18:20:00 Arleyjonmarciano [facility] GLUCOSE-STAT LAB 2020-03-30 18:20:00 Lisy [facility] HGB/HCT (H&H) - STAT LAB 2020-03-30 18:20:00 Magaly Wasserman [facility] XR CHEST 1 VIEW PORTABLE / 2020-03-30 17:45:00 [facility] OXY[facility] SATURATION, 2020-03-30 17:38:00 [facility] AP[facility] 2020-03-30 17:38:[address] [facility] PROTHROMBIN TIME/INR 2020-03-30 17:38:00 Lisy [facility] FIBRINOGEN 2020-03-30 17:38:00 [facility] BASIC METABOLIC PANEL (7) 2020-03-30 17:34:00 Jacek Santizoa mickey [facility] MAGNESIUM 2020-03-30 17:34:00 Jacek Santizoarat [facility] PHOSPHORUS 2020-03-30 17:34:00 Collin Santizoishna Yoel [facility] BLOOD GAS, ARTERIAL 2020-03-30 17:34:00 Lisy [facility] CALCIUM, IONIZED 2020-03-30 17:34:00 Iglisa [facility] CBC W/PLT COUNT & AUTO 2020-03-30 17:34:00 Lisy [facility] LACTIC ACID, ARTERIAL 2020-03-30 17:34:00 Lisy [facility] SODIUM NA-STAT LAB 2020-03-30 17:34:00 Lisy [facility] POTASSIUM-STAT LAB 2020-03-30 17:34:00 Lisy [facility] GLUCOSE-STAT LAB 2020-03-30 17:34:00 Lisy [facility] HGB/HCT (H&H) - STAT LAB 2020-03-30 17:34:00 ConorMagaly dobbins [facility] (CELLAVISION MANUAL DIFF) 2020-03-30 17:34:00 Lisy [facility] PREPARE RBC 2020-03-30 16:46:00 Andre, [facility] PREPARE PLASMA 2020-03-30 16:46:[address] [facility] POCT-ACT 2020-03-30 15:54:[address] [facility] PLATELET COUNT 2020-03-30 15:50:[facility] 2020-03-30 15:50:28 Holden [facility] FIBRINOGEN 2020-03-30 15:50:28 [facility] PO[facility] 2020-03-30 15:31:[address] [facility] SODIUM NA-STAT LAB 2020-03-30 15:28:03 [facility]OT[facility] 2020-03-30 15:28:03 [facility] GLU[facility]SE-[facility] 2020-03-30 15:28[facility]03 [facility] - [facility] LAB 2020-03-30 15:28:03 [facility] BLO[facility], ARTERIAL 2020-03-30 15:28:03 [facility] CALCI[facility], ION[facility]ED 2020-03-30 15:28:03 [facility] 2020-03-30 14:55:[address] [facility] BLOOD GAS, ARTERIAL 2020-03-30 14:53:[address] [facility] SODIUM NA-STAT LAB 2020-03-30 14:53:29 Andre [facility] POTASSIUM-STAT LAB 2020-03-30 14:53:29 Andre [facility] GLUCOSE-STAT LAB 2020-03-30 14:53:29 Andre [facility] HGB/HCT (H&H) - STAT LAB 2020-03-30 14:53:29 Andre, [facility] TISSUE EXAM 2020-03-30 14:43:[address] [facility] POCT-ACT 2020-03-30 14:31:[address] [facility] BLOOD GAS, ARTERIAL 2020-03-30 14:28:[address] [facility] SODIUM NA-STAT LAB 2020-03-30 14:28:05 Andre [facility] POTASSIUM-STAT LAB 2020-03-30 14:28:05 Andre [facility] GLUCOSE-STAT LAB 2020-03-30 14:28:05 Andre [facility] HGB/HCT (H&H) - STAT LAB 2020-03-30 14:28:[address] [facility] POCT-ACT 2020-03-30 14:01:[address] [facility] BLOOD GAS, ARTERIAL 2020-03-30 13:58:50 Andre, [facility] SODIUM NA-STAT LAB 2020-03-30 13:58:50 Andre, [facility] POTASSIUM-STAT LAB 2020-03-30 13:58:50 Andre [facility] GLUCOSE-STAT LAB 2020-03-30 13:58:50 Andre [facility] HGB/HCT (H&H) - STAT LAB 2020-03-30 13:58:[address] [facility] POCT-ACT 2020-03-30 13:30:00 Denzel Powell [facility] CONT WAVE PULSED DOPPLER 2020-03-30 13:27:45 Anastacio Bhakta [facility] COLOR-FLOW MAPPING 2020-03-30 13:27:44 Anastacio Bhakta [facility] BLOOD GAS, ARTERIAL 2020-03-30 13:27:[address] [facility] SODIUM NA-STAT LAB 2020-03-30 13:27:20 Andre [facility] POTASSIUM-STAT LAB 2020-03-30 13:27:20 Andre [facility] GLUCOSE-STAT LAB 2020-03-30 13:27:20 Andre [facility] HGB/HCT (H&H) - STAT LAB 2020-03-30 13:27:[address] [facility] POCT-ACT 2020-03-30 12:54:[address] [facility] BLOOD GAS, ARTERIAL 2020-03-30 12:02:40 Holden [facility] CALCIUM, IONIZED 2020-03-30 12:02:40 [facility] NA-STAT LAB 2020-03-30 12:02:40 [facility] POTASSIUM-STAT LAB 2020-03-30 12:02:40 [facility] GLUCOSE-STAT LAB 2020-03-30 12:02:40 [facility] (H&H) - STAT LAB 2020-03-30 12:02:40 Holden [facility] TRANSESOPHAGEAL ECHO 2020-03-30 10:57:35 Anastacio Bhakta [facility] REPLACEMENT,VALVE AORTIC 2020-03-30 10:52:[address] [facility] POCT-GLUCOSE METER 2020-03-30 08:20:00 Andre [facility] COMPREHENSIVE METABOLIC 2020-03-27 08:33:00 Debonte, [facility] LIPID PANEL 2020-03-27 08:33:00 Debonte, [facility] MAGNESIUM 2020-03-27 08:33:00 Debonte, [facility] TYPE AND SCREEN, AUTOMATED 2020-03-27 08:32:00 Debonte, [facility] APTT 2020-03-27 08:32:00 Debonte, [facility] CBC W/PLT COUNT & AUTO 2020-03-27 08:32:00 Debonte, [facility] HEMOGLOBIN A1C 2020-03-27 08:32:00 Debonte, [facility] PROTHROMBIN TIME/INR 2020-03-27 08:32:00 Debonte, [facility] SARS-COV2/RT-PCR ([facility] & 2020-03-27 08:11:00 Debonte, [facility] REF LABS) [facility] ECG 12-LEAD 2020-03-27 07:28:01 Unknown, Hl7 Doctor [facility] CTA CHEST 2020-03-19 15:44:00 Joya Christina [facility] HC CAROTID DOPPLER LINDSEY 2020-03-19 13:40:00 Mario Joya [facility] Plan of Care Planned Activity Planned Date Details Comments Source Future Scheduled 2023-03-[address] [facility] Test 00:00:00 (procedure) [code = [facility] 81032780] Future Scheduled 2023-03-[address] [facility] Test 00:00:00 (procedure) [code = [facility] [id number]] Future Scheduled 2023-03-[address] [facility] Test 00:00:00 (procedure) [code = [facility] Center [id number]] Future Scheduled 2022-03-20 HEPATITIS B VACCINES [facility] Test 05:17:09 (1 of 3 - 3-dose series) [code = HEPATITIS B VACCINES (1 of 3 - 3-dose series)] Future Scheduled 2022-03-20 COVID-19 VACCINE (#1) [facility] Test 05:17:09 [code = COVID-19 VACCINE (#1)] Future Scheduled 2022-03-20 INFLUENZA VACCINE [facility] Test 05:17:09 [code = INFLUENZA VACCINE] Future Scheduled 2022-03-20 HEPATITIS B VACCINES [facility] Test 05:17:09 (1 of 3 - 3-dose series) [code = HEPATITIS B VACCINES (1 of 3 - 3-dose series)] Future Scheduled 2022-03-20 COVID-19 VACCINE (#1) [facility] Test 05:17:09 [code = COVID-19 VACCINE (#1)] Future Scheduled 2022-03-20 INFLUENZA VACCINE [facility] Test 05:17:09 [code = INFLUENZA VACCINE] Future Scheduled 2022-01-13 INFLUENZA VACCINE (#1) [facility]00 [code = INFLUENZA Medical Ce nter VACCINE (#1)] Future Scheduled 2022-01-13 INFLUENZA VACCINE (#1) [facility] Test 00:00:00 [code = INFLUENZA Medical Ce nter VACCINE (#1)] Future Scheduled 2021-05-[address] [facility] Test 00:00:00 (12+) [code = [facility] Center DEPRESSION SCREENING (12+)] Future Scheduled 2021-05-[address] [facility] Test 00:00:00 (12+) [code = [facility] Center DEPRESSION SCREENING (12+)] Future Scheduled 2021-04-[address] [facility] Test 00:00:00 Counseling [facility] Medical Cent[facility] r Screening (12+) [code = Tobacco Cessation Counseling and Screening (12+)] Future Scheduled 2021-04-28 Tobacco Cessation [facility] [...] 0-64 YRS (1 - PCV)] Future Scheduled [address] [facility] Test 00:00:00 0-64 YRS (1 - PCV) Medical C enter [code = PNEUMOCOCCAL VACCINE 0-64 YRS (1 - PCV)] Future Scheduled 1980 COVID-19 VACCINE (#1) [facility] Test 00:00:00 [code = COVID-[address] VACCINE (#1)] Future Scheduled 1980 COVID-19 VACCINE (#1) [facility] Test 00:00:00 [code = COVID-[address] VACCINE (#1)] Future Scheduled COVID-19 VACCINE (1) [facility] Test [code = COVID-19 VACCINE (1)] Future Scheduled Hepatitis C screening [facility] Test (procedure) [code = [id number]] Future Scheduled [facility]ZA [facility]ACCINE [facility] [code = INFLUENZA VACCINE] Encounters Start End Encounter Admission Attending Care Care Encounter Source Date/Time Date/Time Type Type Clinicians Facility Department ID 2021-02-18 Inpatient ANDRE, [facility] Surgery [id number] [facility] 11:03:59 DENZEL 2021-02-16 Inpatient ALLYN, [facility] Surgery [id number] [facility] 13:20:17 NOAH 2020-04-28 2020-04-28 Outpatient DERICK POWELL, [facility] SLE [id number] [facility] 00:00:00 00:00:00 DENZEL 2020-03-27 2020-03-27 Outpatient DERICK POWELL [facility] [id number] [facility] 00:00:00 00:00:00 DENZEL 2020-03-27 2020-03-27 [id number] 00:00:00 00:00:00 2020-03-19 2020-03-19 [facility] [id number] 00:00:00 00:00:00 JOYA 2020-03-19 2020-03-19 Outpatient DERICK CHRISTINA [facility] [id number] [facility] 00:00:00 00:00:00 JOYA 2020-03-03 2020-03-03 Outpatient DERICK POWELL, [facility] [id number] [facility] 00:00:00 00:00:00 DENZEL 2019-10-01 2019-10-01 Outpatient SLE [facility] [id number] [facility] 00:00:00 00:00:00 [id number] 2019-10-01 2019-10-01 Outpatient DERICK GRUBER [facility] SLE [id number] [facility] 00:00:00 00:00:00 NOAH 2019-09-19 2019-09-19 Emergency ER DANY, [facility] Emergency [id number] [facility] 16:55:16 16:55:16 NATHANIEL 2019-09-18 2019-09-18 Outpatient [facility] [id number] SLE 05:21:00 05:21:00 [id number] 2019-09-17 2019-09-17 [facility] [id number] SLE 09:50:41 23:59:00 NOAH 2019-09-17 2019-09-17 Outpatient [facility] [id number] SLE 00:00:00 00:00:00 [id number] 2019-07-22 2019-07-22 Outpatient [facility] [id number] SLE 00:00:00 00:00:00 [id number] Results Test Description Test Time Test Comments Results Result Sourc e Comments 2D Echo 2020-03-[address] [facility] W/Doppler(CW/PW/C 4 ECHO [facility]) 09:36:15 [facility] CPACSInterface, External Ris In - 04/07/2020 9:36 AM CSTTransthoracic Echocardiography Report (TTE) Demographics Patient Name KELLY BALES Date of Study 04/06/2020 Gender Male Visit Number [id number] Race Unknown Room Number 1127 Number Date of 1980 Referring Physician Age 40 year(s) 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 MPV (test code = 99067-3) 10.2 fL 9.4-12.4 Lab Interpretation (test code Abnormal = 33364-0) [facility] (HEMOGRAM ONLY)2020-04-07 09:15:00 Test Item Value Reference [...] 9.4-12.4 (test code = 754) Basic Metabolic [id number] 07:00:00 Test Item Value Reference Range Interpretation Comments Sodium (test code = 136 meq/L 325-546 0320-2) Potassium (test code = 3.8 meq/L 3.5-5.1 2823-3) Chloride (test code = 98 meq/L 98-107 5-0) CO2 (test code = 27 meq/L 22-29 8-9) BUN (test code = 22 mg/dL 7-21 H 3094-0) Creatinine (test code 0.99 mg/dL 0.57-1.25 = 2160-0) Glucose (test code = 119 mg/dL 70-105 H 2345-7) Calcium (test code = 9.3 mg/dL 8.4-10.2 57032-9) EGFR (test code = 84 mL/min/1.73 [place] [address]-0) NOT ACCURATE CREATININE CLEARANCE IN PREDICTING GLOMERULAR FILTRATION RATE . ESTIMATED GFR I S NOT APPLICABLE FOR DIALYSIS PATIENTS. BEBE (test code = BEBE) Foreign Policy Officer ID - PIAYA L Lab Interpretation Abnormal (test code = 18904-2) [facility]00 Test Item Value Reference Range Interpretation Comments Magnesium (test code = 1.9 mg/dL 1.6-2.6 94177-5) BEBE (test code = BEBE) Foreign Policy Officer ID - PIAYA L Lab Interpretation (test Normal code = 06289-2) [facility]osph[facility]00 Test Item Value Reference Range Interpretation Comments Phosphorus (test code = 3.6 mg/dL 2.3-4.7 7-1) BEBE (test code = BEBE) Foreign Policy Officer ID - PIAYA L Lab Interpretation (test Normal code = 58086-8) [facility] [id number] 07:00:00 Test Item Value Reference Range Interpretation Comments SODIUM (BEAKER) 136 meq/L 136-145 (test code = 381) POTASSIUM (BEAKER) 3.8 meq/L 3.5-5.1 (test code = 379) CHLORIDE (BEAKER) 98 meq/L 98-107 (test code = 382) CO2 (BEAKER) (test 27 meq/L -29 code = 355) BLOOD UREA NITROGEN 22 [...] S NOT APPLICABLE FOR DIALYSIS PATIEN TS. Foreign Policy Officer ID - DAGO [id number] 07:00:00 Test Item Value Reference Range Interpretation Comments MAGNESIUM (BEAKER) (test code = 1.9 mg/dL 1.6-2.6 627) Foreign Policy Officer ID - PIJOHNY [id number] 07:00:00 Test Item Value Reference Range Interpretation Comments PHOSPHORUS (BEAKER) (test code = 3.6 mg/dL 2.3-4.7 604) Foreign Policy Officer ID - DAGO LProthrombin time/[id number] 06:42:00 Test Item Value Reference Interpretation Comments Range Protime (test code = 26.8 See_Comment H [Autom ated 5902-2) message] The system which generated this result transmitted reference range : 11.9 - 14.2 seconds. The reference range was not used to interpret this result as normal/abnormal . INR (test code = 2.55 See_Comment [Automated 9201-6) message] The system which generated this result [...] valves. Lab Interpretation Abnormal (test code = 12933-5) [facility] CenterPROTHROMBIN TIME/[id number] 06:42:00 Test Item Value Reference Range Interpretation [...] 2.5-3.5 for patients wiht mechanical heart valves.PROTHROMBIN TIME/[id number] 06:52:00 Test Item Value Reference Range Interpretation [...] is 2.5-3.5 for patients wiht mechanical heart valves.[id number] 06:44:00 Test Item Value Reference Range Interpretation Comments MAGNESIUM (BEAKER) 1.9 mg/dL 1.6-2.6 Specimen slightly (test code = 627) hemolyzed Foreign Policy Officer ID - [id number] 06:44:00 Test Item Value Reference Range Interpretation Comments PHOSPHORUS (BEAKER) 4.1 mg/dL 2.3-4.7 Specimen slightly (test code = 604) hemolyzed Foreign Policy Officer ID - ADMINBASIC METABOLIC [id number] 06:44:00 Test Item Value Reference Range Interpretation [...] S NOT APPLICABLE FOR DIALYSIS PATIEN TS. Foreign Policy Officer ID - ADMINCBC (HEMOGRAM ONLY)2020-04-06 06:28:00 Test [...] = 413) RAD, CHEST, 1 VIEW, NON [id number] 07:33:00while patient is intubated or has chest tubes.Reason for exam:->Status post CV SurgeryShould thisbe performed at the bedside?->Yes [facility] : 1980 Sex: MFINAL REPORT TECHNIQUE: Frontal view of the chest. INDICATION: Status post CV Surgery COMPARISON: 04/03/2020. FINDINGS: LINES/TUBES: None. LUNGS: Diffuse bilateral pleural and parenchymal opacities are not significantly changed. No pneumothorax. HEART AND MEDIASTINUM: The cardiomediastinal silhouette is stable. Status post median sternotomy.. SOFT TISSUES AND BONES: Unremarkable. IMPRESSION:No interval change.. Signed: Vannessa Pritchard MDReport Verified Date/Time: 04/04/2020 07:33:15 Reading Location: [facility] C013 CT Body Reading Room XR chest 1 view portable / [id number] 07:33:00 Interface, External Ris In - 04/04/2020 7:35 AM CSTFINAL REPORT TECHNIQUE: Frontal view of the chest. INDICATION: Status post CV Surgery COMPARISON: 04/03/2020. FINDINGS: LINES/TUBES: None. LUNGS: Diffuse bilateral pleural and parenchymal opacities are not significantly changed. No pneumothorax. HEART AND MEDIASTINUM: The cardiomediastinal silhouette is stable. Status post mediansternotomy.. SOFT TISSUES AND BONES: Unremarkable. IMPRESSION:No interval change.. Signed: Vannessa Pritchard MDReport Verified Date/Time: 04/04/2020 07:33:15 Reading Location: [facility] C013Y CT BodyReading Room [facility] [id number] 06:44:00 Test Item Value Reference Range Interpretation [...] S NOT APPLICABLE FOR DIALYSIS PATIEN TS. Foreign Policy Officer ID - NAYANA [id number] 06:44:00 Test Item Value Reference Range Interpretation Comments MAGNESIUM (BEAKER) (test code = 2.2 mg/dL 1.6-2.6 627) Foreign Policy Officer ID - NAYANA [id number] 06:44:00 Test Item Value Reference Range Interpretation Comments PHOSPHORUS (BEAKER) (test code = 3.4 mg/dL 2.3-4.7 604) Foreign Policy Officer ID - NAYANA MPROTHROMBIN TIME/[id number] 06:41:00 Test Item Value Reference Range Interpretation [...] 0-0 (BEAKER) (test code = 413) Tissue [id number] 17:37:00 Test Item Value Reference Range Interpretation Comments Case Report (test code Surgical Pathology = 104) Report Case: [id number] Authorizing Provider: Denzel Powell MD Collected: 03/30/2020 02:43 PM Ordering Location: [facility] Received: 03/30/2020 03:07 PM PERIOPERATIVE SERVICES Pathologist: Pedro Pablo Madrigal MD Specimen: Aortic Valve, AORTIC VALVE LEAFLETS DIAGNOSIS (test code = j1urwCDhNKRnc1lzKTEpqCX 3220) uZzEwMzNcZnRuYmpcdWMxIH tccnRmMVxlcGljOTIwMFxhb lUxVOKrfZNxG8PrfammUCpa UN7aWM4uoTnnmLHjfHFfEMI nEvExj9vea988pPHrx5lvAX LTtanjkYb3oPwxO48uc9I7C axwS40fkQDjVJkjkNEcpvdy smPmEDcTACKKJFJSG9ZMDBK gVkFMVkUsIFZBTFZVTEVDVE 9NWTpccGFyIExFQUZMRVRTI FuPMXlcX7BFPNXQRE2XBPBJ ZOJaV7AEJ3jVXYSgERQUCRU GC3IHDYBOSGsTRXNVKEIQPK 3YCjbjYUQxlr38DHR8DdNtj 1T0KWK7XLQqVWJof6ysAGYs bGFuZzEwMzNcZnRuYmpcdWM vGNYiYxQuy3qde283wFCmw8 nyMQScVaO9tKHiBJVxhBQmJ 056UQLhADqtg8uiq0EeCHHp gMQvm4C5KCPUyszhiAg9jDa aQ42mq8E9MjdvO7sfLNIgKF CkN6DjNU9yMCMcYlt6WLK5T RJ5DMQfSOSpD0KgAZ5gFOXc jPAtMZz3v4dtjRolUKUsQWF 2y8hqKAsuhzNmJY2wto6xkR y7j6tnvyNiNIFvLYXdeUVRX QKcY0VwaRbpLo3qbTn4xJif MyuxTOE9Ziy9EW2bml37szy 4xJxrWFZrrzjuFbK3NFajGU CjypgeLFa2NXhxSYQdkCZ2E FYjnYFeN8CaYOMcYQ1eggu4 ZAO3LByxSNCqSsO7EXCqcMA gNJJenPjlPAapi188JPF7Sh UaOP2zQ8Mwo4I1gO6ivMCcT ZWjeGExDwVvESOgzl0gcUSa LDoja4SkJSF2lyK0nBKqcDR eOLZtSqT7IWuyTY1uch55AW BjJOR7yj0cdCNioHdukrCcf AWpRNitL9QlXVGfo825EIHl W1HnBXTbv3O8deItAoDiQJT ftLT1ywP5RBPpDN0vfvhie3 tpOWoxUYwhNRCltwS9yoE8C ZRosPAmS6HlzX4dTUQgTJ1m qmxcw5vxANA6CNhiVOWtCCS 6WjQrDNEcp7Syvzn8LjSbz8 KakGZqFSzaD84vy329ZVJnz xLoE2imtGIjrxjteFYrdnld EHqolmC4UVGvMXwkcbzsNAF fCTkyY6xpPkQpOVOxkVxjXB nof2IbQCSjROVcZhYrqQCxE PSqVcd2SCDjsZWcXVLfSyZs J2hscsywXaXSKCTjc7xvX4q nyROOdJXaW4WsOJyslfCnSU ucQGfdUNBlVDO4ZQ20BtsbM HBhcn19 CPT Code(s) (test code k9eixWZaRXJmjXU0BaLlAWE = 3357) it6orn9YciLWkvTLtMUrapK RwpfHhok34kOZ4jT30QO2pF SLbVeY1BCXnxiC6Gfp1TIBl POOozFQdW877o6fan3pdjkC bdDR2aCmyDFQqGCMsPMdvSZ SqQeUwEZjsHHG3NQk0OjSfW HBhcn0= CLINICAL HISTORY (test t5zldLYzRQZfcDS6VhCcDFE code = 3356) pw9mup8LyhOTprVJoSXcyeN XeamHnix34uJG3vJ27CP7bR WEpFuX2PRHtozJ5Xjx2GKHq JJHycNGrR405u8jdm2dbnyV yeVN1nFxiFRFyMIOrOXyjNH MxLdYcMYGzp9IsPYysG87la 7jrBzGzCS8qbQtdAKKjfXUv QCM5LY3ix3tgKDLdxJfawV4 neSBvZiBjYXJkaWFjIHZhbH MgTSMae1Kdu6PfqZ9tvHMjc WZpZWQgXHBhcn0= SPECIMEN SOURCE (test v3brzLIaZRGvcEE0YqWvQEW code = 3377) tb7ijd6WkqCUccTLxNPzbyJ RymyJamf53mDC4vC16CO1rV ROqCtF2LLCvmjJ7Mrz2UJBv GZWurVXkS653d9fvv3ofdgM xwQV7bUyqJIFhPFWnTZyjCG UoHhFfFT3fhFyoUOVitDZeI HBhcn0= GROSS DESCRIPTION p9xveIClOJThxOIkFqStJXA (test code = 3366) wXAPkz0lkGKVngZKuUfYzTl NcZnRuYmpcdWMxXGRlZmYwe 0cry533eSGhp3xeDOYBuzvb uOu3f0oiQSXtOcC9fYZyPZd wK4oqgsXgvPLcZKAjFVg4fI 59YGWmgO4vzFLpNZtrybOzL hJ3ZOwuSEKmGfX6PSPmiUTp KCMxZ8xwNADiTMblSJDfAOv kjTYiQGS4vIpeq6V7eSUbzP IvbCuxHmDcJqNbBDDGh0HnS Nq2vBzaQ1MmIQWdYvK7tAVs EZUvPOjhCQVpOIRmflJ0jS3 4QSdnymK1rETwa9Pdo23eh8 19rR7lcXEpKUT2MCBlPMSfk BVcJEWrBAP9JVUxuPBiY9w7 RmMneTTyT6F2MzYqmAFlI2K 2NgJnzOLfF3T9ZgGkxHMyAD ZuzDAzEx5jbTAfpBMwxl9er y63GYQ3u6SuoInhYXS6NQE2 CuNiKw3rbMDsZSUlIEUcgHE mRWRpQB9mwLBbGMKcqX5dgn xjXHBnYnJkcmhlYWRccGdic uQrUu0ppIonOUX3HFvfT4sy kD2hBiI0EVlfL7cmsJ6aUZc 8VDjuvES0RHCdcC7aDJ0vee jpl2biUxJsFJ7vnlseg2hrQ aSsEJ9axjn7z0uvIxMaHV6b kejgz2kpAyHwBUpmEQJwdfl vFVQgb8FpktupDTWwk0JjP1 QanYmbP44tkZukO34sJPSos YytjL0dlRiimZ4jDoKcVkFd NFxwYXJkXHBsYWluXGYxXGZ zMjBcbGFuZzEwMzNcaGljaF iqTIhtXlCtEILyRVxiV6vpU jFcZnMyMCBBLiBSZWNlaXZl ZCBmcmVzaCBsYWJlbGVkIHd pdGggdGhlIHBhdGllbnQncy MfBZ5sMNRaB5Pkv6Rry57kp sOqJbAjTSTsXOTgUZ4umMxy IHZhbHZlIGxlYWZsZXRzIiB pcyBhIGludGFjdCwgcHJldm hiaOQybKUupTFcVNOfIJ6vp GljIHZhbHZlIHdpdGggdGhy JHRkC0ZccKTmMA1nSCGqJ0m lP5OzCtOzJC1sQEKnGcF1Me RuB82kCQKlJYAyqIFcQMNdL VylYFooSUmjrUAtgN41UJLv ICNjRATdpEXyt4BbaaKdFDA myPpcwaBgLEWsV6Dae96lox gtyvH8ZDItxqDkRREnYxylv a00jbizYb0dGYghwPTaZZvn mWFbSHKfC5B4TOH5pqHsY5I xJGExiKYwr1EbjHL6dBQpQG ApZ8Cmp99rLBTaEGAekHAeq HJ8RAKhwD9zCHJvAw0qaQ91 xH3wNRGyO5JuW4yzpRHwsRr eku4wFKfTL4TyOFosSYC9 MICROSCOPIC c8gbvHVlADObrRN6HcLrBTY DESCRIPTION (test code lc1tvp2VfhTJdhQNuWStpfV = 3371) HspfLvnx18bCB8dD04KJ4lR BIwBhX1MXLiegB2Idr2LRJu MLMgsZUqJ484j9iai5eqyjC ysVF1ePwsLGXsMJGhPRvzKE DdUxDoFJIeQm0uyUHyVQUbv n0= [facility] HospitalTISS[facility] [id number] 17:37:00Surgical Pathology Report Case: [id number] Authorizing Provider: Denzel Powell MD Collected: 03/30/2020 02:43 PM Ordering Location: [facility] Received: 03/30/2020 03:07 PM PERIOPERATIVE SERVICES Pathologist: Pedro Pablo Madrigal MD Specimen: Aortic Valve, AORTIC VALVE LEAFLETS HEART, AORTIC VALVE, VALVULECTOMY:LEAFLETS WITH SEVERE NODULAR CALCIFIC ATHEROSCLEROTIC THICKENING Signing Pathologist Direct Phone Line: [phone] signed by Pedro Pablo Madrigal MD on 04/03/2020 at 5:37 [id number]; [id number] diagnosis: Aortic valve stenosis, etiology of cardiac valve disease unspecified Aortic valveA. Received fresh labeled with the patient's name, accession number and "aortic valve leaflets" is a intact, previously opened aortic valve with three cusps and a circumference of 5.5 cm. The surface is marroquin-yellow and devoid of vegetations. Sectioning reveals a a fibrous, focally calcified cut surface. Concrete Pipe Plant Supervisor sections are submitted in A1 following decalcification. JG/pl PerformedPOC- Glucose [id number] 06:06:00 Test Item Value Reference Range Interpretation Comments POC-Glucose Meter (test 115 mg/dL 70-110 H : TE STED AT [facility] code = 1538) [address] [facility], [address]: Foreign Policy Officer/Techni paxton ID = [id number] for Rodrigo Fernandez Lab Interpretation (test Abnormal code = 24693-7) [facility] [id number] 06:06:00 Test Item Value Reference Range Interpretation Comments POC-GLUCOSE METER 115 mg/dL 70-110 H : TESTED A T [facility] 6720 (BEAKER) (test code = SUSI Sawyer [facility], 1538) [address]: Foreign Policy Officer/Techni paxton ID = [id number] for Rodrigo Jacobs RAD, CHEST, 1 VIEW, NON [id number] 04:49:00while patient is intubated or has chest tubes.Reason for exam:->Status post CV SurgeryShould thisbe performed at the bedside?->Yes [facility] : 1980 Sex: MFINAL REPORT RAD, CHEST, 1 VIEW, NON DEPT INDICATION: Status post CV Surgery COMPARISON: Prior day's exam FINDINGS: Portable frontal view of the chest. IMPRESSION: Support Lines: Right IJ catheter has been removed. Lungs and pleura: Slight improvement in bilateral airspace disease. Stableleft costophrenic angles. No pneumothorax.Heart and mediastinum: Stable contours. Additional findings: None. Signed: Joseph Howeeport Verified Date/Time: 04/03/2020 04:49:26 BASIC METABOLIC [id number] 03:40:00 Test Item Value Reference Range Interpretation [...] S NOT APPLICABLE FOR DIALYSIS PATIEN TS. Foreign Policy Officer ID - UAAMPIROYZZPSE4937-30-28 03:40:00 Test Item Value Reference Range Interpretation Comments MAGNESIUM (BEAKER) (test code = 2.0 mg/dL 1.6-2.6 627) Foreign Policy Officer ID - EDASIPROTHROMBIN TIME/[id number] 02:56:00 Test Item Value Reference Range Interpretation [...] (BEAKER) (test code = 413) Blood gas, [id number] 02:46:00 Test Item Value Reference Range Interpretation Comments pH, Isaias (test code = 7.47 7.32-7.42 H 2746-6) pCO2, Isaias (test code = 45 See_Comment [Aut omated message] 425) The system Zoop generated this result transmit isela reference range : 41 - 51 mm Hg. The reference range was not used to interpret this result as normal/abnormal . pO2, Isaias (test code = 49 See_Comment H [Auto mated message] 8745-2) The system Zoop generated this result transmit isela reference range : 25 - 40 mm Hg. The reference range was not used to interpret this result as normal/abnormal . O2 Sat, Isaias (test code 85.9 % 40-70 H = 2711-0) HCO3, Isaias (test code = 32 mmol/L 21-29 H 57566-5) Base Excess, Isaias (test 7.2 mmol/L -2-3 H code = 1927-3) Patient Temperature 37.5 (test code = 8310-5) FIO2 (test code = 1819) 32 Lab Interpretation Abnormal (test code = 74657-1) [facility] CenterBLOOD GAS, [id number] 02:46:00 Test Item Value Reference Range Interpretation [...] (BEAKER) (test code = 1819) 32.0 Transesophageal [id number] 08:15:39Ejection FractionSLEH ECHO HEARTLAB MKCKESSON CPACSInterface, External Ris In - 04/02/2020 8:15 AM CS TTransesophageal Echocardiography Report (TONY) Demographics Patient Name KELLY BALES Date of Study 03/30/2020 LYUBOV Gender Male Visit Number [id number] Race Unknown Room Number 2C51 Number Date of 1980 Referring Physician DENZEL POWELL Age 40 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 Moderate aortic r egurgitation. Moderate aortic stenosis. Mitral Valve Normal MV structure. Trace mitral regurgitation. Tricuspid TV structure is normal. Valve Unable to estimate peak systolic PA pressure; inadequate TRvelocity signal. Pulmonic Normal PV structure and function [...] LVOT CO: 6.39 l/min LVOT CI: 2.73 l/min/m^2CDesert Valley HospitalCT-GLUCOSE [id number] 06:02:00 Test Item Value Reference Range Interpretation Comments POC-GLUCOSE METER 111 mg/dL 70-110 H : TESTED A T [facility] 6720 (BEAKER) (test code = [place], 1538) [address]: Foreign Policy Officer/Techni paxton ID = [id number] for Rodrigo Jacobs RAD, CHEST, 1 VIEW, NON [id number] 04:45:00while patient is intubated or has chest tubes.Reason for exam:->Status post CV SurgeryShould thisbe performed at the bedside?->Yes [facility] : 1980 Sex: MFINAL [...] Stable surgical changes.Additional findings: None. Signed: Renu Pizarroeport Verified Date/Time: 04/02/2020 04:45:17 [id number] 03:29:00 Test Item Value Reference Range Interpretation Comments MAGNESIUM (BEAKER) 1.9 mg/dL 1.6-2.6 Specimen slightly (test code = 627) hemolyzed Foreign Policy Officer ID - NAYANA MBASIC METABOLIC [id number] 03:29:00 Test Item Value Reference Range Interpretation [...] S NOT APPLICABLE FOR DIALYSIS PATIEN TS. Foreign Policy Officer BRANDON - NAYANA MPROTHROMBIN TIME/[id number] 03:25:00 Test Item Value Reference Range Interpretation [...] for patients wiht mechanical heart valves.Lactic Acid, [id number] 03:10:00 Test Item Value Reference Range Interpretation Comments Lactate, Art (test code = 0.8 mmol/L 0.5-2.2 2874) BEBE (test code = BEBE) Foreign Policy Officer BRANDON - NAYANA M Lab Interpretation (test Normal code = 02475-6) [facility] CenterLACTIC ACID, [id number] 03:10:00 Test Item Value Reference Range Interpretation Comments LACTATE BLOOD ARTERIAL (2) 0.8 mmol/L 0.5-2.2 (BEAKER) (test code = 2874) Foreign Policy Officer ID - NAYANA MCBC (HEMOGRAM ONLY)2020-04-02 03:03:00 [...] (BEAKER) (test code = 413) Blood gas, [id number] 02:55:00 Test Item Value Reference Range Interpretation Comments pH, Arterial (test code 7.48 7.35-7.45 H = 2744-1) pCO2, Arterial (test 40 See_Comment [Autom ated message] code = 2019-8) The system NetMinder generated this result transmit isela reference range : 35 - 45 mm Hg. The reference range was not used to interpret this result as normal/abnormal . pO2, Arterial (test 126 See_Comment H [Automa isela message] code = 2703-7) The system NetMinder generated this result transmit isela reference range [...] 100 Lab Interpretation Abnormal (test code = 82803-5) [facility] CenterBL[facility]AS, [id number] 02:55:00 Test Item Value Reference Range Interpretation [...] (BEAKER) (test code = 1819) 100.0 POCT-GLUCOSE [id number] 00:12:00 Test Item Value Reference Range Interpretation Comments POC-GLUCOSE METER 113 mg/dL 70-110 H : [facility] ([facility] (test code = [place], 1538) [address]: Foreign Policy Officer/Techni paxton ID = [id number] for Rodrigo Jacobs BASIC METABOLIC [id number] 19:43:00 Test Item Value Reference Range Interpretation [...] S NOT APPLICABLE FOR DIALYSIS PATIEN TS. Foreign Policy Officer ID - ADMINRAD, CHEST, 1 VIEW, NON [id number] 07:55:00while patient is intubated or has chest tubes.Reason for exam:->Status post CV SurgeryShould thisbe performed at the bedside?->Yes [facility] : 1980 Sex: MFINAL REPORT CLINICAL HISTORY: Status post CV Surgery TECHNIQUE: 1 view of the chest. COMPARISON: 03/31/2020 IMPRESSION: The supporting lines and tubes are similar appearing. Diffuse bilateral airspace opacities have increased. Small pleural effusions cannot be excluded. The cardiomediastinal silhouette is magnified by technique with sternotomy wires. Signed: Manny Huff MDReport Verified Date/Time: 04/01/2020 07:55:21 Reading Location: [facility] Radiology Reading Room BASIC METABOLIC [id number] 05:48:00 Test Item Value Reference Range Interpretation [...] S NOT APPLICABLE FOR DIALYSIS PATIEN TS. Foreign Policy Officer ID - EDASIOperator ID - NAYANA [id number] 05:16:00 Test Item Value Reference Range Interpretation Comments MAGNESIUM (BEAKER) (test code = 1.8 mg/dL 1.6-2.6 627) Foreign Policy Officer ID - [id number] 05:16:00 Test Item Value Reference Range Interpretation Comments PHOSPHORUS (BEAKER) (test code = 1.7 mg/dL 2.3-4.7 L 604) Foreign Policy Officer ID - JUNIORASILACTIC ACID, [id number] 05:01:00 Test Item Value Reference Range Interpretation Comments LACTATE BLOOD ARTERIAL (2) 1.1 mmol/L 0.5-2.2 (BEAKER) (test code = 2874) Foreign Policy Officer ID - NAYANA MCBC (HEMOGRAM ONLY)2020-04-01 04:55:00 [...] (BEAKER) (test code = 413) BLOOD GAS, [id number] 04:44:00 Test Item Value Reference Range Interpretation [...] (BEAKER) (test code = 1819) 100.0 POCT-GLUCOSE [id number] 17:30:00 Test Item Value Reference Range Interpretation Comments POC-GLUCOSE METER 95 mg/dL 70-110 : TESTED A T [facility] 6720 (BEAKER) (test code = [place], 1538) [address]: Foreign Policy Officer/Techni paxton ID = [id number] for Maryjo torres (contract), Pippa lsea LACTIC ACID, [id number] 05:48:00 Test Item Value Reference Range Interpretation Comments LACTATE BLOOD ARTERIAL (2) 1.8 mmol/L 0.5-2.2 (BEAKER) (test code = 2874) Foreign Policy Officer ID - NAYANA MBASIC METABOLIC [id number] 03:35:00 Test Item Value Reference Range Interpretation [...] S NOT APPLICABLE FOR DIALYSIS PATIEN TS. Foreign Policy Officer ID - [id number] 03:30:00 Test Item Value Reference Range Interpretation Comments MAGNESIUM (BEAKER) (test code = 2.0 mg/dL 1.6-2.6 627) Foreign Policy Officer ID - [id number] 03:30:00 Test Item Value Reference Range Interpretation Comments PHOSPHORUS (BEAKER) (test code = 3.0 mg/dL 2.3-4.7 604) Foreign Policy Officer ID - EDASILACTIC ACID, [id number] 03:14:00 Test Item Value Reference Range Interpretation Comments LACTATE BLOOD ARTERIAL (2) 2.2 mmol/L 0.5-2.2 (BEAKER) (test code = 2874) Foreign Policy Officer ID - EDASICBC (HEMOGRAM ONLY)2020-03-31 03:08:00 Test [...] (BEAKER) (test code = 413) BLOOD GAS, [id number] 03:02:00 Test Item Value Reference Range Interpretation [...] 1819) 50.0 RAD, CHEST, 1 VIEW, NON [id number] 02:35:00while patient is intubated or has chest tubes.Reason for exam:->Status post CV SurgeryShould thisbe performed at the bedside?->Yes [facility] : 1980 Sex: MFINAL [...] Granda MDReport Verified Date/Time: 03/31/2020 02:35:55 POCT-GLUCOSE [id number] 02:30:00 Test Item Value Reference Range Interpretation Comments POC-GLUCOSE METER 160 mg/dL 70-110 H : TESTED A T [facility] 6720 (BEAKER) (test code = SUSI Sawyer [facility], 1538) [address]: Foreign Policy Officer/Techni paxton ID = [id number] for NICOLE CORRIGAN LACTIC ACID, [id number] 00:47:00 Test Item Value Reference Range Interpretation Comments LACTATE BLOOD 2.5 mmol/L 0.5-2.2 H Specimen sligh tly ARTERIAL (2) (BEAKER) hemoly zed (test code = 2874) Foreign Policy Officer ID - ADMINBLOOD GAS, [id number] 00:32:00 Test Item Value Reference Range Interpretation [...] (test code = 1819) 70.0 LACTIC ACID, [id number] 23:12:00 Test Item Value Reference Range Interpretation Comments LACTATE BLOOD ARTERIAL (2) 5.4 mmol/L 0.5-2.2 HH (BEAKER) (test code = 2874) Foreign Policy Officer ID - ADMINBLOOD GAS, [id number] 22:39:00 Test Item Value Reference Range Interpretation [...] (test code = 1819) 40.0 BLOOD GAS, [id number] 22:13:00 Test Item Value Reference Range Interpretation [...] (test code = 1819) 40.0 LACTIC ACID, [id number] 21:13:00 Test Item Value Reference Range Interpretation Comments LACTATE BLOOD 3.8 mmol/L 0.5-2.2 H Specimen moder ately ARTERIAL (2) (BEAKER) hemoly zed (test code = 2874) Foreign Policy Officer ID - BSCalcium, [id number] 20:30:00 Test Item Value Reference Range Interpretation Comments Calcium, Ion (test code = 1994-3) 1.05 mmol/L 1.12-1.27 L pH, Blood (test code = 34740-7) 7.41 Lab Interpretation (test code = Abnormal 73176-2) [id number]:30:00 Test Item Value Reference Range Interpretation Comments Glucose (test code = 2345-7) 139 mg/dL 70-110 H Lab Interpretation (test code = Abnormal 48012-0) [facility] [id number] 20:30:00 Test Item Value Reference Range Interpretation Comments CALCIUM IONIZED (BEAKER) (test 1.05 mmol/L 1.12-1.27 L code = 698) PH, BLOOD (BEAKER) (test code = 7.41 1810) GLUCOSE-STAT [id number] 20:30:00 Test Item Value Reference Range Interpretation Comments GLUCOSE RANDOM (BEAKER) (test code 139 mg/dL 70-110 H = 652) HGB/HCT (H&H)-Stat [id number] 20:29:00 Test Item Value Reference Range Interpretation Comments Hemoglobin (test code = 14.8 See_Comment [Au tomated message] 786-4) The system [employer] generated this result transmitted ref erence range: 13.0 - 1 6.8 GM/DL. The refe rence range was not u sed to interpret this result as normal/abnor mal. Hematocrit (test code = 44.0 % 40-50 4544-3) Lab Interpretation (test Normal code = 01057-3) [facility] [id number] 20:29:00 Test Item Value Reference Range Interpretation Comments Sodium (test code = 2951-2) 141 meq/L 136-145 Lab Interpretation (test code = Normal 36105-5) [facility] [id number] 20:29:00 Test Item Value Reference Range Interpretation Comments Potassium (test code = 2823-3) 4.3 meq/L 3.6-5.5 Lab Interpretation (test code = Normal 60181-7) [facility] [id number] 20:29:00 Test Item Value Reference Range Interpretation [...] (test code = 1819) 60.0 SODIUM NA-STAT [id number] 20:29:00 Test Item Value Reference Range Interpretation Comments SODIUM (BEAKER) (test code = 381) 141 meq/L 136-145 POTASSIUM-STAT [id number] 20:29:00 Test Item Value Reference Range Interpretation Comments POTASSIUM (BEAKER) (test code = 4.3 meq/L 3.6-5.5 379) HGB/HCT (H&H) - STAT [id number] 20:29:00 Test Item Value Reference Range Interpretation Comments HEMOGLOBIN (BEAKER) (test code = 14.8 GM/DL 13.0-16.8 410) HEMATOCRIT (BEAKER) (test code = 44.0 % 40.0-50.0 411) [id number] 19:57:00 Test Item Value Reference Range Interpretation Comments Fibrinogen (test code = 3255-7) 256 mg/dl 225-434 Lab Interpretation (test code = Normal 33851-4) [id number] 19:57:00 Test Item Value Reference Range Interpretation [...] is 2.5-3.5 for patients wiht mechanical heart valves.[id number] 19:57:00 Test Item Value Reference Range Interpretation Comments FIBRINOGEN LEVEL (BEAKER) (test 256 mg/dl 225-434 code = 658) LACTIC ACID, [id number] 19:02:00 Test Item Value Reference Range Interpretation Comments LACTATE BLOOD 6.6 mmol/L 0.5-2.2 HH Specimen sligh tly ARTERIAL (2) (BEAKER) hemoly zed (test code = 2874) Foreign Policy Officer ID - BSBLOOD GAS, [id number] 18:58:00 Test Item Value Reference Range Interpretation [...] (BEAKER) (test code = 1819) 100.0 Manual [id number] 18:49:00 Test Item Value Reference Range Interpretation Comments % Neutros (test code = 59 % 281) % Lymphs (test code = 7 % 281) % Monos (test code = 5 % 2817) % Metamyelo (test code = 3 % 0-0 H 2820) % Myelo (test code = 2 % [...] = 3438) BEBE (test code = BEBE) Foreign Policy Officer ID - anil Castelan comments: Slide comments: Lab Interpretation (test Abnormal code = 33342-2) [facility](CELLAVISION MANUAL DIFF)2020-03-30 18:49:00 Test Item Value Reference [...] CONCENTRATION Adequate (CELLAVISION)(BEAKER) (test code = 3438) Foreign Policy Officer ID - anil Castelan comments: Slide comments:SODIUM NA-STAT LAB 2020-03-30 18:27:00 Test Item Value Reference Range Interpretation Comments SODIUM (BEAKER) (test code = 381) 144 meq/L 136-145 POTASSIUM-STAT [id number] 18:27:00 Test Item Value Reference Range Interpretation Comments POTASSIUM (BEAKER) (test code = 3.9 meq/L 3.6-5.5 379) HGB/HCT (H&H) - STAT [id number] 18:27:00 Test Item Value Reference Range Interpretation Comments HEMOGLOBIN (BEAKER) (test code = 16.0 GM/DL 13.0-16.8 410) HEMATOCRIT (BEAKER) (test code = 47.0 % 40.0-50.0 411) BLOOD GAS, [id number] 18:27:00 Test Item Value Reference Range Interpretation [...] (BEAKER) (test code = 1819) 100.0 GLUCOSE-STAT [id number] 18:27:00 Test Item Value Reference Range Interpretation Comments GLUCOSE RANDOM (BEAKER) (test code 138 mg/dL 70-110 H = 652) [id number] 18:16:00 Test Item Value Reference Range Interpretation Comments MAGNESIUM (BEAKER) 2.2 mg/dL 1.6-2.6 Specimen slightly (test code = 627) hemolyzed Foreign Policy Officer ID - [id number] 18:16:00 Test Item Value Reference Range Interpretation Comments PHOSPHORUS (BEAKER) 4.5 mg/dL 2.3-4.7 Specimen slightly (test code = 604) hemolyzed Foreign Policy Officer ID - BSBASIC METABOLIC [id number] 18:16:00 Test Item Value Reference Range Interpretation [...] S NOT APPLICABLE FOR DIALYSIS PATIEN TS. Foreign Policy Officer ID - [id number] 18:15:00 Test Item Value Reference Range Interpretation Comments PTT (test code = 59.2 See_Comment H [Automated message] 54237-4) The system Zoop generated this result transmitted ref erence range: 22.5 - 3 6.0 seconds. The reference range was not used to int erpret this result as normal/abnormal . Lab Interpretation (test Abnormal code = 69213-7) [facility]TT[facility] 18:15:00 Test Item Value Reference Range Interpretation Comments PARTIAL THROMBOPLASTIN TIME 59.2 seconds 22.5-36.0 H (BEAKER) (test code = 760) LACTIC ACID, [id number] 18:15:00 Test Item Value Reference Range Interpretation Comments LACTATE BLOOD 4.9 mmol/L 0.5-2.2 HH Specimen moder ately ARTERIAL (2) (BEAKER) hemoly zed (test code = 2874) Foreign Policy Officer ID - BSCBC with platelet count + automated [id number] 18:04:00 Test Item Value Reference Range Interpretation Comments WBC (test code = 6690-2) 37.7 See_Comment H [A utomated message] The system Zoop generated this result transmitted ref erence range: 3.5 - 10 .5 K/L. The refe rence range was not u sed to interpret this result as normal/abnor mal. RBC (test code = 789-8) 5.11 See_Comment [Au tomated message] The system Zoop generated this result transmitted ref erence range: 4.63 - 6 .08 M/L. The refe rence range was not u sed to interpret this result as normal/abnor mal. MCHC (test code = 786-4) 34.8 See_Comment [A utomated message] The system Zoop generated this result transmitted ref erence range: [...] See_Comment [Aut omated message] 777-3) The system Zoop generated this result transmitted ref erence range: 150 - 45 0 K/CU MM. The referen ce range was not u sed to interpret this result as normal/abnor mal. MPV (test code = 9.9 fL 9.4-12.4 53078-8) nRBC (test code = 413) 0 See_Comment [Aut omated message] The system Zoop generated this result transmitted ref erence range: [...] H [Aut omated message] 670) The system Zoop generated this result transmitted ref erence range: 1.78 - 5 .38 K/L. The refe rence range was not u sed to interpret this result as normal/abnor mal. # Lymphs (test code = 4.72 See_Comment H [Auto mated message] 414) The system Zoop generated this result transmitted ref erence range: 1.32 - 3 .57 K/L. The refe rence range was not u sed to interpret this result as normal/abnor mal. # Monos (test code = 3.52 See_Comment H [Autom ated message] 415) The system Zoop generated this result transmitted ref erence range: 0.30 - 0 .82 K/L. The refe rence range was not u sed to interpret this result as normal/abnor mal. # Eos (test code = 416) 0.30 See_Comment [Au tomated message] The system Zoop generated this result transmitted ref erence range: 0.04 - 0 .54 K/L. The refe rence range was not u sed to interpret this result as normal/abnor mal. # Baso (test code = 417) 0.15 See_Comment H [A utomated message] The system Zoop generated this result transmitted ref erence range: 0.01 - 0 .08 K/L. The refe rence range was not u sed to interpret this result as normal/abnor mal. Immature 1 % 0-1 Granulocytes-Relative (test code = 2801) Lab Interpretation (test Abnormal code = 29701-9) [facility] W/PLT COUNT & AUTO [id number] 18:04:00 Test Item Value Reference Range Interpretation [...] = 2801) RAD, CHEST, 1 VIEW, NON [id number] 18:04:00Reason for exam:->s/p cardiac surgeryShould this be performed at the bedside?->Yes [facility] : 1980 Sex: MFINAL [...] MDReport Verified Date/Time: 03/30/2020 18:04:45 Reading Location: [facility] B1 [id number] Consult Reading Room Oxygen saturation, [id number] 17:47:00 Test Item Value Reference Range Interpretation Comments O2 Saturation (Measured) (test code = 66.8 % 73237-8) [facility] CenterOXYGEN SATURATION, [id number] 17:47:00 Test Item Value Reference Range Interpretation Comments O2 SATURATION (MEASURED) (BEAKER) 66.8 % (test code = 1455) SODIUM NA-STAT [id number] 17:44:00 Test Item Value Reference Range Interpretation Comments SODIUM (BEAKER) (test code = 381) 140 meq/L 136-145 POTASSIUM-STAT [id number] 17:44:00 Test Item Value Reference Range Interpretation Comments POTASSIUM (BEAKER) (test code = 3.8 meq/L 3.6-5.5 379) CALCIUM, [id number] 17:44:00 Test Item Value Reference Range Interpretation Comments CALCIUM IONIZED (BEAKER) (test 1.21 mmol/L 1.12-1.27 code = 698) PH, BLOOD (BEAKER) (test code = 7.29 1810) GLUCOSE-STAT [id number] 17:44:00 Test Item Value Reference Range Interpretation Comments GLUCOSE RANDOM (BEAKER) (test code 141 mg/dL 70-110 H = 652) HGB/HCT (H&H) - STAT [id number] 17:44:00 Test Item Value Reference Range Interpretation Comments HEMOGLOBIN (BEAKER) (test code = 16.8 GM/DL 13.0-16.8 410) HEMATOCRIT (BEAKER) (test code = 49.0 % 40.0-50.0 411) BLOOD GAS, [id number] 17:43:00 Test Item Value Reference Range Interpretation [...] code = 1819) 60.0 POC ACTIVATED CLOTTING [id number] 17:11:00 Test Item Value Reference Range Interpretation Comments Activated Clotting Time 114 sec : 74 -137 seconds, (test code = 441) Baseline: TESTED AT [address], [facility] 30: Foreign Policy Officer/Techni paxton ID = [id number] for BAUDILIO LEVIN [facility]POCT-[id number] 17:11:00 Test Item Value Reference Range Interpretation Comments ACTIVATED CLOTTING TIME 114 sec : 74 -137 seconds, (BEAKER) (test code = Baseli ne: TESTED AT 441) [address], [address] 30: Foreign Policy Officer/Techni paxton ID = [id number] for DEE COSTA [id number] 17:11:00 Test Item Value Reference Range Interpretation Comments ACTIVATED CLOTTING TIME 98 sec : 74 -137 seconds, (BEAKER) (test code = Baseli ne: TESTED AT 441) [address], [address] 30: Foreign Policy Officer/Techni paxton ID = [id number] for BAUDILIO LEVIN [id number] 17:11:00 Test Item Value Reference Range Interpretation Comments ACTIVATED CLOTTING TIME 455 sec : 74 -137 seconds, (BEAKER) (test code = Baseli ne: TESTED AT 441) [address], [facility] 30: Foreign Policy Officer/Techni paxton ID = [id number] for DEE COSTA JASON [id number] 17:11:00 Test Item Value Reference Range Interpretation Comments ACTIVATED CLOTTING TIME 499 sec : 74 -137 seconds, (BEAKER) (test code = Baseli ne: TESTED AT 441) [address], [facility] 30: Foreign Policy Officer/Techni paxton ID = [id number] for LETHRIDGE, DEE JASON [id number] 17:11:00 Test Item Value Reference Range Interpretation Comments ACTIVATED CLOTTING TIME 510 sec : 74 -137 seconds, (BEAKER) (test code = Baseli ne: TESTED AT 441) [address], [facility] 30: Foreign Policy Officer/Techni paxton ID = [id number] for LETHRIDGE, DEE JASON [id number] 17:11:00 Test Item Value Reference Range Interpretation Comments ACTIVATED CLOTTING TIME 412 sec : 74 -137 seconds, (BEAKER) (test code = Baseli ne: TESTED AT 441) [address], [facility] 30: Foreign Policy Officer/Techni paxton ID = [id number] for LETHRIDGE, DEE JASON [id number] 17:11:00 Test Item Value Reference Range Interpretation Comments ACTIVATED CLOTTING TIME 527 sec : 74 -137 seconds, (BEAKER) (test code = Baseli ne: TESTED AT 441) [address], [facility] 30: Foreign Policy Officer/Techni paxton ID = [id number] for SHAWANDARIDGE, DEE JASON Prepare [id number] 16:46:00 Test Item Value Reference Range Interpretation Comments CROSSMATCH (test code = COMPATIBLE 2264) Unit ABO (test code = O Pos 0351432) UNIT NUMBER (test code = [id number] 934-0) Status (test code = RETURNED FROM ISSUE 15100724) Blood Bank Product (test RED BLOOD CELLS code = 2263) PRODUCT CODE (test code = S6899O70 933-2) [facility] Center[facility] [id number] 16:46:00 Test Item Value Reference Range Interpretation Comments Unit ABO (test code = O Pos 9653703) UNIT NUMBER (test code = [id number] 934-0) Status (test code = RETURNED FROM ISSUE 3001245) Blood Bank Product (test FFP code = 2263) PRODUCT CODE (test code = L8953488 933-2) [facility] CenterPT/[id number] 16:19:00 Test Item Value Reference Interpretation Comments Range Protime (test code = 19.2 See_Comment H [Autom ated 5902-2) message] The system which generated this result transmitted reference range : 11.9 - 14.2 seconds. The reference range was not used to interpret this result as normal/abnormal . INR (test code = 1.66 See_Comment [Automated 6301-6) message] The system which generated this result transmitted reference range : <=5.90. The reference range was not used to interpret this result as normal/abnormal . PTT (test code = 86.1 See_Comment H [Automated 95272-6) message] The system which generated this result [...] valves. Lab Interpretation Abnormal (test code = 23566-7) [facility] CenterPT/[id number] 16:19:00 Test Item Value Reference Range Interpretation [...] is 2.5-3.5 for patients wiht mechanical heart valves.[id number] 16:18:00 Test Item Value Reference Range Interpretation Comments FIBRINOGEN LEVEL (BEAKER) (test 207 mg/dl 225-434 L code = 658) Platelet [id number] 16:15:00 Test Item Value Reference Range Interpretation Comments Platelets (test code 161 See_Comment [Autom ated = 777-3) message] The system which generated this result transmit isela reference range : 150 - 450 K/CU MM. The reference range was not u sed to interpret th is result as normal/abnormal . BEBE (test code = BEBE) Foreign Policy Officer ID - [id number] Lab Interpretation Normal (test code = 33905-2) [facility] CenterPLATELET [id number] 16:15:00 Test Item Value Reference Range Interpretation Comments PLATELET COUNT (BEAKER) (test 161 K/CU MM 150-450 code = 756) Foreign Policy Officer ID - [id number], [id number] 15:34:00 Test Item Value Reference Range Interpretation Comments CALCIUM IONIZED (BEAKER) (test 1.04 mmol/L 1.12-1.27 L code = 698) PH, BLOOD (BEAKER) (test code = 7.31 1810) BLOOD GAS, [id number] 15:34:00 Test Item Value Reference Range Interpretation [...] (BEAKER) (test code = 1819) 100.0 GLUCOSE-STAT [id number] 15:34:00 Test Item Value Reference Range Interpretation Comments GLUCOSE RANDOM (BEAKER) (test code 199 mg/dL 70-110 H = 652) HGB/HCT (H&H) - STAT [id number] 15:34:00 Test Item Value Reference Range Interpretation Comments HEMOGLOBIN (BEAKER) (test code = 11.4 GM/DL 13.0-16.8 L 410) HEMATOCRIT (BEAKER) (test code = 34.0 % 40.0-50.0 L 411) SODIUM NA-STAT [id number] 15:33:00 Test Item Value Reference Range Interpretation Comments SODIUM (BEAKER) (test code = 381) 136 meq/L 136-145 POTASSIUM-STAT [id number] 15:33:00 Test Item Value Reference Range Interpretation Comments POTASSIUM (BEAKER) (test code = 4.5 meq/L 3.6-5.5 379) BLOOD GAS, [id number] 14:59:00 Test Item Value Reference Range Interpretation [...] (BEAKER) (test code = 1819) 80.0 POTASSIUM-STAT [id number] 14:59:00 Test Item Value Reference Range Interpretation Comments POTASSIUM (BEAKER) (test code = 5.6 meq/L 3.6-5.5 H 379) GLUCOSE-STAT [id number] 14:59:00 Test Item Value Reference Range Interpretation Comments GLUCOSE RANDOM (BEAKER) (test code 245 mg/dL 70-110 H = 652) HGB/HCT (H&H) - STAT [id number] 14:59:00 Test Item Value Reference Range Interpretation Comments HEMOGLOBIN (BEAKER) (test code = 11.8 GM/DL 13.0-16.8 L 410) HEMATOCRIT (BEAKER) (test code = 35.0 % 40.0-50.0 L 411) SODIUM NA-STAT [id number] 14:58:00 Test Item Value Reference Range Interpretation Comments SODIUM (BEAKER) (test code = 381) 136 meq/L 136-145 POTASSIUM-STAT [id number] 14:41:00 Test Item Value Reference Range Interpretation Comments POTASSIUM (BEAKER) (test code = 5.6 meq/L 3.6-5.5 H 379) BLOOD GAS, [id number] 14:40:00 Test Item Value Reference Range Interpretation [...] (BEAKER) (test code = 1819) 70.0 GLUCOSE-STAT [id number] 14:40:00 Test Item Value Reference Range Interpretation Comments GLUCOSE RANDOM (BEAKER) (test code 225 mg/dL 70-110 H = 652) HGB/HCT (H&H) - STAT [id number] 14:40:00 Test Item Value Reference Range Interpretation Comments HEMOGLOBIN (BEAKER) (test code = 12.9 GM/DL 13.0-16.8 L 410) HEMATOCRIT (BEAKER) (test code = 38.0 % 40.0-50.0 L 411) SODIUM NA-STAT [id number] 14:39:00 Test Item Value Reference Range Interpretation Comments SODIUM (BEAKER) (test code = 381) 135 meq/L 136-145 L BLOOD GAS, [id number] 14:04:00 Test Item Value Reference Range Interpretation [...] (test code = 1819) 60.0 SODIUM NA-STAT [id number] 14:04:00 Test Item Value Reference Range Interpretation Comments SODIUM (BEAKER) (test code = 381) 134 meq/L 136-145 L GLUCOSE-STAT [id number] 14:04:00 Test Item Value Reference Range Interpretation Comments GLUCOSE RANDOM (BEAKER) (test code 213 mg/dL 70-110 H = 652) HGB/HCT (H&H) - STAT [id number] 14:04:00 Test Item Value Reference Range Interpretation Comments HEMOGLOBIN (BEAKER) (test code = 13.2 GM/DL 13.0-16.8 410) HEMATOCRIT (BEAKER) (test code = 39.0 % 40.0-50.0 L 411) POTASSIUM-STAT [id number] 14:03:00 Test Item Value Reference Range Interpretation Comments POTASSIUM (BEAKER) (test code = 5.1 meq/L 3.6-5.5 379) BLOOD GAS, [id number] 13:31:00 Test Item Value Reference Range Interpretation [...] (test code = 1819) 81.0 SODIUM NA-STAT [id number] 13:31:00 Test Item Value Reference Range Interpretation Comments SODIUM (BEAKER) (test code = 381) 131 meq/L 136-145 L GLUCOSE-STAT [id number] 13:31:00 Test Item Value Reference Range Interpretation Comments GLUCOSE RANDOM (BEAKER) (test code 180 mg/dL 70-110 H = 652) HGB/HCT (H&H) - STAT [id number] 13:31:00 Test Item Value Reference Range Interpretation Comments HEMOGLOBIN (BEAKER) (test code = 12.1 GM/DL 13.0-16.8 L 410) HEMATOCRIT (BEAKER) (test code = 36.0 % 40.0-50.0 L 411) POTASSIUM-STAT [id number] 13:30:00 Test Item Value Reference Range Interpretation Comments POTASSIUM (BEAKER) (test code = 5.1 meq/L 3.6-5.5 379) BLOOD GAS, [id number] 12:15:00 Test Item Value Reference Range Interpretation [...] (BEAKER) (test code = 1819) 100.0 CALCIUM, [id number] 12:11:00 Test Item Value Reference Range Interpretation Comments CALCIUM IONIZED (BEAKER) (test 1.15 mmol/L 1.12-1.27 code = 698) PH, BLOOD (BEAKER) (test code = 7.36 1810) GLUCOSE-STAT [id number] 12:10:00 Test Item Value Reference Range Interpretation Comments GLUCOSE RANDOM (BEAKER) (test code = 93 mg/dL 70-110 652) SODIUM NA-STAT [id number] 12:10:00 Test Item Value Reference Range Interpretation Comments SODIUM (BEAKER) (test code = 381) 139 meq/L 136-145 POTASSIUM-STAT [id number] 12:10:00 Test Item Value Reference Range Interpretation Comments POTASSIUM (BEAKER) (test code = 4.2 meq/L 3.6-5.5 379) HGB/HCT (H&H) - STAT [id number] 12:10:00 Test Item Value Reference Range Interpretation Comments HEMOGLOBIN (BEAKER) (test code = 15.9 GM/DL 13.0-16.8 410) HEMATOCRIT (BEAKER) (test code = 47.0 % 40.0-50.0 411) POCT-GLUCOSE [id number] 08:31:00 Test Item Value Reference Range Interpretation Comments POC-GLUCOSE METER 112 mg/dL 70-110 H : TESTED A T [facility] 6720 (JUN) (test code = [place], 1538) [address]: Foreign Policy Officer/Techni paxton ID = [id number] for Sania Alexandre Electrocardiogram, [id number] 14:57:10Interface, External Ris In - 03/29/2020 2:57 PM CSTVentricular Rate 65 BPMAtrial Rate 65 BPMP-R Interval 172 msQRS Duration 102 msQ-T Interval 404 msQTC Calculation(Bazett) 420 msP [place] 48 degreesR [place] 18 degreesT [place] 17 degreesNormal sinus rhythmNormal ECGWhen compared with ECG of 17-SEP-2019 09:04,No significant change was foundConfirmed by MD Dre, Talon ([id number]) on 03/29/2020 2:57:08 [facility]Asymptomatic ONLY)2020-03-27 17:29:00 Test Item Value Reference Range Interpretation Comments SARS-COV2/RT-PCR Negative Not Detected, (test code = Negative, See 47468-0) external report for linked test SARS-COV-2 [facility] SANDEEP PERFORMING LAB (test code = 67974-8) BEBE (test code = Negative result for [...] of the Act. Fact Sheet for Healthcare Providers:https://www.Fatwire/sites/default/f bee/product/documents/F act_Sheet_HC_Providers_L yrw_BCRS-TdD-2.pdf Fact Sheet for Healthcare Patients:https://www.EndoInSight/sites/default/fi les/product/documents/Fa ct_Sheet_Patients_Lyra_S ARS-CoV-2.pdf Performing Laboratory:[facility] [place] [address] [facility]OV[facility] ([facility])2020-03-27 17:29:00 Test Item Value Reference Range Interpretation Comments SARS-COV2/RT-PCR (test Negative Not Detected, Negative, code = 0979755) See external report for linked test SARS-COV-2 PERFORMING LAB [facility] SANDEEP (test code = 9523584) Negative result for this test determines that [...] of the Act.Fact Sheet for Healthcare Prov iders:https://www.[employer].Hotelbar/sites/default/files/product/documents/Fact_Sheet_HC _Kgjwsarxi_Pyhe_UDZK-SeV-5.pdfFact Sheet for Healthcare Patients:https://www.Peerform/sites/default/files/product/docume nts/Jvxo_Ospbw_Kpecxxmn_Brwp_OJPH-XlZ-3.pdfPerforming Laboratory:[facility], [place] [address]Iiauaaulvrnmq metabolic [id number] 11:11:00 Test Item Value Reference Range Interpretation Comments Protein, Total 7.4 See_Comment [Automated (test code = message] The 2885-2) system which generated this result transmit isela reference range : 6.0 - 8.3 gm/dL . The reference range was not u sed to interpret th is result as normal/abnormal . Albumin (test code 4.5 g/dL 3.5-5 = 61032-0) Alkaline 85 U/L 40-150 Phosphatase (test code = 6768-6) Total Bilirubin 0.5 mg/dL 0.2-1.2 (test code = 1975-2) Sodium (test code = 139 meq/L 743-455 8700-2) Potassium (test 4.5 meq/L 3.5-5.1 code = 2823-3) Chloride (test code 105 meq/L 98-107 = 2075-0) CO2 (test code = 26 meq/L -29 2027-) BUN (test code = 20 mg/dL 7- 3094-0) Creatinine (test 0.96 mg/dL 0.57-1.25 code = 2160-0) Glucose (test code 102 mg/dL 70-105 = 2345-7) Calcium (test code 9.0 mg/dL 8.4-10.2 = 82429-8) AST (test code = 24 U/L 5-34 192-8) ALT (test code = 46 U/L -55 1741-6) EGFR (test code = 87 mL/min/1.73 [place] [address]-5) NOT ACCURATE CREATININE CLEARANCE IN PREDICTING GLOMERULAR FILTRATION RATE . ESTIMATED GFR I S NOT APPLICABLE FOR DIALYSIS PATIEN TS. BEBE (test code = Foreign Policy Officer ID - BEBE) DEL Hart [facility] HospitalLipid [id number] 11:11:00 Test Item Value Reference Range Interpretation Comments Triglycerides (test 249 mg/dL code = 2571-8) Cholesterol (test code 170 mg/dL = 2093-3) HDL (test code = 30 mg/dL 9) LDL Calculated (test 90 mg/dL code = 83046-5) BEBE (test code = BEBE) Triglyceride Reference Range: Low Risk <150 Borderline 150-199 High Risk 200-499 Very High Risk >=500 Cholesterol Reference Range: Low Risk <200 Borderline 200-239 High Risk >240 HDL Cholesterol Reference Range: Low Risk >=60 High Risk <40 LDL Cholesterol Reference Range: Optimal <100 Near Optimal 100-129 Borderline 130-159 High 160-189 Very High >=190 Foreign Policy Officer ID - DEL Hart [facility] HospitalCOMPREHENSIVE METABOLIC [id number] 11:11:00 Test Item Value Reference Range Interpretation [...] S NOT APPLICABLE FOR DIALYSIS PATIEN TS. Foreign Policy Officer ID - DEL [id number] 11:11:00 Test Item Value Reference Range Interpretation Comments MAGNESIUM (BEAKER) (test code = 1.9 mg/dL 1.6-2.6 627) Foreign Policy Officer ID - DEL CLIPID [id number] 11:11:00 Test Item Value Reference Range Interpretation Comments TRIGLYCERIDES (BEAKER) (test code = 249 mg/dL 540) CHOLESTEROL (BEAKER) (test code = 170 mg/dL 631) HDL CHOLESTEROL (BEAKER) (test code 30 mg/dL = 976) LDL CHOLESTEROL CALCULATED (AKER) 90 mg/dL (test code = 633) Triglyceride Reference Range: Low Risk <150 Borderline 150-199 High Risk 200- 499 Very High Risk >=500Cholesterol Reference Range: Low Risk <200 Borderline 200-239 High Risk >240HDL Cholesterol Reference Range: Low Risk >=60 High Risk <40LDL Cholesterol Reference Range: Optimal <100 Near Optimal 100-129 Borderline 130-159 High 160-189 Very High >=190 Foreign Policy Officer ID - DEL CHemoglobin [id number] 09:58:00 Test Item Value Reference Range Interpretation Comments Hemoglobin A1C (test code = 4548-4) 5.5 % 4.3-6.1 Lab Interpretation (test code = Normal 94486-4) [facility]HEMO[facility] [id number] 09:58:00 Test Item Value Reference Range Interpretation Comments HEMOGLOBIN A1C (AKER) (test code = 5.5 % 4.3-6.1 368) Type and screen, [id number] 09:52:00 Test Item Value Reference Range Interpretation Comments ABO/RH AUTOMATED (AKER) (test O POSITIVE code = 2260) Ab Scrn (test code = 890-4) NEGATIVE [facility] CenterAPTT2020-[facility] 09:01:00 Test Item Value Reference Range Interpretation Comments PARTIAL THROMBOPLASTIN TIME 32.8 seconds 22.5-36.0 (BEAKER) (test code = 760) PROTHROMBIN TIME/[id number] 09:00:00 Test Item Value Reference Range Interpretation [...] mechanical heart valves.CBC W/PLT COUNT & AUTO [id number] 08:48:00 Test Item Value Reference Range Interpretation [...] (BEAKER) (test code = 2801) CT, CTA, [id number] 09:24:00With contrastUnlisted Reason for Exam - Click Yes and Enter Reason Below->No [facility] CENTERName: KELLY BALES : 1980 Sex: MAddendum BeginsREPORT [...] regarding the non- vascular findings by the Mule Developer Radiologist. Signed: Anastacio Estrada MDReport Verified Date/Time: 03/19/2020 17:41:36 Reading Location: [place] [address] [address] Reading Room Carotid doppler [id number] 07:45:38Ejection [facility]SP[facility] ECHO HEARTLAB MKCKESSON CPACSRight Impression1. The internal [...] of Study 03/19/2020 Age 40 Visit Number [id number] Gender Male Accession Number [id number] Date of 1980 Referring Joya Christina NP Room Number [facility] OPT Physician Veterinary Receptionist Joss Lombardi Interpreting CORINNE Taranog Physician ProcedureType of Study: Cerebral: Carotid, CAROTID DOPPLER, BILATERAL. Indications for Study:Pre op.Patient Status:Routine.Study Location:Vascular Lab.Technical Quality:Adequate visualization.Risk FactorsHistory of Disease+ +----+-------- +!Diagnosis !Date!Comments !+ +----+------ +!History/Risk ! !Former smoker, CAD, History of [...] +----+----+-----+ + + +!Vert ebral !53.9!17 !60 !! ! !+ +----+----+-----+ + + +!Pr ox [...] the left side. - Additional Measurements:ICAPSV/CCAPSV 1.01.ICAEDV/CCAEDV 1.25.[facility] CTA [id number] 17:41:00Interface, External Ris In - 03/20/2020 9:26 [...] regarding the non- vascular findings by the Mule Developer Radiologist. Signed: Anastacio Estradaeport Verified Date/Time: 03/19/2020 17:41:36 Reading Location: [place] [address] [address] [facility] [id number] 06:15:00 Test Item Value Reference Range Interpretation [...] S NOT APPLICABLE FOR DIALYSIS PATIEN TS. Foreign Policy Officer ID - PIAYA LCBC W/PLT COUNT & AUTO [id number] 05:43:00 Test Item Value Reference Range Interpretation [...] 0-1 PERCENT (BEAKER) (test code = 2801) [id number] 18:05:00 Test Item Value Reference Range Interpretation [...] for patients wiht mechanical heart valves.BASIC METABOLIC [id number] 18:03:00 Test Item Value Reference Range Interpretation [...] S NOT APPLICABLE FOR DIALYSIS PATIEN TS. Foreign Policy Officer ID - DBCBC W/PLT COUNT & AUTO [id number] 18:01:00 Test Item Value Reference Range Interpretation [...] PERCENT (BEAKER) (test code = 2801) POCT-GLUCOSE [id number] 06:01:00 Test Item Value Reference Range Interpretation Comments POC-GLUCOSE METER 107 mg/dL 70-110 : TESTED A T [facility] 6720 (BEAKER) (test code [facility], = 1538) [address]: Foreign Policy Officer/Techni paxton ID = [id number] for JORD AN, LACRYSTAL MISCELLANEOUS LAB [id number] 05:17:00 Test Item Value Reference Range Interpretation Comments SCAN RESULT (test code = See scanned report [id number]) HEMOGLOBIN [id number] 10:50:00 Test Item Value Reference Range Interpretation Comments HEMOGLOBIN A1C (BEAKER) (test code = 4.9 % 4.3-6.1 368) RAD, CHEST, 2 [id number] 10:38:00Reason for Exam:->pre opFINAL REPORT INDICATION: pre op COMPARISON: None TECHNIQUE: Frontal and lateralviews of the chest. FINDINGS: Lungs and pleura: Clear lungs. No effusion.Heart and mediastinum: Normal heart size. Unremarkable mediastinal contours.Osseous structures: No acute abnormality.Additional findings: None. IMPRESSION: No acute intrathoracic abnormality. Signed: Ariane Johnson MDRepgretel Verified Date/Time: 09/17/2019 10:38:28 Reading Location: [facility] Radiology Reading Room COMPREHENSIVE METABOLIC [id number] 10:27:00 Test Item Value Reference Range Interpretation [...] S NOT APPLICABLE FOR DIALYSIS PATIEN TS. Foreign Policy Officer ID - NTPPROTHROMBIN [id number] 10:00:00 Test Item Value Reference Range Interpretation [...] mechanical heart valves.CBC W/PLT COUNT & AUTO [id number] 09:57:00 Test Item Value Reference Range Interpretation [...] % 0-1 PERCENT (BEAKER) (test code = 3990)
[2022-04-10] MEDS ORDERED: MORPHINE 4 MG/ML SYR ONE ×2 (09:05→14:09)
[2022-04-10] MEDS ORDERED: ONDANSETRON 4 MG/2 ML VIAL ONE ×2 (09:05→14:14)
[2022-04-10 09:21] LABS: Absolute Lymphocytes (CBC) 2.3 K/uL (0.7-4.9); Hematocrit 48.1 % (39.6-49.0); Lymphocytes % 20.2 % (15.3-44.8); MCV 91.3 fL (80-100); MPV 8.4 fL (7.6-11.3); RBC Red Blood Cell Count 5.26 M/uL (4.33-5.43)
[2022-04-10 09:31] LABS: Urine Mucus Slight /HPF (None Seen); Urine RBC >50 /HPF (None Seen)
--- NOTE | 2022-04-10 09:41 | RAD REPORT ---
EXAM DESCRIPTION: CT - Stone Protocol - 04/10/2022 9:21 am CLINICAL HISTORY: Abdominal pain. Left flank pain COMPARISON: April 05, 2022 TECHNIQUE: Computed axial tomography of the abdomen pelvis was obtained without oral or IV contrast. Lack of IV and oral contrast limits evaluation of solid organs, appendix, bowel, and vessels. Trejo l reformatted images were obtained and reviewed. All CT scans are performed using dose optimization technique as appropriate and may include automated exposure control or mA/KV adjustment according to patient size. FINDINGS: Tiny left renal calculus. 6 millimeter calculus left UPJ with mild hydronephrosis. 5.4 mayda timeter left renal cyst. No right renal calculus Mild fatty liver Spleen, pancreas and adrenals appear grossly normal There is no evidence of diverticulitis. Appendectomy Small left and small to moderate right inguinal hernias contain fat. Diastases rectus abdominis muscles 4.4 centimeters upper abdomen with a focal bulge IMPRESSION: 6 millimeter calculus left UPJ with mild left hydronephrosis
[2022-04-10 09:45] LABS: Bilirubin Total 0.6 mg/dL (0.2-1.0); Potassium 4.1 mmol/L (3.5-5.1); Protein, Total 7.5 g/dL (6.4-8.2)
[2022-04-10] MEDS ORDERED: TAMSULOSIN 0.4 MG SR CAP ONE (09:49)
[2022-04-10] MEDS ORDERED: MAGNESIUM SULFATE 1 gm IVPB 1 GM/100 ML BAG IV ONE (09:49)
[2022-04-10] MEDS ORDERED: KETOROLAC 30 MG/ML INJ ONE (10:00)
--- NOTE | 2022-04-10 10:58 | ER ---
Nurse's Notes [facility] Name: Vincenzo Bales Age: 42 yrs Sex: Male : 1980 Arrival Date: 04/10/2022 Time: 08:46 Bed 8 Private MD: Ximena Forbes Diagnosis: Calculus of ureter;Unspecified hydronephrosis Presentation: 04/10 08:54 Chief complaint: Patient states: Left flank pain, Evaluated on Monday, pain worse this jl7 morning. Coronavirus screen: At this time, the client does not indicate any symptoms associated with coronavirus-19. Ebola Screen: No symptoms or risks identified at this time. Initial Sepsis Screen: Does the patient meet any 2 criteria? No. Patient's initial sepsis screen is negative. Does the patient have a suspected source of infection? No. Patient's initial sepsis screen is negative. Risk Assessment: Do you want to hurt yourself or someone else? Patient reports no desire to harm self or others. Onset of symptoms was April 05, 2022. 08:54 Method Of Arrival: Ambulatory jl7 08:54 Acuity: ALE 3 jl7 Triage Assessment: 08:56 General: Appears in no apparent distress. uncomfortable, Behavior is calm, cooperative, jl7 appropriate for age. Pain: Complains of pain in left flank Pain currently is 10 out of 10 on a pain scale. : Urine is esau blood. Musculoskeletal: Swelling absent. Historical: - Allergies: 08:56 No Known Allergies; jl7 - Home Meds: 08:56 Furosemide Oral [Active]; Lunesta Oral [Active]; Metoprolol Tartrate Oral [Active]; jl7 Mirtazapine Oral [Active]; venlafaxine Oral [Active]; Warfarin Oral [Active]; - PMHx: 08:56 defective aortic valve; Hypertension; Kidney stones; jl7 - PSHx: 08:56 heart valve; jl7 - Immunization history:: Client reports receiving the 2nd dose of the Covid vaccine. - Social history:: Smoking status: Patient reports the use of cigarette tobacco products. Screenin:26 Abuse screen: Denies threats or abuse. Nutritional screening: No deficits noted. kr3 Tuberculosis screening: No symptoms or risk factors identified. Fall Risk IV access (20 points). Total Dolan Fall Scale indicates No Risk (0-24 pts). Assessment: 10:53 General: Appears distressed, uncomfortable, obese, Behavior is cooperative, appropriate kr3 for age, restless. Pain: Complains of pain in back and left flank. Neuro: Level of Consciousness is awake, alert, obeys commands, Oriented to person, place, time, situation. Cardiovascular: Patient's skin is warm and dry. Respiratory: Airway is patent Respiratory effort is even, unlabored, Respiratory pattern is regular, symmetrical. GI: Abdomen is round non-distended. 10:55 : Reports scrotal pain. EENT: No signs and/or symptoms were reported regarding the kr3 EENT system. Derm: No signs and/or symptoms reported regarding the dermatologic system. Musculoskeletal: Circulation, motion, and sensation intact. 13:25 Reassessment: Patient appears in no apparent distress at this time. Patient and/or hb family updated on plan of care and expected duration. Pain level reassessed. Patient is alert, oriented x 3, equal unlabored respirations, skin warm/dry/pink. 14:30 Reassessment: Reassessment: No changes from previously documented assessment. Patient kr3 and/or family updated on plan of care and expected duration. Pain level reassessed. Patient is alert, oriented x 3, equal unlabored respirations, skin warm/dry/pink. Vital Signs: 08:54 BP 144 / 80; Pulse 52; Resp 17; Temp 97.6; Pulse Ox 97% ; Weight 120.2 kg; Height 5 ft. jl7 9 in. (175.26 cm); Pain 10/10; 09:54 BP 141 / 78; Pulse 52; Resp 18; Pulse Ox 99% on R/A; kr3 10:56 BP 137 / 78; Pulse 57; Resp 18; Pulse Ox 95% on R/A; kr3 13:25 BP 146 / 71; Pulse 65; Resp 15; Pulse Ox 98% on R/A; hb 14:29 BP 162 / 90; Pulse 55; Resp 18; Pulse Ox 100% on R/A; kr3 08:54 Body Mass Index 39.13 (120.20 kg, 175.26 cm) jl7 ED Course: 08:46 Patient arrived in ED. am2 08:47 Ximena Forbes is Private Physician. am2 08:47 Gail Barrow FNP-C [facility] kb 08:47 Norman Perry DO is Attending Physician. kb 08:56 Triage completed. jl7 08:56 Arm band placed on right wrist. jl7 09:10 Yessenia Izaguirre, TAQUERIA is Primary Nurse. kr3 09:12 Urine Microscopic Only Sent. mm9 09:15 Bed in low position. Call light in reach. Side rails up X 1. kr3 09:17 Urine collected: clean catch specimen, blood tinged. mm9 09:23 CT Stone Protocol In Process Unspecified. EDMS 09:30 Inserted saline lock: 20 gauge in left antecubital area, using aseptic technique. kr3 ,using aseptic technique. by TAQUERIA Brown Blood collected. 13:32 Protime (+inr) Sent. kr3 13:32 Ptt, Activated Sent. kr3 14:08 Report given to TAQUERIA Wagoner at [facility]. kr3 14:27 Patient transferred, IV remains in place. kr3 14:30 No provider procedures requiring assistance completed. kr3 Administered Medications: 09:15 Drug: Zofran (Ondansetron) 4 mg Route: IVP; Site: right antecubital; jl7 19:19 Follow up: Response: No adverse reaction kr3 09:15 Drug: morphine 4 mg Route: IVP; Infused Over: 4 mins; Site: right antecubital; jl7 19:19 Follow up: Response: No adverse reaction; RASS: Alert and Calm (0) kr3 09:57 Drug: Magnesium Sulfate 1 grams Route: IVPB; Infused Over: 1 hrs; Site: left kr3 antecubital; 09:57 Drug: Flomax (tamsulosin) 0.4 mg Route: PO; kr3 19:19 Follow up: Response: No adverse reaction kr3 10:19 Drug: Ketorolac 15 mg Route: IVP; Site: left antecubital; kr3 19:19 Follow up: Response: No adverse reaction kr3 13:32 Drug: NS 0.9% 1000 ml Route: IV; Rate: 1000 ml; Site: left antecubital; kr3 19:20 Follow up: Response: No adverse reaction; IV Status: Completed infusion; IV Intake: kr3 1000ml 14:27 Drug: morphine 4 mg Route: IVP; Infused Over: 4 mins; Site: left antecubital; kr3 19:18 Follow up: Response: No adverse reaction; RASS: Alert and Calm (0) kr3 14:27 Drug: Zofran (Ondansetron) 4 mg Route: IVP; Site: left antecubital; kr3 19:18 Follow up: Response: No adverse reaction kr3 Medication: 11:27 VIS not applicable for this client. kr3 Intake: 19:20 IV: 1000ml; Total: 1000ml. kr3 Outcome: 10:57 ER care complete, transfer ordered by MD. rockwell 14:30 Transferred by ground EMS to [facility]. kr3 14:30 Condition: stable 14:30 Instructed on the need for transfer. 14:31 Patient left the ED. kr3 Signatures: Dispatcher [employer] EDMS Gail Barrow, WELL LOGGER-C WELL LOGGER-Ckb Xenia Yang, RN RN Stephanie Bravo RN RN [email or web address] Carlota Suazo Kelley RN RN cole3 Candy Mendoza mm9 Corrections: (The following items were deleted from the chart) 08:58 08:56 Allergies: Dilaudid; levon jl7 09:37 09:12 URINALYSIS+U.LAB.BRZ drawn and sent. mm9 EDMS 09:37 09:17 URINALYSIS+U.LAB.BRZ drawn and sent. mm9 EDMS
--- NOTE | 2022-04-10 10:58 | EDPHYS ---
Physician Documentation [facility] Name: Vincenzo Bales Age: 42 yrs Sex: Male : 1980 Arrival Date: 04/10/2022 Time: 08:46 Bed 8 Private MD: Ximena Forbes ED Physician Norman Perry HPI: 04/10 10:54 This 42 yrs old Male presents to ER via Ambulatory with complaints of Back Pain, kidney kb stone. 10:55 The patient complains of pain in the left flank. The pain does not radiate. Onset: The kb symptoms/episode began/occurred 7 day(s) ago, and became worse this morning. Modifying factors: The symptoms are alleviated by nothing. the symptoms are aggravated by palpation/percussion. Associated signs and symptoms: Pertinent positives: hematuria, nausea. Severity of pain: At its worst the pain was moderate severe in the emergency department the pain is unchanged. The patient has experienced similar episodes in the past, a few times. The patient has been recently seen at the [facility] Emergency Department, this week. 10:56 Pt reports he was diagnosed with a kidney stone on Monday and the pain has increased. kb "I think it is stuck.". Historical: - Allergies: 08:56 No Known Allergies; jl7 - Home Meds: 08:56 Furosemide Oral [Active]; Lunesta Oral [Active]; Metoprolol Tartrate Oral [Active]; jl7 Mirtazapine Oral [Active]; venlafaxine Oral [Active]; Warfarin Oral [Active]; - PMHx: 08:56 defective aortic valve; Hypertension; Kidney stones; jl7 - PSHx: 08:56 heart valve; jl7 - Immunization history:: Client reports receiving the 2nd dose of the Covid vaccine. - Social history:: Smoking status: Patient reports the use of cigarette tobacco products. ROS: 10:54 Constitutional: Negative for fever, chills, and weight loss. kb 10:54 : Positive for flank pain, hematuria. 10:54 All other systems are negative. Exam: 10:54 Constitutional: This is a well developed, well nourished patient who is awake, alert, kb and in no acute distress. Head/Face: Normocephalic, atraumatic. ENT: Moist Mucous membranes Cardiovascular: Regular rate and rhythm with a normal S1 and S2. No gallops, murmurs, or rubs. No pulse deficits. Respiratory: Respirations even and unlabored. No increased work of breathing. Talking in full sentences Abdomen/GI: Soft, non-tender. No distention Skin: Warm, dry with normal turgor. Normal color. MS/ Extremity: Pulses equal, no cyanosis. Neurovascular intact. Full, normal range of motion. Neuro: Awake and alert, GCS 15, oriented to person, place, time, and situation. Moves all extremities. Normal gait. 10:54 Back: CVA tenderness, that is moderate, is noted on the left. Vital Signs: 08:54 BP 144 / 80; Pulse 52; Resp 17; Temp 97.6; Pulse Ox 97% ; Weight 120.2 kg; Height 5 ft. jl7 9 in. (175.26 cm); Pain 10/10; 09:54 BP 141 / 78; Pulse 52; Resp 18; Pulse Ox 99% on R/A; kr3 10:56 BP 137 / 78; Pulse 57; Resp 18; Pulse Ox 95% on R/A; kr3 13:25 BP 146 / 71; Pulse 65; Resp 15; Pulse Ox 98% on R/A; hb 14:29 BP 162 / 90; Pulse 55; Resp 18; Pulse Ox 100% on R/A; kr3 08:54 Body Mass Index 39.13 (120.20 kg, 175.26 cm) jl7 MDM: 08:51 Patient medically screened. kb 10:53 Data reviewed: vital signs, nurses notes. Data interpreted: Pulse oximetry: on room air kb is 97 %. Interpretation: normal. Counseling: I had a detailed discussion with the patient and/or guardian regarding: the historical points, exam findings, and any diagnostic results supporting the discharge/admit diagnosis, lab results, radiology results, the need to transfer to another facility. ED course: Pt still reports pain. States it is excruciating at times. Reports history of large stone with stent placement attempts. . 12:40 ED course: Pt accepted for consult by Dr Dong with urology at [facility]. kb 04/10 08:56 Order name: CBC with Diff; Complete Time: 09:26 kb 04/10 08:56 Order name: CMP; Complete Time: 09:54 kb 04/10 08:56 Order name: Urine Microscopic Only; Complete Time: 09:42 kb 04/10 09:35 Order name: Urine Culture EDMS 04/10 10:53 Order name: SARS-COV-2 Antigen Rapid; Complete Time: 11:54 em1 04/10 08:56 Order name: CT Stone Protocol; Complete Time: 09:43 kb 04/10 12:58 Order name: Protime (+inr) kb 04/10 12:58 Order name: Ptt, Activated kb 04/10 08:56 Order name: IV Saline Lock; Complete Time: 09:15 kb 04/10 08:56 Order name: Labs collected and sent; Complete Time: 09:15 kb 04/10 08:56 Order name: Urine Dipstick-Ancillary (obtain specimen); Complete Time: 09:12 kb Administered Medications: 09:15 Drug: Zofran (Ondansetron) 4 mg Route: IVP; Site: right antecubital; jl7 19:19 Follow up: Response: No adverse reaction kr3 09:15 Drug: morphine 4 mg Route: IVP; Infused Over: 4 mins; Site: right antecubital; jl7 19:19 Follow up: Response: No adverse reaction; RASS: Alert and Calm (0) kr3 09:57 Drug: Magnesium Sulfate 1 grams Route: IVPB; Infused Over: 1 hrs; Site: left kr3 antecubital; 09:57 Drug: Flomax (tamsulosin) 0.4 mg Route: PO; kr3 19:19 Follow up: Response: No adverse reaction kr3 10:19 Drug: Ketorolac 15 mg Route: IVP; Site: left antecubital; kr3 19:19 Follow up: Response: No adverse reaction kr3 13:32 Drug: NS 0.9% 1000 ml Route: IV; Rate: 1000 ml; Site: left antecubital; kr3 19:20 Follow up: Response: No adverse reaction; IV Status: Completed infusion; IV Intake: kr3 1000ml 14:27 Drug: morphine 4 mg Route: IVP; Infused Over: 4 mins; Site: left antecubital; kr3 19:18 Follow up: Response: No adverse reaction; RASS: Alert and Calm (0) kr3 14:27 Drug: Zofran (Ondansetron) 4 mg Route: IVP; Site: left antecubital; kr3 19:18 Follow up: Response: No adverse reaction kr3 Disposition: 12:39 Co-signature as Attending Physician, Norman Perry DO I was immediately available on-site ms3 in the Emergency Department for consultation in the care of the patient. Disposition Summary: 04/10/22 10:57 Transfer Ordered Transfer Location: [facility] kb Reason: Higher level of care kb Condition: Stable kb Problem: new kb Symptoms: are unchanged kb Accepting Physician: Dr. Oreilly(04/10/22 14:31) kr3 Diagnosis - Calculus of ureter kb - Unspecified hydronephrosis kb Forms: - Medication Reconciliation Form kb - SBAR form kb Signatures: Dispatcher [employer] EDMS Gail Barrow FNP-C FNP-Stephanie Grant RN TAQUERIA coreas7 Norman Perry DO DO ms3 Yessenia Izaguirre RN RN kr3 Corrections: (The following items were deleted from the chart) 08:58 08:56 Allergies: Dilaudid; jlJudi jl7 09:37 09:12 URINALYSIS+U.LAB.BRZ ordered. EDMS EDMS 13:02 10:57 Dr rockwell kb 14:31 13:02 Dr. Oreilly kb kr3
[2022-04-10 11:35] LABS: SARS-CoV-2 Antigen Rapid Res Negative (Negative)
[2022-04-10] MEDS ORDERED: NA CHLORIDE 0.9% 1,000 ML ONE (13:16)
[2022-04-10 13:51] LABS: Protime INR 4.1
[2022-04-10 14:35] VITALS: TEMP 97.6
[2022-04-10 14:40] VITALS: BP 162/90; O2SAT 100
== END 2022-04-10 14:31 | disposition short-term general hospital (02) ==
LOC: ER 08:44
DX: N20.1 Calculus of ureter (principal); N13.30 Unspecified hydronephrosis; I10 Essential (primary) hypertension; Z87.442 Personal history of urinary calculi; Z20.822 Contact with and (suspected) exposure to COVID-19
CPT/HCPCS: 87088; 85025; 87086; 36415; 85610; 85730; 81015; 80053; 76377; 74176; 99285; 87811; J3475; J7030; J2405 ×2

== ENCOUNTER 2022-05-12 06:16 | Day surgery (SDC) | payer OTHER ==
--- NOTE | 2022-05-10 13:45 | EKG ---
Test Date: 2022-05-06 Test Time: 13:28:08 Cash Teller: PAULINA MEASUREMENT RESULTS: Intervals: Rate: 59 TX: 158 QRSD: 148 QT: 464 QTc: 459 Norton: P: 58 TX: 158 QRS: 8 T: 36 INTERPRETIVE STATEMENTS: Sinus bradycardia Right bundle branch block Cannot rule out Inferior infarct, age undetermined Abnormal ECG Compared to ECG 12/24/2020 06:42:19 Myocardial infarct finding now present Sinus rhythm no longer present Electronically Signed On 05-10-22 13:40:12 PATROL DEPUTY SHERIFF by Randolph Nance
[2022-05-12] MEDS ORDERED: Ringers Lactate 1,000 ML IV ONE (06:35)
[2022-05-12] MEDS ORDERED: AMPICILLIN SODIUM 2 GM/VIAL VIAL ONE (06:35)
[2022-05-12 06:41] LABS: Protime INR 1.29
[2022-05-12] MEDS ORDERED: Gentamicin Inj 240 MG in NA CHLORIDE 0.9% 100 ML IV ONE (07:00)
[2022-05-12] MEDS ORDERED: MIDAZOLAM HCL 2 MG/2 ML INJ ONE (07:21)
[2022-05-12] MEDS ORDERED: propofoL 200 MG/20 ML VIAL IV ONE ×2 (07:21→07:47)
[2022-05-12] MEDS ORDERED: FENTANYL CITR 100 MCG/2 ML ONE ×2 (07:21→07:54)
[2022-05-12] MEDS ORDERED: LIDOCAINE 1% MPF 5 ML VIAL ONE (07:22)
[2022-05-12] MEDS ORDERED: KETOROLAC 30 MG/ML INJ ONE (07:50)
[2022-05-12] MEDS ORDERED: ONDANSETRON 4 MG/2 ML VIAL ONE (07:54)
[2022-05-12] MEDS ORDERED: Mastisol Adhesive Liq ONE (08:28)
[2022-05-12] MEDS ORDERED: MEPERIDINE HCL 25 MG/ML SYR ONE (08:44)
[2022-05-12] MEDS: HYDROMORPHONE HCL 1 MG/ML INJ ONE ×2 (08:45→08:50)
[2022-05-12] MEDS ORDERED: PROMETHAZINE INJ 25 MG/ML AMP ONE (08:48)
[2022-05-12] MEDS: FENTANYL CITR 100 MCG/2 ML ONE ×4 (09:00→09:15)
[2022-05-12] MEDS ORDERED: PHENAZOPYRIDINE 100MG TAB PO ONE ×2 (09:03→09:39)
[2022-05-12] MEDS ORDERED: HYDROCODONE/APAP 5/325 MG TAB PO PRN (09:03)
--- NOTE | 2022-05-12 09:35 | OP ---
Surgeon: SUNDEEP JONES Preoperative Diagnoses: 1.A 6 mm left ureterolithiasis. 2.Status post left ureteral stent placement on 04/11/2022. Postoperative Diagnoses: 1.A 6 mm left ureterolithiasis. 2.Status post left ureteral stent placement on 04/11/2022. 3.Meatal stenosis. Principal Procedures: 1.Cystoscopy. 2.Left retrograde pyelography. 3.Left ureteroscopy and pyeloscopy with stone basketing. 4.Left ureteroscopic laser lithotripsy. 5.Left ureteral stent exchange. Indication For Procedure: Mr. Bales is a 42-year-old man with a mechanical aortic valve replaced, on Coumadin since 2019, with neuropathy and recurrent stone formation, now with a 6 mm proximal left ur eterolithiasis and bilateral nephrolithiasis in association with significant left lower quadrant and flank pain. Since a stent was placed on 04/11/2022, he has been having stent pain. [facility]. Procedure In Detail: The patient was consented in the preoperative holding area before being transfe rred to operative suite where general anesthesia was induced. He was given ampicillin 2 g and gentam icin 2-3 mg/kg IV antimicrobial prophylaxis. Pneumo boots were provided for DVT prophylaxis. He was placed in the lithotomy position, padded and secured to the table appropriately. His genitalia were prepped with Hibiclens and he was draped in standard fashion. The case was begun using a 22-[place] Citizen rigid cystoscope to traverse the urethra and enter his bladder. Of note, he did have a degree of avery jeannette stenosis that required some dilation with the tip and the obturator for the scope, but after dila tion, I was able to pass the scope successfully beyond the meatal stenosis. Upon entry into his blad georgi, it was decompressed of fluid and somewhat bloody urine and irrigated. I then identified the yokasta nt and grasped the coil of the stent and delivering it to the meatus under fluoroscopic guidance to c onfirm the proximal end of the stent remained within the mid proximal ureter. I then passed a Sensor wire via the stent and successfully coiled it within the putative upper pole of the kidney. Over th e wire, I passed a dual-lumen catheter, after removing the stent, into the mid distal ureter and perf ormed a retrograde pyelogram. Left retrograde pyelography: Using a 70:30 mixture of Omnipaque and saline, contrast was injected via the second lumen of the dual -lumen catheter and did propagate up the distal into the mid and proximal ureter before entering the renal pelvis and calyces, which were sharp without signs of pelvocaliectasis. The wire was in the ap propriate intraluminal location, so I removed the dual-lumen catheter and performed semi-rigid ureter oscopy surveying the entirety of the distal into the mid and proximal ureter, but unfortunately the s tone had been dislodged into the collecting system. As a result, I placed a uniRow guidewire under direct vision via the semi-rigid ureteroscope into the upper pole of the kidney as confirmed fluorosc opically. I then passed the flexible ureteroscope over that wire after removing the semi-rigid urete roscope. Fluoroscopically, I surveyed each of the calyces of the kidney and ultimately identified th e calculus within the lower pole posterior calyx and a very difficult position to access or even visu sonja the stone hiding in that location. So, I utilized a 1.9-[place] 0 tip Nitinol basket to grasp t he stone and delivered into the proximal ureter/renal pelvis at the [facility]. There, I released the stone and utilized a 200 nm laser fiber to fragment the stone into dust around the size of the laser fiber . Some of that fragments, I had to follow into the upper pole and the mid pole locations to continue to fragment it, but in the end, the stone was completely fragmented. I surveyed each of the calyces of the kidney again to confirm absence of any residual significant volume stones, and when none was noted, I surveyed the pelvis down into the proximal, mid, and distal ureter for additional calculi. When none were noted, the ureteroscopy was discontinued and I back-loaded the cystoscope over the ind welling safety wire. I then passed a 6-[place] by 26-[place] double-J left ureteral stent under direct vision with a coil observed in the upper pole of the kidney fluoroscopically and 1 cystoscopically f ormed in the bladder. The stent was left on its tether, which was secured to the glans penis using M astisol and Steri-Strips. His bladder was decompressed prior to securing the tether to his phallus, and once secured, he was taken out of the lithotomy position, awakened from general anesthesia, trans ferred to a stretcher, and then transferred to the recovery room in good condition. Complications: None. Discharge Disposition: He will have the ureteral stent for the next few days and may follow up in [facility] on Monday to have it removed. He will resume his Coumadin immediately and the Love nox no sooner than tomorrow assuming his urine is not significantly bloody. Detailed discharge instr uctions were provided. Subsequent followup required will include a metabolic stone profile assessmen t via Litholink x2 performed no sooner than 1 month from of the procedure. He may then see me back i n followup in about 2 months to discuss efforts to reduce his stone forming risk. CORNEL/AMY Voice ID: [id number] Report ID: [id number]
[2022-05-12] MEDS ORDERED: HYDROCODONE/APAP 5/325 MG TAB ONE (09:39)
[2022-05-12 09:43] VITALS: BP 147/56; TEMP 97.3; O2SAT 100
--- NOTE | 2022-05-12 09:50 | PN ---
Reason For Progress Note: Patient is complaining of dissatisfaction with having the ureteral stent r einserted following ureteroscopy with laser lithotripsy and suggesting he would rather just put a bul let in his head. History Of Present Illness: Mr. Bales is a 42-year-old gentleman with significant medical history wh o had an obstructing 6 mm proximal left ureteral calculus and underwent a stent placement at [facility]. He subsequently saw me in followup in mid April and was quickl y placed on the schedule for definitive management 2 weeks later. That management was accomplished t jesenia with laser lithotripsy and fragmentation of his stone, and as he had been counseled preoperative ly and was present on his consent, the stent would be replaced. He expressed a great degree of diffi culty managing the discomfort associated with the stent prior to the surgery, and when he awoke from the surgery he was cursing at the nurses and causing a great degree of disruption, upset because the stent had been replaced. I explained to him that we had discussed this prior to the surgery that it was necessary to place the stent back into his bladder, and I also reaffirmed the reasons why. I exp lained that after ureteroscopy and laser lithotripsy, there was significant spasm of the ureter from having placed a scope all the way up the ureter into the kidney. I explained that without the stent, that spasm would result in hydronephrosis, which I explained to him was swelling of the kidney, and severe pain as if he were obstructed associated with the initial stone passage of it attempt. As a r esult, I explained that while I had attempted to leave a stent just temporarily, for a few hours as o pposed to for a few days, in the past, this has been an unsuccessful approach and people ended up wit h significant pain. As a result, I explained that typically, I recommend leaving the stent for at le ast 48-72 hours before removing it to minimize the ureteral spasm and pain associated. Despite this, he continued to suggest that he would rather put a bullet in his head and how upset he was about the idea of having the stent replaced despite the consent clearly indicating stent exchange and our preo perative discussions. As a result, we recommended psychiatric evaluation, which if necessary, may need to be done via emergency department transfer. CORNEL/AMY Voice ID: [id number] Report ID: [id number]
--- NOTE | 2022-05-12 10:59 | RAD REPORT ---
EXAM DESCRIPTION: RAD - Urethrocystogrphy Retrograde - 05/12/2022 9:29 am CLINICAL HISTORY: URETEROSCOPY COMPARISON: No comparisons FINDINGS/IMPRESSION: 17 intraoperative fluoroscopic images were submitted showing cannulation of the left ureter, ureterogram, and placement of a left ureteral stent. Fluoro time: 34 seconds
== END 2022-05-12 10:40 | disposition home or self-care (01) ==
LOC: OR 06:16
PROVIDERS: ATTEND Urology
PROC: 0T778DZ Dilation of Left Ureter with Intraluminal Device, Via Natural or Artificial Opening Endoscopic (ICD-10-PCS; 2022-05-12)
PROC: 0TC78ZZ Extirpation of Matter from Left Ureter, Via Natural or Artificial Opening Endoscopic (ICD-10-PCS; principal; 2022-05-12 07:30)
DX: N20.1 Calculus of ureter (principal); N35.919 Unspecified urethral stricture, male, unspecified site
CPT/HCPCS: 36415; 51610; 74450; 85610; 87086; 87088; 93005; J0290; J1170; J1580; J2001; J2175; J2250; J2405; J2550; J2704; J3010; J7120

== ENCOUNTER 2023-03-16 09:36 | Emergency (ER) | payer OTHER ==
--- OUTSIDE RECORDS SUMMARY | 2023-03-16 09:44 | XMS REPORT | Continuity of Care Document ---
:1980 Author Organization [facility] t Address [address] [place] [address] [place] [id number] Care Team Providers Name Role Phone Carla Rodriguez MD, [facility] Primary Care Physician [phone] DEVIN LEVI Attending Clinician Unavailable DENZEL POWELL Attending Clinician Unavailable NOAH GRUBER Attending Clinician Unavailable ANDERS FLORENTINO Attending Clinician Unavailable JUANA HUFF Attending Clinician Unavailable Anders Florentino MD Attending Clinician Juana Huff MD Attending Clinician Wilner Harrison MD Attending Clinician Margoth Larose MD Attending Clinician Amie Ann CRNA Attending Clinician Doctor Unassigned, [address] Attending Clinician Unavailable Denzel Powell MD Attending Clinician [phone] Arie Rivas DO Attending Clinician Noah Smith MD Attending Clinician Carri MORALES, Joya Mckenzie Attending Clinician JOYA CHRISTINA Attending Clinician Unavailable PEYTON FULLER Attending Clinician Unavailable NATHANIEL SAENZ Attending Clinician Unavailable DENZEL POWELL Admitting Clinician Unavailable NOAH GRUBER Admitting Clinician Unavailable ANDERS FLORENTINO Admitting Clinician Unavailable JUANA HUFF Admitting Clinician Unavailable HAWA BURGOS Admitting Clinician Unavailable Payers Payer Name Policy Type Policy Number Effective Date Expiration Date S kelly BCBS OS [id number] 2019 POS/PPO/EPO 00:00:00 CDC REVIEW [id number] 2019 00:00:00 ZZCDCREVIEW [id number] 2018 2018 00:00:00 00:00:00 [facility] [id number] Common [facility] POS [id number] 2021 SELECT CHOICE 00:00:00 Problems Condition Condition Condition Status Onset Resolution Last Treating Co mments Source Name Details Category Date Date Treatment Clinician Date Hydronephr Hydronephr Disease Active 2021-[address] osis, osis, 1-28 [facility] unspecifie unspecifie 00:00: dical d d 00 Ellery hydronephr hydronephr osis type osis type Kidney Kidney Disease Active 2021-[address] [facility] [address] stone stone 1-27 [facility] 00:00: Medical 00 Ellery Aortic Aortic Disease Active 2019-[address] [facility] stenosis stenosis 1-16 [facility] due to due to 00:00: Medical bicuspid bicuspid 00 Center aortic aortic valve valve Aortic Aortic Disease Active 2019-[address] [facility] stenosis stenosis 1-16 [facility] due to due to 00:00: Medical bicuspid bicuspid 00 Ellery aortic aortic valve valve S/P S/P Disease Active 2019-[address] [facility] Mechanical Mechanical 1-16 Joan kes Aortic Aortic 00:00: Medical Valve Valve 00 Ellery Replacemen Replacemen t by Dr. beatty by Dr. 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 [id number] Ureterolit Problem Com mon hiasis [facility] [id number] LLQ Problem Common abdominal Spirit pain - [facility] [id number] Pain due Problem Comm on to [facility] ureteral - [facility] stent, [facility] No known No known Disease Unive rs active active ity of problems problems [place] [facility] Allergies, Adverse Reactions, Alerts Allergy Allergy Status Severity Reaction(s) Onset Inactive Treating Comm ents Source Name Type Date Date Clinician GARLIC Allergy Active Hives [facility] 5[facility]05 [facility] 00:00: Medical 00 Center Garlic Propensi Active Hives [facility] ty to 5-05 [facility] adverse 00:00: Medical reaction 00 Center s Hydromor Drug Active Severe Other [facility] phone Allergy 7-11 reaction( [facility] (Bulk) 00:00: s): Medical 00 Hallucina Center tionsBeco mes very aggressiv e HYDROMOR Allergy Active High [facility] PHONE 7-11 [facility] (BULK) 00:00: Medical 00 Center Hydromor Propensi Active Hallucinatio Becomes Univers phone ty to ns 7-11 very ity of (Bulk) adverse 00:00: aggressiv [place] reaction 00 e Medical s to Branch drug NO KNOWN Allergy Active [facility] ALLERGIE S Family History Family Member Diagnosis Comments Start Date Stop Date Source Natural son No Known Problem [facility] Natural father Heart disease [facility] Maternal aunt Diabetes [facility] Maternal aunt Liver disease [facility] Maternal grandmother Liver disease [facility] Maternal uncle Cancer [facility] Natural mother Arthritis [facility] Paternal grandmother Diabetes [facility] Social History Social Habit Start Date Stop Date Quantity Comments Source History of Tobacco Current Smoker Co mmon Spirit - Use [facility] Sexual orientation Method ist Hospital History [facility]-Med [facility] Alcohol intake 2022-04-12 2022-04-12 [facility]er [facility] 00:00:00 of alcohol Medical Center (finding) History [facility] 2022-04-10 2022-04-[address] [facility] Transport Med 00:00:00 00:00:[address] History [facility] 2022-04-10 2022-04-[address] [facility] Housing Unable to 00:00:00 00:00:00 Medical Center Pay History [facility] 2022-04-10 2022-04-[address] [facility] Housing Places 00:00:00 00:00:00 Medical Ce nter Lived History [facility] 2022-04-10 2022-04-[address] [facility] Housing Homeless 00:00:00 00:00:00 Medical Center Last Year Alcohol Comment 2020-03-27 2020-03-27 during holidays, [facility] 00:00:00 00:00:00 3 times per year Medical Center Tobacco use and 2019-09-17 2019-09-[address] [facility] [address] Joan kes exposure 00:00:00 00:00:00 Medical Center Cigarettes smoked 2019-09-17 2019-09-[address] [facility] current (pack per 00:00:00 00:00:00 Medical Center day) - Reported Cigarette 2019-09-17 2019-09-[address] [facility] pack-years 00:00:00 00:00:00 Medical Center History [facility] 2019-09-17 2019-09-[address] [facility] Alcohol Frequency 00:00:00 00:00:00 Medical Center History [facility] 2019-09-17 2019-09-[address] [facility] Alcohol Std Drinks 00:00:00 00:00:00 Medica l Center History SDOH 2019-09-17 2019-09-17 1 ERINN [place] Valle Alcohol Binge 00:00:00 00:00:[address] Sex [birth year] At [birth year] ERINN Yanezs 00:00:00 00:00:00 Medical Center Smoking Status Start Date Stop Date Source Tobacco smoking consumption [facility] unknown Current Smoker 2022-05-18 00:00:00 Common Spiri t - [facility] Medical Ce nter Medications Ordered Filled Start Stop Current Ordering Indication Dosage Frequency Signature Comments Components Source Medication Medication Date Date Medication? Clinician (SIG) Name Name Cipro 500 Cipro 500 2021-05- No 1{table BID Cipro 500 MG MG 230 05-18 t} MG 00:00: 00:00 00 :00 Cipro 500 Cipro 500 2021-05- No 1{table BID Cipro 500 MG MG 230 05-18 t} MG 00:00: 00:00 00 :00 Cipro 500 Cipro 500 2021-05- No 1{table BID Cipro 500 MG MG 2-24 t} MG 00:00: 00:00 00 :00 tamsulosin 2021-05- No .4mg QD Take [address] (FLOMAX) 06-16 capsule [facility] 0.4 mg Cap 00:00: 23:59 (0.4 mg Med ical 24 hr 00 :00 total) by Center capsule mouth daily for 14 days. tamsulosin 2021-05- No .4mg QD Take [address] [facility] (FLOMAX) 06-16 capsule [facility] 0.4 mg Cap 00:00: 00:00 (0.4 mg Med ical 24 hr 00 :00 total) by Center capsule mouth daily. warfarin 2021-05 Yes 8mg QD Take [address] (COUMADIN, 06-15 by mouth [facility]ukes JANTOVEN) 4 13:10: daily Medic al MG tablet 50 monday and Cent er Monday nights . warfarin 2021-05 Yes 7mg Take [address] (COUMADIN, 06-15 by mouth [facility] JANTOVEN) 1 13:10: as needed M edical MG tablet 50 Takes Sun, Cent er , Mon, , Sat . QUEtiapine 2021-05 Yes 50mg QD Take [address] (SEROquel) 06-15 by mouth [facility]ukes 50 MG 13:10: nightly. Medical tablet 50 Center doxepin 2021-05 Yes 50mg QD Take [address] (SINEquan) -01 by mouth [facility] 50 MG 13:10: nightly. Medical capsule 50 Center venlafaxine 2021-05 Yes 150mg Take [address] (EFFEXOR) 2 mg by [facility] 100 MG 13:10: mouth Medical tablet 50 every Center night as needed. ibuprofen 2021-05 No Take by [facility] (ADVIL 06-15 mouth. [facility] LIQUI-GEL 11:39: 00:00 Medical ORAL) 07 :00 Center HYDROcodone 2021-05 Yes 1{tbl} Take [address] -acetaminop 06-15 tablet by Jeannie decker (NORCO 00:00: mouth Medica l 5-325) 00 every 6 Center 5-325 mg (six) per tablet hours as needed for Pain. Max Daily Amount: 4 tablets oxybutynin 2021-05 No 5mg [id number] Take [address] (DITROPAN) 06-15 [id number] tablet (5 [facility] 5 MG tablet 00:00: 23:59 3D mg total) Medical 00 :00 by mouth 3 Center (three) times daily for 14 days. cefdinir 2021-05 No 300mg Q.5D Take 1 [facility] t (OMNICEF) 06-15 capsule [facility] 300 MG 00:00: 23:59 (300 mg Medical capsule 00 :00 total) by Center mouth 2 (two) times daily for 3 days. phenazopyri 2021-05- No 95mg Take [address] dine 06-15 tablet (95 [facility] (PYRIDIUM) 00:00: 23:59 mg total) M edical 95 MG 00 :00 by mouth 3 Center tablet (three) times daily as needed for Pain (for burning) for up to 1 day. oxybutynin 2021-05 No 5mg Take [address] [facility] (DITROPAN) 06-15 tablet (5 Jeannie es 5 MG tablet 00:00: 00:00 mg total) Medical 00 :00 by mouth 3 Center (three) times daily as needed (bladder spasms). ibuprofen 2019-05 Yes Take by [facility]I [facility] t (ADVIL 2-15 mouth. [facility]ukes LIQUI-GEL 13:06: Medical ORAL) 46 Center ibuprofen 2019-05 Yes Take by [facility]I [facility] t (ADVIL 2-15 mouth. [facility] LIQUI-GEL 13:06: Medical ORAL) 46 Center ibuprofen 2019-05 Yes Take by [facility]I [facility] t (ADVIL 2-15 mouth. [facility] LIQUI-GEL 13:06: Medical ORAL) 46 Center doxylamin-P 2019-05- No 1{dose} Take [address] SE-DM-aceta 2-15 12-15 Dose by Milad s minophen 13:06: 00:00 mouth as Medi stephanie (Izabella-Seltz 17 :00 needed Center er Plus Izabella Cold+Flu) [place] 12.5-10-20- Cold/Sinus 650 mg PwPk . aspirin 81 2019-05- No 81mg QD Take [address] MG EC 06-08 1215 tablet (81 [facility] tablet 00:00: 00:00 mg total) Medic al 00 :00 by mouth Center daily. nicotine 2019-05- No 1{patch QD Place [address] (NICODERM 06-0809 } patch onto Jeannie es CQ) 14 00:00: 23:59 the skin Medica l mg/24 hr 00 :00 daily for Center patch 14 days. doxylamine/ 2019-05- No 1{tbl} Take [address] phenylep/DM 1-24 11-24 tablet by Joan marrs /aspirin 12:44: 00:00 mouth 2 Medic al (IZABELLA-SELTZ 19 :00 (two) Center ER PLUS times DAY-NIGHT daily as ORAL) needed . naproxen 2019-05- No 220mg Take [address] (ALEVE,ANAP 1-24 11-24 mg by [facility]ukes JACOB,MIDOL) 12:44: 00:00 mouth 2 Med ical 220 MG 19 :00 (two) Center tablet times daily with breakfast and dinner. warfarin 2019-05- No 7.5mg QD Take 1 [facility] (COUMADIN, 1-24 11-24 tablet [facility]ukes JANTOVEN) 00:00: 23:59 (7.5 mg Medi stephanie 7.5 MG 00 :00 total) by Center tablet mouth daily. warfarin 2019-05 No 7.5mg QD Take 1 [facility] t (COUMADIN, 06-07 tablet [facility] JANTOVEN) 00:00: 23:59 (7.5 mg Medi stephanie 7.5 MG 00 :00 total) by Center tablet mouth daily. guaiFENesin 2019-05- No 600mg Q.5D Take [address] (mucINEX) 06-07 tablet [facility] 600 mg 12 00:00: 23:59 (600 mg Medi stephanie hr tablet 00 :00 total) by Cente r mouth 2 (two) times daily for 14 days. LORazepam 2019-05 No 2mg QD Take 1 [facility] [...] (two) Center times daily as needed . diphenhydrA 2017-05 Yes 25mg Take 25 mg Univers MINE 1-30 by mouth ity of (BENADRYL) 16:13: at bedtime [place] 25 mg 17 as needed. Medical capsule Branch LOSARTAN 2017-05 Yes 160mg Take 160 Univ ers POTASSIUM 1-30 mg by ity of (LOSARTAN 16:13: mouth. [place] ORAL) 17 Medical Branch azilsartan 2017-05 Yes Take 1 Unive rs (EDARBI) 40 1-30 TAB-CAP/M2 it y of mg Tab 16:13: by mouth [place] 17 daily. Medical Branch Vital Signs Vital Name Observation Time Observation Value Comments Source WEIGHT 2020-04-06 04:17:00 115.486 kg WEIGHT 2020-04-05 05:00:00 118.162 kg WEIGHT 2020-04-04 04:22:00 119.432 kg HEIGHT 2020-03-30 08:18:00 177.8 cm WEIGHT 2020-03-30 08:18:00 118.48 kg HEIGHT 2020-03-27 09:09:00 177.8 cm WEIGHT 2020-03-27 09:09:00 122.018 kg height 2022-04-27 13:30:00 69 [in_i] [facility] weight 2022-04-27 13:30:00 260 [lb_av] [facility] temperature 2022-04-27 13:30:00 97.7 [degF] [facility] bmi 2022-04-27 13:30:00 38.39 kg/m2 [facility] oximetry 2022-04-27 13:30:00 99 % [facility] blood pressure 2022-04-27 13:30:00 155 mm[Hg] [facility] systolic [facility] blood pressure 2022-04-27 13:30:00 79 mm[Hg] [facility] - diastolic [facility] HEIGHT 2022-04-10 17:00:00 177.8 cm HEIGHT 2022-04-10 17:00:00 177.8 cm HEIGHT 2022-04-10 17:00:00 177.8 cm HEIGHT 2020-04-28 12:55:00 177.8 cm WEIGHT 2020-04-28 [...] 177.8 cm WEIGHT 2019-09-19 00:00:00 116.711 kg Heart rate 2022-04-14 11:31:58 61 /min [facility] Oxygen saturation in 2022-04-14 11:31:58 98 /min [facility] Arterial blood by Medical Ce nter Pulse oximetry Systolic blood 2022-04-14 11:31:00 171 mm[Hg] [facility] Diastolic blood 2022-04-14 11:31:00 92 mm[Hg] [facility] Respiratory rate 2022-04-14 11:31:00 18 /min [facility] Body temperature 2022-04-14 11:30:53 36.5 Claudette [facility] Body height 2022-04-10 17:00:00 177.8 cm [facility] Systolic blood 2020-04-28 12:55:00 136 mm[Hg] [facility] Diastolic blood 2020-04-28 12:55:00 83 mm[Hg] [facility] Heart rate 2020-04-28 12:55:00 66 /min [facility] Body temperature 2020-04-28 12:55:00 37 Claudette [facility] Respiratory rate 2020-04-28 12:55:00 18 /min [facility] Body height 2020-04-28 12:55:00 177.8 cm [facility] Body weight 2020-04-28 12:55:00 117.482 kg [facility] BMI 2020-04-28 12:55:00 37.16 kg/m2 [facility] Oxygen saturation in 2020-04-28 12:55:00 98 /min room air [facility] Arterial blood by Medical Ce nter Pulse oximetry Procedures Procedure Date / Time Performing Clinician Source Performed CBC W/PLT COUNT & AUTO 2022-04-13 05:23:00 Health system BASIC METABOLIC PANEL 2022-04-13 05:23:00 [facility] Ellery MAGNESIUM 2022-04-13 05:23:00 [facility] PHOSPHORUS 2022-04-13 05:23:00 [facility] PROTHROMBIN TIME/INR 2022-04-13 05:23:00 [facility] CBC W/PLT COUNT & AUTO 2022-04-13 05:23:00 [facility] DIFFERENTIAL Nathaly Ellery CBC W/PLT COUNT & AUTO 2022-04-12 04:10:00 Health system BASIC METABOLIC PANEL 2022-04-12 04:10:00 [facility] MAGNESIUM 2022-04-12 04:10:00 [facility] PHOSPHORUS 2022-04-12 04:10:00 [facility] PROTHROMBIN TIME/INR 2022-04-12 04:10:00 [facility] CBC W/PLT COUNT & AUTO 2022-04-12 04:10:00 [facility] NON-SPECIFIC UP 2022-04-11 16:30:00 Wilner Harrison [facility] 1 HOUR Center ANAEROBIC CULTURE 2022-04-11 16:20:09 Wilner Harrison [facility] FUNGUS CULTURE + SMEAR 2022-04-11 16:20:09 [facility] 2022-04-11 16:20:09 [facility] CULTURE + GRAM STAIN Center CYSTOSCOPY 2022-04-11 15:24:00 [facility] CYSTOSCOPY, WITH URETERAL 2022-04-11 15:24:00 [facility] STENT INSERTION Center PROCEDURE W/ C-ARM 2022-04-11 15:24:00 [facility] 12-LEAD 2022-04-11 11:08:46 Lenny Nieves [facility] CT ABDOMEN/PELVIS WITHOUT 2022-04-11 09:45:00 [facility] IV CONTRAST [facility] CBC W/PLT COUNT & AUTO 2022-04-11 04:46:00 [facility] DIFFERENTIAL [facility] BASIC METABOLIC PANEL 2022-04-11 04:46:00 [facility] Ellery MAGNESIUM 2022-04-11 04:46:00 [facility] PHOSPHORUS 2022-04-11 04:46:00 [facility] PROTHROMBIN TIME/INR 2022-04-11 04:46:00 [facility] CBC W/PLT COUNT & AUTO 2022-04-11 04:46:00 Anders Florentino [facility] US TESTICULAR (SCROTUM) 2022-04-10 19:20:[address] [facility] URINALYSIS W/ MICROSCOPIC 2022-04-10 17:15:00 Anders Florentino [facility] REFERRAL- REQUEST/RESPONSE 2022-04-06 06:01:00 Doctor Unassigned , [facility] [address] [facility] CBC (HEMOGRAM ONLY) 2020-04-07 05:47:00 Shakira Lazcano [facility] BASIC METABOLIC PANEL (7) 2020-04-07 05:47:00 Shakira Lazcano [facility] MAGNESIUM 2020-04-07 05:47:00 Shakira Lazcano [facility] PHOSPHORUS 2020-04-07 05:47:00 Shakira Lazcano [facility] PROTHROMBIN TIME/INR 2020-04-07 05:47:00 Shakira Lazcano [facility] 2D ECHO W/ DOPPLER 2020-04-06 17:23:05 Anastacio Bhakta [facility] (CW/PW/COLOR) [facility] CBC (HEMOGRAM ONLY) 2020-04-06 06:06:00 Shakira Lazcano [facility] BASIC METABOLIC PANEL (7) 2020-04-06 06:06:00 Shakira Lazcano [facility] MAGNESIUM 2020-04-06 06:06:00 Shakira Lazcano [facility] PHOSPHORUS 2020-04-06 06:06:00 Shakira Lazcano [facility] PROTHROMBIN TIME/INR 2020-04-06 06:06:00 Shakira Lazcano [facility] CBC (HEMOGRAM ONLY) 2020-04-04 05:36:00 Shakira Lazcano [facility] BASIC METABOLIC PANEL (7) 2020-04-04 05:36:00 Shakira Lazcano [facility] MAGNESIUM 2020-04-04 05:36:00 Shakira Lazcano [facility] PHOSPHORUS 2020-04-04 05:36:00 Shakira Lazcano [facility] PROTHROMBIN TIME/INR 2020-04-04 05:36:00 Shakira Lazcano [facility] XR CHEST 1 VIEW PORTABLE / 2020-04-04 04:24:00 Shakira Lazcano [facility] POCT-GLUCOSE METER 2020-04-03 05:54:00 Denzel Powell [facility] BLOOD GAS, VENOUS 2020-04-03 02:38:00 Bina Cleaning [facility] CBC (HEMOGRAM ONLY) 2020-04-03 02:36:00 Shakira Lazcano [facility] BASIC METABOLIC PANEL (7) 2020-04-03 02:36:00 Shakira Lazcano [facility] MAGNESIUM 2020-04-03 02:36:00 Shakira Lazcano [facility] PROTHROMBIN TIME/INR 2020-04-03 02:36:00 Yony [facility] XR CHEST 1 VIEW PORTABLE / 2020-04-03 02:31:00 Shakira Lazcano [facility] POCT-GLUCOSE METER 2020-04-02 05:50:00 Andre, [facility] BLOOD GAS, ARTERIAL 2020-04-02 02:49:00 Iginiamre, [facility] CBC (HEMOGRAM ONLY) 2020-04-02 02:49:00 Shakira Lazcano [facility] BASIC METABOLIC PANEL (7) 2020-04-02 02:49:00 Shakira Lazcano [facility] MAGNESIUM 2020-04-02 02:49:00 Shakira Lazcano [facility] LACTIC ACID, ARTERIAL 2020-04-02 02:49:00 Iginiamre [facility] PROTHROMBIN TIME/INR 2020-04-02 02:49:00 Yony [facility] XR CHEST 1 VIEW PORTABLE / 2020-04-02 01:59:00 Shakira Lazcano [facility] POCT-GLUCOSE METER 2020-04-02 00:01:00 AndreDenzel [facility] BASIC METABOLIC PANEL (7) 2020-04-01 18:52:00 Liset Nunez [facility] LACTIC ACID, ARTERIAL 2020-04-01 04:24:00 Iginiamre, Magaly [facility] PHOSPHORUS 2020-04-01 04:22:00 Jacek Santizo [facility] BLOOD GAS, ARTERIAL 2020-04-01 04:22:00 [facility] ([facility] ONLY[facility] 2020-04-01 04:22:00 Shakira Lazcano [facility] BASIC METABOLIC PANEL (7) 2020-04-01 04:22:00 Shakira Lazcano [facility] MAGNESIUM 2020-04-01 04:22:00 Neno [facility] XR CHEST 1 VIEW PORTABLE / 2020-04-01 01:47:[address] [facility] POCT-GLUCOSE METER 2020-03-31 17:18:00 Andre [facility] LACTIC ACID, ARTERIAL 2020-03-31 05:23:00 Iginiamre [facility] PHOSPHORUS 2020-03-31 02:42:00 [facility] BLOOD GAS, ARTERIAL 2020-03-31 02:42:00 Iginiamre, [facility] CBC (HEMOGRAM ONLY) 2020-03-31 02:42:00 Neno [facility] BASIC METABOLIC PANEL (7) 2020-03-31 02:42:00 Shakira Lazcano [facility] MAGNESIUM 2020-03-31 02:42:00 Neno [facility] LACTIC ACID, ARTERIAL 2020-03-31 02:42:00 Iginiamre [facility] POCT-GLUCOSE METER 2020-03-31 02:18:00 Andre [facility] XR CHEST 1 VIEW PORTABLE / 2020-03-31 01:38:[address] [facility] LACTIC ACID, ARTERIAL 2020-03-31 00:24:00 Iginiamre [facility] BLOOD GAS, ARTERIAL 2020-03-31 00:24[facility] 2020-03-30 22:34:00 Cara, [facility] BLOOD GAS, ARTERIAL 2020-03-30 22:06:[facility] L[facility]ERIAL 2020-03-30 20:21[facility]00 [facility], [facility] 2020-03-30 20:21:00 Cara [facility] CALCIUM, IONIZED 2020-03-30 20:21:00 Cara [facility] SODIUM NA-STAT LAB 2020-03-30 20:21:00 Cara, [facility] POTASSIUM-STAT LAB 2020-03-30 20:21:00 Cara [facility] GLUCOSE-STAT LAB 2020-03-30 20:21:00 [facility]&H[facility] - STAT LAB 2020-03-30 20:21:00 Cara [facility] BLOOD GAS, ARTERIAL 2020-03-30 18:47:00 Lisy [facility] LACTIC ACID, ARTERIAL 2020-03-30 18:20:00 Lisy [facility] BLOOD GAS, ARTERIAL 2020-03-30 18:20:00 Lisy [facility] SODIUM NA-STAT LAB 2020-03-30 18:20:00 Lisy [facility] POTASSIUM-STAT LAB 2020-03-30 18:20:00 Lisy [facility] GLUCOSE-STAT LAB 2020-03-30 18:20:00 Lisy [facility] HGB/HCT (H&H) - STAT LAB 2020-03-30 18:20:00 Magaly [facility] XR CHEST 1 VIEW PORTABLE / 2020-03-30 17:45:00 Magaly Wasserman [facility] OXYGEN SATURATION, 2020-03-30 17:38:00 Syedamu [facility] APTT 2020-03-30 17:38:00 Syedamu [facility] PROTHROMBIN TIME/INR 2020-03-30 17:38:00 Magaly Wasserman [facility] FIBRINOGEN 2020-03-30 17:38:00 Lisy [facility] BASIC METABOLIC PANEL (7) 2020-03-30 17:34:00 Jacek Santizo I [facility] MAGNESIUM 2020-03-30 17:34:00 Sukhdev [facility] PHOSPHORUS 2020-03-30 17:34:00 Sukhdev [facility] BLOOD GAS, ARTERIAL 2020-03-30 17:34:00 [facility] CALCIUM, IONIZED 2020-03-30 17:34:00 Syedamu [facility] CBC W/PLT COUNT & AUTO 2020-03-30 17:34:[facility] LACTIC ACID, ARTERIAL 2020-03-30 17:34:[facility] SODI[facility] NA-STAT LAB 2020-03-30 17:34:00 Syedamu [facility] POTASSIUM-STAT LAB 2020-03-30 17:34:00 Syedamu [facility] GLUCOSE-STAT LAB 2020-03-30 17:34:00 Syedamu [facility] HGB/HCT (H&H) - STAT LAB 2020-03-30 17:34:00 ArleyjonMagaly dobbins [facility] (CELLAVISION MANUAL DIFF) 2020-03-30 17:34:00 Syedamu [facility] PREPARE RBC 2020-03-30 16:46:00 [facility] PREPARE PLASMA 2020-03-30 16:46:00 Andre [facility] POCT-ACT 2020-03-30 15:54:00 [facility] PLATELET COUNT 2020-03-30 15:50:28 Tho Hatch [facility] PT/APTT 2020-03-30 15:50:28 [facility]en [facility] FIBRINOGEN 2020-03-30 15:50:28 [facility] [place] POCT-ACT 2020-03-30 15:31:00 Andre [facility] SODIUM NA-STAT LAB 2020-03-30 15:28:03 Holden [facility] POTASSIUM-STAT LAB 2020-03-30 15:28:03 Holden [facility] GLUCOSE-STAT LAB 2020-03-30 15:28:03 Holden [facility] HGB/HCT (H&H) - STAT LAB 2020-03-30 15:28:03 [facility] [place] [facility] BLOOD GAS, ARTERIAL 2020-03-30 15:28:03 Holden [facility] CALCIUM, IONIZED 2020-03-30 15:28:03 Holden [facility] POCT-ACT 2020-03-30 14:55:00 Andre [facility] BLOOD GAS, ARTERIAL 2020-03-30 14:53:29 Andre [facility] SODIUM NA-STAT LAB 2020-03-30 14:53:29 Andre [facility] POTASSIUM-STAT LAB 2020-03-30 14:53:29 Andre [facility] GLUCOSE-STAT LAB 2020-03-30 14:53:29 Andre [facility] HGB/HCT (H&H) - STAT LAB 2020-03-30 14:53:29 Andre [facility] TISSUE EXAM 2020-03-30 14:43:00 Andre [facility] POCT-ACT 2020-03-30 14:31:00 Andre [facility] BLOOD GAS, ARTERIAL 2020-03-30 14:28:05 Andre [facility] SODIUM NA-STAT LAB 2020-03-30 14:28:05 Andre [facility] POTASSIUM-STAT LAB 2020-03-30 14:28:05 Andre [facility] GLUCOSE-STAT LAB 2020-03-30 14:28:05 Andre [facility] HGB/HCT (H&H) - STAT LAB 2020-03-30 14:28:05 Andre [facility] POCT-ACT 2020-03-30 14:01:00 Denzel [facility] BLOOD GAS, ARTERIAL 2020-03-30 13:58:50 Andre [facility] SODIUM NA-STAT LAB 2020-03-30 13:58:50 Andre [facility] POTASSIUM-STAT LAB 2020-03-30 13:58:50 Andre [facility] GLUCOSE-STAT LAB 2020-03-30 13:58:50 Andre [facility] HGB/HCT (H&H) - STAT LAB 2020-03-30 13:58:50 Andre [facility] POCT-ACT 2020-03-30 13:30:00 Andre [facility] CONT WAVE PULSED DOPPLER 2020-03-30 13:27:45 Anastacio Bhakta [facility] COLOR-FLOW MAPPING 2020-03-30 13:27:44 Yony [facility] BLOOD GAS, ARTERIAL 2020-03-30 13:27:20 Andre [facility] SODIUM NA-STAT LAB 2020-03-30 13:27:20 Andre [facility] POTASSIUM-STAT LAB 2020-03-30 13:27:20 Andre [facility] GLUCOSE-STAT LAB 2020-03-30 13:27:20 Andre [facility] HGB/HCT (H&H) - STAT LAB 2020-03-30 13:27:20 Andre [facility] POCT-ACT 2020-03-30 12:54:00 Andre [facility] BLOOD GAS, ARTERIAL 2020-03-30 12:02:40 [facility] CALCIUM, IONIZED 2020-03-30 12:02:40 [facility] 2020-03-30 12:02[facility] 2020-03-30 12:02:40 [facility] 2020-03-30 12:02:40 [facility] 2020-03-30 12:02:40 [facility] TRANSESOPHAGEAL ECHO 2020-03-30 10:57:35 Anastacio Bhakta [facility] REPLACEMENT,VALVE AORTIC 2020-03-30 10:52:00 Andre, [facility] POCT-GLUCOSE METER 2020-03-30 08:20:00 Andre, [facility] COMPREHENSIVE METABOLIC 2020-03-27 08:33:00 Debonte, [facility] PANEL Ellery LIPID PANEL 2020-03-27 08:33:00 Debonte, [facility] MAGNESIUM 2020-03-27 08:33:00 Debsofia, [facility] TYPE AND SCREEN, AUTOMATED 2020-03-27 08:32:00 Debonte, [facility] APTT 2020-03-27 08:32:00 Debontmu, [facility] CBC W/PLT COUNT & AUTO 2020-03-27 08:32:00 Debonte, [facility] HEMOGLOBIN A1C 2020-03-27 08:32:00 Debontmu, [facility] PROTHROMBIN TIME/INR 2020-03-27 08:32:00 Debsofia, [facility] SARS-COV2/RT-PCR ([facility] & 2020-03-27 08:11:00 Debsofia, [facility] REF LABS) Ellery ECG 12-LEAD 2020-03-27 07:28:01 Unknown, [facility] CTA CHEST 2020-03-19 15:44:00 Joya Christina [facility] HC CAROTID DOPPLER LINDSEY 2020-03-19 13:40:00 MarioJoya donato [facility] Plan of Care Planned Activity Planned Date Details Comments Source Future Scheduled 2023-03-27 Lipid panel (procedure) [facility] 00:00:00 [code = 92372275] Medical Ce nter Future Scheduled 2023-03-27 Lipid panel (procedure) [facility] 00:00:00 [code = 66109779] Medical Ce nter Future Scheduled 2023-03-27 Lipid panel (procedure) [facility] 00:00:00 [code = 39431365] Medical Ce nter Future Scheduled 2023-03-27 Lipid panel (procedure) [facility] 00:00:00 [code = 23622765] Medical Ce nter Future Scheduled 2023-03-10 COVID-19 VACCINE (#1) [facility] 19:56:22 [code = COVID-19 VACCINE Hos pital (#1)] Future Scheduled 2023-03-10 INFLUENZA VACCINE (#1) [facility]ist Test 19:56:22 [code = INFLUENZA VACCINE Ho spital (#1)] Future Scheduled 2023-01-13 Influenza Vaccine (#1) [facility] [code = Influenza Vaccine Me dical Center (#1)] Future Scheduled 2022-05-[address] [facility] 00:00:00 (12+) [code [facility]12+)] Future Scheduled 2022-03-20 COVID-19 VACCINE (#1) [facility] 05:17:09 [code = COVID-19 VACCINE Hos pital (#1)] Future Scheduled 2022-03-20 INFLUENZA VACCINE [code = [facility] 05:17:09 INFLUENZA VACCINE] Hospital Future Scheduled 2022-03-20 HEPATITIS B VACCINES (1 [facility] 05:17:09 of 3 - 3-dose series) Hospit al [code = HEPATITIS B VACCINES (1 of 3 - 3-dose series)] Future Scheduled 2022-03-20 COVID-19 VACCINE (#1) [facility] 05:17:09 [code = COVID-19 VACCINE Hos pital (#1)] Future Scheduled 2022-03-20 INFLUENZA VACCINE [code = [facility] 05:17:09 INFLUENZA VACCINE] Hospital Future Scheduled 2022-03-20 HEPATITIS B VACCINES (1 [facility] 05:17:09 of 3 - 3-dose series) Hospit al [code = HEPATITIS B VACCINES (1 of 3 - 3-dose series)] Future Scheduled 2022-01-13 INFLUENZA VACCINE (#1) [facility] 00:[facility]00 [code = INFLUENZA VACCINE Me dical Center (#1)] Future Scheduled 2022-01-13 INFLUENZA VACCINE (#1) [facility] 00:00:00 [code = INFLUENZA VACCINE Me dical Center (#1)] Future Scheduled 2021-05-[address] [facility] 00:00:00 (12+) [code = DEPRESSION Med ical Center SCREENING (12+)] Future Scheduled 2021-05-[address] [facility] 00:00:00 (12+) [code = DEPRESSION Med ical Center SCREENING (12+)] Future Scheduled 2021-04-[address] [facility] 00:00:00 Counseling and Screening Med ical Center (12+) [code = Tobacco Cessation Counseling and Screening (12+)] Future Scheduled 2021-04-[address] [facility] 00:00:00 Counseling and Screening Med ical Center (12+) [code = Tobacco Cessation Counseling and Screening (12+)] Future Scheduled 2021-04-[address] [facility] 00:00:00 Counseling and Screening Med ical Center (12+) [code = Tobacco Cessation Counseling and Screening (12+)] Future Scheduled 2020-05-[address] [facility] 00:00:00 (12+) [code = DEPRESSION Med ical Center SCREENING (12+)] Future Scheduled 2020-01-14 INFLUENZA VACCINE (#1) [facility] 00:00:00 [code = INFLUENZA VACCINE Me dical Center (#1)] Future Scheduled 2000 DTAP/TDAP/TD VACCINES ([address] [facility] 00:00:00 - Tdap) [code = Medical Cent er DTAP/TDAP/TD VACCINES (1 - Tdap)] Future Scheduled 2000 DTAP/TDAP/TD VACCINES ([address] [facility] 00:00:00 - Tdap) [code = Medical Cent er DTAP/TDAP/TD VACCINES (1 - Tdap)] Future Scheduled 2000 DTAP/TDAP/TD VACCINES ([address] [facility] 00:00:00 - Tdap) [code = Medical Cent er DTAP/TDAP/TD VACCINES (1 - Tdap)] Future Scheduled 2000 DTAP/TDAP/TD VACCINES ([address] [facility] 00:00:00 - Tdap) [code = Medical Cent er DTAP/TDAP/TD VACCINES (1 - Tdap)] Future Scheduled [...] HEPATITIS C Medical Center SCREENING] Future Scheduled [address] [facility] 00:00:00 virus screening Medical Cent er (procedure) [code = 072180145] Future Scheduled 1987 PNEUMOCOCCAL VACCINE 0-[address] [facility] 00:00:00 YRS (1 of 1 - PPSV23) Medica l Center [code = PNEUMOCOCCAL VACCINE 0-64 YRS (1 of 1 - PPSV23)] Future Scheduled 1986 PNEUMOCOCCAL VACCINE 0-[address] [facility] 00:00:00 YRS (1 - PCV) [code = Medica l Center PNEUMOCOCCAL VACCINE 0-64 YRS (1 - PCV)] Future Scheduled 1987 PNEUMOCOCCAL VACCINE 0-[address] [facility] 00:00:00 YRS (1 - PCV) [code = Medica l Center PNEUMOCOCCAL VACCINE 0-64 YRS (1 - PCV)] Future Scheduled 1987 Pneumococcal Vaccine: [facility] 00:[facility]:00 0-64 Years (1 - PCV) Medical Center [code = Pneumococcal Vaccine: 0-64 Years (1 - PCV)] Future Scheduled 1981 COVID-19 VACCINE (#1) [facility] 00:00[facility]00 [code = COVID-19 VACCINE Med ical Center (#1)] Future Scheduled 1981 COVID-19 VACCINE (#1) [facility] 00:00:00 [code = COVID-19 VACCINE Med ical Center (#1)] Future Scheduled 1981 COVID-19 VACCINE (#1) [facility] 00:[facility]00 [code = COVID-19 VACCINE Med ical Center (#1)] Future Scheduled COVID-19 VACCINE (1) [facility] [code = COVID-19 VACCINE Hos pital (1)] Future Scheduled Hepatitis C screening [facility] (procedure) [code = Hospital [id number]] Future Scheduled INFLUENZA VACCINE [code = [facility] INFLUENZA VACCINE] Hospital Encounters Start End Encounter Admission Attending Care Care Encounter Source Date/Time Date/Time Type Type Clinicians Facility Department ID 2022-06-07 Outpatient SID LEVI STLC [id number] Common 09:08:03 DEVIN [id number] [facility] 2022-04-[address] AMITAMUKUNDCANDY [facility] [id number] Common 13:12:05 DEVIN [id number] [facility] 2021-02-18 Inpatient [facility], [facility] Surgery [id number] SLE 11:03:59 DENZEL 2021-02-16 Inpatient [facility], [facility] Surgery [id number] SLE 13:20:17 NOAH 2023-01-06 2023-01-06 Outpatient SFA SFA [id number] Duane 08:56:16 08:56:16 [id number] F Thaddeus 2022-06-28 2022-06-28 (TEL) STLC STLC [id number] Co mmon 00:00:00 00:00:00 [facility] 2022-05-17 2022-05-17 (TEL) [facility] STLMLC [id number] Co mmon 00:00:00 00:00:00 [facility] 2022-05-13 2022-05-13 (TEL) [facility] [id number] Co mmon 00:00:00 00:00:00 [facility] 2022-04-27 2022-04-27 OFFICE [facility] [id number] Co mmon 00:00:00 00:00:00 VISIT NEW Spir it PT LEVEL 3 - [facility] 2022-04-10 2022-04-14 Inpatient ER JUANA HUFF [facility] [id number] SLE 15:28:00 13:10:00 Med 2022-04-10 2022-04-[address] [facility] [id number] [facility] 15:28:00 13:10:00 Encounter Juana Huff [facility] 2022-04-11 2022-04-[address] [facility] [id number] 14:20:00 18:05:00 [facility] 2022-04-11 2022-04-[address] [facility] [id number] [facility] [facility] 15:39:00 16:43:00 Event ElkAmie [facility] 2022-04-10 2022-04-[address] [facility] [id number] [facility] 00:[facility]00 00:00:00 [facility] 2022-04-06 2022-04-06 Orders Doctor HOFFMAN [id number] Univers 00:00:00 00:00:00 Only Unassigned, NITO [id number] [facility] [id number] Jacky as [id number] [facility] stephanie [address] 2020-04-28 2020-04-28 Outpatient EL ANDRE SLE SLE [id number] [facility]H 00:00:00 00:00:00 DENZEL 2020-03-27 2020-03-27 Outpatient EL ANDRE SLE SLE [id number] SLEH 00:00:00 00:00:00 DENZEL 2020-03-27 2020-03-27 [facility] [id number] [facility] 00:00:00 00:00:00 2020-03-19 2020-03-19 Outpatient CARRI, SLE SLE [id number] SLEH 00:00:00 00:00:00 JOYA 2020-03-19 2020-03-19 Outpatient DERICK CHRISTINA, SLE SLE [id number] SLEH 00:00:00 00:00:00 JOYA 2020-03-03 2020-03-03 Outpatient DERICK POWELL, [facility] [id number] SLEH 00:00:00 00:00:00 DENZEL 2019-10-01 2019-10-01 Outpatient [facility] [id number] SLEH 00:00:00 00:00:00 [id number] 2019-10-01 2019-10-01 Outpatient DERICK GRUBER, [facility] [id number] SLE 00:00:00 00:00:00 NOAH 2019-09-19 2019-09-19 [facility] Emergency [id number] SLEH 16:55:16 16:55:16 NATHANIEL 2019-09-18 2019-09-18 Outpatient [facility] [id number] SLE 05:21:00 05:21:00 [id number] 2019-09-17 2019-09-17 Outpatient DERICK GRUBER [facility] [id number] SLEH 09:50:41 23:59:00 NOAH 2019-09-17 2019-09-17 Outpatient [facility] SLE [id number] [id number] SLE 00:00:00 00:00:00 [id number] 2019-07-22 2019-07-22 Outpatient [facility] SLE [id number] [id number] SLE 00:00:00 00:00:00 [id number] Results Test Description Test Time Test Comments Results Result Comments Source Fungus culture + smear 2022-05-11 23:55:08 Test Item Value Reference Range Interpretation Comme nts Result (test code = 6463-4) No fungus isolated in 28 days Fungus Smear (test code = 1406) No [facility] [id number] 23:55:08 Test Item Value Reference Range Interpretation Comments CULTURE (BEAKER) (test No fungus isolated in code = 1095) 28 days FUNGUS SMEAR (BEAKER) No fungi seen (test code = 1406) Anaerobic [id number] 08:58:25 Test Item Value Reference Range Interpretation Comments Result (test code = No anaerobes isolated 6463-4) [id number] 08:58:25 Test Item Value Reference Range Interpretation Comments CULTURE (BEAKER) (test No anaerobes isolated code = 1095) Surgically obtained culture + gram [id number] 11:45:25 Test Item Value Reference Range Interpretation Comments Result (test code = 6463-4) No growth Gram Stain Result (test No organisms seen code = 1123) [facility] GRAM [id number] 11:45:25 Test Item Value Reference Range Interpretation Comments CULTURE (BEAKER) (test code No growth = 1095) GRAM STAIN RESULT (BEAKER) 1+ WBCs (test code = 1123) GRAM STAIN RESULT (BEAKER) No organisms seen (test code = 38109) BASIC METABOLIC [id number] 06:16:06 Test Item Value Reference Range Interpretation Comments SODIUM (BEAKER) 140 meq/L 136-145 (test code = 381) POTASSIUM 3.8 meq/L 3.5-5.1 (BEAKER) (test code = 379) CHLORIDE (BEAKER) 108 meq/L 98-107 H (test code = 382) CO2 (BEAKER) 21 meq/L 22-29 L (test code = 355) BLOOD UREA 24 mg/dL 7-21 H NITROGEN (BEAKER) (test code = 354) CREATININE 0.86 mg/dL 0.57-1.25 (BEAKER) (test code = 358) GLUCOSE RANDOM 81 mg/dL 70-105 (BEAKER) (test code = 652) CALCIUM (BEAKER) 8.5 mg/dL 8.4-10.2 (test code = 697) EGFR (BEAKER) 113 Interpretatio n of eGFR (test code = mL/min/1.73 values Stage De scription 1092) sq m Result G1 Carlotta l or high >=90 G2 Mildly decreased 60-89 G3a Mildl y to moderately 45-5 9 G3b Moderately to s everely 30-44 G4 Severl y decreased 15-29 G5 Kidney failure <15Reported eGF R is based on the CKD-EPI 2020 equation that d oes not use a race coefficientEsti mated GFR is not as accur ate as Creatinine Greta dave in predicting glom erular filtration rate . Estimated GFR is not appl icable for dialysis patien ts Register Of Deeds ID - [id number] 06:16:06 Test Item Value Reference Range Interpretation Comments MAGNESIUM (BEAKER) (test code = 1.8 mg/dL 1.6-2.6 627) Register Of Deeds ID - [id number] 06:16:06 Test Item Value Reference Range Interpretation Comments PHOSPHORUS (BEAKER) (test code = 4.5 mg/dL 2.3-4.7 604) Register Of Deeds ID - ADMINPROTHROMBIN [id number] 05:49:07 Test Item Value Reference Range Interpretation Comments PROTIME (BEAKER) 24.1 seconds 11.9-14.2 H (test code = 759) INR (BEAKER) (test 2.23 See_Comment [Automat ed message] code = 370) The system [employer] generated this result transmitted ref erence range: <=5.90. The reference range was not used to int erpret this result as normal/abnormal . RECOMMENDED COUMADIN/WARFARIN INR THERAPY RANGESSTANDARD DOSE: 2.0 - 3.0 Includes: PROPHYLAXIS for venous thrombosis, systemic embolization; TREATMENT for venous thrombosis and/or pulmonary embolus.HIGH RISK: Target INR is 2.5-3.5 for patients with mechanical heart valves.CBC W/PLT COUNT & AUTO [id number] 05:44:28 Test Item Value Reference Range Interpretation Comments WHITE BLOOD CELL COUNT (BEAKER) 10.3 K/ L 3.5-10.5 (test code = 775) RED BLOOD CELL COUNT (BEAKER) 4.31 M/ L 4.63-6.08 L (test code = 761) HEMOGLOBIN (BEAKER) (test code = 13.9 GM/DL 13.7-17.5 410) HEMATOCRIT (BEAKER) (test code = 39.6 % 40.1-51.0 L 411) MEAN CORPUSCULAR VOLUME (BEAKER) 92 fL 79-92 (test code = 753) MEAN CORPUSCULAR HEMOGLOBIN 32.3 pg 25.7-32.2 H (BEAKER) (test code = 751) MEAN CORPUSCULAR HEMOGLOBIN CONC 35.1 GM/DL 32.3-36.5 (BEAKER) (test code = 752) RED CELL DISTRIBUTION WIDTH 13.9 % 11.6-14.4 (BEAKER) (test code = 412) PLATELET COUNT (BEAKER) (test 217 K/CU MM 150-450 code = 756) MEAN PLATELET VOLUME (BEAKER) 10.4 fL 9.4-12.4 (test code = 754) NUCLEATED RED BLOOD CELLS 0 /100 WBC 0-0 (BEAKER) (test code = 413) NEUTROPHILS RELATIVE PERCENT 56 % (BEAKER) (test code = 429) LYMPHOCYTES RELATIVE PERCENT 30 % (BEAKER) (test code = 430) MONOCYTES RELATIVE PERCENT 10 % (BEAKER) (test code = 431) EOSINOPHILS RELATIVE PERCENT 3 % (BEAKER) (test code = 432) BASOPHILS RELATIVE PERCENT 1 % (BEAKER) (test code = 437) NEUTROPHILS ABSOLUTE COUNT 5.77 K/ L 1.78-5.38 H (BEAKER) (test code = 670) LYMPHOCYTES ABSOLUTE COUNT 3.06 K/ L 1.32-3.57 (BEAKER) (test code = 414) MONOCYTES ABSOLUTE COUNT (BEAKER) 1.06 K/ L 0.30-0.82 H (test code = 415) EOSINOPHILS ABSOLUTE COUNT 0.30 K/ L 0.04-0.54 (BEAKER) (test code = 416) BASOPHILS ABSOLUTE COUNT (BEAKER) 0.06 K/ L 0.01-0.08 (test code = 417) IMMATURE GRANULOCYTES-RELATIVE 0.40 % 0.00-1.00 PERCENT (BEAKER) (test code = 2801) [id number] 05:14:53 Test Item Value Reference Range Interpretation Comments PHOSPHORUS (BEAKER) (test code = 1.9 mg/dL 2.3-4.7 L 604) Register Of Deeds ID - KIANNA WBASIC METABOLIC [id number] 05:14:52 Test Item Value Reference Range Interpretation Comments SODIUM (BEAKER) 142 meq/L 136-145 (test code = 381) POTASSIUM 4.4 meq/L 3.5-5.1 (BEAKER) (test code = 379) CHLORIDE (BEAKER) 109 meq/L 98-107 H (test code = 382) CO2 (BEAKER) 23 meq/L 22-29 (test code = 355) BLOOD UREA 14 mg/dL 7-21 NITROGEN (BEAKER) (test code = 354) CREATININE 1.06 mg/dL 0.57-1.25 (BEAKER) (test code = 358) GLUCOSE RANDOM 151 mg/dL 70-105 H (BEAKER) (test code = 652) CALCIUM (BEAKER) 9.0 mg/dL 8.4-10.2 (test code = 697) EGFR (BEAKER) 92 Interpretatio n of eGFR (test code = mL/min/1.73 values Stage De scription 1092) sq m Result G1 Carlotta l or high >=90 G2 Mildly decreased 60-89 G3a Mildl y to moderately 45-5 9 G3b Moderately to s everely 30-44 G4 Severl y decreased 15-29 G5 Kidney failure <15Reported eGF R is based on the CKD-EPI 2020 equation that d oes not use a race coefficientEsti mated GFR is not as accur ate as Creatinine Greta jolie in predicting glom erular filtration rate . Estimated GFR is not appl icable for dialysis patien ts Register Of Deeds ID - KIANNA [id number] 05:14:52 Test Item Value Reference Range Interpretation Comments MAGNESIUM (BEAKER) (test code = 1.9 mg/dL 1.6-2.6 627) Register Of Deeds ID Lexie HUTCHISON WPROTHROMBIN [id number] 04:46:57 Test Item Value Reference Range Interpretation Comments PROTIME (BEAKER) 25.9 seconds 11.9-14.2 H (test code = 759) INR (BEAKER) (test 2.45 See_Comment [Automat ed message] code = 370) The system [employer] generated this result transmitted ref erence range: <=5.90. The reference range was not used to int erpret this result as normal/abnormal . RECOMMENDED COUMADIN/WARFARIN INR THERAPY RANGESSTANDARD DOSE: 2.0 - 3.0 Includes: PROPHYLAXIS for venous thrombosis, systemic embolization; TREATMENT for venous thrombosis and/or pulmonary embolus.HIGH RISK: Target INR is 2.5-3.5 for patients with mechanical heart valves.CBC W/PLT COUNT & AUTO [id number] 04:42:32 Test Item Value Reference Range Interpretation Comments WHITE BLOOD CELL COUNT (BEAKER) 12.5 K/ L 3.5-10.5 H (test code = 775) RED BLOOD CELL COUNT (BEAKER) 4.79 M/ L 4.63-6.08 (test code = 761) HEMOGLOBIN (BEAKER) (test code = 15.1 GM/DL 13.7-17.5 410) HEMATOCRIT (BEAKER) (test code = 44.1 % 40.1-51.0 411) MEAN CORPUSCULAR VOLUME (BEAKER) 92 fL 79-92 (test code = 753) MEAN CORPUSCULAR HEMOGLOBIN 31.5 pg 25.7-32.2 (BEAKER) (test code = 751) MEAN CORPUSCULAR HEMOGLOBIN CONC 34.2 GM/DL 32.3-36.5 (BEAKER) (test code = 752) RED CELL DISTRIBUTION WIDTH 13.5 % 11.6-14.4 (BEAKER) (test code = 412) PLATELET COUNT (BEAKER) (test 250 K/CU MM 150-450 code = 756) MEAN PLATELET VOLUME (BEAKER) 10.2 fL 9.4-12.4 (test code = 754) NUCLEATED RED BLOOD CELLS 0 /100 WBC 0-0 (BEAKER) (test code = 413) NEUTROPHILS RELATIVE PERCENT 86 % (BEAKER) (test code = 429) LYMPHOCYTES RELATIVE PERCENT 10 % (BEAKER) (test code = 430) MONOCYTES RELATIVE PERCENT 3 % (BEAKER) (test code = 431) EOSINOPHILS RELATIVE PERCENT 0 % (BEAKER) (test code = 432) BASOPHILS RELATIVE PERCENT 0 % (BEAKER) (test code = 437) NEUTROPHILS ABSOLUTE COUNT 10.73 K/ L 1.78-5.38 H (BEAKER) (test code = 670) LYMPHOCYTES ABSOLUTE COUNT 1.28 K/ L 1.32-3.57 L (BEAKER) (test code = 414) MONOCYTES ABSOLUTE COUNT (BEAKER) 0.39 K/ L 0.30-0.82 (test code = 415) EOSINOPHILS ABSOLUTE COUNT 0.00 K/ L 0.04-0.54 L (BEAKER) (test code = 416) BASOPHILS ABSOLUTE COUNT (BEAKER) 0.02 K/ L 0.01-0.08 (test code = 417) IMMATURE GRANULOCYTES-RELATIVE 0.30 % 0.00-1.00 PERCENT (BEAKER) (test code = 2801) FL, FLUORO, NON-SPECIFIC, UP TO 1 [id number] 16:30:00Reason for exam:- >[facility] 1980 Sex: MAn imaging unit was utilized for this procedure. No radiologist interpretation was requested. Refer to the EMR for findings. Refer to PACS for any patient radiation dose information.U/S, TESTICULAR (SCROTUM)2022-04-11 12:34:00Reason for exam:- >[facility]icular [facility] : 1980 Sex: MFINAL REPORT EXAMINATION: Scrotal sonogram HISTORY: Testicular pain COMPARISON: None FINDINGS: Right testicle: 4.7 x 2.6 x 3.2 cmRight epididymis: 14 mm Left testicle: 4.2 x 2.5 x 3.4 cmLeft epididymis: 14 mm The testicles are normal in size and echotexture. No focal testicular masses. There is testicular arterial flow bilaterally. The epididymides are normal in size. Small fluid collection is seen surrounding the left testicle measuring 1.9 x 0.5 x 0.4 cm. No hydrocele or varicocele is identified. IMPRESSION:Small amount of fluid around the left testicle. Otherwise normal testicular ultrasound. Signed: Garcia Smith MDReport Verified Date/Time: 04/11/2022 12:34:24 CT, [id number] 10:00:00Unlisted Reason for Exam - Click Yes and Enter Reason Below->NoIs this for enterography?->NoPlease specify:->Renal Stone ProtocolWill this procedure require oral contrast?->No [facility] : 1980 Sex: MFINAL REPORT CT abdomen and pelvis without contrast History: Flank pain, kidney stone suspected Comparison: none Technique: serial axial imaging was performed without intravenous contrast as per departmental protocol. Multiplanar images are reconstructed and reviewed when indicated. This CT examination is performed using one or more of the following dose reduction techniques: Automated exposure control, adjustment of the mA and /or kV according to patient size, and/or use of iterative reconstruction technique. Findings:Evaluation limited by lack of intravenous contrast. Diffuse hepaticsteatosis. Unenhanced liver is otherwise grossly unremarkable. Grossly unremarkable appearance of une nhanced gallbladder, pancreas, spleen, and adrenal glands. A 4 mm calculus is seen within the proximal left ureter, resulting in mild left hydronephrosis. No additional urinary calculus is visualized. A 5.4 cm left renal cyst requires no further imaging follow-up. No small or large bowel obstruction. No apparent bowel wall thickening. Sigmoid diverticulosis, without evidence of diverticulitis. Previous appendectomy. No free fluid or adenopathy. Mild soft tissue swelling within the right inguinal region, without organized fluid collection. No aggressive osseous lesion. Impression: 1. 4 mm calculus within the proximal left ureter, resulting in mild hydronephrosis.2. Diffuse hepatic steatosis. Signed: Jaxon Gabriel MDReport Verified Date/Time: 04/11/2022 10:00:09 Reading Location: [facility] Diagnostic Imaging Reading Room - [place] [address] 1129 PHOSPHORUS 2022-04-11 06:17:34 Test Item Value Reference Range Interpretation Comments PHOSPHORUS (BEAKER) (test code = 3.1 mg/dL 2.3-4.7 604) Register Of Deeds ID - NAYANA MBASIC METABOLIC [id number] 06:17:33 Test Item Value Reference Range Interpretation Comments SODIUM (BEAKER) 140 meq/L 136-145 (test code = 381) POTASSIUM 4.0 meq/L 3.5-5.1 (BEAKER) (test code = 379) CHLORIDE (BEAKER) 110 meq/L 98-107 H (test code = 382) CO2 (BEAKER) 24 meq/L 22-29 (test code = 355) BLOOD UREA 14 mg/dL 7-21 NITROGEN (BEAKER) (test code = 354) CREATININE 0.94 mg/dL 0.57-1.25 (BEAKER) (test code = 358) GLUCOSE RANDOM 166 mg/dL 70-105 H (BEAKER) (test code = 652) CALCIUM (BEAKER) 8.4 mg/dL 8.4-10.2 (test code = 697) EGFR (BEAKER) 106 Interpretatio n of eGFR (test code = mL/min/1.73 values Stage De scription 1092) sq m Result G1 Carlotta l or high >=90 G2 Mildly decreased 60-89 G3a Mildl y to moderately 45-5 9 G3b Moderately to s everely 30-44 G4 Severl y decreased 15-29 G5 Kidney failure <15Reported eGF R is based on the CKD-EPI 2020 equation that d oes not use a race coefficientEsti mated GFR is not as accur ate as Creatinine Greta dave in predicting glom erular filtration rate . Estimated GFR is not appl icable for dialysis patien ts Register Of Deeds ID - NAYANA [id number] 06:17:33 Test Item Value Reference Range Interpretation Comments MAGNESIUM (BEAKER) (test code = 1.9 mg/dL 1.6-2.6 627) Register Of Deeds ID - NAYANA MPROTHROMBIN TIME/[id number] 05:45:38 Test Item Value Reference Range Interpretation Comments PROTIME (BEAKER) 33.0 seconds 11.9-14.2 H (test code = 759) INR (BEAKER) (test 3.36 See_Comment [Automat ed message] code = 370) The system [employer] generated this result transmitted ref erence range: <=5.90. The reference range was not used to int erpret this result as normal/abnormal . RECOMMENDED COUMADIN/WARFARIN INR THERAPY RANGESSTANDARD DOSE: 2.0 - 3.0 Includes: PROPHYLAXIS for venous thrombosis, systemic embolization; TREATMENT for venous thrombosis and/or pulmonary embolus.HIGH RISK: Target INR is 2.5-3.5 for patients with mechanical heart valves.CBC W/PLT COUNT & AUTO [id number] 05:38:55 Test Item Value Reference Range Interpretation Comments WHITE BLOOD CELL COUNT (BEAKER) 9.5 K/ L 3.5-10.5 (test code = 775) RED BLOOD CELL COUNT (BEAKER) 4.58 M/ L 4.63-6.08 L (test code = 761) HEMOGLOBIN (BEAKER) (test code = 14.3 GM/DL 13.7-17.5 410) HEMATOCRIT (BEAKER) (test code = 41.0 % 40.1-51.0 411) MEAN CORPUSCULAR VOLUME (BEAKER) 90 fL 79-92 (test code = 753) MEAN CORPUSCULAR HEMOGLOBIN 31.2 pg 25.7-32.2 (BEAKER) (test code = 751) MEAN CORPUSCULAR HEMOGLOBIN CONC 34.9 GM/DL 32.3-36.5 (BEAKER) (test code = 752) RED CELL DISTRIBUTION WIDTH 13.4 % 11.6-14.4 (BEAKER) (test code = 412) PLATELET COUNT (BEAKER) (test 227 K/CU MM 150-450 code = 756) MEAN PLATELET VOLUME (BEAKER) 10.5 fL 9.4-12.4 (test code = 754) NUCLEATED RED BLOOD CELLS 0 /100 WBC 0-0 (BEAKER) (test code = 413) NEUTROPHILS RELATIVE PERCENT 80 % (BEAKER) (test code = 429) LYMPHOCYTES RELATIVE PERCENT 12 % (BEAKER) (test code = 430) MONOCYTES RELATIVE PERCENT 6 % (BEAKER) (test code = 431) EOSINOPHILS RELATIVE PERCENT 2 % (BEAKER) (test code = 432) BASOPHILS RELATIVE PERCENT 1 % (BEAKER) (test code = 437) NEUTROPHILS ABSOLUTE COUNT 7.58 K/ L 1.78-5.38 H (BEAKER) (test code = 670) LYMPHOCYTES ABSOLUTE COUNT 1.10 K/ L 1.32-3.57 L (BEAKER) (test code = 414) MONOCYTES ABSOLUTE COUNT (BEAKER) 0.58 K/ L 0.30-0.82 (test code = 415) EOSINOPHILS ABSOLUTE COUNT 0.18 K/ L 0.04-0.54 (BEAKER) (test code = 416) BASOPHILS ABSOLUTE COUNT (BEAKER) 0.05 K/ L 0.01-0.08 (test code = 417) IMMATURE GRANULOCYTES-RELATIVE 0.40 % 0.00-1.00 PERCENT (BEAKER) (test code = 2801) Urinalysis w/ [id number] 17:45:40 Test Item Value Reference Range Interpretation Comments Color, UA (test code Yellow = 5778-6) Clarity, UA (test Clear code = 5767-9) Specific [place], UA 1.016 1.001-1.035 (test code = 5811-5) pH, UA (test code = 6.5 5.0-8.0 5803-2) Protein, UA (test 20 mg/dL Negative A code = 60713-7) Glucose, UA (test Negative Negative code = 365) Ketones, UA (test Negative Negative code = 2514-8) Bilirubin, UA (test Negative Negative code = 29068-9) Blood, UA (test code Large Negative A = 50434-9) Nitrite, UA (test Negative Negative code = 5802-4) Leukocytes, UA (test Negative Negative code = 5799-2) Urobilinogen, UA 0.2 0.2-1.0 (test code = 92781-6) RBC, UA (test code = 150 See_Comment [Autom ated 75891-7) message] The system which generated this result transmit isela reference range : /HPF. The reference range was not used to interpret this result as normal/abnormal . WBC, UA (test code = 0 See_Comment [Autom ated 5821-4) message] The system which generated this result transmit isela reference range : /HPF. The reference range was not used to interpret this result as normal/abnormal . Mucus (test code = Rare 8247-9) Specimen Source (test Urine, Clean code = 2795) Catch BEBE (test code = BEBE) Register Of Deeds ID - [auto]Register Of Deeds ID - tech Lab Interpretation Abnormal (test code = 19902-0) [facility] [id number] 17:45:40 Test Item Value Reference Range Interpretation Comments COLOR (BEAKER) (test code Yellow = 470) CLARITY (BEAKER) (test Clear code = 469) SPECIFIC GRAVITY UA 1.016 1.001-1.035 (BEAKER) (test code = 468) PH UA (BEAKER) (test code 6.5 5.0-8.0 = 467) PROTEIN UA (BEAKER) (test 20 mg/dL Negative A code = 464) GLUCOSE UA (BEAKER) (test Negative Negative code = 365) KETONES UA (BEAKER) (test Negative Negative code = 371) BILIRUBIN UA (BEAKER) Negative Negative (test code = 462) BLOOD UA (BEAKER) (test Large Negative A code = 461) NITRITE UA (BEAKER) (test Negative Negative code = 465) LEUKOCYTE ESTERASE UA Negative Negative (BEAKER) (test code = 466) UROBILINOGEN UA (BEAKER) 0.2 0.2-1.0 (test code = 463) RBC UA (BEAKER) (test code 150 /HPF = 519) WBC UA (BEAKER) (test code 0 /HPF = 520) MUCUS (BEAKER) (test code Rare = 1574) SOURCE(BEAKER) (test code Urine, Clean Catch = 2795) Register Of Deeds ID - [auto]Register Of Deeds ID - tech2D Echo W/Doppler(CW/PW/Color)2020-04-07 09:36:15Ejection FractionSLEH ECHO HEARTLAB MKCKESSON CPACSInterface, External Ris In - 04/07/2020 9:36 AM CSTTransthoracic Echocardiography Report (TTE) Demographics Patient Name VINCENZO BALES Date of Study 04/06/2020 Gender Male Visit Number [id number] Race Unknown Room [place] [address] Number Date of 1980 Referring Physician Age 40 year(s) Seismograph Observer Enedina Correa Interpreting Physician DANIEL Franco Fellow LOI Devi Procedure Type of Study TTE procedure:2DECHO W DOPPLER(CW/PW/COLOR) (GABY) Indications:Initial post operative evaluation of prosthetic valve.Clinical HistoryHGB 13.5HCT 39.9 %CADCURRENT SMOKERSOBAVR 03/30/20CARDIAC CATHERIZATIONHeight: 70 inches Weight: 118.39 kg (261 lbs) BSA: 2.34 m^2 BMI: 37.45kg/m^2HR: 96 bpm BP: 118/69mmHg Summary The left ventricle is chamber size [...] (0.8cm) loculated posterior pericardial effusion present. Signature Findings Rhythm/BP Regular sinus rhythm during the exam. Left Ventricle The LV endocardium is incompletely visualized. The left ventricle is chamber size (by PSLAX dimension) is normal (male - LVIDd 4.2-5.8cm) . Borderline concentric LV hypertrophy. The following segment(s) are not well visualized: anterior, inferior, but appear normal on short axis views. Septal motion is abnormal, likely related toprior cardiac surgery . The other segments contract normally. Estimated LVEF by qualitative assessment is normal (>60%) . LV diastolic function is indeterminate. Left Atrium LA size is normal . Right Ventricle The right ventricular chamber size and systolic function are within normal limits. RightAtrium RA size is normal. Aortic Valve A mechanical AoV prosthesis is visualized by limited views. The prosthetic AoV appears well-seated with normal function by Doppler. Trivial AI. Mitral Valve Normal MV structure. Trace mitral regurgitation. Tricuspid Valve TV structure is normal. Mild tricuspid re gurgitation. Unable to estimate peak systolic PA pressure; [...] Right Ventricle RVOT VTI: 15.21 cm Doppler/Quantitative MeasurementsMitral Valve MV Peak E-Wave: 0.78 m/s MV [...] LVOT CO: 6.87 l/min LVOT CI: 2.94 l/min/m^2[facility]2020-04-07 09:15:00 Test Item Value Reference Range Interpretation Comments WBC (test code = 6690-2) 9.9 See_Comment [A utomated message] The system [employer] generated this result transmitted ref erence range: 3.5 - 10 .5 K/L. The refe rence range was not u sed to interpret this result as normal/abnor mal. RBC (test code = 789-8) 4.24 See_Comment L [Au tomated message] The system [employer] generated this result transmitted ref erence range: 4.63 - 6 .08 M/L. The refe rence range was not u sed to interpret this result as normal/abnor mal. MCHC (test code = 786-4) 33.5 See_Comment L [A utomated message] The system [employer] generated this result transmitted ref erence range: 32.3 - 3 6.5 GM/DL. The refe rence range was not u sed to interpret this result as normal/abnor mal. Hematocrit (test code = 39.4 % 40.1-51 L 4544-3) MCV (test code = 787-2) 92.9 fL 79-92.2 H MCH (test code = 785-6) 31.1 pg 25.7-32.2 RDW (test code = 788-0) 13.0 % 11.6-14.4 Platelets (test code = 519 See_Comment H [Aut omated message] 777-3) The system [employer] generated this result transmitted ref erence range: 150 - 45 0 K/CU MM. The referen ce range was not u sed to interpret this result as normal/abnor mal. MPV (test code = 10.2 fL 9.4-12.4 10965-0) Lab Interpretation (test Abnormal code = 68543-7) [facility] (HEMOGRAM ONLY)2020-04-07 09:15:00 Test Item Value Reference [...] 9.4-12.4 (test code = 754) Basic Metabolic [id number] 07:00:00 Test Item Value Reference Range Interpretation Comments Sodium (test code = 136 meq/L 607-755 1559-2) Potassium (test code = 3.8 meq/L 3.5-5.1 2823-3) Chloride (test code = 98 meq/L 98-107 5-0) CO2 (test code = 27 meq/L 22-29 8-9) BUN (test code = 22 mg/dL 7-21 H 3094-0) Creatinine (test code 0.99 mg/dL 0.57-1.25 = 2160-0) Glucose (test code = 119 mg/dL 70-105 H 2345-7) Calcium (test code = 9.3 mg/dL 8.4-10.2 78629-9) EGFR (test code = 84 mL/min/1.73 [place] [address]-1) NOT ACCURATE CREATININE CLEARANCE IN PREDICTING GLOMERULAR FILTRATION RATE . ESTIMATED GFR I S NOT APPLICABLE FOR DIALYSIS PATIENTS. BEBE (test code = BEBE) Register Of Deeds ID - PIAYA L Lab Interpretation Abnormal (test code = 71031-6) [facility] 07:[facility]:00 Test Item Value Reference Range Interpretation Comments Magnesium (test code = 1.9 mg/dL 1.6-2.6 92646-9) BEBE (test code = BEBE) Register Of Deeds ID - PIAYA L Lab Interpretation (test Normal code = 30724-7) [facility] 07:00:00 Test Item Value Reference Range Interpretation Comments Phosphorus (test code = 3.6 mg/dL 2.3-4.7 2777-1) BEBE (test code = BEBE) Register Of Deeds ID - PIAYA L Lab Interpretation (test Normal code = 87383-4) [facility]ABOLIC [id number] 07:00:00 Test Item Value Reference Range Interpretation [...] S NOT APPLICABLE FOR DIALYSIS PATIEN TS. Register Of Deeds ID - PIAYA [id number] 07:00:00 Test Item Value Reference Range Interpretation Comments MAGNESIUM (BEAKER) (test code = 1.9 mg/dL 1.6-2.6 627) Register Of Deeds ID - DAGO [id number] 07:00:00 Test Item Value Reference Range Interpretation Comments PHOSPHORUS (BEAKER) (test code = 3.6 mg/dL 2.3-4.7 604) Register Of Deeds ID - DAGO LProthrombin time/[id number] 06:42:00 Test Item Value Reference Interpretation Comments [...] valves. Lab Interpretation Abnormal (test code = 41068-9) [facility] HospitalPROTHROMBIN [facility]/[id number] 06:42:00 Test Item Value Reference Range Interpretation [...] 2.5-3.5 for patients wiht mechanical heart valves.PROTHROMBIN TIME/[id number] 06:52:00 Test Item Value Reference Range Interpretation [...] is 2.5-3.5 for patients wiht mechanical heart valves.[id number] 06:44:00 Test Item Value Reference Range Interpretation Comments MAGNESIUM (BEAKER) 1.9 mg/dL 1.6-2.6 Specimen slightly (test code = 627) hemolyzed Register Of Deeds ID - [id number] 06:44:00 Test Item Value Reference Range Interpretation Comments PHOSPHORUS (BEAKER) 4.1 mg/dL 2.3-4.7 Specimen slightly (test code = 604) hemolyzed Register Of Deeds ID - ADMINBASIC METABOLIC [id number] 06:44:00 Test Item Value Reference Range Interpretation [...] S NOT APPLICABLE FOR DIALYSIS PATIEN TS. Register Of Deeds ID - ADMINCBC (HEMOGRAM ONLY)2020-04-06 06:28:00 Test [...] = 413) RAD, CHEST, 1 VIEW, NON [id number] 07:33:00while patient is intubated or has chest tubes.Reason for exam:->Status post CV SurgeryShould thisbe performed at the bedside?->Yes [facility] 1980 Sex: MFINAL REPORT TECHNIQUE: Frontal view of the chest. INDICATION: Status post CV Surgery COMPARISON: 04/03/2020. FINDINGS: LINES/TUBES: None. LUNGS: Diffuse bilateral pleural and parenchymalopacities are not significantly changed. No pneumothorax. HEART AND MEDIASTINUM: The cardiomediastinal silhouette is stable. Status post median sternotomy.. SOFT TISSUES AND BONES: Unremarkable. IMPRESSION:No interval change.. Signed: Vannessa Pritchard Verified Date/Time: 04/04/2020 07:33:15 Reading Location: [facility] C013 CT Body Reading Room XR chest 1 view portable / [id number] 07:33:00 Interface, External Ris In - 04/04/2020 [...] Pritchard Verified Date/Time: 04/04/2020 07:33:15 Reading Location: [facility] C013Y CT BodyReading Room [facility]BASI [facility]OL[facility] [id number] 06:44:00 Test Item Value Reference Range Interpretation [...] S NOT APPLICABLE FOR DIALYSIS PATIEN TS. Register Of Deeds ID - NAYANA [id number] 06:44:00 Test Item Value Reference Range Interpretation Comments MAGNESIUM (BEAKER) (test code = 2.2 mg/dL 1.6-2.6 627) Register Of Deeds ID - NAYANA [id number] 06:44:00 Test Item Value Reference Range Interpretation Comments PHOSPHORUS (BEAKER) (test code = 3.4 mg/dL 2.3-4.7 604) Register Of Deeds ID - NAYANA MPROTHROMBIN TIME/[id number] 06:41:00 Test Item Value Reference Range Interpretation [...] 0-0 (BEAKER) (test code = 413) Tissue [id number] 17:37:00 Test Item Value Reference Range Interpretation Comments Case Report (test code Surgical Pathology = 104) Report Case: [id number] Authorizing Provider: Denzel Powell MD Collected: 03/30/2020 02:43 PM Ordering Location: [facility] Received: 03/30/2020 03:07 PM PERIOPERATIVE SERVICES Pathologist: Pedro Pablo Madrigal MD Specimen: Aortic Valve, AORTIC VALVE LEAFLETS DIAGNOSIS (test code = i0acbBZjGPGxh7xqNMGdoEI 3220) uZzEwMzNcZnRuYmpcdWMxIH tccnRmMVxlcGljOTIwMFxhb oOqPUXghBRnO4YfkilyYAfy TX5rJO1moSkcgKFikGZrLZM cMzUuo5zia046nJRzq8myZO CHsyhfuQo7qSzxG91xo2W7I zfwE31zdOVpQQmpgVUlxhyf erMyTFwXGWFZSMDTC0YQPSP gVkFMVkUsIFZBTFZVTEVDVE 9NWTpccGFyIExFQUZMRVRTI XrGPCavN4LDTDQRBR6NLRZR OUBwV3VWE8fZGUGgXOCHQVE MF9CNEZRVPXvZQEHEACTHHV 5CZrjrYTLfch11GSX2OyMqh 8W9EBS5LPCuMYGct5gfPSPi bGFuZzEwMzNcZnRuYmpcdWM dRIAvOjZkt0wur404dDWgp8 ukYWMvPcR0dGRcPSWlyTGkT 791HQZtVTkps1wru3YuWYGx zYTtl7F6VSNFqtjwzVh1cMw jF58qf3N1YykhC9uwRSXtYD JaF5QxMM1jMADaHsz8LXX5U UC5WFTqKUTlF5UvCC7qDJNf cXAvFDt0d5rnoPcmGMZoWJI 7t8yhFEylkpMvUY8esn9ueI p9i3zgakZzUYMwPFFopEDSH HFmJ2QdvDflVw6hwXh7cMpz QioyVBB6Bbr0QI7hvx88oct 5cSacBVIpgzibKoQ6QTfyPU WywenbHXm8ENnlLLQjpXH1U HVbmWEiR5DlTMJhFR2xjcj0 UOE6NQyuRCPwAgM3RQUhfTT eGNGbzKwpARash793PHR4Cn CnPT7zD5Lve2J2sH3dkQKmJ UMmjJMeFfKwYLKqvs1aoEXb SIoos0XeQXY5diY8gUXloWA sFVXbNzS2UHypZC7yib10CM LlDUO9qb8ygLFltIxjmaRnj EHiOLtbX7VzTHIit166ZKLr S8MoIRWnn9R8xcUiEiYbYZY kuJJ2rfC9WFFxVQ1yfiyip4 rfVGyyUArcUWIvkbU2zyY9Q EFliWCwS0WzsP7tEHLbAB5g bfcso1qiVYX2EDoiWUAgJYY 7TfDgBTLcq9Mgsld6XfZxk2 JxfCNhFSefZ48xk055ICBie bPrB9hhcCZfddvimXKekboz XNduniS1ETPhLVfvwkcoDLJ vHPhrY6rwZtXrZWLoqObsCH iah8GpHRFjYXKoBmAxjYZjV MSbUfc2NXPdoIMtXGCaGdBy T0ykimciBnPDAQApu3eaJ5b pqKINxZUsY3UzKIgpbvReWL guARlkZLUtAHQ4UF65JtztF HBhcn19 CPT Code(s) (test code e9dapKYsNHHgqPM7ZbAjODC = 3357) oz0mjy3QkiDVjvCGaXObrgL LbnbXhgb58pTS7kO71EK8fC ZVuHwH4CECzecW6Hyl7MIBl AIQqeNGyW727k3jie8rmpbT ayJT2gNzyTAFkDXBbVWyuAL YrByIuXTocBPQ6AQp3NwZqJ HBhcn0= CLINICAL HISTORY (test o8ewcZUmNCImeWU9BsPiTWC code = 3356) vv5flb0KbkUWmeXWdHGpikD HbomMiui63dTH7vU13MZ3lJ IShVtU6KCCzmoE2Lvx8HOPs ZLPypRUvH901h4dpy8kwssS vuSV3mFiuLLSiICXsKPuxEU GkSdOxNGObj7CrNYbqB36vz 3vhWpTqDT8edNfpFMEhwBFz JEB9BW4nd1vhLQXmcBwckR3 neSBvZiBjYXJkaWFjIHZhbH XxAXIri5Qtc1GhzP2nmDXrk WZpZWQgXHBhcn0= SPECIMEN SOURCE (test l9teqKVnAYLozYA7AnSoVFW code = 3377) gb4cuh9MrtLSmrUCiAOlwcK CswgHdqh76vAZ4jF16UP7hH DQrKuW9XPDvqnZ0Ssr7HNPr SUCicNPbQ964g0skf9bxjqN yxJK8uCocIKJtZMAaTYiaWC PySyMkNO4mkPqyTSHdwMTmV HBhcn0= GROSS DESCRIPTION r8klqWOiMBQvuOTgZuZqLOI (test code = 3366) pYIJsd2qjRQHvrAAuQvMtKs NcZnRuYmpcdWMxXGRlZmYwe 7khs557zCJmw8fmDATMreoa rOh8w7zjJDDvTkN4iRNxZTa zT9ssuxCvmDJcRTDeBJv1eE 83AVKeuN6suKAlPWlxobQeT eZ0ZVsoPLYgFhQ0ZXAedDDo SPUnM4mxCGMyZHjhZDXnQJr vhFObBMB7sBrkq3D5sOTilP KedBfdXcAdHsHjXSJSl1JpH Iy2cSwnV5EgWHSsVsV3kEEo AFEhXEqkEMNmEXKkhxQ7fR4 7CUmrclX3tZTsh2Iba95nn2 60aD6mbKJiZVH8UGRaWJZld AXsZVFlBCS8TLVryEEsZ1k5 GbHaeDRnF6Q0MkLinIWzH7C 8CqUxzHUiD1Q9JjBshPEeDS WgzZFnKw7lhANwrSDkfk6zy q36RYQ4i0ZbxRjyUDJ1KXP1 DhKpOt0uoBLnDWMtPTZvcXU yNAJqOW3jkHIoWMMdbF0nuk xjXHBnYnJkcmhlYWRccGdic gGdJy8seGkbWCT5BMauB1yb fJ3kDqA8ZMehH6vjsS3gNMn 4SEgzaYR6QDNcgH5vLT2nzj yfu8mhTjTlBO9sihvlc0vqW mKrBB8ienf6s0oeEeUjAX1g efivc3jkIjUvLNnkWOAfkzn cAQSjs3DpjbjfLBLfo4TbS9 TsvGooI82ieLypX85yFDBzg JakxU8emLvxwS0xIeWvCjSa NFxwYXJkXHBsYWluXGYxXGZ zMjBcbGFuZzEwMzNcaGljaF ueZBipFaJoRSVgZUwhS0puE jFcZnMyMCBBLiBSZWNlaXZl ZCBmcmVzaCBsYWJlbGVkIHd pdGggdGhlIHBhdGllbnQncy GnEI7gBMCbY0Gml1Fds68yo rImQvTvBDFzADVgBQ9bqTxf IHZhbHZlIGxlYWZsZXRzIiB pcyBhIGludGFjdCwgcHJldm psmVAhsJWmuTZtVNBfHE9bk GljIHZhbHZlIHdpdGggdGhy PUDtU7JbvFCqDB8yWWZdZ4j mD6EyTeJrGI5jPIRvXlK8Lw JbF93pADLdGKEkrCXrYYFaW DmzELbeWRtzdDEinI79VOJx DXEkPYPaxXQgq2IomvZvLTK fiSkaytZzFTUoL0Ivu63hwi nfrvS5BSFtftOxVHTqMmqhl s47mgnpPz8zNRobpJCoRRmt wWRyHODfX8O5QJD9zcRfT9A rDZUegWUal9KgxUL9qRMaXB UgL9Tuc33kAUHuRGFetDEot QX5WMQlzG3tSWXfCd7vtW25 sS3dPELkM3WxI2iiuHUexQt bvc4vUTeEZ8OdFQvsGKV2 MICROSCOPIC h4geeLWrZSSsjFM0YiVvKAL DESCRIPTION (test code yn9zll1DfkUOmoLWhMLftnX = 3371) RqtpFstn97kXP5yJ96KV3yK TWkBtT0TERiilT5Iaq4JXLb OBNgwRMmB324v1fqg2xyyzM ylLR7lLdeQZFgELJdZHniQP BkKhKgVDCpUp5fbQXfKDNrd n0= [facility] HospitalTISSUE [id number] 17:37:00Surgical Pathology Report Case: [id number] Authorizing Provider: Denzel Powell MD Collected: 03/30/2020 02:43 PM Ordering Location: [facility] Received: 03/30/2020 03:07 PM PERIOPERATIVESERVICES Pathologist: Pedro Pablo Madrigal MD Specimen: Aortic Valve, AORTIC VALVE LEAFLETS HEART, AORTIC VALVE, VALVULECTOMY:LEAFLETS WITH SEVERE NODULAR CALCIFIC ATHEROSCLEROTIC THICKENING Signing Pathologist Direct Phone Line: [phone] signed by Pedro Pablo Madrigal MD on 04/03/2020 at 5:37 [id number]; [id number] diagnosis: Aortic valve stenosis, etiology of cardiac valve disease unspecified Aortic valveA. Received fresh labeled with the patient's name, accession number and "aortic valve leaflets" is a intact, previously opened aortic valve with three cusps and a circumference of 5.5 cm.The surface is marroquin-yellow and devoid of vegetations. Sectioning reveals a a fibrous, focally calcified cut surface. Polisher Eyeglass Frames sections are submitted in A1 following decalcification. JG/pl PerformedPOC- Glucose [id number] 06:06:00 Test Item Value Reference Range Interpretation Comments POC-Glucose Meter (test 115 mg/dL 70-110 H : TE STED AT [facility] code = 1538) [address] [facility], [address] 30: Register Of Deeds/Techni paxton ID = [id number] for Rodrigo Fernandez Lab Interpretation (test Abnormal code = 58320-8) [facility] [id number] 06:06:00 Test Item Value Reference Range Interpretation Comments POC-GLUCOSE METER 115 mg/dL 70-110 H : TESTED A T [facility] 6720 (BEAKER) (test code = [facility], 1538) [address]: Register Of Deeds/Techni paxton ID = [id number] for Rodrigo Jacobs RAD, CHEST, 1 VIEW, NON [id number] 04:49:00while patient is intubated or has chest tubes.Reason for exam:->Status post CV SurgeryShould thisbe performed at the bedside?->Yes [facility] 1980 Sex: MFINAL REPORT RAD, [...] MDReport Verified Date/Time: 04/03/2020 04:49:26 BASIC METABOLIC [id number] 03:40:00 Test Item Value Reference Range Interpretation [...] S NOT APPLICABLE FOR DIALYSIS PATIEN TS. [employer] ID - [id number] 03:40:00 Test Item Value Reference Range Interpretation Comments MAGNESIUM (BEAKER) (test code = 2.0 mg/dL 1.6-2.6 627) [employer] ID - [id number] TIME/[id number] 02:56:00 Test Item Value Reference Range Interpretation [...] (BEAKER) (test code = 413) Blood gas, [id number] 02:46:00 Test Item Value Reference Range Interpretation Comments pH, Isaias (test code = 7.47 7.32-7.42 H 2746-6) pCO2, Isaias (test code = 45 See_Comment [Aut omated message] 755) The system [employer] generated this result transmit isela reference range : 41 - 51 mm Hg. The reference range was not used to interpret this result as normal/abnormal . pO2, Isaias (test code = 49 See_Comment H [Auto mated message] 7515-2) The system [employer] generated this result transmit isela reference range : 25 - 40 mm Hg. The reference range was not used to interpret this result as normal/abnormal . O2 Sat, Isaias (test code 85.9 % 40-70 H = 2711-0) HCO3, Isaias (test code = 32 mmol/L 21-29 H 78529-2) Base Excess, Isaias (test 7.2 mmol/L -2-3 H code = 1927-3) Patient Temperature 37.5 (test code = 8310-5) FIO2 (test code = 1819) 32 Lab Interpretation Abnormal (test code = 99974-1) [facility] [id number] 02:46:00 Test Item Value Reference Range Interpretation [...] (BEAKER) (test code = 1819) 32.0 Transesophageal [id number] 08:15:39Ejection FractionSLEH ECHO HEARTLAB MKCKESSON CPACSInterface, External Ris In - 04/02/2020 8:15 AM CS TTransesophageal Echocardiography Report (TONY) Demographics Patient Name VINCENZO BALES Date of Study 03/30/2020 LYUBOV Gender Male Visit Number [id number] Race Unknown RoomNumber 2C51 Number Date of 1980 Referring Physician DENZEL POWELL Age 40 year(s)Seismograph Observer Interpreting Physician DANIEL Franco Procedure Type of Study TONY procedure:TRANSESOPHAGEAL ECHO Indications:Aortic stenosis .Clinical HistoryANXIETY,AORTIC STENOSIS,ABESTOS EXPOSURE ,BMI,CAD,SMOKER,DEPRESSION,SOBHeight: 70 inches Weight: 118.39 kg (261 lbs) BSA: 2.34 m^2 BMI: 37.45kg/m^2HR: 72 bpm BP: 135/77 mmHg Summary POST OP: S/P MECHANICLA AVR A mechanical AoV prosthesis is visualized . The prosthetic AoV appears well-seated with normal function by Doppler. Mean AVR gradient= 14mmHg. Prosthetic AoV regurgitaton is trivial . [...] appendage thrombus. Right The right ventricular chamber sizeand systolic function are Ventricle within normal limits. Right Atrium RA size is normal. Aortic Valve Mild AoV cusp thickening. Mild AoV cusp calcification. Bicuspid AV is present . Moderate aortic reg urgitation. Moderate aortic stenosis. Mitral Valve Normal MV [...] 3.06 m/s Mean Velocity: 2.05 m/s Peak Gradient: 37.41 mmHg Mean Gradient: 19.5 mmHg AV Area (continuity): 1.21 cm^2 AV VTI: 73.19 cm AV DVI: 0.25 LVOT Peak Velocity: 0.85 m/s Peak Gradient: 2.86 mmHg Mean Velocity: 0.54 m/s Mean Gradient: 1.41 mmHg LVOT Diameter: 2.5 cm LVOT VTI: 18.1 cm LVOT Area: 4.91 cm^2 LVOT SV:88.8 ml LVOT CO: 6.39 l/min LVOT CI: 2.73 l/min/m^2[facility]PO[facility] [id number] 06:02:00 Test Item Value Reference Range Interpretation Comments POC-GLUCOSE METER 111 mg/dL 70-110 H : TESTED A T [facility] 6720 (JUN) (test code = [address], 1538) [id number]: Register Of Deeds/Techni paxton ID = [id number] for Rodrigo Jacobs RAD, CHEST, 1 VIEW, NON [id number] 04:45:00while patient is intubated or has chest tubes.Reason for exam:->Status post CV SurgeryShould thisbe performed at the bedside?->Yes [facility] : 1980 Sex: MFINAL REPORT RAD, [...] Signed: Renu Pizarro Verified Date/Time: 04/02/2020 04:45:17 [id number] 03:29:00 Test Item Value Reference Range Interpretation Comments MAGNESIUM (BEAKER) 1.9 mg/dL 1.6-2.6 Specimen slightly (test code = 627) hemolyzed Register Of Deeds ID - NAYANA MBASIC METABOLIC [id number] 03:29:00 Test Item Value Reference Range Interpretation [...] S NOT APPLICABLE FOR DIALYSIS PATIEN TS. Register Of Deeds ID - NAYANA MPROTHROMBIN TIME/[id number] 03:25:00 Test Item Value Reference Range Interpretation [...] for patients wiht mechanical heart valves.Lactic Acid, [id number] 03:10:00 Test Item Value Reference Range Interpretation Comments Lactate, Art (test code = 0.8 mmol/L 0.5-2.2 2874) BEBE (test code = BEBE) Register Of Deeds BRANDON KRAUS M Lab Interpretation (test Normal code = 75659-1) [facility], [id number] 03:10:00 Test Item Value Reference Range Interpretation Comments LACTATE BLOOD ARTERIAL (2) 0.8 mmol/L 0.5-2.2 (BEAKER) (test code = 2874) Register Of Deeds ID - NAYANA MCBC (HEMOGRAM ONLY)2020-04-02 03:03:00 [...] (BEAKER) (test code = 413) Blood gas, [id number] 02:55:00 Test Item Value Reference Range Interpretation Comments pH, Arterial (test code 7.48 7.35-7.45 H = 2744-1) pCO2, Arterial (test 40 See_Comment [Autom ated message] code = 2019-8) The system [employer] generated this result transmit isela reference range : 35 - 45 mm Hg. The reference range was not used to interpret this result as normal/abnormal . pO2, Arterial (test 126 See_Comment H [Automa isela message] code = 2703-7) The system [employer] generated this result transmit isela reference range [...] 100 Lab Interpretation Abnormal (test code = 22007-2) [facility]BL[facility], [id number] 02:55:00 Test Item Value Reference Range Interpretation [...] (BEAKER) (test code = 1819) 100.0 POCT-GLUCOSE [id number] 00:12:00 Test Item Value Reference Range Interpretation Comments POC-GLUCOSE METER 113 mg/dL 70-110 H : TESTED A T [facility] 6720 (BEAKER) (test code = [place], 1538) [id number]: Register Of Deeds/Techni paxton ID = [id number] for Rodrigo Jacobs BASIC METABOLIC [id number] 19:43:00 Test Item Value Reference Range Interpretation [...] S NOT APPLICABLE FOR DIALYSIS PATIEN TS. Register Of Deeds ID - ADMINRAD, CHEST, 1 VIEW, NON [id number] 07:55:00while patient is intubated or has chest tubes.Reason for exam:->Status post CV SurgeryShould thisbe performed at the bedside?->Yes [facility] : 1980 Sex: MFINAL REPORT CLINICAL HISTORY: Status post CV Surgery TECHNIQUE: 1 view of the chest. COMPARISON: 03/31/2020 IMPRESSION: The supporting lines and tubes are similar appearing. Diffuse bilateral airspace opacities have increased. Small pleural effusions cannot be excluded. The cardiomediastinal silhouette is magnified by technique with sternotomy wires. Signed: Manny Norman MDReport Verified Date/Time: 04/01/2020 07:55:21 Reading Location: [facility] Radiology Reading Room BASIC METABOLIC [id number] 05:48:00 Test Item Value Reference Range Interpretation [...] S NOT APPLICABLE FOR DIALYSIS PATIEN TS. Register Of Deeds ID - EDASIOperator ID - NAYANA [id number] 05:16:00 Test Item Value Reference Range Interpretation Comments MAGNESIUM (BEAKER) (test code = 1.8 mg/dL 1.6-2.6 627) Register Of Deeds ID - [id number] 05:16:00 Test Item Value Reference Range Interpretation Comments PHOSPHORUS (BEAKER) (test code = 1.7 mg/dL 2.3-4.7 L 604) Register Of Deeds ID - MANISHLACTIC ACID, [id number] 05:01:00 Test Item Value Reference Range Interpretation Comments LACTATE BLOOD ARTERIAL (2) 1.1 mmol/L 0.5-2.2 (BEAKER) (test code = 2874) Register Of Deeds ID - NAYANA MCBC (HEMOGRAM ONLY)2020-04-01 04:55:00 [...] (BEAKER) (test code = 413) BLOOD GAS, [id number] 04:44:00 Test Item Value Reference Range Interpretation [...] (BEAKER) (test code = 1819) 100.0 POCT-GLUCOSE [id number] 17:30:00 Test Item Value Reference Range Interpretation Comments POC-GLUCOSE METER 95 mg/dL 70-110 : [facility] ([facility]ER[facility] (test code = [place], 1538) [address]: Register Of Deeds/Techni paxton ID = [id number] for Maryjo melissa (contract), Pippa lsea LACTIC ACID, [id number] 05:48:00 Test Item Value Reference Range Interpretation Comments LACTATE BLOOD ARTERIAL (2) 1.8 mmol/L 0.5-2.2 (BEAKER) (test code = 2874) Register Of Deeds ID - NAYANA MBASIC METABOLIC [id number] 03:35:00 Test Item Value Reference Range Interpretation [...] S NOT APPLICABLE FOR DIALYSIS PATIEN TS. Register Of Deeds ID - [id number] 03:30:00 Test Item Value Reference Range Interpretation Comments MAGNESIUM (BEAKER) (test code = 2.0 mg/dL 1.6-2.6 627) Register Of Deeds ID - [id number] 03:30:00 Test Item Value Reference Range Interpretation Comments PHOSPHORUS (BEAKER) (test code = 3.0 mg/dL 2.3-4.7 604) Register Of Deeds ID - EDASILACTIC ACID, [id number] 03:14:00 Test Item Value Reference Range Interpretation Comments LACTATE BLOOD ARTERIAL (2) 2.2 mmol/L 0.5-2.2 (BEAKER) (test code = 2874) Register Of Deeds ID - EDASICBC (HEMOGRAM ONLY)2020-03-31 03:08:00 Test [...] (BEAKER) (test code = 413) BLOOD GAS, [id number] 03:02:00 Test Item Value Reference Range Interpretation [...] 1819) 50.0 RAD, CHEST, 1 VIEW, NON [id number] 02:35:00while patient is intubated or has chest tubes.Reason for exam:->Status post CV SurgeryShould thisbe performed at the bedside?->Yes [facility] : 1980 Sex: MFINAL REPORT RAD, CHEST, 1 VIEW, NON DEPT INDICATION: Status post CV Surgery COMPARISON: Exam from seven hours prior FINDINGS: Portable frontal view of the chest. IMPRESSION: Support Lines: Interval extubation and removal of the enteric tube. Otherwise, stable support apparatus. Lungs andpleura: Hypoinflated lungs with mildly increasing left sided hazy airspace opacity suggestive of verena a or infection. Small left layering pleural effusion is similar to prior. No pneumothorax.Heart and mediastinum: Stable contours.Additional findings: None. Signed: Denzel Granda MDReport Verified Date/Time: 03/31/2020 02:35:55 POCT-GLUCOSE [id number] 02:30:00 Test Item Value Reference Range Interpretation Comments POC-GLUCOSE METER 160 mg/dL 70-110 H : TESTED A T [facility] 6720 (BEAKER) (test code = [place], 1538) [address]: Register Of Deeds/Techni paxton ID = [id number] for NICOLE CORRIGAN LACTIC ACID, [id number] 00:47:00 Test Item Value Reference Range Interpretation Comments LACTATE BLOOD 2.5 mmol/L 0.5-2.2 H Specimen sligh tly ARTERIAL (2) (BEAKER) hemoly zed (test code = 2874) Register Of Deeds ID - ADMINBLOOD GAS, [id number] 00:32:00 Test Item Value Reference Range Interpretation [...] (test code = 1819) 70.0 LACTIC ACID, [id number] 23:12:00 Test Item Value Reference Range Interpretation Comments LACTATE BLOOD ARTERIAL (2) 5.4 mmol/L 0.5-2.2 HH (BEAKER) (test code = 2874) Register Of Deeds ID - ADMINBLOOD GAS, [id number] 22:39:00 Test Item Value Reference Range Interpretation [...] (test code = 1819) 40.0 BLOOD GAS, [id number] 22:13:00 Test Item Value Reference Range Interpretation [...] (test code = 1819) 40.0 LACTIC ACID, [id number] 21:13:00 Test Item Value Reference Range Interpretation Comments LACTATE BLOOD 3.8 mmol/L 0.5-2.2 H Specimen moder ately ARTERIAL (2) (BEAKER) hemoly zed (test code = 2874) Register Of Deeds ID - BSCalcium, [id number] 20:30:00 Test Item Value Reference Range Interpretation Comments Calcium, Ion (test code = 1993-) 1.05 mmol/L 1.12-1.27 L pH, Blood (test code = 21167-4) 7.41 Lab Interpretation (test code = Abnormal 67493-8) [facility]Glucose-Stat [id number] 20:30:00 Test Item Value Reference Range Interpretation Comments Glucose (test code = 2345-7) 139 mg/dL 70-110 H Lab Interpretation (test code = Abnormal 79229-2) [facility] HospitalCALCIUM, [id number] 20:30:00 Test Item Value Reference Range Interpretation Comments CALCIUM IONIZED (BEAKER) (test 1.05 mmol/L 1.12-1.27 L code = 698) PH, BLOOD (BEAKER) (test code = 7.41 1810) GLUCOSE-STAT [id number] 20:30:00 Test Item Value Reference Range Interpretation Comments GLUCOSE RANDOM (BEAKER) (test code 139 mg/dL 70-110 H = 652) HGB/HCT (H&H)-Stat [id number] 20:29:00 Test Item Value Reference Range Interpretation Comments Hemoglobin (test code = 14.8 See_Comment [Au tomated message] 786-4) The system [employer] generated this result transmitted ref erence range: 13.0 - 1 6.8 GM/DL. The refe rence range was not u sed to interpret this result as normal/abnor mal. Hematocrit (test code = 44.0 % 40-50 4544-3) Lab Interpretation (test Normal code = 23331-1) [facility] [id number] 20:29:00 Test Item Value Reference Range Interpretation Comments Sodium (test code = 2951-2) 141 meq/L 136-145 Lab Interpretation (test code = Normal 29581-4) [facility]Potassium-Stat [id number] 20:29:00 Test Item Value Reference Range Interpretation Comments Potassium (test code = 2823-3) 4.3 meq/L 3.6-5.5 Lab Interpretation (test code = Normal 13067-5) [facility] HospitalBLOOD GAS, [id number] 20:29:00 Test Item Value Reference Range Interpretation [...] (test code = 1819) 60.0 SODIUM NA-STAT [id number] 20:29:00 Test Item Value Reference Range Interpretation Comments SODIUM (BEAKER) (test code = 381) 141 meq/L 136-145 POTASSIUM-STAT [id number] 20:29:00 Test Item Value Reference Range Interpretation Comments POTASSIUM (BEAKER) (test code = 4.3 meq/L 3.6-5.5 379) HGB/HCT (H&H) - STAT [id number] 20:29:00 Test Item Value Reference Range Interpretation Comments HEMOGLOBIN (BEAKER) (test code = 14.8 GM/DL 13.0-16.8 410) HEMATOCRIT (BEAKER) (test code = 44.0 % 40.0-50.0 411) [id number] 19:57:00 Test Item Value Reference Range Interpretation Comments Fibrinogen (test code = 3255-7) 256 mg/dl 225-434 Lab Interpretation (test code = Normal 53054-8) [facility] HospitalPROTHROMBIN [id number] 19:57:00 Test Item Value Reference Range Interpretation [...] is 2.5-3.5 for patients wiht mechanical heart valves.[id number] 19:57:00 Test Item Value Reference Range Interpretation Comments FIBRINOGEN LEVEL (BEAKER) (test 256 mg/dl 225-434 code = 658) LACTIC ACID, [id number] 19:02:00 Test Item Value Reference Range Interpretation Comments LACTATE BLOOD 6.6 mmol/L 0.5-2.2 HH Specimen sligh tly ARTERIAL (2) (BEAKER) hemoly zed (test code = 2874) Register Of Deeds ID - BSBLOOD GAS, [id number] 18:58:00 Test Item Value Reference Range Interpretation [...] (BEAKER) (test code = 1819) 100.0 Manual [id number] 18:49:00 Test Item Value Reference Range Interpretation Comments % Neutros (test code = 59 % 281) % Lymphs (test code = 7 % 2817) % Monos (test code = 5 % 281) % Metamyelo (test code = 3 % [...] (test code = 1.13 K/uL 0-0 H 283) # Myelo (test code = 0.75 K/uL 0-0 H 2837) # Bands (test code = 9.05 K/uL 0-0.8 H 2840) Total Counted (test code 100 = 1351) RBC Morphology (test code Normal = 762) Platelet Morphology (test Normal code = 486) Smudge Cells (test code = Present 1371) Platelet Conc (test code Adequate = 3438) BEBE (test code = BEBE) Register Of Deeds ID - anil Tejedarosario comments: Slide comments: Lab Interpretation (test Abnormal code = 19172-1) [facility](CELLAVISION MANUAL DIFF)2020-03-30 18:49:00 Test Item Value [...] CONCENTRATION Adequate (CELLAVISION)(BEAKER) (test code = 3438) Register Of Deeds ID - anil Castelan comments: Slide comments:SODIUM NA-STAT LAB 2020-03-30 18:27:00 Test Item Value Reference Range Interpretation Comments SODIUM (BEAKER) (test code = 381) 144 meq/L 136-145 POTASSIUM-STAT [id number] 18:27:00 Test Item Value Reference Range Interpretation Comments POTASSIUM (BEAKER) (test code = 3.9 meq/L 3.6-5.5 379) HGB/HCT (H&H) - STAT [id number] 18:27:00 Test Item Value Reference Range Interpretation Comments HEMOGLOBIN (BEAKER) (test code = 16.0 GM/DL 13.0-16.8 410) HEMATOCRIT (BEAKER) (test code = 47.0 % 40.0-50.0 411) BLOOD GAS, [id number] 18:27:00 Test Item Value Reference Range Interpretation [...] (BEAKER) (test code = 1819) 100.0 GLUCOSE-STAT [id number] 18:27:00 Test Item Value Reference Range Interpretation Comments GLUCOSE RANDOM (BEAKER) (test code 138 mg/dL 70-110 H = 652) [id number] 18:16:00 Test Item Value Reference Range Interpretation Comments MAGNESIUM (BEAKER) 2.2 mg/dL 1.6-2.6 Specimen slightly (test code = 627) hemolyzed Register Of Deeds ID - [id number] 18:16:00 Test Item Value Reference Range Interpretation Comments PHOSPHORUS (BEAKER) 4.5 mg/dL 2.3-4.7 Specimen slightly (test code = 604) hemolyzed Register Of Deeds ID - BSBASIC METABOLIC [id number] 18:16:00 Test Item Value Reference Range Interpretation [...] S NOT APPLICABLE FOR DIALYSIS PATIEN TS. Register Of Deeds ID - [id number] 18:15:00 Test Item Value Reference Range Interpretation Comments PTT (test code = 59.2 See_Comment H [Automated message] 43218-4) The system [employer] generated this result transmitted ref erence range: 22.5 - 3 6.0 seconds. The reference range was not used to int erpret this result as normal/abnormal . Lab Interpretation (test Abnormal code = 17935-0) [facility] HospitalAPTT2020-11-[facility] 18:15:00 Test Item Value Reference Range Interpretation Comments PARTIAL THROMBOPLASTIN TIME 59.2 seconds 22.5-36.0 H (BEAKER) (test code = 760) LACTIC ACID, [id number] 18:15:00 Test Item Value Reference Range Interpretation Comments LACTATE BLOOD 4.9 mmol/L 0.5-2.2 HH Specimen moder ately ARTERIAL (2) (BEAKER) hemoly zed (test code = 2874) Register Of Deeds ID - BSCBC with platelet count + automated [id number] 18:04:00 Test Item Value Reference Range Interpretation Comments WBC (test code = 6690-2) 37.7 See_Comment H [A utomated message] The system [employer] generated this result transmitted ref erence range: 3.5 - 10 .5 K/L. The refe rence range was not u sed to interpret this result as normal/abnor mal. RBC (test code = 789-8) 5.11 See_Comment [Au tomated message] The system [employer] generated this result transmitted ref erence range: 4.63 - 6 .08 M/L. The refe rence range was not u sed to interpret this result as normal/abnor mal. MCHC (test code = 786-4) 34.8 See_Comment [A utomated message] The system [employer] generated this result transmitted ref erence range: [...] code = 248 See_Comment [Aut omated message] 547-3) The system [employer] generated this result transmitted ref erence range: 150 - 45 0 K/CU MM. The referen ce range was not u sed to interpret this result as normal/abnor mal. MPV (test code = 9.9 fL 9.4-12.4 99809-5) nRBC (test code = 413) 0 See_Comment [Aut omated message] The system [employer] generated this result transmitted ref erence range: [...] H [Aut omated message] 670) The system [employer] generated this result transmitted ref erence range: 1.78 - 5 .38 K/L. The refe rence range was not u sed to interpret this result as normal/abnor mal. # Lymphs (test code = 4.72 See_Comment H [Auto mated message] 414) The system [employer] generated this result transmitted ref erence range: 1.32 - 3 .57 K/L. The refe rence range was not u sed to interpret this result as normal/abnor mal. # Monos (test code = 3.52 See_Comment H [Autom ated message] 415) The system [employer] generated this result transmitted ref erence range: 0.30 - 0 .82 K/L. The refe rence range was not u sed to interpret this result as normal/abnor mal. # Eos (test code = 416) 0.30 See_Comment [Au tomated message] The system [employer] generated this result transmitted ref erence range: 0.04 - 0 .54 K/L. The refe rence range was not u sed to interpret this result as normal/abnor mal. # Baso (test code = 417) 0.15 See_Comment H [A utomated message] The system [employer] generated this result transmitted ref erence range: 0.01 - 0 .08 K/L. The refe rence range was not u sed to interpret this result as normal/abnor mal. Immature 1 % 0-1 Granulocytes-Relative (test code = 2801) Lab Interpretation (test Abnormal code = 43674-7) [facility] W/PLT COUNT & AUTO [id number] 18:04:00 Test Item Value Reference Range Interpretation [...] = 2801) RAD, CHEST, 1 VIEW, NON [id number] 18:04:00Reason for exam:->s/p cardiac surgeryShould this be performed at the bedside?->Yes [facility] 1980 Sex: MFINAL REPORT Chest, 1 view. History: Status post cardiac surgery. Comparison: 09/17/2019. IMPRESSION: Endotracheal tube identified terminating approximately 3.5 cm above the teresa. Right IJ coursing venous catheter identified terminating [...] MDReport Verified Date/Time: 03/30/2020 18:04:45 Reading Location: [facility] C013W Consult Reading Room Oxygen saturation, [id number] 17:47:00 Test Item Value Reference Range Interpretation Comments O2 Saturation (Measured) (test code = 66.8 % 16294-3) [facility] HospitalOXYGEN SATURATION, [id number] 17:47:00 Test Item Value Reference Range Interpretation Comments O2 SATURATION (MEASURED) (BEAKER) 66.8 % (test code = 1455) SODIUM NA-STAT [id number] 17:44:00 Test Item Value Reference Range Interpretation Comments SODIUM (BEAKER) (test code = 381) 140 meq/L 136-145 POTASSIUM-STAT [id number] 17:44:00 Test Item Value Reference Range Interpretation Comments POTASSIUM (BEAKER) (test code = 3.8 meq/L 3.6-5.5 379) CALCIUM, [id number] 17:44:00 Test Item Value Reference Range Interpretation Comments CALCIUM IONIZED (BEAKER) (test 1.21 mmol/L 1.12-1.27 code = 698) PH, BLOOD (BEAKER) (test code = 7.29 1810) GLUCOSE-STAT [id number] 17:44:00 Test Item Value Reference Range Interpretation Comments GLUCOSE RANDOM (BEAKER) (test code 141 mg/dL 70-110 H = 652) HGB/HCT (H&H) - STAT [id number] 17:44:00 Test Item Value Reference Range Interpretation Comments HEMOGLOBIN (BEAKER) (test code = 16.8 GM/DL 13.0-16.8 410) HEMATOCRIT (BEAKER) (test code = 49.0 % 40.0-50.0 411) BLOOD GAS, [id number] 17:43:00 Test Item Value Reference Range Interpretation [...] code = 1819) 60.0 POC ACTIVATED CLOTTING [id number] 17:11:00 Test Item Value Reference Range Interpretation Comments Activated Clotting Time 114 sec : 74 -137 seconds, (test code = 441) Baseline: TESTED AT [address], [facility] 30: Register Of Deeds/Techni paxton ID = [id number] for BAUDILIO LEVIN [facility]PO[facility]-[id number] 17:11:00 Test Item Value Reference Range Interpretation Comments ACTIVATED CLOTTING TIME 114 sec : 74 -137 seconds, (BEAKER) (test code = Baseli ne: TESTED AT 441) [address], [address] 30: Register Of Deeds/Techni paxton ID = [id number] for LETHRIDGE, PRICE JASON [id number] 17:11:00 Test Item Value Reference Range Interpretation Comments ACTIVATED CLOTTING TIME 98 sec : 74 -137 seconds, (BEAKER) (test code = Baseli ne: TESTED AT [facility]) [address], [facility] 30: Register Of Deeds/Techni paxton ID = [id number] for BAUDILIO LEVIN [id number] 17:11:00 Test Item Value Reference Range Interpretation Comments ACTIVATED CLOTTING TIME 455 sec : 74 -137 seconds, (BEAKER) (test code = Baseli ne: TESTED AT [facility]) [address], [facility] 30: Register Of Deeds/Techni paxton ID = [id number] for LETHRIDGE, PRICE JASON [id number] 17:11:00 Test Item Value Reference Range Interpretation Comments ACTIVATED CLOTTING TIME 499 sec : 74 -137 seconds, (BEAKER) (test code = Baseli ne: TESTED AT [facility]) [address], [address] 30: Register Of Deeds/Techni paxton ID = [id number] for LETHRIDGE, PRICE JASON [id number] 17:11:00 Test Item Value Reference Range Interpretation Comments ACTIVATED CLOTTING TIME 510 sec : 74 -137 seconds, (BEAKER) (test code = Baseli ne: TESTED AT [facility]) [address], [facility] 30: Register Of Deeds/Techni paxton ID = [id number] for LETHRIDGE, PRICE JASON [id number] 17:11:00 Test Item Value Reference Range Interpretation Comments ACTIVATED CLOTTING TIME 412 sec : 74 -137 seconds, (BEAKER) (test code = Baseli ne: TESTED AT 441) [facility] [address] [facility], [address] 30: Register Of Deeds/Techni paxton ID = [id number] for DEE COSTA [id number] 17:11:00 Test Item Value Reference Range Interpretation Comments ACTIVATED CLOTTING TIME 527 sec : 74 -137 seconds, (BEAKER) (test code = Baseli ne: TESTED AT 441) [facility] [address] [facility], [address] 30: Register Of Deeds/Techni paxton ID = [id number] for DEE COSTA Prepare [id number] 16:46:00 Test Item Value Reference Range Interpretation Comments CROSSMATCH (test code = COMPATIBLE 2264) Unit ABO (test code = O Pos 6335920) UNIT NUMBER (test code = [id number] 934-0) Status (test code = RETURNED FROM ISSUE 0382207) Blood Bank Product (test RED BLOOD CELLS code = 2263) PRODUCT CODE (test code = X7479E18 933-2) [facility] HospitalPrepare [id number] 16:46:00 Test Item Value Reference Range Interpretation Comments Unit ABO (test code = O Pos 7948500) UNIT NUMBER (test code = [id number] 934-0) Status (test code = RETURNED FROM ISSUE 5419617) Blood Bank Product (test FFP code = 2263) PRODUCT CODE (test code = [id number] 933-2) [facility] HospitalPT/[id number] 16:19:00 Test Item Value Reference Interpretation Comments Range Protime (test code = 19.2 See_Comment H [Autom ated 5902-2) message] The system which generated this result transmitted reference range : 11.9 - 14.2 seconds. The reference range was not used to interpret this result as normal/abnormal . INR (test code = 1.66 See_Comment [Automated 0711-6) message] The system which generated this result transmitted reference range : <=5.90. The reference range was not used to interpret this result as normal/abnormal . PTT (test code = 86.1 See_Comment H [Automated 06652-7) message] The system which generated this result [...] valves. Lab Interpretation Abnormal (test code = 00045-9) [facility] HospitalPT/[id number] 16:19:00 Test Item Value Reference Range Interpretation [...] is 2.5-3.5 for patients wiht mechanical heart valves.[id number] 16:18:00 Test Item Value Reference Range Interpretation Comments FIBRINOGEN LEVEL (BEAKER) (test 207 mg/dl 225-434 L code = 658) Platelet [id number] 16:15:00 Test Item Value Reference Range Interpretation Comments Platelets (test code 161 See_Comment [Autom ated = 777-3) message] The system which generated this result transmit isela reference range : 150 - 450 K/CU MM. The reference range was not u sed to interpret th is result as normal/abnormal . BEBE (test code = BEBE) Register Of Deeds ID - [id number] Lab Interpretation Normal (test code = 17573-7) [facility] HospitalPLATELET [id number] 16:15:00 Test Item Value Reference Range Interpretation Comments PLATELET COUNT (BEAKER) (test 161 K/CU MM 150-450 code = 756) Register Of Deeds ID - [id number], [id number] 15:34:00 Test Item Value Reference Range Interpretation Comments CALCIUM IONIZED (BEAKER) (test 1.04 mmol/L 1.12-1.27 L code = 698) PH, BLOOD (BEAKER) (test code = 7.31 1810) BLOOD GAS, [id number] 15:34:00 Test Item Value Reference Range Interpretation [...] (BEAKER) (test code = 1819) 100.0 GLUCOSE-STAT [id number] 15:34:00 Test Item Value Reference Range Interpretation Comments GLUCOSE RANDOM (BEAKER) (test code 199 mg/dL 70-110 H = 652) HGB/HCT (H&H) - STAT [id number] 15:34:00 Test Item Value Reference Range Interpretation Comments HEMOGLOBIN (BEAKER) (test code = 11.4 GM/DL 13.0-16.8 L 410) HEMATOCRIT (BEAKER) (test code = 34.0 % 40.0-50.0 L 411) SODIUM NA-STAT [id number] 15:33:00 Test Item Value Reference Range Interpretation Comments SODIUM (BEAKER) (test code = 381) 136 meq/L 136-145 POTASSIUM-STAT [id number] 15:33:00 Test Item Value Reference Range Interpretation Comments POTASSIUM (BEAKER) (test code = 4.5 meq/L 3.6-5.5 379) BLOOD GAS, [id number] 14:59:00 Test Item Value Reference Range Interpretation [...] (BEAKER) (test code = 1819) 80.0 POTASSIUM-STAT [id number] 14:59:00 Test Item Value Reference Range Interpretation Comments POTASSIUM (BEAKER) (test code = 5.6 meq/L 3.6-5.5 H 379) GLUCOSE-STAT [id number] 14:59:00 Test Item Value Reference Range Interpretation Comments GLUCOSE RANDOM (BEAKER) (test code 245 mg/dL 70-110 H = 652) HGB/HCT (H&H) - STAT [id number] 14:59:00 Test Item Value Reference Range Interpretation Comments HEMOGLOBIN (BEAKER) (test code = 11.8 GM/DL 13.0-16.8 L 410) HEMATOCRIT (BEAKER) (test code = 35.0 % 40.0-50.0 L 411) SODIUM NA-STAT [id number] 14:58:00 Test Item Value Reference Range Interpretation Comments SODIUM (BEAKER) (test code = 381) 136 meq/L 136-145 POTASSIUM-STAT [id number] 14:41:00 Test Item Value Reference Range Interpretation Comments POTASSIUM (BEAKER) (test code = 5.6 meq/L 3.6-5.5 H 379) BLOOD GAS, [id number] 14:40:00 Test Item Value Reference Range Interpretation [...] (BEAKER) (test code = 1819) 70.0 GLUCOSE-STAT [id number] 14:40:00 Test Item Value Reference Range Interpretation Comments GLUCOSE RANDOM (BEAKER) (test code 225 mg/dL 70-110 H = 652) HGB/HCT (H&H) - STAT [id number] 14:40:00 Test Item Value Reference Range Interpretation Comments HEMOGLOBIN (BEAKER) (test code = 12.9 GM/DL 13.0-16.8 L 410) HEMATOCRIT (BEAKER) (test code = 38.0 % 40.0-50.0 L 411) SODIUM NA-STAT [id number] 14:39:00 Test Item Value Reference Range Interpretation Comments SODIUM (BEAKER) (test code = 381) 135 meq/L 136-145 L BLOOD GAS, [id number] 14:04:00 Test Item Value Reference Range Interpretation [...] (test code = 1819) 60.0 SODIUM NA-STAT [id number] 14:04:00 Test Item Value Reference Range Interpretation Comments SODIUM (BEAKER) (test code = 381) 134 meq/L 136-145 L GLUCOSE-STAT [id number] 14:04:00 Test Item Value Reference Range Interpretation Comments GLUCOSE RANDOM (BEAKER) (test code 213 mg/dL 70-110 H = 652) HGB/HCT (H&H) - STAT [id number] 14:04:00 Test Item Value Reference Range Interpretation Comments HEMOGLOBIN (BEAKER) (test code = 13.2 GM/DL 13.0-16.8 410) HEMATOCRIT (BEAKER) (test code = 39.0 % 40.0-50.0 L 411) POTASSIUM-STAT [id number] 14:03:00 Test Item Value Reference Range Interpretation Comments POTASSIUM (BEAKER) (test code = 5.1 meq/L 3.6-5.5 379) BLOOD GAS, [id number] 13:31:00 Test Item Value Reference Range Interpretation [...] (test code = 1819) 81.0 SODIUM NA-STAT [id number] 13:31:00 Test Item Value Reference Range Interpretation Comments SODIUM (BEAKER) (test code = 381) 131 meq/L 136-145 L GLUCOSE-STAT [id number] 13:31:00 Test Item Value Reference Range Interpretation Comments GLUCOSE RANDOM (BEAKER) (test code 180 mg/dL 70-110 H = 652) HGB/HCT (H&H) - STAT [id number] 13:31:00 Test Item Value Reference Range Interpretation Comments HEMOGLOBIN (BEAKER) (test code = 12.1 GM/DL 13.0-16.8 L 410) HEMATOCRIT (BEAKER) (test code = 36.0 % 40.0-50.0 L 411) POTASSIUM-STAT [id number] 13:30:00 Test Item Value Reference Range Interpretation Comments POTASSIUM (BEAKER) (test code = 5.1 meq/L 3.6-5.5 379) BLOOD GAS, [id number] 12:15:00 Test Item Value Reference Range Interpretation [...] (BEAKER) (test code = 1819) 100.0 CALCIUM, [id number] 12:11:00 Test Item Value Reference Range Interpretation Comments CALCIUM IONIZED (BEAKER) (test 1.15 mmol/L 1.12-1.27 code = 698) PH, BLOOD (BEAKER) (test code = 7.36 1810) GLUCOSE-STAT [id number] 12:10:00 Test Item Value Reference Range Interpretation Comments GLUCOSE RANDOM (BEAKER) (test code = 93 mg/dL 70-110 652) SODIUM NA-STAT [id number] 12:10:00 Test Item Value Reference Range Interpretation Comments SODIUM (BEAKER) (test code = 381) 139 meq/L 136-145 POTASSIUM-STAT [id number] 12:10:00 Test Item Value Reference Range Interpretation Comments POTASSIUM (BEAKER) (test code = 4.2 meq/L 3.6-5.5 379) HGB/HCT (H&H) - STAT [id number] 12:10:00 Test Item Value Reference Range Interpretation Comments HEMOGLOBIN (BEAKER) (test code = 15.9 GM/DL 13.0-16.8 410) HEMATOCRIT (JUN) (test code = 47.0 % 40.0-50.0 411) POCT-GLUCOSE [id number] 08:31:00 Test Item Value Reference Range Interpretation Comments POC-GLUCOSE METER 112 mg/dL 70-110 H : TESTED A T [facility] 6720 (JUN) (test code = [place], 1538) [address]: Register Of Deeds/Techni paxton ID = [id number] for Sania Alexandre Electrocardiogram, [id number] 14:57:10Interface, External Ris In - 03/29/2020 2:57 PM CSTVentricular Rate 65 BPMAtrial Rate 65 BPMP-R Interval 172 msQRS Duration 102 msQ-T Interval 404 msQTC Calculation(Bazett) 420 msP Simla 48 degreesR Simla 18 degreesT Simla 17 degreesNormal sinus rhythmNormal ECGWhen compared with ECG of 17-SEP-2019 09:04,No significant change was foundConfirmed by MD Erickson Roberto ([id number]) on 03/29/2020 2:57:08 [facility] ONLY)2020-03-27 17:29:00 Test Item Value Reference Range Interpretation Comments SARS-COV2/RT-PCR Negative Not Detected, (test code = Negative, See 00910-4) external report for linked test SARS-COV-2 [facility] PERFORMING LAB (test code = 11222-6) BEBE (test code = Negative result for [...] of the Act. Fact Sheet for Healthcare Providers:https://www.[employer]/sites/default/f bee/product/documents/F act_Sheet_HC_Providers_L mlc_CDEF-IwC-8.pdf Fact Sheet for Healthcare Patients:https://www.[employer]/sites/default/fi les/product/documents/Fa ct_Sheet_Patients_Lyra_S ARS-CoV-2.pdf Performing Laboratory:[facility], [place] [id number] [place], [place] [address]ARS-COV2/RT-PCR ([facility])2020-03-27 17:29:00 Test Item Value Reference Range Interpretation Comments SARS-COV2/RT-PCR (test Negative Not Detected, Negative, code = 2435132) See external report for linked test SARS-COV-2 PERFORMING LAB [facility] (test code = 4825332) Negative result for this test determines that [...] of the Act.Fact Sheet for Healthcare Prov iders:https://www.[facility]/sites/default/files/product/documents/Fact_Sheet_HC _Pnqcfhhyi_Iqsx_CFLQ-PdY-8.pdfFact Sheet for Healthcare Patients:https://www.[facility]/sites/default/files/product/docume nts/Jsfo_Btgjv_Lcngiibm_Qmnz_WZKA-KeB-2.pdfPerforming Laboratory:[facility], [place] [address]Suqtytuxeflzv metabolic [id number] 11:11:00 Test Item Value Reference Range Interpretation Comments Protein, Total 7.4 See_Comment [Automated (test code = message] The 2885-2) system which generated this result transmit isela reference range : 6.0 - 8.3 gm/dL . The reference range was not u sed to interpret th is result as normal/abnormal . Albumin (test code 4.5 g/dL 3.5-5 = 40543-4) Alkaline 85 U/L 40-150 Phosphatase (test code = 6768-6) Total Bilirubin 0.5 mg/dL 0.2-1.2 (test code = 1975-2) Sodium (test code = 139 meq/L 667-546 1688-2) Potassium (test 4.5 meq/L 3.5-5.1 code = 2823-3) Chloride (test code 105 meq/L 98-107 = 2075-0) CO2 (test code = 26 meq/L 22-29 2028-01) BUN (test code = 20 mg/dL 7- 3094-0) Creatinine (test 0.96 mg/dL 0.57-1.25 code = 2160-0) Glucose (test code 102 mg/dL 70-105 = 2345-7) Calcium (test code 9.0 mg/dL 8.4-10.2 = 27300-2) AST (test code = 24 U/L 5-34 1920-8) ALT (test code = 46 U/L 6-55 2-6) EGFR (test code = 87 mL/min/1.73 [place] [address]-7) NOT ACCURATE CREATININE CLEARANCE IN PREDICTING GLOMERULAR FILTRATION RATE . ESTIMATED GFR I S NOT APPLICABLE FOR DIALYSIS PATIEN TS. BEBE (test code = Register Of Deeds ID - BEBE) DEL [facility] Hospital[facility] [id number] 11:11:00 Test Item Value Reference Range Interpretation Comments Triglycerides (test 249 mg/dL code = 2571-8) Cholesterol (test code 170 mg/dL = 3-3) HDL (test code = 30 mg/dL 2085-01) LDL Calculated (test 90 mg/dL code = 60705-2) BEBE (test code = BEBE) Triglyceride Reference Range: Low Risk <150 Borderline 150-199 High Risk 200-499 Very High Risk >=500 Cholesterol Reference Range: Low Risk <200 Borderline 200-239 High Risk >240 HDL Cholesterol Reference Range: Low Risk >=60 High Risk <40 LDL Cholesterol Reference Range: Optimal <100 Near Optimal 100-129 Borderline 130-159 High 160-189 Very High >=190 Register Of Deeds ID - DEL [facility] HospitalCOMPREHENSIVE METABOLIC [id number] 11:11:00 Test Item Value Reference Range Interpretation [...] S NOT APPLICABLE FOR DIALYSIS PATIEN TS. Register Of Deeds ID - DEL [id number] 11:11:00 Test Item Value Reference Range Interpretation Comments MAGNESIUM (BEAKER) (test code = 1.9 mg/dL 1.6-2.6 627) Register Of Deeds ID - DEL CLIPID [id number] 11:11:00 Test Item Value Reference Range Interpretation [...] Borderline 130-159 High 160-189 Very High >=190 Register Of Deeds ID - DEL CHemoglobin [id number] 09:58:00 Test Item Value Reference Range Interpretation Comments Hemoglobin A1C (test code = 4548-4) 5.5 % 4.3-6.1 Lab Interpretation (test code = Normal 48498-6) [facility] [id number] 09:58:00 Test Item Value Reference Range Interpretation Comments HEMOGLOBIN A1C (BEAKER) (test code = 5.5 % 4.3-6.1 368) Type and screen, [id number] 09:52:00 Test Item Value Reference Range Interpretation Comments ABO/RH AUTOMATED (BEAKER) (test O POSITIVE code = 2260) Ab Scrn (test code = 890-4) NEGATIVE [facility] HospitalAPTT2020-11-13 09:01:00 Test Item Value Reference Range Interpretation Comments PARTIAL THROMBOPLASTIN TIME 32.8 seconds 22.5-36.0 (BEAKER) (test code = 760) PROTHROMBIN [id number] 09:00:00 Test Item Value Reference Range Interpretation [...] mechanical heart valves.CBC W/PLT COUNT & AUTO [id number] 08:48:00 Test Item Value Reference Range Interpretation [...] (BEAKER) (test code = 2801) CT, CTA, [id number] 09:24:00With contrastUnlisted Reason for Exam - Click Yes and Enter Reason Below->No [facility]: [facility]INC[facility] BAL[facility] : 1980 Sex: MAddendum BeginsREPORT STATUS:A [...] regarding the non- vascular findings by the Cutting Machine Operator Helper Radiologist. Signed: Anastacio Estrada MDReport Verified Date/Time: 03/19/2020 17:41:36 Reading Location: [place] [address] [address] Reading Room Carotid doppler [id number] 07:45:38Ejection FractionSSAINT [facility] E[facility]ARTLAB MKCKESSON CPACSRight Impression1. The internal [...] +!Prox CCA !103 !22.3!60 ! ! ! !+------ ---------+----+----+-----+ + + +!Dist CCA !92 !18.2!60 ! [...] !86.8!19.3!60 ! !Normal ! !+ +----+----+-----+ + +----- ------+!Dist ICA !81.5!27 !60 ! ! ! !+ +----+----+-----+ + + +!Prox ECA !108 !12.9!60 ! ! ! [...] Duplex Study Demographics Patient Name VINCENZO BALES Date of Study 03/19/2020 Age 40 Visit Number [id number] Gender Male Accession Number [id number] Date of 1980 Referring Joya Christina NP Room Number [facility] OPT Physician Seismograph Observer Joss Lombardi Interpreting CORINNE Tarango Physician ProcedureType [...] limits.3. The common carotid artery is within normallimits.4. The vertebral artery flow is antegrade and [...] -------+!Location !PSV !EDV !Angle!%Stenosis 2D!%Stenosis Doppler!Tortuosity !+ +----+----+-----+--- ---------+ + +!Prox CCA !103 !22.3!60 ! ! ! !+ +----+----+--- --+ + + +!Dist CCA !92 !18.2!60 ! ! ! !+ +----+--- -+-----+ + + +!Prox ICA !73.9!20.5!60 ! !Normal ! !+ ---+----+----+-----+ + + +!Dist ICA !79.2!28.7!60 ! ! ! !+----- +----+----+-----+ + + +!Prox ECA !129 !16.5!60 ! ! ! ! + +----+----+-----+ + + +!Luis Enrique tebral !53.9!17 !60 ! ! ! !+ +----+----+-----+ + + +!Pr ox Subclavian!175 ! !60 ! ! ! !+ +----+----+-----+ + + + - There is antegrade vertebral flow noted on the right side. - Additional Measurements:ICAPSV/CCAPSV 0.86.ICAEDV/CCAEDV 1.29.Carotid Left Measurements+ +----+----+-----+ + --+ +!Location !PSV !EDV !Angle!%Stenosis 2D!%Stenosis Doppler!Tortuosity !+ +----+----+-----+ + + +!Prox CCA !110 !21.6!60 ! ! ! !+-------- -------+----+----+-----+ + + +!Dist CCA !85.6!19.3!60 ! ! ! !+-- +----+----+-----+ + + +!Prox ICA !86.8!19.3!60 ! !Normal ! !+ +----+----+-----+ + + +!Di st ICA !81.5!27 !60 ! ! ! !+ +----+----+-----+ + + +!Pr ox ECA !108 !12.9!60 ! ! ! !+ +----+----+-----+ + + +!Ve rtebral !56.3!15.8!60 ! ! ! !+ +----+----+-----+ + +--------- --+!Prox Subclavian!145 ! !60 ! ! ! !+ +----+----+-----+ + + + - There is antegrade vertebral flow noted on the left side. - Additional Measurements:ICAPSV/CCAPSV 1.01.ICAEDV/CCAEDV 1.25.[facility] CTA [id number] 17:41:00Interface, External Ris In - 03/20/2020 9:26 [...] regarding the non- vascular findings by the Cutting Machine Operator Helper Radiologist. Signed: Anastacio Estrada MDReport Verified Date/Time: 03/19/2020 17:41:36 Reading Location: [place] [address] [address] [facility] METABOLIC [id number] 06:15:00 Test Item Value Reference Range Interpretation [...] S NOT APPLICABLE FOR DIALYSIS PATIEN TS. Register Of Deeds ID - PIAYA LCBC W/PLT COUNT & AUTO [id number] 05:43:00 Test Item Value Reference Range Interpretation [...] 0-1 PERCENT (BEAKER) (test code = 2801) [id number] 18:05:00 Test Item Value Reference Range Interpretation [...] for patients wiht mechanical heart valves.BASIC METABOLIC [id number] 18:03:00 Test Item Value Reference Range Interpretation [...] S NOT APPLICABLE FOR DIALYSIS PATIEN TS. Register Of Deeds ID - DBCBC W/PLT COUNT & AUTO [id number] 18:01:00 Test Item Value Reference Range Interpretation [...] PERCENT (BEAKER) (test code = 2801) POCT-GLUCOSE [id number] 06:01:00 Test Item Value Reference Range Interpretation Comments POC-GLUCOSE METER 107 mg/dL 70-110 : TESTED A T [facility] 6720 (BEAKER) (test code [facility], = 1538) [address]: Register Of Deeds/Techni paxton ID = [id number] for JORD AN, LACRYSTAL MISCELLANEOUS LAB [id number] 05:17:00 Test Item Value Reference Range Interpretation Comments SCAN RESULT (test code = See scanned report [id number]) HEMOGLOBIN [id number] 10:50:00 Test Item Value Reference Range Interpretation Comments HEMOGLOBIN A1C (BEAKER) (test code = 4.9 % 4.3-6.1 368) RAD, CHEST, 2 [id number] 10:38:00Reason for Exam:->pre opFINAL REPORT INDICATION: pre op COMPARISON: None TECHNIQUE: Frontal and lateralviews of the chest. FINDINGS: Lungs and pleura: Clear lungs. No effusion.Heart and mediastinum: Normal heart size. Unremarkable mediastinal contours.Osseous structures: No acute abnormality.Additional findings: None. IMPRESSION: No acute intrathoracic abnormality. Signed: Ariane Salinas MDReport Verified Date/Time: 09/17/2019 10:38:28 Reading Location: [facility] Radiology Reading Room COMPREHENSIVE METABOLIC [id number] 10:27:00 Test Item Value Reference Range Interpretation [...] S NOT APPLICABLE FOR DIALYSIS PATIEN TS. Register Of Deeds ID - NTPPROTHROMBIN TIME/[id number] 10:00:00 Test Item Value Reference Range Interpretation [...] mechanical heart valves.CBC W/PLT COUNT & AUTO [id number] 09:57:00 Test Item Value Reference Range Interpretation [...] % 0-1 PERCENT (BEAKER) (test code = 8456)
[2023-03-16] MEDS ORDERED: ONDANSETRON 4 MG (ODT) TAB ONE (10:32)
[2023-03-16] MEDS ORDERED: MORPHINE 4 MG/ML SYR ONE (10:32)
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
[2023-03-16 11:07] VITALS: TEMP 98.1; O2SAT 100
[2023-03-16 11:08] VITALS: BP 138/89
== END 2023-03-16 11:01 | disposition home or self-care (01) ==
LOC: ER 09:36
DX: S13.9XXA Sprain of joints and ligaments of unspecified parts of neck, initial encounter (principal); S33.5XXA Sprain of ligaments of lumbar spine, initial encounter; V49.49XA Driver injured in collision with other motor vehicles in traffic accident, initial encounter; I10 Essential (primary) hypertension; F17.210 Nicotine dependence, cigarettes, uncomplicated
CPT/HCPCS: 70450; 71250; 72125; 96372; 99284; Q0162